=== PATIENT | female | born 1965 ===

== ENCOUNTER → 2020-06-17 10:34 | Outpatient (BNVA) | payer MEDICAID, SELFPAY | PROVIDERS: PCP Nurse Practitioner Family; Referring Provider Nurse Practitioner Family; Visit Provider Orthopaedic Surgery | DX: R20.0 Anesthesia of skin (principal) | CPT/HCPCS: 99212 ==

== ENCOUNTER 2020-06-23 15:51 | Outpatient (REF) | payer MEDICAID, SELFPAY ==
--- NOTE | 2020-06-23 16:00 | MR_ITS ---
EXAMINATION: MR CERVICAL SPINE WITHOUT CONTRAST CLINICAL INFORMATION: Anesthesia of skin. Self-reported neck pain and left shoulder pain. Self-reported left arm weakness and numbness. COMPARISON: MRI left shoulder 05/07/2020 TECHNIQUE: MRI of the cervical spine was obtained using routine sequences without contrast. FINDINGS: VERTEBRAL BODIES AND PARASPINAL SOFT TISSUES: Mild physiologic straightening of the normal cervical lordosis is noted and likely relates to patient positioning. Vertebral body height, alignment and marrow signal are within normal limits aside from minimal endplate discogenic marrow signal changes and a 7 mm diameter focus within the C7 vertebral body with intrinsic high T1-weighted signal intensity most likely representing a hemangioma. CERVICOMEDULLARY JUNCTION AND VISUALIZED POSTERIOR FOSSA: Normal. SPINAL LEVELS: C2-C3: Normal. Normal intervertebral discs. No central or foraminal stenoses. C3-C4: Minimal central stenosis secondary to a mild posterior broad-based disc-osteophyte complex. C4-C5: Minimal central stenosis secondary to a mild posterior broad-based disc-osteophyte complex. C5-C6: Normal intervertebral discs. No central or foraminal stenoses. C6-C7: Moderate left foraminal stenosis secondary to a focal left uncovertebral joint disc-osteophyte complex (series 3 image 5). No central or right-sided foraminal stenoses. C7-T1: No central or foraminal stenoses. Incidental 3 mm rounded T2 hyperintensity likely representing a perineural sheath cyst within the immediate left extraforaminal region. MR/MR cervical spine wo con IMPRESSION: C6-C7 moderate left foraminal stenosis secondary to a focal disc-osteophyte complex of the left uncovertebral joint. Findings may be associated with left C7 radiculopathy. Elsewhere in the cervical spine, minimal multilevel chronic spondylosis is noted without associated significant central or foraminal stenoses.
== END 2020-06-23 15:52 | disposition home or self-care (01) ==
LOC: HO.MRI 15:51
PROVIDERS: Visit Provider Orthopaedic Surgery
DX: R20.0 Anesthesia of skin (principal)
CPT/HCPCS: 72141

== ENCOUNTER → 2020-07-21 10:51 | Outpatient (BNVA) | payer MEDICAID, SELFPAY | PROVIDERS: Visit Provider Nurse Practitioner Family | DX: M47.812 Spondylosis without myelopathy or radiculopathy, cervical region (principal) | CPT/HCPCS: 99202 ==

== ENCOUNTER 2021-07-18 13:32 | Outpatient (REF) | payer MEDICAID, SELFPAY ==
--- NOTE | ~2021-07-18 | MM_ITS ---
EXAMINATION: MM SCREENING DIGITAL BREAST TOMOSYNTHESIS, BILATERAL CLINICAL INFORMATION: Screening. Asymptomatic. Benign left ultrasound guided biopsy 10/20/2013 (benign breast tissue with focal acute inflammation and patchy marked give chronic inflammation in association with collections of macrophages. The findings are suggestive of an inflammatory reaction to a ruptured duct or cyst. No atypia or malignancy). The lifetime risk of breast cancer based on the Tyrer-Cuzick Model is 7%. COMPARISON: Mammography: 01/22/2018, 12/16/2015, 10/10/2013 TECHNIQUE: Digital breast tomosynthesis is performed in both the craniocaudal and mediolateral oblique views along with computer-aided detection (CAD). Synthesized 2D images are generated from the tomosynthesis. FINDINGS: There are scattered areas of fibroglandular density (ACR BI-RADS breast composition Category b). The right breast is unremarkable. There is no developing density or interval mass or abnormal calcification. The bilateral axilla and skin contours are unremarkable. Left breast has biopsy clip marker mid upper outer quadrant. There are focal grouped ectatic ducts with probable associated calcifications in the mid central 3:00 left breast more conspicuous on current study. Patient will be recalled for additional imaging. MM/MM tomosynthesis screening BI IMPRESSION: 1. Left: Focal grouped ectatic ducts mid central 3:00 position with calcifications. 2. Right: No mammographic evidence of malignancy. ASSESSMENT: BI-RADS 0: Incomplete - Need Additional Imaging Evaluation RECOMMENDATION: 1. Additional views of the left breast (magnification CC, magnification ML). 2. Targeted ultrasound if warranted after review of the additional views. 3. Radiology department staff will contact the patient for additional imaging. This patient's information was entered into a reminder system with a target due date for their next mammogram.
== END 2021-07-18 13:33 | disposition home or self-care (01) ==
LOC: HO.MAMMO 13:32
PROVIDERS: Visit Provider Nurse Practitioner Primary Care
DX: Z12.31 Encounter for screening mammogram for malignant neoplasm of breast (principal)
CPT/HCPCS: 77063; 77067

== ENCOUNTER 2021-07-21 10:15 | Outpatient (REF) | payer MEDICAID, SELFPAY ==
--- NOTE | ~2021-07-21 | US_ITS ---
EXAMINATION: US DIAGNOSTIC ULTRASOUND BREAST, LEFT CLINICAL INFORMATION: Density with calcifications.. COMPARISON: Mammography of same day as well as studies dating back to July 30, 2012. TECHNIQUE: Ultrasound of the breast is performed with real-time snow scale imaging and color Doppler. FINDINGS: Targeted left breast ultrasound did not demonstrate a focal mass. No abnormal cystic or solid mass is appreciated. No abnormal shadowing region is appreciated. No edematous change or hyperemia is appreciated. Results are discussed with the patient at time of visit. US/US breast LT limited IMPRESSION: Density containing multiple grouped indeterminate microcalcifications for which stereotactic core biopsy is recommended. No ultrasound correlate was identified. ASSESSMENT: BI-RADS 4: Suspicious RECOMMENDATION: Stereotactic core biopsy mass with calcifications. The above recommendation was discussed with the patient at time of study. Mammography Center coordinator called the above recommendation to Josey at referring provider's office.
--- NOTE | ~2021-07-21 | MM_ITS ---
EXAMINATION: MM DIAGNOSTIC DIGITAL MAMMOGRAPHY, LEFT CLINICAL INFORMATION: Left breast ill-defined focal mass with microcalcifications. COMPARISON: Mammography: 07/18/2021 and studies dating back to 07/30/2012. TECHNIQUE: Digital mammography is performed in the following views: Spot magnification views of the left breast in craniocaudal and 90 degree mediolateral views. FINDINGS: The breasts are heterogeneously dense, which may obscure small masses (ACR BI-RADS breast composition Category c). The serpiginous density about the lateral aspect of the mid left breast has numerous indeterminate calcifications within it without definite appearance of dystrophic calcifications. There is no layering of calcifications on 90 degree mediolateral view. Targeted left breast ultrasound did not demonstrate a focal mass. No abnormal cystic or solid mass is appreciated. No abnormal shadowing region is appreciated. No edematous change or hyperemia appreciated. Results are discussed with the patient at time of visit. MM/MM added views LT IMPRESSION: Density containing multiple grouped indeterminate microcalcifications for which stereotactic core biopsy is recommended. No ultrasound correlate was identified. ASSESSMENT: BI-RADS 4: Suspicious RECOMMENDATION: Stereotactic core biopsy mass with calcifications. The above recommendation was discussed with the patient at time of study. Mammography Center coordinator called the above recommendation to Josey at referring provider's office.
== END 2021-07-21 10:16 | disposition home or self-care (01) ==
LOC: HO.MAMMO 10:15
PROVIDERS: Visit Provider Nurse Practitioner Primary Care
DX: N63.20 Unspecified lump in the left breast, unspecified quadrant (principal); R92.0 Mammographic microcalcification found on diagnostic imaging of breast
CPT/HCPCS: 76642; 77065

== ENCOUNTER 2021-07-29 09:56 | Outpatient (REF) | payer MEDICAID, SELFPAY ==
--- NOTE | ~2021-07-29 | MM_ITS ---
EXAMINATION: STEREOTACTIC TOMOSYNTHESIS-GUIDED VACUUM-ASSISTED BREAST BIOPSY, LEFT SPECIMEN RADIOGRAPH, LEFT POST PROCEDURE DIGITAL MAMMOGRAM, LEFT CLINICAL INFORMATION: Irregular density with microcalcifications inferior aspect of the left breast. COMPARISON: July 21, 2021 and studies dating back to July 30, 2012. TECHNIQUE/PROCEDURE: Informed consent was obtained from the patient after discussion of the benefits, risks, and alternatives to biopsy today. Patient appeared to understand. Gave opportunity for questions. Patient signed consent form. BIOPSY TABLE: [place] [employer]one Biopsy System. LESION: Mass with microcalcifications. LOCAL ANESTHESIA: 8 mL 1% lidocaine; 16 mL 1% lidocaine with epinephrine. DERMATOTOMY: Single skin fabio dermatotomy performed. NEEDLE: [employer] Eviva 9-gauge vacuum assisted core biopsy device. APPROACH: Inferior. TARGETING: Digital breast tomosynthesis used for targeting. CORES: 20. CLIP: [employer] SecurMark Cylinder-shaped marker. SPECIMEN RADIOGRAPH: Specimen radiograph is taken in separate room using digital mammography. The index calcifications are in the excised cores. POST PROCEDURE UNILATERAL DIGITAL MAMMOGRAM: The post biopsy mammogram is performed in separate room using separate digital mammography equipment from the biopsy procedure. 2 views are obtained. There are scattered areas of fibroglandular density (breast composition category: b). The clip marker is in position. The calcifications are decreased at the biopsy site. No gross hematoma. The patient tolerated the procedure well. No immediate complications. Home instructions reviewed with the patient. Final pathology results are pending. MM/MM stereotactic biopsy LT IMPRESSION: 1. Digital tomosynthesis-guided core biopsy left breast with clip placement. 2. Specimen radiograph taken and post procedure mammogram. There is satisfactory positioning of the biopsy clip. 3. Final pathology results pending. An addendum report will be issued.
[2021-07-29] MEDS: Lidocaine HCl 1 % 20 ML VIAL 10 ML SUBCUT (12:35)
[2021-07-29] MEDS: Lidocaine HCl 1%/Epi 1:100,000 20 ML VIAL SUBCUT (12:36)
== END 2021-07-29 09:57 | disposition home or self-care (01) ==
LOC: HO.MAMMO 09:56
PROVIDERS: PCP Nurse Practitioner Primary Care; Visit Provider Surgery
DX: R92.1 Mammographic calcification found on diagnostic imaging of breast (principal)
CPT/HCPCS: 19081; 88305; 88341; 88342; 88360; A4648

== ENCOUNTER → 2021-08-02 08:44 | Outpatient (BNVA) | payer MEDICAID, SELFPAY | PROVIDERS: PCP Nurse Practitioner Primary Care; Referring Provider Nurse Practitioner Primary Care; Visit Provider Surgery | DX: R92.1 Mammographic calcification found on diagnostic imaging of breast (principal) | CPT/HCPCS: 99202 ==

== ENCOUNTER → 2021-08-04 10:33 | Outpatient (BNVA) | payer MEDICAID, SELFPAY | PROVIDERS: PCP Nurse Practitioner Primary Care; Referring Provider Nurse Practitioner Primary Care; Visit Provider Surgery | DX: D05.12 Intraductal carcinoma in situ of left breast (principal) | CPT/HCPCS: 99212 ==

== ENCOUNTER 2021-09-14 06:49 | Day surgery (SDC) | payer MEDICAID, SELFPAY ==
[2021-08-18 14:09] VITALS: BMI 27.4
--- NOTE | 2021-09-13 09:12 | HO.ANESPROP2 ---
Documented by User: Zulema Foley NP 09/13/21 09:15 HPI - Anesthesia Eval Consult details Narrative: 56yo F for Left Breast Biopsy Needle Localization, Breast Lumpectomy PMFSH Active Problems Active Problems: All Active Problems (Updated 08/18/21 @ 14:08 by Argenis Torres RN) Spondylosis of cervical joint without myelopathy (Acute) Breast calcification, left (Acute) Ductal carcinoma in situ of left breast (Acute) Arm numbness left (Acute) Past Medical History Medical History Arm numbness left Cervical spinal stenosis Depression GERD (gastroesophageal reflux disease) Surgical History Surgical History History of pterygium excision Social History Social History Alcohol intake: never Patient Tobacco Use Status: Current someday Tobacco user Tobacco use type: Cigarette Use of substances other than those prescribed or required for medical reasons: No Advance Directives Information Provided: Yes (informational brochure mailed) Advance Directives on File: No Current occupational status: unemployed Current occupation: Left Handed Meds Allergies Allergy/AdvReac Type Severity Reaction Status Date / Time No Known Allergies Allergy Verified 08/04/21 10:54 Home Medications Medication Instructions Recorded Confirmed Last Taken Type bupropion HBr PO 06/16/20 08/04/21 Unknown History cyclobenzaprine 5 mg tablet 5 mg PO BEDTIME 06/16/20 08/18/21 Unknown History omeprazole 20 mg capsule,delayed 20 mg PO DAILY 06/16/20 08/18/21 Unknown History release duloxetine 30 mg capsule,delayed 1 cap PO DAILY 08/18/21 08/18/21 Unknown History release albuterol sulfate 90 mcg/actuation 2 puff PO Q4H PRN 09/14/21 09/14/21 Unknown History aerosol inhaler (ProAir HFA) Exam Exam Date and Time: September 13, 2021 0912 Height,Weight and Vital Signs: Height 5 ft 5 in Weight 74.843 kg Assessment and Plan Assessment Anesthesia Assessment: Chart Reviewed Documented by User: Cayla Finley MD 09/14/21 09:28 [facility] Active Problems Active Problems: All Active Problems (Updated 08/18/21 @ 14:08 by Argenis Torres RN) Spondylosis of cervical joint without myelopathy (Acute) Breast calcification, left (Acute) 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 Inhaler prn Past Medical History Medical History Arm numbness left Cervical spinal stenosis Depression GERD (gastroesophageal reflux disease) Family History Family history of problems with anesthesia: No Surgical History Surgical History History of pterygium excision History of Problems with Anesthesia: No Social History Social History Alcohol intake: never Patient Tobacco Use Status: Current someday Tobacco user Tobacco use type: Cigarette Use of substances other than those prescribed or required for medical reasons: No Advance Directives Information Provided: Yes (informational brochure mailed) Advance Directives on File: No Current occupational status: unemployed Current occupation: Left Handed Meds Allergies Allergy/AdvReac Type Severity Reaction Status Date / Time No Known Allergies Allergy Verified 08/04/21 10:54 Home Medications Medication Instructions Recorded Confirmed Last Taken Type bupropion HBr PO 06/16/20 08/04/21 Unknown History cyclobenzaprine 5 mg tablet 5 mg PO BEDTIME 06/16/20 08/18/21 Unknown History omeprazole 20 mg capsule,delayed 20 mg PO DAILY 06/16/20 08/18/21 Unknown History release duloxetine 30 mg capsule,delayed 1 cap PO DAILY 08/18/21 08/18/21 Unknown History release albuterol sulfate 90 mcg/actuation 2 puff PO Q4H PRN 09/14/21 09/14/21 Unknown History aerosol inhaler (ProAir HFA) Exam Height,Weight and Vital Signs: Height 5 ft 5 in Weight 74.843 kg Vital Signs Temp Pulse Resp BP Pulse Ox 09/14/21 07:33 98.1 F 72 16 117/78 97 Airway Mallampati Class: II TM Dist: >3cm Neck ROM: Full Loose/Missing/Broken Teeth: No Heart: RRR Lungs: CTAB Assessment and Plan Assessment Anesthesia Assessment: Anesthesia Plan Discussed Final Anesthetic Review Family History of Problems with Anesthesia: No History of Problems with Anesthesia: No NPO: Yes ASA Class: II Final Preanesthetic Review: No Changes in Pt Med Stat, Meds/Allgs Chart Reviewed, Consent Obtained/Reviewed and Anes Risks/Benef Reviewed Patient Risk: Low Procedure Risk: Low Assessment/Block/Sedation in SS: Assess/Block/Sedation-SS Anesthetic Plan Anesthetic Plan: GA Disposition: Standard PACU
[2021-09-14] VITALS (8 sets, daily range): BP systolic 112–123; BP diastolic 61–78; PULSE 55–72; RESP 12–16; TEMP 36.3–36.9; O2SAT 97–100
--- NOTE | ~2021-09-14 | MM_ITS ---
EXAMINATION: MM MAMMOGRAM GUIDED NEEDLE LOCALIZATION BREAST, LEFT MM NEEDLE LOCALIZATION SPECIMEN FROM THE LEFT BREAST CLINICAL INFORMATION: Recent diagnosis DCIS left breast mid 3:00 COMPARISON: Stereotactic biopsy 07/29/2021; mammography 07/21/2021, 07/18/2021, 01/22/2018. TECHNIQUE NEEDLE LOC: Proper informed consent is obtained from the patient after discussion of the procedure, potential risks and complications, and alternatives including declining the procedure today. Patient was given an opportunity for questions. The patient appeared to understand. The patient consented to the procedure and signed the consent form. Hospital provided burn crew member assisted for the consent and throughout the procedure. GUIDANCE: Digital mammography. Pre-localization CC and ML views obtained to reassess area. APPROACH: Lateral Medial. TARGET: Cylinder shaped biopsy clip marker and subtle duct ectasia. Bracket lesion posterior and anterior to the clip marker. ANESTHESIA: Carbonated lidocaine 1%: 9 mL (total divided between the two sites). LOCALIZATION MARKERS: Maynard Weditok 7.5 cm x 2 needles for bracketing. The skin is prepped and local anesthesia administered. The 2 localization needles are positioned and locations assessed with mammography. The wires are hooked into position. Shumway needle protector placed. The patient tolerated the procedure well and had no immediate complication. Localization procedure findings discussed with Dr. Li prior to surgery. TECHNIQUE SPECIMEN RADIOGRAPH: Imaging of the excised specimen is performed using digital mammography in 1 view. FINDINGS SPECIMEN RADIOGRAPH: The specimen shows the distal needles and distal hookwires are delivered intact. One of the localization needles sectioned in OR prior to delivery to radiology. The biopsy clip marker is contained within the specimen. There are fine calcifications and fibroglandular densities also identified in the specimen. Results were called to Dr. Silvestre Li in the operating room at the time of imaging. MM/MM needle loc LT IMPRESSION: 1. Status post left breast needle localization with wire hooked into position. 2. Post operative specimen radiograph obtained.
--- NOTE | 2021-09-14 08:53 | MHC.SHP ---
Pre-Procedural Eval Section A Date of Service: 09/14/21 The patient is an INPATIENT: No Changes since office visit: Yes Patient answered all questions; No Cold of Flu in the past 2 weeks, No New Medical Problems and No Changes in Medication The History & Physical has been completed within 30 days and I have reviewed it.: Yes Section B Chief Complaint: Ductal carcinoma in situ of left breast Allergies: Allergies Allergy/AdvReac Type Severity Reaction Status Date / Time No Known Allergies Allergy Verified 08/04/21 10:54 Plan Diagnosis/Plan: Unchanged I have reviewed the history and physical and performed a pertinent physical examination on my patient. No changes have occurred unless specified.
[2021-09-14] MEDS: Lactated Ringers 1,000 ML 100 ML IVCONT (09:14)
[2021-09-14] MEDS: Lidocaine HCl 1 % 20 ML VIAL 16 ML SUBCUT (10:51)
--- NOTE | 2021-09-14 11:15 | P.OP_ITS ---
Operative Note Operative Note Date of Service: 09/14/21 Narrative: Preoperative diagnosis: Ductal carcinoma in situ left breast Postoperative diagnosis: same Procedure: left breast lumpectomy with needle localization Surgeon: Silvestre Li MD Director Service: Ena Colin PA-C Anesthesia: general LMA Indications for procedure: 56-year-old female patient presenting with a recent mammogram which revealed an area of density and microcalcification felt to be suspicious for malignancy. She subsequently underwent stereotactic guided core biopsy which revealed ductal carcinoma in situ Left breast. She presents today for a left breast lumpectomy with needle localization. Operative findings: Density and clip within specimen Specimen: left breast lumpectomy, anterior margin, posterior margin Estimated blood loss: 10 mL Complications: none Procedure details: patient was brought to the OR placed in a supine position. After administering general anesthesia the patient's left breast was prepped with ChloraPrep and draped in a sterile fashion. A surgical time-out was called the consent confirmed. Patient received preoperative antibiotics and Venodyne boots were placed. Local anesthesia consisting of Sensorcaine 0.5% was placed in a curvilinear fashion on the localized needles. Should be noted that there were 2 needles placed by Radiology. Using the more superior needle incision was created to included needle track of this superior needle. Superior and inferior skin flaps were then created with electrocautery. A core tissue surrounding the 2 localizing needles was then obtained. The biopsy continued down towards pectoralis muscle posteriorly. Specimen was sent for specimen x-ray which confirmed the marking clip within the specimen. Subsequent gross pathology did reveal a palpable density within the specimen consistent with the previously noted ductal carcinoma in situ. The margins were felt to be negative but close therefore anterior and posterior margins were recommended. A portion of the anterior and posterior margins were then reexcised and sent as separate specimens permanent examination. Adequate hemostasis was assured using electrocautery. The wounds were then irrigated with solution and suctioned dry. Deep breast tissue was then closed over the pectoralis muscle using interrupted 3-0 Polysorb sutures. Superficial breast tissue and dermis were then reapproximated using interrupted 3-0 Polysorb sutures. Skin was then closed using a running subcuticular suture. Steri- Strips and 2 x 2 gauze were then applied followed by Tegaderm. The patient tolerated the procedure well. Sponge, instrument, and needle counts were reported as correct. The patient was transferred to PACU in stable condition.
== END 2021-09-14 13:45 | disposition home or self-care (01) ==
PROVIDERS: PCP Nurse Practitioner Primary Care; Visit Provider Surgery
PROC: (CPT 19301; principal; 2021-09-14 09:00)
PROC: (CPT 19301; 2021-09-14 09:00)
DX: D05.12 Intraductal carcinoma in situ of left breast (principal); Z17.0 Estrogen receptor positive status [ER+]; Z98.890 Other specified postprocedural states; Z79.899 Other long term (current) drug therapy; F17.210 Nicotine dependence, cigarettes, uncomplicated
CPT/HCPCS: 19301; 19281; 88307; 88329; 88341; 88342; A4648; J0690; J1100; J1170; J1885; J2250; J2370; J2405; J2550; J3010

== ENCOUNTER → 2021-09-23 08:38 | Outpatient (BNVA) | payer MEDICAID, SELFPAY | PROVIDERS: PCP Nurse Practitioner Primary Care; Referring Provider Nurse Practitioner Primary Care; Visit Provider Surgery | DX: D05.12 Intraductal carcinoma in situ of left breast (principal); Z98.890 Other specified postprocedural states | CPT/HCPCS: 99212 ==

== ENCOUNTER → 2021-09-28 08:21 | Outpatient (BNV) | payer MEDICAID, SELFPAY | PROVIDERS: PCP Nurse Practitioner Primary Care; Referring Provider Surgery; Visit Provider Internal Medicine | DX: D05.12 Intraductal carcinoma in situ of left breast (principal); M85.80 Other specified disorders of bone density and structure, unspecified site | CPT/HCPCS: 99204; 99213; 99214 ==

== ENCOUNTER → 2021-10-27 14:41 | Outpatient (BNVA) | payer MEDICAID, SELFPAY | PROVIDERS: PCP Nurse Practitioner Primary Care; Visit Provider Surgery | DX: D05.12 Intraductal carcinoma in situ of left breast (principal); K21.9 Gastro-esophageal reflux disease without esophagitis; F17.210 Nicotine dependence, cigarettes, uncomplicated | CPT/HCPCS: 99212 ==

== ENCOUNTER 2021-12-21 07:55 | Outpatient (REF) | payer MEDICAID, SELFPAY ==
--- NOTE | ~2021-12-21 | MM_ITS ---
EXAMINATION: BONE DENSITOMETRY CLINICAL INDICATION: To start hormonal suppression. COMPARISON: This is the patient's baseline examination. TECHNIQUE: Using a [employer] DXA System (software version: 13.1) manufactured by [employer], dual-energy x-ray absorptiometry was performed of the lumbar spine and left hip. The images are of good technical quality. Summary results are attached. FINDINGS: AP SPINE L1-L4: BMD 1.135 g/cm2, Z-score 0.0, T-score -0.4, normal. LEFT FEMUR, NECK: BMD 0.880 g/cm2, Z-score -0.4, T-score -1.1, osteopenia. LEFT FEMUR, TOTAL: BMD 0.936 g/cm2, Z-score -0.2, T-score -0.6, normal. IDENTIFIED RISK FACTORS: Low calcium intake, menopause. HISTORY OF FRACTURE: None listed. MEDICATIONS: None listed. MM/XR DEXA axial skeleton IMPRESSION: 1. DIAGNOSIS: Osteopenia based on the lowest T-score value of -1.1 in the femoral neck applying World Health Organization criteria. 2. 10-YEAR FRACTURE RISK PREDICTION, FRAX: Major osteoporotic fracture (clinical spine, forearm, hip or shoulder) 3.2%. Hip fracture 0.2%. 3. Treatment Recommendations: NOF guidelines recommend consideration for treatment in postmenopausal women and men age 50 and older presenting with the following: -A hip or vertebral (clinical or morphometric) fracture. -T-score less than or equal to -2.5 at the femoral neck or spine after appropriate evaluation to exclude secondary causes. -Low bone mass at the hip or spine and a 10-year fracture probability by FRAX of greater than or equal to 3% for hip fracture or greater than or equal to 20% for major osteoporotic fracture based on the [place] adapted WHO algorithm. 4. Other Recommendations: All treatment decisions require clinical judgment and consideration of individual patient factors, including patient preferences, comorbidities, previous drug use, risk factors not captured in the FRAX model (e.g. frailty, falls, vitamin D deficiency, increased bone turnover, interval significant decline in bone density) and possible under or overestimation of fracture risk by FRAX. Additional medical evaluation for secondary cause of low bone mineral density may be appropriate. FUTURE SCAN RECOMMENDATION: People with diagnosed cases of osteoporosis or at high risk for fracture should have regular bone mineral density tests. For patients eligible for Medicare, routine testing is allowed once every 2 years. The testing frequency can be increased to one year for patients who have rapidly progressing disease, those who are receiving or discontinuing medical therapy to restore bone mass, or have additional risk factors.
== END 2021-12-21 07:56 | disposition home or self-care (01) ==
LOC: HO.MAMMO 07:55
PROVIDERS: PCP Nurse Practitioner Family; Visit Provider Internal Medicine
DX: Z13.820 Encounter for screening for osteoporosis (principal); M89.8X9 Other specified disorders of bone, unspecified site; Z78.0 Asymptomatic menopausal state
CPT/HCPCS: 77080

== ENCOUNTER → 2022-02-10 11:25 | Outpatient (BNVA) | payer MEDICAID, SELFPAY | PROVIDERS: PCP Nurse Practitioner Primary Care; Visit Provider Surgery | DX: D05.12 Intraductal carcinoma in situ of left breast (principal); Z92.3 Personal history of irradiation | CPT/HCPCS: 99212 ==

== ENCOUNTER → 2022-05-16 10:45 | Outpatient (BNVA) | payer MEDICAID, SELFPAY | PROVIDERS: PCP Nurse Practitioner Primary Care; Referring Provider Nurse Practitioner Primary Care; Visit Provider Surgery | DX: D05.12 Intraductal carcinoma in situ of left breast (principal); Z79.811 Long term (current) use of aromatase inhibitors; Z17.0 Estrogen receptor positive status [ER+] | CPT/HCPCS: 99212 ==

== ENCOUNTER 2022-08-18 10:41 | Outpatient (REF) | payer MEDICAID, SELFPAY ==
--- NOTE | ~2022-08-18 | MM_ITS ---
EXAMINATION: MM DIAGNOSTIC DIGITAL BREAST TOMOSYNTHESIS, BILATERAL CLINICAL INFORMATION: Due for yearly. Left lumpectomy for DCIS 09/14/2021. COMPARISON: Mammography: 09/14/2021, 07/29/2021, 07/21/2021, 07/18/2021, 01/22/2018 TECHNIQUE: Digital breast tomosynthesis is performed in both the craniocaudal and mediolateral oblique views along with computer-aided detection (CAD). Synthesized 2D images are generated from the tomosynthesis. Additional magnification left CC and magnification left ML views are obtained. FINDINGS: There are scattered areas of fibroglandular density (ACR BI-RADS breast composition Category b). Right breast parenchymal pattern is similar to prior exams. There is no interval mass or developing density or abnormal calcifications. The axilla and skin contours are unremarkable. There are interval post therapy changes on the left with reduced breast size and scarring. Old biopsy clip marker present central mid outer left breast. There are 2 benign oil cysts just anterior to the inferior to the old clip marker. There are benign appearing calcifications along the rim of the oil cyst which will be reassessed again in 6 months. There are other scant scattered calcifications as before. The axilla is unremarkable. Results are provided to the patient at time of visit by the technologist. MM/MM tomosynthesis diagnostic BI IMPRESSION: -No mammographic evidence of malignancy. -Post therapy changes left breast. Benign-appearing calcifications likely related to oil cyst. ASSESSMENT: BI-RADS 3: Probably Benign RECOMMENDATION: Short interval follow-up left mammography in 6 months. This patient's information was entered into a reminder system with a target due date for their next mammogram.
== END 2022-08-18 10:42 | disposition home or self-care (01) ==
LOC: HO.MAMMO 10:41
PROVIDERS: Visit Provider Nurse Practitioner Primary Care
DX: Z98.890 Other specified postprocedural states (principal); Z85.3 Personal history of malignant neoplasm of breast
CPT/HCPCS: 77062; 77066

== ENCOUNTER → 2022-11-14 10:52 | Outpatient (BNVA) | payer MEDICAID, SELFPAY | PROVIDERS: PCP Nurse Practitioner Primary Care; Visit Provider Surgery | DX: D05.12 Intraductal carcinoma in situ of left breast (principal) | CPT/HCPCS: 99212 ==

== ENCOUNTER 2023-02-08 12:53 | Emergency (ER) | payer MEDICAID, SELFPAY ==
--- NOTE | ~2023-02-08 | CT_ITS ---
EXAMINATION: CT ABDOMEN AND PELVIS WITHOUT CONTRAST CLINICAL INFORMATION: Right flank pain. COMPARISON: None available. TECHNIQUE: Multidetector volumetric imaging was performed from the superior aspect of the liver through the pubic symphysis. Sagittal and coronal reformatted images were obtained on the technologist's workstation. This CT examination was performed using dose optimization techniques as appropriate, variously including the following: *Automated exposure control *Adjustment of mA and/or kV according to patient size (this includes techniques or standardized protocols for targeted exams where dose is matched to indication/reason for exam; i.e. extremities or head) *Use of iterative reconstruction technique DLP: 520 mGy-cm FINDINGS: LUNG BASES: The visualized lung bases are unremarkable. LIVER, GALLBLADDER, AND BILIARY TREE: The liver is normal in size, shape, and attenuation. Within the anterior segment of the right hepatic lobe (3:14), a 5 mm low-attenuation probable cyst is seen, too small to fully characterize with CT. No new focal hepatic lesion or biliary ductal dilatation is present. The gallbladder is unremarkable with no evidence of radiopaque gallstones, gallbladder wall thickening, or obvious pericholecystic inflammatory changes. PANCREAS: Unremarkable. SPLEEN: Unremarkable. ADRENAL GLANDS: Unremarkable. KIDNEYS AND URETERS: The kidneys are normal in size, shape, and attenuation. No hydronephrosis, hydroureter, or calculi seen. There are small pelvic phleboliths. No perinephric stranding. BLADDER: Unremarkable. GASTROINTESTINAL TRACT: There is mild diverticulosis, without acute diverticulitis. No bowel obstruction, free intraperitoneal air or abscess is seen. There is no focal bowel wall thickening. The vermiform appendix appears normal. ABDOMINAL WALL: There is a tiny fat-containing umbilical hernia. LYMPH NODES: Normal. VASCULAR: There is mild aortoiliac atherosclerotic calcification. No abdominal aortic aneurysm is seen. PELVIC VISCERA: The uterus and adnexa are unremarkable. OSSEOUS STRUCTURES: There is multi-level mild thoracolumbar spondylosis. A benign, stable bone island is seen within the right femoral head. No acute or aggressive osseous abnormality is seen. CT/CT abdomen pelvis wo IV con IMPRESSION: 1. No urinary calculus or obstructive uropathy is seen bilaterally. 2. A 5 mm low-attenuation probable cyst or benign hemangioma is seen within the anterior segment of the right hepatic lobe, too small for full characterization with CT. This is not seen with certainty on the comparison CT examination. If of clinical concern (i.e., history of hepatocellular disease or known malignancy), this can be further evaluated with ultrasound or MRI. 3. There is mild diverticulosis, without acute diverticulitis. 4. No abdominopelvic lymphadenopathy or ascites is seen. 5. There is no acute or aggressive osseous finding. Fleischner guidelines were followed.
[2023-02-08 12:55] VITALS: BP 121/82; PULSE 58; RESP 18; TEMP 35.8; O2SAT 100; BMI 25.6
--- NOTE | 2023-02-08 12:58 | ECG_ITS ---
Test Reason : DIZZINESS Blood Pressure : / mmHG Vent. Rate : 066 BPM Atrial Rate : 066 BPM P-R Int : 136 ms QRS Dur : 086 ms QT Int : 414 ms P-R-T Axes : 062 002 030 degrees QTc Int : 434 ms Normal sinus rhythm Low voltage QRS Septal infarct , age undetermined Abnormal ECG When compared to the previous EKG of No significant changes seen
--- NOTE | 2023-02-08 12:59 | ED.GENADULT ---
[facility] - General Adult General Chief complaint: Nausea/Vomiting/Diarrhea Stated complaint: vomiting Time Seen by Provider: 02/08/23 16:46 Source: patient and family Mode of arrival: ambulatory History of Present Illness HPI narrative: 57-year-old female who reports right flank pain that started this morning but denies history of fever, chills, renal colic, denies any dysuria and then took 800 mg of ibuprofen and promptly developed acute epigastric discomfort with multiple episodes of nausea and vomiting. Related Data Home Medications Medication Instructions Recorded Confirmed cyclobenzaprine 5 mg tablet 5 mg PO BEDTIME 06/16/20 12/28/22 duloxetine 30 mg capsule,delayed 1 cap PO DAILY 08/18/21 12/28/22 release albuterol sulfate 90 mcg/actuation 2 puff PO Q4H PRN wheezing 09/14/21 12/28/22 aerosol inhaler (ProAir HFA) ibuprofen 200 mg PO BID PRN Pain 09/28/21 12/28/22 meloxicam 7.5 mg tablet 7.5 mg PO DAILY 09/28/21 12/28/22 omeprazole 20 mg capsule,delayed 1 cap PO DAILY 02/20/22 12/28/22 release Previous Rx's Medication Instructions Recorded letrozole 2.5 mg tablet 2.5 mg PO DAILY #60 tabs 12/21/21 ergocalciferol (vitamin D2) 1,250 1,250 mcg PO QWEEK #6 caps 02/10/22 mcg (50,000 unit) capsule (Vitamin D2) breast prosthetic #2 ea 05/16/22 post-lumpectomy bra #2 ea 05/16/22 omeprazole 40 mg capsule,delayed 40 mg PO DAILY #30 caps 02/08/23 release sucralfate 100 mg/mL oral 10 ml PO BID #420 mL 02/08/23 suspension (Carafate) Allergies Allergy/AdvReac Type Severity Reaction Status Date / Time No Known Allergies Allergy Verified 02/08/23 12:55 Review of Systems Review of Systems: Pertinent positives and negatives as stated in [facility] Past Medical History Source: nursing notes reviewed Medical History Arm numbness left Asthma Cervical spinal stenosis Depression GERD (gastroesophageal reflux disease) Surgical History History of pterygium excision S/P lumpectomy, left breast (09/14/21) Family History Family History Maternal Grandmother Stomach cancer Social History Social History Household Members: Children Housing: Apartment Are you a primary hospice patient care secretary to a significant other at home: No Do you presently have visiting nurse or other home services: No Alcohol intake: never Patient Tobacco Use Status: Former Tobacco user Quit Date: 12/2021 Tobacco use type: Cigarette Advance Directives: No Advance Directives Information Provided: No service: No Current occupational status: unemployed Current occupation: Left Handed Physical Exam ED Vital Signs: Vital Signs - 24 hr 02/08/23 12:55 02/08/23 18:01 02/08/23 18:01 Temperature 96.4 F L Pulse Rate 58 69 65 Respiratory Rate 18 Blood Pressure 121/82 134/72 125/83 Pulse Oximetry 100 Oxygen Delivery Method Room Air 02/08/23 18:01 02/08/23 18:03 02/08/23 20:21 Temperature 98.3 F Pulse Rate 70 69 61 Respiratory Rate 16 18 Blood Pressure 134/90 H 134/72 124/69 Pulse Oximetry 98 Oxygen Delivery Method Room Air BMI result Body Mass Index 25.6 VITAL SIGNS: Reviewed. GENERAL: Well developed, well nourished, in moderate distress. HEAD: Normocephalic/atraumatic, EYES: PERRLA, EOMI EARS: Ext canals without abnormality NOSE: Nares patent bilateral OROPHARYNX: no oral lesions noted, posterior pharynx clear NECK: Supple, no adenopathy LUNGS: Normal breath sounds. No adventitious sounds or accessory muscle use. SpO2<100> CARDIOVASCULAR: Regular rate and rhythm without noted murmurs ABDOMEN: Soft, epigastric discomfort without rebound, non-distended with bowel sounds. MUSCULOSKELETAL: No tenderness, deformities, or effusions noted on gross inspection. EXTREMITIES: No cyanosis, clubbing or edema. SKIN: Inspection of the skin reveals no rashes NEUROLOGIC: Alert and oriented x 4. Strength and sensation to light touch were grossly intact x 4. Course Course Course Narrative: I attest to this time spent taking care of the patient, obtaining history, physical, reviewing labs, imaging, speaking to my attending, speaking to specialist. 57 yo f hx of breast cancer s/p lumpectomy of left breast on 09/14/21 presents w/ epigastric pain, nausea, vomiting and light headedness since 0600. No sick contacts. Smokes marijuanna at times not today or yesterday though. Doesnt drink alcohol. Plan- labs, ua, zofran Medications Administered Discontinued Medications Generic Name Dose Route Start Last Admin Trade Name Josep PRN Reason Stop Dose Admin Diphenhydramine HCl 25 mg 02/08/23 16:49 02/08/23 17:22 Diphenhydramine Hcl 50 Mg/Ml Vial IVPUSH 02/08/23 16:50 25 mg ONCE ONE Administration Famotidine 20 mg 02/08/23 19:20 02/08/23 19:29 Famotidine/Pf 20 Mg/2 Ml Vial IVPUSH 02/08/23 19:21 20 mg ONCE ONE Administration Famotidine 20 mg 02/08/23 20:06 02/08/23 20:27 Famotidine/Pf 20 Mg/2 Ml Vial IVPUSH 02/08/23 20:07 20 mg ONCE ONE Administration Sodium Chloride 1,000 mls @ 999 mls/hr 02/08/23 17:30 02/08/23 18:12 Ns IV 02/08/23 18:30 999 mls/hr .Q1H1M CYDNEY Administration Ketorolac Tromethamine 15 mg 02/08/23 17:01 02/08/23 17:21 Ketorolac Tromethamine 30 Mg/Ml Vial IVPUSH 02/08/23 17:02 15 mg ONCE ONE Administration Metoclopramide HCl 10 mg 02/08/23 16:49 02/08/23 17:22 Metoclopramide Hcl 10 Mg/2 Ml Vial IVPUSH 02/08/23 16:50 10 mg ONCE ONE Administration Ondansetron HCl 4 mg 02/08/23 13:00 02/08/23 14:07 Ondansetron Odt 4 Mg Tab.Rapdis TRANSLINGU 02/08/23 13:01 4 mg ONCE ONE Administration Ondansetron HCl 4 mg 02/08/23 16:49 02/08/23 17:21 Ondansetron Hcl 4 Mg/2 Ml Vial IVPUSH 02/08/23 16:50 4 mg ONCE ONE Administration Sucralfate 1 gm 02/08/23 19:20 02/08/23 19:29 Sucralfate Oral Suspension 1 Gm/10 Ml Oral.Susp PO 02/08/23 19:21 1 gm ONCE ONE Administration Medical Decision Making Medical Decision Making [facility] Narrative: 1731: 57-year-old female with history and clinical presentation DDX: Pyelonephritis, cholecystitis, pancreatitis, gastritis, UTI. 2000: Notified by nursing that patient's Iv infiltrated and unlikely that she got the IV Pepcid which was reordered. I reviewed all investigations to include imaging studies, there is no leukocytosis on hematologic studies in although there is a left shift this may be stress response due nausea and vomiting. Review of chemistries demonstrates a mildly elevated lipase which likely can resolve with rehydration. She is tolerating oral intake and is otherwise discharged home with instructions of gastritis/pancreatitis. No evidence suggest cholecystitis or pyelonephritis. Differential Diagnosis Please see the discussion above Admission/Observation Consideration of admission/observation: Escalation of care including admission/observation considered Lab Data Please see the discussion above 02/08/23 13:19 02/08/23 13:20 Labs: Lab Results 02/08/23 02/08/23 02/08/23 Range/Units 13:19 13:20 13:20 WBC 8.5 (4.8-10.8) X10*3/uL RBC 4.67 (4.20-5.50) X10*6/uL Hgb 14.6 (12.0-16.0) g/dl Hct 43.2 (37.0-47.0) % MCV 92.5 (80.0-98.0) fL MCH 31.3 (27.0-33.0) pg MCHC 33.8 (31.0-35.0) g/dl RDW 13.5 (11.0-16.0) % Plt Count 327 (160-400) X10*3/uL MPV 11.5 (9.4-12.3) fL Immature Gran % (Auto) 0.2 (0.0-0.4) % Neut % (Auto) 81.1 H (45-73) % Lymph % (Auto) 15.0 L (20-40) % [place] % (Auto) 3.0 (2-11) % Eos % (Auto) 0.2 (0-4) % Baso % (Auto) 0.5 (0-2) % Lymph # (Auto) 1.3 (1.2-4.9) X10*3/uL [place] # (Auto) 0.3 (0.1-1.2) X10*3/uL Eos # (Auto) 0.0 (0.0-0.4) X10*3/uL Baso # (Auto) 0.0 (0.0-0.2) X10*3/uL Abs Immat Gran (auto) 0.02 (0.00-0.03) X10*3/uL Absolute Neuts (auto) 6.9 (2.0-8.3) x10*3/uL Absolute Nucleated RBC 0.000 (0.0-0.012) X10*3/uL Nucleated RBC % (auto) 0.0 (0.0-0.2) /100WBC Sodium 141 (135-145) mmol/L Potassium 4.3 (3.3-5.1) mmol/L Chloride 105 (96-108) mmol/L Carbon Dioxide 26 (22-29) mmol/L Anion Gap 14 (12-20) BUN 13 (9-16) mg/dL Creatinine 0.80 (0.5-1.4) mg/dL Estim Creat Clear Calc 77.0 Estimated GFR > 60 Random Glucose 112 (60-115) mg/dL Calcium 10.3 H D (8.4-10.2) mg/dL Magnesium 2.2 (1.6-2.6) mg/dL Total Bilirubin 0.6 (0.0-1.0) mg/dL AST 22 (5-31) U/L ALT 25 (0-31) U/L Alkaline Phosphatase 64 (39-117) U/L Total Protein 7.5 (6.5-8.0) g/dL Albumin 4.1 (3.5-5.0) g/dL Lipase 81 H (8-78) U/L Beta HCG, Quant 4 mIU/mL Urine Color Urine Appearance Urine pH (5.0-9.0) Ur Specific [place] (1.005-1.025) Urine Protein (Neg-Trace) mg/dL Urine Glucose (UA) (Negative) mg/dL Urine Ketones (Negative) mg/dL Urine Blood (Negative) Urine Nitrite (Negative) Ur Leukocyte Esterase (Negative) Urine RBC (0-2) /HPF Urine WBC (0-5) /HPF Ur Squamous Epith Cells (0-2) /HPF Other Crystals Urine Bacteria (None Seen) Hyaline Casts (0-2) /LPF Urine Yeast Urine Opiates Screen (Not Detect) Urine Fentanyl Screen (Not Detect) Ur Barbiturates Screen (Not Detect) Ur Phencyclidine Scrn (Not Detect) Ur Amphetamines Screen (Not Detect) U Benzodiazepines Scrn (Not Detect) Urine Cocaine Screen (Not Detect) U Marijuana (THC) Screen (Not Detect) COVID-19 (REGULO) (Negative) COVID-19 Clin Com Influenza Type A (CLAUDIO) (Negative) Influenza Type B (CLAUDIO) (Negative) Influenza A & B Note 02/08/23 02/08/23 02/08/23 Range/Units 13:20 13:20 19:50 WBC (4.8-10.8) X10*3/uL RBC (4.20-5.50) X10*6/uL Hgb (12.0-16.0) g/dl Hct (37.0-47.0) % MCV (80.0-98.0) fL MCH (27.0-33.0) pg MCHC (31.0-35.0) g/dl RDW (11.0-16.0) % Plt Count (160-400) X10*3/uL MPV (9.4-12.3) fL Immature Gran % (Auto) (0.0-0.4) % Neut % (Auto) (45-73) % Lymph % (Auto) (20-40) % [place] % (Auto) (2-11) % Eos % (Auto) (0-4) % Baso % (Auto) (0-2) % Lymph # (Auto) (1.2-4.9) X10*3/uL [place] # (Auto) (0.1-1.2) X10*3/uL Eos # (Auto) (0.0-0.4) X10*3/uL Baso # (Auto) (0.0-0.2) X10*3/uL Abs Immat Gran (auto) (0.00-0.03) X10*3/uL Absolute Neuts (auto) (2.0-8.3) x10*3/uL Absolute Nucleated RBC (0.0-0.012) X10*3/uL Nucleated RBC % (auto) (0.0-0.2) /100WBC Sodium (135-145) mmol/L Potassium (3.3-5.1) mmol/L Chloride (96-108) mmol/L Carbon Dioxide (22-29) mmol/L Anion Gap (12-20) BUN (9-16) mg/dL Creatinine (0.5-1.4) mg/dL Estim Creat Clear Calc Estimated GFR Random Glucose (60-115) mg/dL Calcium (8.4-10.2) mg/dL Magnesium (1.6-2.6) mg/dL Total Bilirubin (0.0-1.0) mg/dL AST (5-31) U/L ALT (0-31) U/L Alkaline Phosphatase (39-117) U/L Total Protein (6.5-8.0) g/dL Albumin (3.5-5.0) g/dL Lipase (8-78) U/L Beta HCG, Quant mIU/mL Urine Color Yellow Urine Appearance Clear Urine pH 7.5 (5.0-9.0) Ur Specific [place] >= 1.030 H (1.005-1.025) Urine Protein 30 (1+) H (Neg-Trace) mg/dL Urine Glucose (UA) Negative (Negative) mg/dL Urine Ketones 80 (Negative) mg/dL Urine Blood Negative (Negative) Urine Nitrite Negative (Negative) Ur Leukocyte Esterase Negative (Negative) Urine RBC 6-10 H (0-2) /HPF Urine WBC 0-5 (0-5) /HPF Ur Squamous Epith Cells 3-5 (0-2) /HPF Other Crystals Present Urine Bacteria None Seen (None Seen) Hyaline Casts 0-2 (0-2) /LPF Urine Yeast Present Urine Opiates Screen (Not Detect) Urine Fentanyl Screen (Not Detect) Ur Barbiturates Screen (Not Detect) Ur Phencyclidine Scrn (Not Detect) Ur Amphetamines Screen (Not Detect) U Benzodiazepines Scrn (Not Detect) Urine Cocaine Screen (Not Detect) U Marijuana (THC) Screen (Not Detect) COVID-19 (REGULO) Negative (Negative) COVID-19 Clin Com See Note Influenza Type A (CLAUDIO) Negative (Negative) Influenza Type B (CLAUDIO) Negative (Negative) Influenza A & B Note See Note 02/08/23 Range/Units 19:50 WBC (4.8-10.8) X10*3/uL RBC (4.20-5.50) X10*6/uL Hgb (12.0-16.0) g/dl Hct (37.0-47.0) % MCV (80.0-98.0) fL MCH (27.0-33.0) pg MCHC (31.0-35.0) g/dl RDW (11.0-16.0) % Plt Count (160-400) X10*3/uL MPV (9.4-12.3) fL Immature Gran % (Auto) (0.0-0.4) % Neut % (Auto) (45-73) % Lymph % (Auto) (20-40) % [place] % (Auto) (2-11) % Eos % (Auto) (0-4) % Baso % (Auto) (0-2) % Lymph # (Auto) (1.2-4.9) X10*3/uL [place] # (Auto) (0.1-1.2) X10*3/uL Eos # (Auto) (0.0-0.4) X10*3/uL Baso # (Auto) (0.0-0.2) X10*3/uL Abs Immat Gran (auto) (0.00-0.03) X10*3/uL Absolute Neuts (auto) (2.0-8.3) x10*3/uL Absolute Nucleated RBC (0.0-0.012) X10*3/uL Nucleated RBC % (auto) (0.0-0.2) /100WBC Sodium (135-145) mmol/L Potassium (3.3-5.1) mmol/L Chloride (96-108) mmol/L Carbon Dioxide (22-29) mmol/L Anion Gap (12-20) BUN (9-16) mg/dL Creatinine (0.5-1.4) mg/dL Estim Creat Clear Calc Estimated GFR Random Glucose (60-115) mg/dL Calcium (8.4-10.2) mg/dL Magnesium (1.6-2.6) mg/dL Total Bilirubin (0.0-1.0) mg/dL AST (5-31) U/L ALT (0-31) U/L Alkaline Phosphatase (39-117) U/L Total Protein (6.5-8.0) g/dL Albumin (3.5-5.0) g/dL Lipase (8-78) U/L Beta HCG, Quant mIU/mL Urine Color Urine Appearance Urine pH (5.0-9.0) Ur Specific [place] (1.005-1.025) Urine Protein (Neg-Trace) mg/dL Urine Glucose (UA) (Negative) mg/dL Urine Ketones (Negative) mg/dL Urine Blood (Negative) Urine Nitrite (Negative) Ur Leukocyte Esterase (Negative) Urine RBC (0-2) /HPF Urine WBC (0-5) /HPF Ur Squamous Epith Cells (0-2) /HPF Other Crystals Urine Bacteria (None Seen) Hyaline Casts (0-2) /LPF Urine Yeast Urine Opiates Screen Not Detected (Not Detect) Urine Fentanyl Screen Not Detected (Not Detect) Ur Barbiturates Screen Not Detected (Not Detect) Ur Phencyclidine Scrn Not Detected (Not Detect) Ur Amphetamines Screen Not Detected (Not Detect) U Benzodiazepines Scrn Not Detected (Not Detect) Urine Cocaine Screen Not Detected (Not Detect) U Marijuana (THC) Screen Not Detected (Not Detect) COVID-19 (REGULO) (Negative) COVID-19 Clin Com Influenza Type A (CLAUDIO) (Negative) Influenza Type B (CLAUDIO) (Negative) Influenza A & B Note Independent Interpretation I performed an independent interpretation of an: EKG Interpretation: 1653: Sinus rhythm, HR-63, no STEMI, CA/QRS/QTC are within normal limits. Radiology Impression Radiologist Impression: My interpretation is in agreement with radiology's impression. There is no evidence to support cholecystitis or renal colic. External Record Review External record reviewed: Prior outpatient labs Discharge Plan Discharge Clinical Impression: Gastritis, Acute pancreatitis Patient Disposition: Home, Self-Care Instructions: Gastritis (ED), Pancreatitis (ED), Diet for Stomach Ulcers and Gastritis (ED) Additional Instructions: 1. Reanudar todos los medicamentos caseros seg?n lo prescrito. 2. Revise las recomendaciones diet?jean carlos para prevenir m?s s?ntomas. 3. Est? comenzando con medicamentos para el control del ?cido en dosis altas y debe evitar todo ibuprofeno/Motrin/Naprosyn/Aleve/aspirina/Excedrin. Regrese a la giselle de emergencias si los s?ntomas empeoran. 1. Resume all home medications as prescribed. 2. Please review the dietary recommendations to prevent any further symptoms. 3. You are being started on high-dose acid control medication in you should avoid all ibuprofen/Motrin/Naprosyn/Aleve/aspirin/Excedrin. Return to the ER for any worsening symptoms. Prescriptions: New omeprazole 40 mg capsule,delayed release(DR/EC) 40 mg PO DAILY Qty: 30 0RF sucralfate [Carafate] 100 mg/mL suspension 10 ml PO BID Qty: 420 0RF No Action (DME) breast prosthetic to fit See Rx Instructions .Route .MEDSUPPLY Qty: 2 0RF Rx Instructions: As directed (DME) post-lumpectomy bra to fit See Rx Instructions .Route .MEDSUPPLY Qty: 2 0RF Rx Instructions: As directed duloxetine 30 mg capsule,delayed release(DR/EC) 1 cap PO DAILY albuterol sulfate [ProAir HFA] 90 mcg/actuation HFA aerosol inhaler 2 puff PO Q4H PRN (Reason: wheezing) meloxicam 7.5 mg Tablet 7.5 mg PO DAILY ibuprofen 200 mg PO BID PRN (Reason: Pain) letrozole 2.5 mg Tablet 2.5 mg PO DAILY Qty: 60 3RF ergocalciferol (vitamin D2) [Vitamin D2] 1,250 mcg (50,000 unit) Capsule 1,250 mcg PO QWEEK Qty: 6 1RF omeprazole 20 mg capsule,delayed release(DR/EC) 1 cap PO DAILY cyclobenzaprine 5 mg tablet 5 mg PO BEDTIME Referrals: Cindy Zacarias, FILM EDITOR [Primary Care Provider] - Print Language: Turkmen
[2023-02-08 13:26] LABS: MANUAL DIFF FLAG NO
[2023-02-08 13:37] LABS: Basophils Percent Auto 0.5 % (0-2); Eosinophils Percent Auto 0.2 % (0-4); Hematocrit 43.2 % (37.0-47.0); Hemoglobin 14.6 g/dl (12.0-16.0); Imm Gran Abs Auto 0.02 X10*3/uL (0.00-0.03); Imm Gran Pct Auto 0.2 % (0.0-0.4); Lymphocytes Absolute Auto 1.3 X10*3/uL (1.2-4.9); Mean Corpuscular HGB Conc 33.8 g/dl (31.0-35.0); Mean Corpuscular Hemoglobin 31.3 pg (27.0-33.0); Mean Corpuscular Volume 92.5 fL (80.0-98.0); Mean Platelet Volume 11.5 fL (9.4-12.3); Monocytes Absolute Auto 0.3 X10*3/uL (0.1-1.2); Neutrophils Absolute Auto 6.9 x10*3/uL (2.0-8.3); Neutrophils Percent Auto 81.1 % (45-73); Platelet Count 327 X10*3/uL (160-400); Red Blood Count 4.67 X10*6/uL (4.20-5.50); Red Cell Distribution Width 13.5 % (11.0-16.0); White Blood Count 8.5 X10*3/uL (4.8-10.8)
[2023-02-08 13:44] LABS: COVID-19 Test Negative (Negative); IDNOW Serial# 08D9AD1C
[2023-02-08 13:46] LABS: Alanine Aminotransferase 25 U/L (0-31); Albumin Level 4.1 g/dL (3.5-5.0); Alkaline Phosphatase 64 U/L (39-117); Anion Gap 14 (12-20); Aspartate Amino Transferase 22 U/L (5-31); Bilirubin Total 0.6 mg/dL (0.0-1.0); Blood Urea Nitrogen 13 mg/dL (9-16); Calcium 10.3 mg/dL (8.4-10.2); Carbon Dioxide 26 mmol/L (22-29); Chloride 105 mmol/L (96-108); Estimated Glomerular Filt Rate > 60; Glucose Random 112 mg/dL (60-115); Lipase 81 U/L (8-78); Magnesium 2.2 mg/dL (1.6-2.6); Potassium 4.3 mmol/L (3.3-5.1); Sodium 141 mmol/L (135-145); Total Protein 7.5 g/dL (6.5-8.0)
[2023-02-08 13:47] LABS: IDNOW Serial# BCCEAD1C; Influenza A Negative (Negative); Influenza B2 Negative (Negative)
[2023-02-08 13:51] LABS: HCG Quantitative 4 mIU/mL
[2023-02-08] MEDS: Ondansetron ODT 4 MG TAB.RAPDIS TRANSLINGU (14:07)
--- NOTE | 2023-02-08 16:49 | ECG_ITS ---
Test Reason : MEDICATION Blood Pressure : / mmHG Vent. Rate : 063 BPM Atrial Rate : 063 BPM P-R Int : 142 ms QRS Dur : 086 ms QT Int : 458 ms P-R-T Axes : 074 006 038 degrees QTc Int : 468 ms Sinus rhythm with sinus arrhythmia with occasional Premature ventricular complexes Otherwise normal ECG When compared with ECG of 08-FEB-2023 13:07, Premature ventricular complexes are now Present Criteria for Septal infarct are no longer Present Referred By: Tiffany Millan Electronically Signed By:Jaycob Perez
--- NOTE | 2023-02-08 16:53 | PC.NURSE ---
pt states she was having L. sided mid back pain 0400 today, gave her 800 mg ibuprofen- onset n/v, upper abd. pain, states no blood in vomit.
[2023-02-08] MEDS: ondansetron HCL 4 MG/2 ML VIAL IVPUSH (17:21)
[2023-02-08] MEDS: Ketorolac Tromethamine 30 MG/ML VIAL 15 MG IVPUSH (17:21)
[2023-02-08] MEDS: Metoclopramide HCl 10 MG/2 ML VIAL IVPUSH (17:22)
[2023-02-08] MEDS: diphenhydrAMINE HCL 50 MG/ML VIAL 25 MG IVPUSH (17:22)
[2023-02-08 18:01] VITALS: BP 125/83; BP 134/72; BP 134/90; PULSE 65; PULSE 69; PULSE 70
--- NOTE | 2023-02-08 18:02 | MHC.EDTECH ---
Patient states she does not need to urinate at this time.
[2023-02-08 18:03] VITALS: BP 134/72; PULSE 69; RESP 16
[2023-02-08] MEDS: 0.9 % Sodium Chloride 1,000 ML 999 ML IV (18:12)
[2023-02-08] MEDS: Sucralfate Oral Suspension 1 GM/10 ML ORAL.SUSP PO (19:29)
[2023-02-08] MEDS: Famotidine/PF 20 MG/2 ML VIAL IVPUSH ×2 (19:29→20:27)
[2023-02-08 19:59] LABS: Appearance Urine Clear; Color Urine Yellow; Glucose Urine UA Negative (Negative); Leukocyte Esterase Urine Negative (Negative); Nitrite Urine Negative (Negative); PH 7.5 (5.0-9.0); Specific Gravity - Urine >= 1.030 (1.005-1.025); UMIC TRIGGER UACC YES; Urine Blood Negative (Negative); Urine Ketones 80 mg/dL (Negative); Urine Protein 30 (1+) mg/dL (Neg-Trace)
[2023-02-08 20:07] LABS: Amphetamine Screen Urine Not Detected (Not Detect); Barbiturates, Urine Not Detected (Not Detect); Benzodiazepines Screen Urine Not Detected (Not Detect); Cannabinoid Screen Urine Not Detected (Not Detect); Cocaine Screen Urine Not Detected (Not Detect); Fentanyl, urine Not Detected (Not Detect); Opiate Screen Urine Not Detected (Not Detect); Phencyclidine Screen Urine Not Detected (Not Detect)
[2023-02-08 20:13] LABS: Bacteria Urine None Seen (None Seen); Hyaline Casts Urine 0-2 /LPF (0-2); Other Crystals Urine Present; WBC Urine 0-5 /HPF (0-5)
--- NOTE | 2023-02-08 20:17 | PC.NURSE ---
During medication administration this RN noticed Pts IV in left AC infiltrated, fluids stopped and IV removed. New IV placed in right AC by RN E.F. Fluids restarted. Unsure what meds patient received prior to assuming care. MD and senior peoplesoft developer made aware. camila.
[2023-02-08 20:21] VITALS: BP 124/69; PULSE 61; RESP 18; TEMP 36.8; O2SAT 98
--- NOTE | 2023-02-08 20:21 | PC.NURSE ---
First dose of Pepcid never given due to IV infiltration. Provider aware and ordered another dose to be given.
== END 2023-02-08 21:10 | disposition home or self-care (01) ==
PROVIDERS: Physician Assistant; Emergency Provider Student in an Organized Health Care Education/Training Program; PCP Nurse Practitioner Primary Care
DX: K29.70 Gastritis, unspecified, without bleeding (principal); K85.90 Acute pancreatitis without necrosis or infection, unspecified; I49.8 Other specified cardiac arrhythmias; Z20.822 Contact with and (suspected) exposure to COVID-19; Z20.828 Contact with and (suspected) exposure to other viral communicable diseases; Z79.899 Other long term (current) drug therapy; Z87.891 Personal history of nicotine dependence
CPT/HCPCS: 74176; 80053; 80307; 81001; 81003; 83690; 83735; 84702; 85025; 87502; 87635; 93005; 96361; 96374; 96375; 96376; 99285; J1200; J1885; J2405; J2765

== ENCOUNTER 2023-02-10 08:42 | Emergency (ER) | payer MEDICAID, SELFPAY ==
[2023-02-10 08:59] VITALS: BP 160/82; PULSE 61; RESP 20; TEMP 36.6; O2SAT 99; BMI 26.0
--- NOTE | 2023-02-10 09:26 | PC.NURSE ---
pt aox4, reporting 10/10 abd and back pain since . pt was seen here before with the same symptoms and discharged. nauseous and vomiting and no BM for three days.
--- NOTE | 2023-02-10 09:57 | ED.ABDPAIN ---
HPI - Abdominal Pain General Chief Complaint: Abdominal Pain Stated Complaint: stomach ache , back pain , vomiting Time Seen by Provider: 02/10/23 08:54 Source: patient Mode of arrival: ambulatory Limitations: language barrier (Patient speaks some Welsh, 1st language is Romanian, device repair technician used) History of Present Illness HPI narrative: 57-year-old female patient who presents emergency department for evaluation of nausea, vomiting, abdominal pain times 3 days. The patient points to her left flank and epigastric area when asked to localize her pain. She states that is a constant pain which is 10/10 at its worst. Patient has had multiple episodes of vomiting and has not been able to eat or drink. She states that she has had no diarrhea, dark tarry stools or bloody stools. She has subjective fever and chills. The patient was seen in the emergency department on 02/08/2023 and had a extensive workup which included CBC, CMP, urinalysis, test and CT scan of the abdomen pelvis without IV contrast. Patient's lipase was only slightly elevated 81, was diagnosed with pancreatitis and discharged home. She was prescribed omeprazole and Carafate but was not able to sampler pickup his prescriptions. Related Data Home Medications Medication Instructions Recorded Confirmed cyclobenzaprine 5 mg tablet 5 mg PO BEDTIME 06/16/20 12/28/22 duloxetine 30 mg capsule,delayed 1 cap PO DAILY 08/18/21 12/28/22 release albuterol sulfate 90 mcg/actuation 2 puff PO Q4H PRN wheezing 09/14/21 12/28/22 aerosol inhaler (ProAir HFA) ibuprofen 200 mg PO BID PRN Pain 09/28/21 12/28/22 meloxicam 7.5 mg tablet 7.5 mg PO DAILY 09/28/21 12/28/22 omeprazole 20 mg capsule,delayed 1 cap PO DAILY 02/20/22 12/28/22 release Previous Rx's Medication Instructions Recorded letrozole 2.5 mg tablet 2.5 mg PO DAILY #60 tabs 12/21/21 ergocalciferol (vitamin D2) 1,250 1,250 mcg PO QWEEK #6 caps 02/10/22 mcg (50,000 unit) capsule (Vitamin D2) breast prosthetic #2 ea 05/16/22 post-lumpectomy bra #2 ea 10/04/22 acetaminophen 500 mg tablet 1,000 mg PO Q6H PRN pain #90 tabs 02/08/23 (Acetaminophen Extra Strength) omeprazole 40 mg capsule,delayed 40 mg PO DAILY #30 caps 02/08/23 release ondansetron 4 mg oral soluble film 4 mg PO Q8H PRN nausea and 02/08/23 vomiting #30 ea sucralfate 100 mg/mL oral 10 ml PO BID #420 mL 02/08/23 suspension (Carafate) acetaminophen 325 mg capsule 650 mg PO Q6H PRN fever or pain 02/10/23 (Tylenol) #30 caps famotidine 20 mg tablet (Pepcid) 20 mg PO DAILY #30 tabs 02/10/23 ibuprofen 400 mg tablet 400 mg PO TID PRN fever or pain 02/10/23 #30 tabs ondansetron 4 mg disintegrating 4 mg PO Q6-8H PRN nausea and 02/10/23 tablet vomiting #14 tabs Allergies Allergy/AdvReac Type Severity Reaction Status Date / Time No Known Allergies Allergy Unverified 04/29/20 16:39 Review of Systems Review of Systems Yes all other systems are reviewed and are negative [facility] Past Medical History [facility] Narrative: Social history: She does smoke cigarettes occasionally. She drinks alcohol socially but has not drank alcohol recently. She denies drug use except for occasional marijuana use. Medical History Arm numbness left Arthritis Asthma Breast cancer Cervical spinal stenosis Depression GERD (gastroesophageal reflux disease) Surgical History History of pterygium excision S/P lumpectomy, left breast (09/14/21) Family History Family History Maternal Grandmother Stomach cancer Social History Social History Household Members: Children Housing: Apartment Are you a primary health care technician to a significant other at home: No Do you presently have visiting nurse or other home services: No Alcohol intake: current Alcohol intake frequency: holidays/special occasions only Patient Tobacco Use Status: Former Tobacco user Quit Date: 12/2021 Tobacco use type: Cigarette Advance Directives: No service: No Current occupational status: unemployed Current occupation: Left Handed Physical Exam ED Vital Signs: Vital Signs - 24 hr 02/10/23 08:59 Temperature 97.9 F Pulse Rate 61 Respiratory Rate 20 Blood Pressure 160/82 H Pulse Oximetry 99 Oxygen Delivery Method Room Air BMI result Body Mass Index 26.0 Const Other: Awake, alert, female patient, pleasant, cooperative does appear to be in distress secondary to abdominal pain and her nausea. HENMT Head: Yes normal to inspection, Yes normocephalic and Yes atraumatic Ears: external ears normal General nose exam: Normal external nose present Face and sinus: Yes normal facial exam Mouth: Normal oral and palatal mucosa present Throat: Yes posterior oropharynx normal Eyes General: appearance normal, both eyes and all related structures Neck Neck: Yes normal visual inspection, Yes no lymphadenopathy, Yes trachea midline and Yes supple Chest Chest palpation & inspection: normal inspection of the chest and normal palpation of entire chest wall Resp Effort & Inspection: normal respiratory effort and able to speak in complete sentences Auscultation: clear to auscultation bilaterally Cardio Rate: regular rate Rhythm: regular rhythm Heart sounds: S1 normal heart sound present, S2 normal heart sound present and no murmurs GI Other: Patient's abdomen is soft, she has [id number] abdominal tenderness, normoactive bowel sounds, no rebound, no voluntary or involuntary guarding General: Yes no CVA tenderness Back/Spine/Pelvis Back: no CVA tenderness Skin General skin exam: no rashes or lesions noted Neuro Cognition (Neuro): normal cognition Motor exam (neuro): 5/5 motor strength present throughout Extrem General: Yes normal to inspection Psych Appearance: grossly normal Speech and movement: Normal speech and movement present Affect: normal affect Attitude: cooperative Medical Decision Making Medical Decision Making MDM Narrative: 57-year-old female who presents emergency department for evaluation of 3-4 days of nausea, vomiting, abdominal pain, subjective fever and chills. Patient was seen on 02/08/2023 (2 days prior to arrival) for similar complaints. Patient's laboratory evaluation and CT scan of the abdomen pelvis with IV contrast was essentially unremarkable except for slight elevation in her lipase. CT scan did not reveal any evidence for pancreatitis or diverticulitis. I ordered the following tests: CBC, CMP, lipase, urinalysis, urine test. Patient will be treated with normal saline IV x1 L, Toradol 15 mg IV and Zofran 4 mg IV 1117: Laboratory evaluation was unremarkable. Patient only got minimal relief of her symptoms with the above treatment. Patient's symptoms most consistent with viral syndrome I ordered morphine 4 mg IV, Reglan 10 mg IV and Benadryl 50 mg IV 1301: Patient feels significantly better after the above treatment. Patient most likely has a viral syndrome as the cause of her symptoms. Patient will be discharged home with prescriptions for ibuprofen, Tylenol, Zofran, Pepcid. She was able to drink brittney jabari I need putting prior to being discharged. Differential Diagnosis Differential diagnosis includes was not limited to viral syndrome, cholecystitis, pancreatitis, gastritis, diverticulitis, renal colic Admission/Observation Consideration of admission/observation: Escalation of care including admission/observation considered Lab Data MDM Lab Attestation statement: I reviewed the patient's lab results. My interpretation patient's laboratory evaluation is as follows: CBC was normal, CMP was normal, lipase was normal. This is a normal laboratory evaluation which is reassuring. 02/10/23 10:18 02/10/23 10:18 Labs: Lab Results 02/10/23 02/10/23 02/10/23 Range/Units 10:18 10:18 11:16 WBC 8.5 (4.8-10.8) X10*3/uL RBC 4.57 (4.20-5.50) X10*6/uL Hgb 14.2 (12.0-16.0) g/dl Hct 41.8 (37.0-47.0) % MCV 91.5 (80.0-98.0) fL MCH 31.1 (27.0-33.0) pg MCHC 34.0 (31.0-35.0) g/dl RDW 13.0 (11.0-16.0) % Plt Count 315 (160-400) X10*3/uL MPV 11.4 (9.4-12.3) fL Immature Gran % (Auto) 0.2 (0.0-0.4) % Neut % (Auto) 69.1 (45-73) % Lymph % (Auto) 23.6 (20-40) % Sierra % (Auto) 6.5 (2-11) % Eos % (Auto) 0.2 (0-4) % Baso % (Auto) 0.4 (0-2) % Lymph # (Auto) 2.0 (1.2-4.9) X10*3/uL Sierra # (Auto) 0.6 (0.1-1.2) X10*3/uL Eos # (Auto) 0.0 (0.0-0.4) X10*3/uL Baso # (Auto) 0.0 (0.0-0.2) X10*3/uL Abs Immat Gran (auto) 0.02 (0.00-0.03) X10*3/uL Absolute Neuts (auto) 5.9 (2.0-8.3) x10*3/uL Absolute Nucleated RBC 0.000 (0.0-0.012) X10*3/uL Nucleated RBC % (auto) 0.0 (0.0-0.2) /100WBC Sodium 142 (135-145) mmol/L Potassium 3.4 D (3.3-5.1) mmol/L Chloride 104 (96-108) mmol/L Carbon Dioxide 26 (22-29) mmol/L Anion Gap 15 (12-20) BUN 9 (9-16) mg/dL Creatinine 0.88 (0.5-1.4) mg/dL Estim Creat Clear Calc 70.4 Estimated GFR > 60 Random Glucose 110 (60-115) mg/dL Calcium 9.9 (8.4-10.2) mg/dL Total Bilirubin 0.8 (0.0-1.0) mg/dL AST 23 (5-31) U/L ALT 24 (0-31) U/L Alkaline Phosphatase 57 (39-117) U/L Total Protein 7.4 (6.5-8.0) g/dL Albumin 4.0 (3.5-5.0) g/dL Lipase 25 (8-78) U/L Urine Color Yellow Urine Appearance Clear Urine pH 7.5 (5.0-9.0) Ur Specific [place] 1.010 (1.005-1.025) Urine Protein Negative (Neg-Trace) mg/dL Urine Glucose (UA) Negative (Negative) mg/dL Urine Ketones Negative (Negative) mg/dL Urine Blood Trace H (Negative) Urine Nitrite Negative (Negative) Ur Leukocyte Esterase Negative (Negative) Urine RBC 3-5 H (0-2) /HPF Urine WBC 0-5 (0-5) /HPF Ur Squamous Epith Cells 0-2 (0-2) /HPF Urine Bacteria None Seen (None Seen) Hyaline Casts 0-2 (0-2) /LPF Urine Test (NEGATIVE) 02/10/23 Range/Units 11:16 WBC (4.8-10.8) X10*3/uL RBC (4.20-5.50) X10*6/uL Hgb (12.0-16.0) g/dl Hct (37.0-47.0) % MCV (80.0-98.0) fL MCH (27.0-33.0) pg MCHC (31.0-35.0) g/dl RDW (11.0-16.0) % Plt Count (160-400) X10*3/uL MPV (9.4-12.3) fL Immature Gran % (Auto) (0.0-0.4) % Neut % (Auto) (45-73) % Lymph % (Auto) (20-40) % Sierra % (Auto) (2-11) % Eos % (Auto) (0-4) % Baso % (Auto) (0-2) % Lymph # (Auto) (1.2-4.9) X10*3/uL Sierra # (Auto) (0.1-1.2) X10*3/uL Eos # (Auto) (0.0-0.4) X10*3/uL Baso # (Auto) (0.0-0.2) X10*3/uL Abs Immat Gran (auto) (0.00-0.03) X10*3/uL Absolute Neuts (auto) (2.0-8.3) x10*3/uL Absolute Nucleated RBC (0.0-0.012) X10*3/uL Nucleated RBC % (auto) (0.0-0.2) /100WBC Sodium (135-145) mmol/L Potassium (3.3-5.1) mmol/L Chloride (96-108) mmol/L Carbon Dioxide (22-29) mmol/L Anion Gap (12-20) BUN (9-16) mg/dL Creatinine (0.5-1.4) mg/dL Estim Creat Clear Calc Estimated GFR Random Glucose (60-115) mg/dL Calcium (8.4-10.2) mg/dL Total Bilirubin (0.0-1.0) mg/dL AST (5-31) U/L ALT (0-31) U/L Alkaline Phosphatase (39-117) U/L Total Protein (6.5-8.0) g/dL Albumin (3.5-5.0) g/dL Lipase (8-78) U/L Urine Color Urine Appearance Urine pH (5.0-9.0) Ur Specific [place] (1.005-1.025) Urine Protein (Neg-Trace) mg/dL Urine Glucose (UA) (Negative) mg/dL Urine Ketones (Negative) mg/dL Urine Blood (Negative) Urine Nitrite (Negative) Ur Leukocyte Esterase (Negative) Urine RBC (0-2) /HPF Urine WBC (0-5) /HPF Ur Squamous Epith Cells (0-2) /HPF Urine Bacteria (None Seen) Hyaline Casts (0-2) /LPF Urine Test NEGATIVE (NEGATIVE) Independent Historian Clinical information obtained from an independent historian. History obtained from or confirmed by: Other (Son) Medications Administered Discontinued Medications Generic Name Dose Route Start Last Admin Trade Name Freq PRN Reason Stop Dose Admin Diphenhydramine HCl 50 mg 02/10/23 11:16 02/10/23 11:42 Diphenhydramine Hcl 50 Mg/Ml Vial IVPUSH 02/10/23 11:17 50 mg ONCE STA Administration Sodium Chloride 1,000 mls @ 999 mls/hr 02/10/23 09:57 02/10/23 12:09 Ns IV 02/10/23 10:57 Infused .Q1H1M STA Infusion Ketorolac Tromethamine 15 mg 02/10/23 09:57 02/10/23 10:23 Ketorolac Tromethamine 15 Mg/Ml Vial IVPUSH 02/10/23 09:58 15 mg ONCE STA Administration Metoclopramide HCl 10 mg 02/10/23 11:16 02/10/23 11:42 Metoclopramide Hcl 10 Mg/2 Ml Vial IVPUSH 02/10/23 11:17 10 mg ONCE STA Administration Morphine Sulfate 4 mg 02/10/23 11:16 02/10/23 11:40 Morphine Sulfate 4 Mg/Ml Cartridge IVPUSH 02/10/23 11:17 4 mg ONCE STA Administration Protocol Ondansetron HCl 4 mg 02/10/23 09:57 02/10/23 10:22 Ondansetron Hcl 4 Mg/2 Ml Vial IVPUSH 02/10/23 09:58 4 mg ONCE ONE Administration Discharge Plan Discharge Clinical Impression: Viral syndrome, Acute dehydration Abdominal pain Qualifiers: Abdominal location: generalized Qualified Code(s): R10.84 - Generalized abdominal pain Vomiting Qualifiers: Vomiting type: unspecified Nausea presence: with nausea Qualified Code(s): R11.2 - Nausea with vomiting, unspecified Patient Disposition: Home, Self-Care Instructions: Acute Nausea and Vomiting (ED), Viral Syndrome (ED) Additional Instructions: Your blood work was normal. Your symptoms are consistent with a viral infection. Take ibuprofen 400 mg pills, 1 pills every 6 hours as needed for pain. Take Tylenol (acetaminophen) 325 mg pills, 2 pills every 6 hours as needed for pain. Take Pepcid 20 mg pills, 1 pill daily for 2 weeks. This will reduce the amount of acid in your stomach and help with your pain. Take Zofran ODT 4 mg pills, 1 pill dissolved in your mouth every 8 hours as needed for nausea and vomiting. Follow-up with your doctor in 2 days. Please return to the emergency department if your symptoms get worse or if you develop any symptoms that are concerning to you. Prescriptions: New ibuprofen 400 mg tablet 400 mg PO TID PRN (Reason: fever or pain) Qty: 30 0RF ondansetron 4 mg tablet,disintegrating 4 mg PO Q6-8H PRN (Reason: nausea and vomiting) Qty: 14 0RF famotidine [Pepcid] 20 mg tablet 20 mg PO DAILY Qty: 30 0RF acetaminophen [Tylenol] 325 mg capsule 650 mg PO Q6H PRN (Reason: fever or pain) Qty: 30 0RF No Action (DME) breast prosthetic to fit See Rx Instructions .Route .MEDSUPPLY Qty: 2 0RF Rx Instructions: As directed (DME) post-lumpectomy bra to fit See Rx Instructions .Route .MEDSUPPLY Qty: 2 0RF Rx Instructions: As directed duloxetine 30 mg capsule,delayed release(DR/EC) 1 cap PO DAILY albuterol sulfate [ProAir HFA] 90 mcg/actuation HFA aerosol inhaler 2 puff PO Q4H PRN (Reason: wheezing) meloxicam 7.5 mg Tablet 7.5 mg PO DAILY ibuprofen 200 mg PO BID PRN (Reason: Pain) letrozole 2.5 mg Tablet 2.5 mg PO DAILY Qty: 60 3RF ergocalciferol (vitamin D2) [Vitamin D2] 1,250 mcg (50,000 unit) Capsule 1,250 mcg PO QWEEK Qty: 6 1RF omeprazole 20 mg capsule,delayed release(DR/EC) 1 cap PO DAILY omeprazole 40 mg capsule,delayed release(DR/EC) 40 mg PO DAILY Qty: 30 0RF sucralfate [Carafate] 100 mg/mL suspension 10 ml PO BID Qty: 420 0RF acetaminophen [Acetaminophen Extra Strength] 500 mg tablet 1,000 mg PO Q6H PRN (Reason: pain) Qty: 90 0RF ondansetron 4 mg film 4 mg PO Q8H PRN (Reason: nausea and vomiting) Qty: 30 0RF cyclobenzaprine 5 mg tablet 5 mg PO BEDTIME
[2023-02-10] MEDS: 0.9 % Sodium Chloride 1,000 ML 999 ML IV (10:19)
[2023-02-10] MEDS: ondansetron HCL 4 MG/2 ML VIAL IVPUSH (10:22)
[2023-02-10] MEDS: Ketorolac Tromethamine 15 MG/ML VIAL IVPUSH (10:23)
--- NOTE | 2023-02-10 12:39 | PC.NURSE ---
pt reports feeling much better. they report minimal pain in abdomen just a little bit , and denies N/V since medicated with Reglan.
== END 2023-02-10 13:16 | disposition home or self-care (01) ==
PROVIDERS: Emergency Provider Emergency Medicine Emergency Medical Services; PCP Nurse Practitioner Primary Care
DX: B34.9 Viral infection, unspecified (principal); E86.0 Dehydration; R10.84 Generalized abdominal pain; R11.2 Nausea with vomiting, unspecified
CPT/HCPCS: 36415; 80053; 81001; 81025; 83690; 85025; 96361; 96374; 96375; 99285; J1200; J1885; J2270; J2405; J2765

== ENCOUNTER 2023-03-01 10:47 | Outpatient (AMB) | payer MEDICAID, SELFPAY ==
--- NOTE | 2023-03-01 10:48 | A.OFFVIS_ITS ---
Intake Vital Signs 03/01/23 10:57 Height 5 ft 5 in Weight 157 lb BMI 26.1 BP 127/74 Blood Pressure Location Lt brachial Position Sitting Pulse 87 Intake Visit Reasons: 3 month follow up, mammogram results/breast exam Intake Note: Patient is seen in office for 3 month follow up visit, breast exam. Patient c/o: admits to continued hard lump in the incision site promotion agent Required: Yes Industrial Welder Language: Education Faculty Member Name: Daija HILLS Information Interpreted: non-clinical & clinical Slip Cover Sewer: Slip Cover Sewer Present Accompanied by: Self / Same As Patient Allergies No Known Allergies Allergy (Unverified 03/01/23 10:56) HPI HPI Comments History of Present Illness Details 57-year-old female patient returning for follow-up examination after left breast lumpectomy for DCIS. She was found to have an area in the left breast with non layering calcifications. Subsequent stereotactic biopsy on 07/29/2021 revealed ductal carcinoma in situ, nuclear grade 1, solid and cribriform patterns with calcifications extending into sclerosing adenosis, ER/MO positive. Subsequent left breast lumpectomy with needle localization on 09/14/2021 confirmed extensive ductal carcinoma in-situ, solid and cribriform type, nuclear grade 1-2 with minimal comedo necrosis involving adenosis and areas suggestive of radial scar formation; negative for invasive carcinoma. The closest DCIS margin was 0.4 cm at the superior margin (TNM:? pTis(DCIS)NXMX). She was subsequently evaluated by Dr. Hermosillo and started on letrozole 2.5 mg daily. He is tolerating this well and denies any ongoing symptoms. She subsequently underwent radiation therapy and completed this on 12/18/2021. A diagnostic mammogram performed on 08/18/2022 revealed post therapy changes of the left breast felt to be low suspicion for malignancy (BI-RADS 3). A follow-up left breast diagnostic mammogram is scheduled for 03/06/2023. She denies any new breast symptoms and generally feels well. [facility] Medical History Arm numbness left Arthritis Asthma Breast cancer Cervical spinal stenosis Depression GERD (gastroesophageal reflux disease) Surgical History History of pterygium excision S/P lumpectomy, left breast (09/14/21) Family History Maternal Grandmother Stomach cancer Social History Household Members: Children Housing: Apartment Are you a primary urgent care nurse practitioner to a significant other at home: No Do you presently have visiting nurse or other home services: No Alcohol intake: current Alcohol intake frequency: holidays/special occasions only Patient Tobacco Use Status: Former Tobacco user Quit Date: 12/2021 Tobacco use type: Cigarette service: No Current occupational status: unemployed Current occupation: Left Handed Female Reproductive History Menstrual Age of Menarche: 15 Date of Mammogram: 08/18/22 Review of Systems Const Denies chills, Denies fever(s), Denies headache(s) and Denies poor appetite ENT Denies dizziness and Denies headache(s) Card Denies chest pain, Denies rapid heart rate, Denies palpitations and Denies slow heart rate Resp Denies chest congestion, Denies cough, Denies pain on inspiration and Denies wheezing GI Denies abdominal pain, Denies bloating, Denies change in stool character, Denies constipation, Denies diarrhea, Denies nausea, Denies vomiting and Denies hematemesis Musc Denies back pain, Denies arthralgias, Denies joint swelling and Denies numbness Skin/Breast Details: Status post stereotactic guided core biopsy left breast the lower outer quadrant Denies breast swelling, Reports breast skin changes, Reports breast pain, Denies breast mass, Denies change in breast shape, Denies change in pigmentation, Denies erythema and Denies rash Neuro Denies dizziness, Denies headache(s) and Denies numbness Psych Denies anxiety and Denies depression Endo Denies palpitations Jovi/Lymph Denies easy bleeding, Denies easy bruising and Denies lymphadenopathy Aller/Immun Denies wheezing Physical Exam Chest Other: Left breast: Skin pigmentation change consistent with prior radiation therapy. Well-healed incision in the lower outer quadrant with some nodularity palpable consistent with scar tissue. No other palpable mass, new skin change, nipple discharge or nipple retraction appreciated. No enlarged lymph nodes. Right breast: No skin change, nipple discharge, nipple retraction, palpable mass, or enlarged lymph nodes. Chest/axillae images: 1. Incision with underlying nodularity, tender to palpation. Surrounding radiation change also evident. Resp Effort & Inspection: normal respiratory effort, no audible wheezes, no cough and no respiratory distress Skin Other: Warm, dry, no rash Extrem Other: No edema Assessment & Plan Assessment & Plan (1) Ductal carcinoma in situ of left breast: Code(s): D05.12 - Intraductal carcinoma in situ of left breast Plan: 57-year-old female patient, status post lumpectomy needle localization for a ductal carcinoma in situ. She was evaluated by Dr. Hermosillo and started on letrozole. She completed radiation therapy at [facility] on 12/18/2021. Examination reveals some residual scar tissue and radiation change but no new suspicious findings. She is scheduled for a diagnostic left breast mammogram on 03/06/2023. I will inform her of the results once available. I as ked her to return to the office in approximately 6 months for follow-up breast examination. She is welcome to call sooner for any new concerns. Coding Level of Care Code Est Pt Level 3 (79775) Diagnoses Ductal carcinoma in situ of left breast D05.12
[2023-03-01 10:57] VITALS: BP 127/74; PULSE 87; BMI 26.1
== END 2023-03-01 11:04 | disposition home or self-care (01) ==
PROVIDERS: Visit Provider Surgery
DX: D05.12 Intraductal carcinoma in situ of left breast (principal)
CPT/HCPCS: 99213

== ENCOUNTER → 2023-03-01 10:47 | Outpatient (BNVA) | payer MEDICAID, SELFPAY | PROVIDERS: Visit Provider Surgery | DX: D05.12 Intraductal carcinoma in situ of left breast (principal); Z79.811 Long term (current) use of aromatase inhibitors | CPT/HCPCS: 99212 ==

== ENCOUNTER 2023-03-06 10:43 | Outpatient (REF) | payer MEDICAID, SELFPAY ==
--- NOTE | ~2023-03-06 | MM_ITS ---
EXAMINATION: MM DIAGNOSTIC DIGITAL BREAST TOMOSYNTHESIS, left breast CLINICAL INFORMATION: The patient presents for short interval follow-up of calcifications thought to be dystrophic is noted on the August 18, 2022 mammogram. The patient has a history of left breast cancer diagnosed in 2020. She also has a history of a benign percutaneous biopsy in the upper outer quadrant of the right breast. COMPARISON: Mammography: This study is compared with the prior examinations dating back to 2018. TECHNIQUE: Digital breast tomosynthesis is performed in both the craniocaudal and mediolateral oblique views along with computer-aided detection (CAD). Synthesized 2D images are generated from the tomosynthesis. CC and lateral magnification imaging of the operative bed in the upper outer quadrant of the left breast. FINDINGS: There are scattered areas of fibroglandular density (ACR BI-RADS breast composition Category b). There is postsurgical scarring in the upper outer quadrant of the left breast. There are coarse, benign, dystrophic calcifications in the surgical bed. A tissue marker from prior benign percutaneous biopsy is located superolateral to the operative bed. There are no significant masses, abnormal calcifications, or other abnormalities. Results are provided to the patient on the day of her visit by the technologist. MM/MM tomosynthesis diagnostic LT IMPRESSION: No mammographic signs of malignancy. Postsurgical changes left breast. Next routine annual mammogram is due in August 2023. ASSESSMENT: BI-RADS BI-RADS 2 - Benign Findings RECOMMENDATION: 6 Month F/U This patient's information was entered into a reminder system with a target due date for their next mammogram.
== END 2023-03-06 10:44 | disposition home or self-care (01) ==
LOC: HO.MAMMO 10:43
PROVIDERS: PCP Nurse Practitioner Primary Care; Visit Provider Nurse Practitioner Primary Care
DX: R92.1 Mammographic calcification found on diagnostic imaging of breast (principal); Z85.3 Personal history of malignant neoplasm of breast
CPT/HCPCS: 77061; 77065

== ENCOUNTER → 2023-03-06 10:46 | Outpatient (BNV) | payer MEDICAID, SELFPAY | PROVIDERS: PCP Nurse Practitioner Primary Care; Visit Provider Radiology Diagnostic Radiology | DX: D05.12 Intraductal carcinoma in situ of left breast (principal) | CPT/HCPCS: 77065 ==

== ENCOUNTER 2023-08-30 11:18 | Outpatient (REF) | payer MEDICAID, SELFPAY ==
--- NOTE | ~2023-08-30 | MM_ITS ---
EXAMINATION: MM DIAGNOSTIC DIGITAL BREAST TOMOSYNTHESIS, BILATERAL CLINICAL INFORMATION: Postop year 2 left breast CA. Left lumpectomy for DCIS to 09/14/2021. COMPARISON: Mammography: 02/14/2023, 08/18/2022, 09/14/2021, 07/29/2021, 07/21/2021, 07/18/2021, 01/22/2018 TECHNIQUE: Digital breast tomosynthesis is performed in both the craniocaudal and mediolateral oblique views along with computer-aided detection (CAD). Synthesized 2D images are generated from the tomosynthesis. In addition, 2-D spot magnification left CC and ML views x2 were obtained of the lumpectomy site. FINDINGS: There are scattered areas of fibroglandular density (ACR BI-RADS breast composition Category b). Right breast parenchymal pattern is unchanged from prior exams. No suspicious masses, architectural distortion, or abnormal calcifications. There are stable dystrophic appearing calcifications surrounding the lumpectomy site and scar in the lateral left breast. There is a stable biopsy clip in this region. Evolving trabecular prominence noted post surgery. No definite evidence of disease recurrence or change in morphology of the scar. Parenchymal pattern is otherwise unchanged. No left axillary abnormality or skin abnormality. MM/MM tomosynthesis diagnostic BI IMPRESSION: No findings suspicious for malignancy in either breast. Stable evolving postoperative changes left breast with associated dystrophic calcifications. Recommend one-year follow-up for year 3 of postop protocol. ASSESSMENT: BI-RADS BI-RADS 2 - Benign Findings RECOMMENDATION: 1 year F/U Results were provided to the patient at time of visit by the technologist. This patient's information was entered into a reminder system with a target due date for their next mammogram.
== END 2023-08-30 11:19 | disposition home or self-care (01) ==
LOC: HO.MAMMO 11:18
PROVIDERS: PCP Nurse Practitioner Primary Care; Visit Provider Nurse Practitioner Primary Care
DX: Z85.3 Personal history of malignant neoplasm of breast (principal)
CPT/HCPCS: 77062; 77066

== ENCOUNTER → 2023-08-30 11:30 | Outpatient (BNV) | payer MEDICAID, SELFPAY | PROVIDERS: PCP Nurse Practitioner Primary Care; Visit Provider Radiology Diagnostic Radiology | DX: R92.1 Mammographic calcification found on diagnostic imaging of breast (principal) | CPT/HCPCS: 77062; 77066 ==

== ENCOUNTER 2023-12-31 09:51 | Outpatient (REF) | payer MEDICAID, SELFPAY ==
[2023-12-31 11:30] LABS: MANUAL DIFF FLAG NO
[2023-12-31 11:39] LABS: Basophils Absolute Auto 0.1 X10*3/uL (0.0-0.2); Basophils Percent Auto 1.4 % (0-2); Eosinophils Absolute Auto 0.1 X10*3/uL (0.0-0.4); Eosinophils Percent Auto 1.6 % (0-4); Hematocrit 44.5 % (37.0-47.0); Hemoglobin 14.8 g/dl (12.0-16.0); Imm Gran Abs Auto 0.01 X10*3/uL (0.00-0.03); Imm Gran Pct Auto 0.2 % (0.0-0.4); Lymphocytes Absolute Auto 1.7 X10*3/uL (1.2-4.9); Lymphocytes Percent Auto 32.2 % (20-40); Mean Corpuscular HGB Conc 33.3 g/dl (31.0-35.0); Mean Corpuscular Volume 93.1 fL (80.0-98.0); Mean Platelet Volume 12.5 fL (9.4-12.3); Monocytes Absolute Auto 0.3 X10*3/uL (0.1-1.2); Monocytes Percent Auto 6.4 % (2-11); Neutrophils Percent Auto 58.2 % (45-73); Platelet Count 294 X10*3/uL (160-400); Red Blood Count 4.78 X10*6/uL (4.20-5.50); Red Cell Distribution Width 13.2 % (11.0-16.0); White Blood Count 5.2 X10*3/uL (4.8-10.8)
[2023-12-31 12:05] LABS: Anion Gap 13 (12-20); Blood Urea Nitrogen 12 mg/dL (9-16); Calcium 9.9 mg/dL (8.4-10.2); Carbon Dioxide 27 mmol/L (22-29); Chloride 105 mmol/L (96-108); Cholesterol 172 mg/dL (<200); Estimated Glomerular Filt Rate > 60; Glucose Random 108 mg/dL (60-115); HDL Cholesterol 36 mg/dL (>40); LDL Cholesterol Calculated 103 mg/dL (<100); Potassium 3.9 mmol/L (3.3-5.1); Sodium 141 mmol/L (135-145); Triglycerides 166 mg/dL (<150)
[2024-01-01 09:35] LABS: HIV AB/AG Nonreactive (Nonreactive); HIV Num 1 0.04 S/CO (0.00-0.99); ~HepC Num1 0.09 S/CO (0.00-0.79); ~Hepatitis C Antibody Nonreactive (Nonreactive)
[2024-01-03 12:34] LABS: RPR Rapid Plasma Reagin NON-REACTIVE (NON-REACTIVE)
== END 2023-12-31 09:52 | disposition home or self-care (01) ==
LOC: HO.HHCL 09:51
PROVIDERS: Visit Provider Nurse Practitioner Primary Care
DX: R52 Pain, unspecified (principal); Z11.3 Encounter for screening for infections with a predominantly sexual mode of transmission; Z13.220 Encounter for screening for lipoid disorders
CPT/HCPCS: 36415; 80048; 80061; 84443; 85025; 86592; 86803; 87389

== ENCOUNTER 2024-04-03 09:10 | Outpatient (REF) | payer MEDICAID, SELFPAY ==
--- NOTE | ~2024-04-03 | XR_ITS ---
EXAMINATION: XR HIP, LEFT CLINICAL INFORMATION: Atraumatic left hip pain. COMPARISON: CT dated 02/08/2023. TECHNIQUE: AP and frog-leg lateral views of the left hip. FINDINGS: Mild cephalad joint space narrowing at the left hip with small marginal osteophytes at the acetabular rim and femoral head-neck junction. No fractures. Mild osteoarthritis in the left SI joint. Pubic symphysis is normal. Enthesopathic spurring at the left acetabular rim. XR/XR hip LT min 2V IMPRESSION: Mild osteoarthritis in the left hip and left SI joint. No acute osseous findings. Electronically signed by: Art Griffin MD 04/27/2024 10:38 AM EDT
--- NOTE | ~2024-04-03 | XR_ITS ---
EXAMINATION: XR HAND, LEFT CLINICAL INFORMATION: Atraumatic hand pain. COMPARISON: None available. TECHNIQUE: PA, lateral, and oblique views of the left hand. FINDINGS: No fracture. Alignment is anatomic. Joint spaces are maintained. No erosions or soft tissue calcifications. XR/XR hand LT min 3V IMPRESSION: Normal left hand radiographs. Electronically signed by: Art Griffin MD 04/27/2024 01:10 AM EDT
== END 2024-04-03 09:11 | disposition home or self-care (01) ==
LOC: HO.XRAY 09:10
PROVIDERS: PCP Internal Medicine; Visit Provider Nurse Practitioner Primary Care
DX: M25.552 Pain in left hip (principal); M79.642 Pain in left hand
CPT/HCPCS: 73130; 73502

== ENCOUNTER 2024-04-10 19:27 | Outpatient (REF) | payer MEDICAID, SELFPAY | END 2024-04-10 19:28 | disposition home or self-care (01) | LOC: HO.HHCLNP 19:27 | PROVIDERS: Visit Provider Internal Medicine | DX: Z13.89 Encounter for screening for other disorder (principal) ==

== ENCOUNTER 2024-04-15 14:42 | Outpatient (REF) | payer MEDICAID, SELFPAY | END 2024-04-15 14:43 | disposition home or self-care (01) | LOC: HO.LNP 14:42 | PROVIDERS: Visit Provider Internal Medicine | DX: M54.50 Low back pain, unspecified (principal) | CPT/HCPCS: 87086 ==

== ENCOUNTER 2024-05-08 10:39 | Outpatient (AMB) | payer MEDICAID, SELFPAY ==
[2024-05-08 10:42] VITALS: BP 102/70; PULSE 104; O2SAT 96; BMI 28.6
--- NOTE | 2024-05-08 10:42 | A.OFFVIS_ITS ---
Vital Signs 05/08/24 10:42 Height 5 ft 5 in Weight 172 lb 1.006 oz BMI 28.6 BP 102/70 Blood Pressure Location Lt brachial Position Sitting Pulse 104 H Pulse Source Doppler Pulse Oximetry (%) 96 Oxygen Delivery Method Room Air Intake Visit Reasons: asthma/copd Guidance Services Coordinator Required: Yes Guidance Services Coordinator Name: Bhumika Terrance [place] Allergies No Known Allergies Allergy (Verified 05/08/24 10:47) HPI HPI asthma/copd: Details: 58-year-old lady, active 30 pack-year smoker with underlying asthma/ COPD overlap syndrome referred for pulmonary evaluation. Patient states that she has been using QVAR and albuterol MDI with suboptimal control of her dyspnea on exertion symptoms that she experiences after walking several 100 yd. She is also complain of cough productive of excessive amount of whitish phlegm. Patient denies personal history of lung disease. She does have family history of COPD in her uncle. Patient denies exposure to industrial dusts. [facility] Medical History Arm numbness left Arthritis Asthma Breast cancer Cervical spinal stenosis Depression GERD (gastroesophageal reflux disease) Surgical History History of pterygium excision S/P lumpectomy, left breast (09/14/21) Family History Maternal Grandmother Stomach cancer Social History (Updated 05/08/24 @ 10:50 by Bhumika Melissa Myriam) Household Members: Children Housing: Apartment Are you a primary career education teacher to a significant other at home: No Do you presently have visiting nurse or other home services: No Alcohol intake: current Alcohol intake frequency: holidays/special occasions only Patient Tobacco Use Status: Current everyday Tobacco user Tobacco use type: Cigarette Cigarettes Per Day: 10 Years Smoked: started at age 18, 1PPD , currently 10 per day service: No Current occupational status: unemployed Current occupation: Left Handed Female Reproductive History Menstrual Age of Menarche: 15 Review of Systems Const Denies daytime sleepiness, Denies excessive sweating, Denies fatigue, Denies fever(s), Denies lethargy, Denies malaise, Denies night sweats, Denies snoring and Denies weight loss Eyes Denies blurry vision and Denies itchy eyes ENT Denies nasal congestion, Denies post nasal drip, Denies sinus pain, Denies sinus pressure and Denies other ( Thrush) Card Denies chest pain, Denies pedal edema, Denies dyspnea, Reports dyspnea on exertion, Denies orthopnea and Denies paroxysmal nocturnal dyspnea Resp Reports cough, Denies hemoptysis, Reports excessive phlegm production, Denies dyspnea, Reports dyspnea on exertion, Denies snoring and Denies wheezing GI Denies abdominal pain and Denies heartburn Musc Denies myalgias, Denies arthralgias and Denies joint swelling Skin/Breast Denies rash Neuro Denies memory loss and Denies seizure-like activity Psych Denies abnormal sleep pattern, Denies anxiety and Denies memory loss Endo Denies excessive sweating, Denies fatigue and Denies heat intolerance Jovi/Lymph Denies easy bruising Aller/Immun Denies itchy eyes, Denies seasonal rhinorrhea and Denies wheezing Physical Exam Vital Signs: Last Vital Signs Pulse 104 H 05/08/24 10:42 BP 102/70 05/08/24 10:42 Pulse Ox 96 05/08/24 10:42 Oxygen Delivery Method Room Air 05/08/24 10:42 BMI result Body Mass Index 28.6 Const General: no acute distress and alert Nutritional Appearance: not obese Orientation/consciousness: Other orientation findings ( oriented) HEENT Head: Yes atraumatic Eyes General: appearance normal, both eyes and all related structures Sclerae: sclerae normal EOM: EOMs intact bilaterally Neck Neck: Yes supple Lymphatic: no lymphadenopathy noted Resp Effort & Inspection: normal respiratory effort and no use of accessory muscles Auscultation: clear to auscultation bilaterally Cardio Rate: regular rate Rhythm: regular rhythm Heart sounds: no gallops, no murmurs and no rubs Skin General skin exam: other ( warm) Extrem General: No clubbing, No cyanosis and No edema Assessment & Plan Assessment & Plan (1) Asthma-COPD overlap syndrome: Code(s): J44.89 - Other specified chronic obstructive pulmonary disease Category: Medical Plan: Likely underlying asthma / COPD overlap syndrome suboptimally controlled on QVAR and albuterol MDI. will switch QVAR to Breo and obtain full PFT. Continue albuterol MDI. Will treat bronchitic exacerbation with a course of azithromycin. (2) Personal history of nicotine dependence: Code(s): Z87.891 - Personal history of nicotine dependence Category: Medical Plan: Will obtain lung cancer screening CT chest. Orders: Orders CT lung screening Today Z87.891 - Personal history of nicotine dependence PFT pulmonary function test Today J44.89 - Other specified chronic obstructive pulmonary disease Medications: New fluticasone furoate-vilanterol 200-25 mcg/dose (Breo Ellipta) 1 inh inhalation Q24H 60 ea 6RF J44.89 - Other specified chronic obstructive pulmonary disease azithromycin For 250 mg dose pack: take 500 mg today (day 1), then 250 mg for 4 days (days 2-5) PO 6 tabs 0RF J44.89 - Other specified chronic obstructive pulmonary disease Coding Level of Care Code New Pt Level 4 (56568) Diagnoses Asthma-COPD overlap syndrome J44.89 Personal history of nicotine dependence Z87.891
== END 2024-05-08 11:07 | disposition home or self-care (01) ==
PROVIDERS: PCP Internal Medicine; Referring Provider Internal Medicine; Visit Provider Internal Medicine Pulmonary Disease
DX: J44.89 Other specified chronic obstructive pulmonary disease (principal); Z87.891 Personal history of nicotine dependence
CPT/HCPCS: 99204

== ENCOUNTER → 2024-05-08 10:39 | Outpatient (BNVA) | payer MEDICAID, SELFPAY | PROVIDERS: PCP Internal Medicine; Visit Provider Internal Medicine Pulmonary Disease | DX: J44.89 Other specified chronic obstructive pulmonary disease (principal); Z87.891 Personal history of nicotine dependence | CPT/HCPCS: 99202 ==

== ENCOUNTER 2024-06-06 08:37 | Outpatient (REF) | payer MEDICAID, SELFPAY ==
--- NOTE | 2024-06-06 08:59 | PFT_ITS ---
Flows: FEV1: 67 % of predicted at 1.77 L FVC: 56 % of predicted at 1.88 L FEV1/FVC: 94 % Bronchodilator response: Absent Volumes: Total lung capacity: 71 % of predicted at 3.77 L Residual volume: 89 % of predicted at 1.54 L Slow vital capacity: 62 % of predicted at 2.22 L Expiratory reserve volume: 47 % of predicted at 0.43 L Diffusion capacity: Mildly decreased, corrects to normal after adjustment for alveolar ventilation. Impression: Combined moderate obstructive and restrictive ventilatory defects with no bronchodilator response. Decreased diffusion capacity suggests emphysema. MTDD
[2024-06-06 13:29] VITALS: PULSE 71; RESP 16; O2SAT 96
== END 2024-06-06 08:38 | disposition home or self-care (01) ==
LOC: HO.RESP 08:37
PROVIDERS: PCP Internal Medicine; Visit Provider Internal Medicine Pulmonary Disease
DX: J44.89 Other specified chronic obstructive pulmonary disease (principal)
CPT/HCPCS: 94010; 94640; 94727; 94729

== ENCOUNTER → 2024-06-06 08:59 | Outpatient (BNV) | payer MEDICAID, SELFPAY | PROVIDERS: PCP Internal Medicine; Visit Provider Internal Medicine Pulmonary Disease | DX: J44.89 Other specified chronic obstructive pulmonary disease (principal) | CPT/HCPCS: 94060; 94727; 94729 ==

== ENCOUNTER 2024-06-11 10:49 | Outpatient (AMB) | payer MEDICAID, SELFPAY ==
[2024-06-11 10:55] VITALS: BP 102/74; PULSE 82; O2SAT 99; BMI 29.0
--- NOTE | 2024-06-11 10:55 | MHC.OFFVIS ---
Vital Signs 06/11/24 10:55 Height 5 ft 5 in Weight 174 lb BMI 29.0 BP 102/74 Blood Pressure Location Rt brachial Position Sitting Pulse 82 Pulse Source Doppler Pulse Oximetry (%) 99 Oxygen Delivery Method Room Air Intake Visit Reasons: Asthma/COPD Licensed Mental Health Professional Required: Yes Licensed Mental Health Professional Name: Bhumika Terrance [place] Allergies No Known Allergies Allergy (Verified 05/08/24 10:47) HPI HPI Asthma/COPD: Details: 58-year-old lady, active 30 pack-year smoker with underlying asthma/ COPD overlap syndrome referred for pulmonary evaluation. Patient states that she has been using QVAR and albuterol MDI with suboptimal control of her dyspnea on exertion symptoms that she experiences after walking several 100 yd. She is also complain of cough productive of excessive amount of whitish phlegm. Patient denies personal history of lung disease. She does have family history of COPD in her uncle. Patient denies exposure to industrial dusts. After the last office visit patient was switched from QVAR to Breo with improved symptom control. She denies acute exacerbations, but she does complain of slowly worsening cough productive of whitish sputum. She completed her pulmonary function test that shows underlying emphysema and mild restrictive physiology, no fixed obstructive physiology. Her CT chest is pending. [facility] Medical History Arm numbness left Arthritis Asthma Breast cancer Cervical spinal stenosis Depression GERD (gastroesophageal reflux disease) Surgical History History of pterygium excision S/P lumpectomy, left breast (09/14/21) Family History Maternal Grandmother Stomach cancer Social History (Updated 05/08/24 @ 10:50 by REINIER Cespedes) Household Members: Children Housing: Apartment Are you a primary customer care assistant to a significant other at home: No Do you presently have visiting nurse or other home services: No Alcohol intake: current Alcohol intake frequency: holidays/special occasions only Patient Tobacco Use Status: Current everyday Tobacco user Tobacco use type: Cigarette Cigarettes Per Day: 10 Years Smoked: started at age 18, 1PPD , currently 10 per day service: No Current occupational status: unemployed Current occupation: Left Handed Female Reproductive History Menstrual Age of Menarche: 15 Review of Systems Const Denies daytime sleepiness, Denies excessive sweating, Denies fatigue, Denies fever(s), Denies lethargy, Denies malaise, Denies night sweats, Denies snoring and Denies weight loss Eyes Denies blurry vision and Denies itchy eyes ENT Denies nasal congestion, Denies post nasal drip, Denies sinus pain, Denies sinus pressure and Denies other ( Thrush) Card Denies chest pain, Denies pedal edema, Denies dyspnea, Denies orthopnea and Denies paroxysmal nocturnal dyspnea Resp Reports cough, Denies hemoptysis, Reports excessive phlegm production, Denies dyspnea, Denies snoring and Denies wheezing GI Denies abdominal pain and Denies heartburn Musc Denies myalgias, Denies arthralgias and Denies joint swelling Skin/Breast Denies rash Neuro Denies memory loss and Denies seizure-like activity Psych Denies abnormal sleep pattern, Denies anxiety and Denies memory loss Endo Denies excessive sweating, Denies fatigue and Denies heat intolerance Jovi/Lymph Denies easy bruising Aller/Immun Denies itchy eyes, Denies seasonal rhinorrhea and Denies wheezing Physical Exam Vital Signs: Last Vital Signs Pulse 82 06/11/24 10:55 BP 102/74 06/11/24 10:55 Pulse Ox 99 06/11/24 10:55 Oxygen Delivery Method Room Air 06/11/24 10:55 BMI result Body Mass Index 29.0 Const General: no acute distress and alert Nutritional Appearance: not obese Orientation/consciousness: Other orientation findings ( oriented) HEENT Head: Yes atraumatic Eyes General: appearance normal, both eyes and all related structures Sclerae: sclerae normal EOM: EOMs intact bilaterally Neck Neck: Yes supple Lymphatic: no lymphadenopathy noted Resp Effort & Inspection: normal respiratory effort and no use of accessory muscles Auscultation: clear to auscultation bilaterally Cardio Rate: regular rate Rhythm: regular rhythm Heart sounds: no gallops, no murmurs and no rubs Skin General skin exam: other ( warm) Extrem General: No clubbing, No cyanosis and No edema Assessment & Plan Assessment & Plan (1) Asthma-COPD overlap syndrome: Code(s): J44.89 - Other specified chronic obstructive pulmonary disease Category: Medical Plan: Improved control on Breo. Continue Breo, albuterol MDI, will add duo nebs. Results of pulmonary function test reviewed. Will treat chronic bronchitic symptoms with a course of Levaquin. (2) Personal history of nicotine dependence: Code(s): Z87.891 - Personal history of nicotine dependence Category: Medical Plan: CT chest is pending. Medications: New levofloxacin 750 mg PO DAILY 7 tabs 0RF ipratropium-albuterol 0.5 mg-3 mg(2.5 mg base)/3 mL 3 mL inhalation Q4-6H PRN 180 mL 6RF wheezing Discontinued azithromycin Discontinued Reason: Doctor's Order For 250 mg dose pack: take 500 mg today (day 1), then 250 mg for 4 days (days 2-5) PO 6 tabs 0RF J44.89 - Other specified chronic obstructive pulmonary disease Coding Level of Care Code Est Pt Level 4 (06701) Complex EM visit Add On G2211 Diagnoses Asthma-COPD overlap syndrome J44.89 Personal history of nicotine dependence Z87.891
== END 2024-06-11 11:18 | disposition home or self-care (01) ==
LOC: HO.HPS 10:49
PROVIDERS: PCP Internal Medicine; Visit Provider Internal Medicine Pulmonary Disease
DX: J44.89 Other specified chronic obstructive pulmonary disease (principal); Z87.891 Personal history of nicotine dependence
CPT/HCPCS: 99214

== ENCOUNTER → 2024-06-11 10:49 | Outpatient (BNVA) | payer MEDICAID, SELFPAY | PROVIDERS: PCP Internal Medicine; Visit Provider Internal Medicine Pulmonary Disease | DX: J44.89 Other specified chronic obstructive pulmonary disease (principal); Z87.891 Personal history of nicotine dependence | CPT/HCPCS: 99212 ==

== ENCOUNTER 2024-06-26 08:56 | Outpatient (REF) | payer MEDICAID, SELFPAY | END 2024-06-26 08:57 | disposition home or self-care (01) | LOC: HO.CT 08:56 | PROVIDERS: PCP Internal Medicine; Visit Provider Internal Medicine Pulmonary Disease | DX: Z12.2 Encounter for screening for malignant neoplasm of respiratory organs (principal); Z87.891 Personal history of nicotine dependence | CPT/HCPCS: 71271 ==

== ENCOUNTER → 2024-06-26 08:57 | Outpatient (BNV) | payer MEDICAID, SELFPAY | PROVIDERS: PCP Internal Medicine; Visit Provider Radiology Diagnostic Radiology | DX: R91.1 Solitary pulmonary nodule (principal) | CPT/HCPCS: 71271 ==

== ENCOUNTER 2024-09-06 12:02 | Emergency (ER) | payer MEDICAID, SELFPAY ==
--- NOTE | ~2024-09-06 | XR_ITS ---
CLINICAL HISTORY: fall pain 3 view left foot Comparison: None Findings: Minimally displaced distal left fibular fracture. No significant loss of joint space, osteophytes, or erosions. No ankle effusion. No radiopaque foreign body. IMPRESSION: Distal left fibular fracture again noted. No additional fracture. This document has been electronically signed by: Luis Lopez MD on 09/06/2024 13:38:10
--- NOTE | ~2024-09-06 | XR_ITS ---
CLINICAL HISTORY: pain fall 3 view left ankle Comparison: None Findings: Minimally displaced obliquely oriented distal left fibular fracture. Impression: Minimally displaced obliquely oriented distal left fibular fracture. This document has been electronically signed by: Luis Lopez MD on 09/06/2024 13:37:08
[2024-09-06 12:33] VITALS: BP 100/56; PULSE 68; RESP 20; TEMP 36; O2SAT 99; BMI 29.0
[2024-09-06] MEDS: Acetaminophen 325 MG TABLET 650 MG PO (12:39)
--- NOTE | 2024-09-06 15:30 | ED_ITS ---
HPI - Fall General Chief Complaint: Fall Stated Complaint: fall Time Seen by Provider: 09/06/24 18:59 Source: patient, RN notes reviewed and old records reviewed Mode of arrival: ambulatory Limitations: no limitations History of Present Illness ED Provider: Jey HPI Narrative: 59-year-old female presents for evaluation of left lower leg pain. Patient reports that she slipped on ice prior to arrival. She reports twisting her left ankle and falling on it. Denies hitting her head or losing consciousness. She has pain to the left lateral lower leg. The pain is 10/10 and she was unable to bear weight No other complaints or concerns at this time. The patient is not anticoagulated Related Data Home Medications ?Medication ?Instructions ?Recorded ?Confirmed cyclobenzaprine 5 mg tablet 5 mg PO BEDTIME 06/16/20 11/16/23 duloxetine 30 mg capsule,delayed 1 cap PO DAILY 08/18/21 11/16/23 release albuterol sulfate 90 mcg/actuation 2 puff PO Q4H PRN wheezing 09/14/21 11/16/23 aerosol inhaler (ProAir HFA) meloxicam 7.5 mg tablet 7.5 mg PO DAILY 09/28/21 11/16/23 Previous Rx's ?Medication ?Instructions ?Recorded ergocalciferol (vitamin D2) 1,250 1,250 mcg PO QWEEK #6 caps 02/10/22 mcg (50,000 unit) capsule (Vitamin D2) breast prosthetic #2 ea 05/16/22 post-lumpectomy bra #2 ea 05/16/22 acetaminophen 500 mg tablet 1,000 mg (2 x 500 mg) PO Q6H PRN 02/08/23 (Acetaminophen Extra Strength) pain #90 tabs omeprazole 40 mg capsule,delayed 40 mg PO DAILY #30 caps 02/08/23 release sucralfate 100 mg/mL oral 10 ml PO BID #420 mL 02/08/23 suspension (Carafate) acetaminophen 325 mg capsule 650 mg (2 x 325 mg) PO Q6H PRN 02/10/23 (Tylenol) fever or pain #30 caps famotidine 20 mg tablet (Pepcid) 20 mg PO DAILY #30 tabs 02/10/23 ibuprofen 400 mg tablet 400 mg PO TID PRN fever or pain 02/10/23 #30 tabs ondansetron 4 mg disintegrating 4 mg PO Q6-8H PRN nausea and 02/10/23 tablet vomiting #14 tabs fluticasone furoate 200 1 inh inhalation Q24H #60 ea 05/08/24 mcg-vilanterol 25 mcg/dose inhalation powder (Breo Ellipta) letrozole 2.5 mg tablet 2.5 mg PO DAILY #60 tabs 06/10/24 ipratropium 0.5 mg-albuterol 3 mg 3 ml inhalation Q4-6H PRN wheezing 06/11/24 (2.5 mg base)/3 mL nebulization #180 mL soln levofloxacin 750 mg tablet 750 mg PO DAILY #7 tabs 06/11/24 oxycodone 5 mg tablet 5 mg PO Q6H PRN severe pain (scale 09/06/24 score 7-10) #20 tabs Allergies Allergy/AdvReac Type Severity Reaction Status Date / Time No Known Allergies Allergy Verified 09/06/24 12:34 Review of Systems Constitutional: Constitutional: Denies chills, Denies frequent falls and Denies headache(s) Eyes: Eyes: Denies blurry vision ENT: Denies vertigo, Denies dizziness and Denies headache(s) Cardiovascular: Cardiovascular: Denies chest pain, Denies chest pain at rest and Denies dyspnea Respiratory: Respiratory: Denies chest congestion, Denies cough and Denies dyspnea Gastrointestinal: Gastrointestinal: Denies abdominal pain Musculoskeletal: Musculoskeletal: Reports arthralgias, Reports joint swelling and Reports limited range of motion Neurologic: Denies vertigo, Denies dizziness, Denies frequent falls and Denies headache(s) [facility] Past Medical History Medical History Arm numbness left Arthritis Asthma Breast cancer Cervical spinal stenosis Depression GERD (gastroesophageal reflux disease) Surgical History History of pterygium excision S/P lumpectomy, left breast (09/14/21) Family History Family History Maternal Grandmother Stomach cancer Social History Social History (Updated 05/08/24 @ 10:50 by REINIRE Cespedes) Household Members: Children Housing: Apartment Are you a primary toddler caregiver to a significant other at home: No Do you presently have visiting nurse or other home services: No Alcohol intake: current Alcohol intake frequency: holidays/special occasions only Patient Tobacco Use Status: Current everyday Tobacco user Tobacco use type: Cigarette Cigarettes Per Day: 10 Years Smoked: started at age 18, 1PPD , currently 10 per day Advance Directives: No Advance Directives Information Provided: Yes Do you have a plan to hurt others: No Plan service: No Current occupational status: unemployed Current occupation: Left Handed Physical Exam Vital Signs: Vital Signs: Last Vital Signs Temp 98.0 F 09/06/24 15:32 Pulse 76 09/06/24 15:32 Resp 18 09/06/24 15:32 BP 138/77 09/06/24 15:32 Pulse Ox 99 09/06/24 15:32 O2 Del Method Room Air 09/06/24 15:32 BMI result Body Mass Index 29.0 Const: General: healthy appearing, comfortable, no acute distress, alert and awake Nutritional Appearance: well nourished Orientation/consciousness: patient oriented x3 HEENT: Head: Yes normocephalic and Yes atraumatic Eyes: Eyelids: Yes eyelids normal Conjunctivae: conjunctivae normal Sclerae: sclerae normal Corneas: corneas normal Pupils: Equal, round and reactive pupils present EOM: EOMs intact bilaterally Neck: Neck: Yes full ROM Resp: Effort & Inspection: normal respiratory effort, able to speak in complete sentences and not labored Skin: General skin exam: elasticity normal Neuro: General: patient oriented x3 Cranial nerves: Yes Equal, round and reactive pupils present and Yes Bilaterally intact EOM present Cognition (Neuro): normal cognition Extrem: Other: Patient has tenderness to the left lateral lower leg at the distal fibula and lateral malleolus. There is no palpable deformity. Distal sensation and capillary refill intact. Course Course Course Narrative: 59 yo female with PMH of asthma and COPD, not on blood thinners slipped on ice at 1140 now with c/o L ankle pain. No other injuries reported. at this time PO pain control she is NV intact will need xrays. this is a RAPID medical screening exam the rest of the history and physical exam is to be done by the main provider. Medications Administered Discontinued Medications Generic Name Dose Route Start Last Admin Trade Name Freq PRN Reason Stop Dose Admin Acetaminophen 650 mg 09/06/24 12:37 09/06/24 12:39 Acetaminophen 325 Mg Tablet PO 09/06/24 12:38 650 mg ONCE ONE Administration Ketorolac Tromethamine 30 mg 09/06/24 14:59 09/06/24 15:31 Ketorolac Tromethamine 30 Mg/Ml Vial IM 09/06/24 15:00 30 mg ONCE ONE Administration Oxycodone HCl 5 mg 09/06/24 19:32 09/06/24 19:57 Oxycodone Hcl Immed Release 5 Mg Tablet PO 09/06/24 19:33 5 mg ONCE ONE Administration Medical Decision Making Medical Decision Making MDM Narrative: 51-year-old female presents for evaluation of left ankle fracture of the distal fibula area. See procedure note for splinting. No other injuries noted. Patient will be discharged to follow up with Orthopedics Differential Diagnosis Differential Diagnoses: The differential diagnosis associated with the presentation includes Ankle fracture Foot fracture Ankle sprain Contusion Independent Interpretation I performed an independent interpretation of an: Plain X-Ray Interpretation: Left distal fibula fracture Radiology Impression Discussion of test interpretation with radiology: I have reviewed the radiologist's reading. Radiologist Impression: Findings: Minimally displaced obliquely oriented distal left fibular fracture. Impression: Minimally displaced obliquely oriented distal left fibular fracture. This document has been electronically signed by: Luis Lopez MD on 09/06/2024 13:37:08 Discharge Plan Discharge Clinical Impression: Closed fracture of distal end of left fibula Patient Disposition: Home, Self-Care Instructions: Leg Fracture (ED) Additional Instructions: You have a fracture of your left lower leg just above the ankle. Keep the splint on until you follow-up with orthopedics. Use ibuprofen/Tylenol for pain. You may use oxycodone for more severe, breakthrough pain. This may make you drowsy, do not drink alcohol or drive after taking it Follow-up with orthopedics at the number provided Prescriptions: New oxycodone 5 mg tablet 5 mg PO Q6H PRN (Reason: severe pain (scale score 7-10)) Qty: 20 0RF Rx Instructions: Partial Fill upon patient request. No Action (DME) breast prosthetic to fit See Rx Instructions .Route .MEDSUPPLY Qty: 2 0RF Rx Instructions: As directed (DME) post-lumpectomy bra to fit See Rx Instructions .Route .MEDSUPPLY Qty: 2 0RF Rx Instructions: As directed duloxetine 30 mg capsule,delayed release(DR/EC) 1 cap PO DAILY albuterol sulfate [ProAir HFA] 90 mcg/actuation HFA aerosol inhaler 2 puff PO Q4H PRN (Reason: wheezing) meloxicam 7.5 mg Tablet 7.5 mg PO DAILY ergocalciferol (vitamin D2) [Vitamin D2] 1,250 mcg (50,000 unit) Capsule 1,250 mcg PO QWEEK Qty: 6 1RF letrozole 2.5 mg Tablet 2.5 mg PO DAILY Qty: 60 7RF omeprazole 40 mg capsule,delayed release(DR/EC) 40 mg PO DAILY Qty: 30 0RF sucralfate [Carafate] 100 mg/mL suspension 10 ml PO BID Qty: 420 0RF acetaminophen [Acetaminophen Extra Strength] 500 mg tablet 1,000 mg PO Q6H PRN (Reason: pain) Qty: 90 0RF ibuprofen 400 mg tablet 400 mg PO TID PRN (Reason: fever or pain) Qty: 30 0RF ondansetron 4 mg tablet,disintegrating 4 mg PO Q6-8H PRN (Reason: nausea and vomiting) Qty: 14 0RF famotidine [Pepcid] 20 mg tablet 20 mg PO DAILY Qty: 30 0RF acetaminophen [Tylenol] 325 mg capsule 650 mg PO Q6H PRN (Reason: fever or pain) Qty: 30 0RF cyclobenzaprine 5 mg tablet 5 mg PO BEDTIME fluticasone furoate-vilanterol [Breo Ellipta] 200-25 mcg/dose blister with device 1 inh inhalation Q24H Qty: 60 6RF levofloxacin 750 mg tablet 750 mg PO DAILY Qty: 7 0RF ipratropium-albuterol 0.5 mg-3 mg(2.5 mg base)/3 mL solution for nebulization 3 ml inhalation Q4-6H PRN (Reason: wheezing) Qty: 180 6RF Referrals: Archie Cardona MD [Physician] - (left distal fibula fracture) Print Language: Lao
[2024-09-06] MEDS: Ketorolac Tromethamine 30 MG/ML VIAL IM (15:31)
[2024-09-06 15:32] VITALS: BP 138/77; PULSE 76; RESP 18; TEMP 36.7; O2SAT 99
--- OUTSIDE RECORDS SUMMARY | 2024-09-06 19:19 | XMS_ITS | Encounter Summary ---
Author Organization [employer] Address [address] [place] [address] Care Team Providers Care Solar Thermal Technician Name Role Phone Sherie William MD Primary Care Provide r Encounter Details Date Type Department Care Team ([facility] st Contact Info) Description 04/28/2024 Orders Only [facility] [address] [place] [address] Cindy Zacarias, ANP [address] [place] [address] Social History Tobacco Use Types Packs/Day Years Used Date Smoking Tobacco: Some Days Cigarettes Passive Smoke Exposure: Current Smokeless Tobacco: Never Comments:3 cigs a day Alcohol Use Standard Drinks/Week Comments Yes 0 (1 standard drink = 0.6 oz pur e alcohol) OC Depression Answer Date Recorded Patient Health Questionnaire-9 Score 19 12/25/2023 Patient Health Questionnaire-9 Score 19 12/25/2023 Last PHQ-9: Questionnaire Data Not on file 0 12/25/2023 Housing Stability Answer Date Recorded What is your housing situation today? I have ricardo duarte 12/14/[address] you li ve. Do you have problems with any of the following? None of the above 12/14/2023 Food Insecurity Answer Date Recorded Within the past 12 months, y ou worried that your food would run out before you got money to buy more: Sometimes True 2023 Within the past 12 months,th e food you bought just didn't last and you didn't have enough money to get more: Sometimes True 12/14/2023 Transportation Answer Date Recorded In the past 12 months, has l ack of transportation kept you from medical appts, meetings, work or from getting things needed for daily living? Yes, it has kept me from medical appointments or getting medications. 12/14/2023 Utilities Answer Date Recorded In the past 12 months, has t he electric, gas, oil or water company threatened to shut off services in your home? No 12/14/2023 Depression Answer Date Recorded Patient Health Questionnaire-2 Score 3 12/25/2023 Comments Unknown Sex and Gender Information Value Date Recorded Sex Assigned at Female 06/12/2022 10:16 AM EDT Legal Sex Female 10:16 AM EDT Gender Identity Female 06/12/2022 10:16 AM EDT Sexual Orientation Straight 06/12/2022 10 :16 AM EDT documented as of this encounter Plan of Treatment Upcoming Encounters Date Type Department Care Team (Late st Contact Info) Description 09/24/2024 9:00 AM EST Telemedicine [facility] [address] [place] [phone] Sherie William MD [address] [place] [phone] documented as of this encounter Visit Diagnoses Not on filedocumented in this encounter Additional Health Concerns Assessment Noted Time PHQ-9 Depression Total Score: 19 024 9:54 AM EDT documented as of this encounter Care Teams Solar Thermal Technician Relationship Specialty Start Date End Date Sherie William MD [address] [place] [phone] PCP - General Internal Medicine 03/19/24 documented as of this encounter
--- OUTSIDE RECORDS SUMMARY | 2024-09-06 19:19 | XMS_ITS | Encounter Summary ---
Author Organization [employer] [facility] Address [address] [place] [address] [address] [place] [address] Care Team Providers Care Swimming Professor Name Role Phone Cidny Zacarias Primary Care Provider [phone] Sherie William MD Primary Care Provide r Encounter Details Date Type Department Care Team (Latest Contact Info) Description 12/07/2020 Abstract [facility] CONVERSIONS Dental, Provider, DDS Social History Tobacco Use Types Packs/Day Years Used Date Smoking Tobacco: Never Assessed Comments Unknown Sex and Gender Information Value Date Recorded Sex Assigned at Female 06/12/2022 10:16 AM EDT Legal Sex Female 10:16 AM EDT Gender Identity Female 06/12/2022 10:16 AM EDT Sexual Orientation Straight 06/12/2022 10 :16 AM EDT documented as of this encounter Plan of Treatment Upcoming Encounters Date Type Department Care Team (Late st Contact Info) Description 09/24/2024 9:00 AM EST Telemedicine [facility] MEDICINE [address] [place] [address] Sherie William MD [address] [place] [address] documented as of this encounter Visit Diagnoses Not on filedocumented in this encounter Care Teams Swimming Professor Relationship Specialty Start Date End Date Cindy Zacarias ANP [address] [place] [address] PCP - General Family Medicine 07/20/20 03/18/24 Sherie William MD [address] [place] [address] PCP - General Internal Medicine 03/19/24 documented as of this encounter
--- OUTSIDE RECORDS SUMMARY | 2024-09-06 19:19 | XMS_ITS | Encounter Summary ---
Author Organization [employer] Address [address] [facility] [address] [place] [address] Care Team Providers Care Director Zone Name Role Phone Sherie William MD Primary Care Provide r Encounter Details Date Type Department Care Team (Late st Contact Info) Description 06/26/2024 Orders Only [facility] External Provider, [facility] Social History Tobacco Use Types Packs/Day Years Used Date Smoking Tobacco: Some Days Cigarettes Passive Smoke Exposure: Current Smokeless Tobacco: Never Comments:3 cigs a day Alcohol Use Standard Drinks/Week Comments Yes 0 (1 standard drink = 0.6 oz pur e alcohol) OC Depression Answer Date Recorded Patient Health Questionnaire-9 Score 19 08/28/2024 Patient Health Questionnaire-9 Score 19 08/28/2024 Last PHQ-9: Questionnaire Data Not on file 0 08/28/2024 Housing Stability Answer Date Recorded What is [...] t he electric, gas, oil or water [employer] threatened to shut off services in your home? No 12/14/2023 Depression Answer Date Recorded Patient Health Questionnaire-2 Score 6 08/28/2024 Comments Unknown Sex and Gender Information Value Date Recorded Sex Assigned at Female 06/12/2022 10:16 AM EDT Legal Sex Female 10:16 AM EDT Gender Identity Female 06/12/2022 10:16 AM EDT Sexual Orientation Straight 06/12/2022 10 :16 AM EDT documented as of this encounter Plan of Treatment Upcoming Encounters Date Type Department Care Team (Late st Contact Info) Description 09/24/2024 9:00 AM EST Telemedicine [facility] MEDICINE [address] [place] [address] Sherie William MD [address] [place] [address] documented as of this encounter Procedures Procedure Name Priority Date/Time Associated Diagnosis Comments LDCT LUNG SCREENING Routine 06/26/2024 9 :30 AM EST documented in this encounter Results * CT Lung Screening Low dose (06/26/2024 9:30 AM EST) Anatomical Region Laterality Modality Lung Computed Tomogra phy 06/26/2024 9:30 AM EST Narrative 08/28/2024 10:29 AM EST ? [facility] ?[address] ?[place] [address] ? CT Scan Report ? Signed ? Patient: Joana Laurie,Jessy ?MR#: [id number] ?? [id number] ? : 1965 ?Acct:[id number] ? Age/Sex: 58 / F ?ADM Date: 11/14/24 ? Loc: HO.CT ? Attending Janelle Alonso MD ? Ordering Physician: Yimi Alonso MD ?? Date of Service: 06/26/24 ?? Procedure(s): CT lung screening ?? Accession Number(s): [id number] ? cc: Sherie William MD; Yimi Alonso MD ? Report Number: ?? [id number]: Total DLP = ?? 37.00 mGy-cm ?? EXAMINATION: ??CT LUNG SCREENING ? HISTORY: Smoking history ? TECHNIQUE: Low dose axial images were obtained from the sternal notch ?? to upper abdomen without IV contrast per standard departmental ?? protocol. ??Sagittal and coronal reformatted images were also obtained ?? and reviewed. ??One or more of the following techniques was used for ?? dose reduction: Automated exposure control, adjustment of the mA and/or ?? kV according to patient size, use of iterative reconstruction technique. ? DLP: 37 mGy-cm ? COMPARISON: ??There are no prior studies for comparison. ? FINDINGS: ? Lung nodules: Numerous nodules are seen scattered throughout both lungs ?? measuring up to 5 mm in size. The largest nodules are in the superior ?? segment of the left lower lobe (series 6, image 134) and a 6 mm nodule ?? in the left lower lobe (series 6, image 217). ? Emphysema: none ? Coronary Calcification: ??none ? Aortic Arch Calcification: ??none ? Potentially Significant Incidentals : none ? Additional Chest Findings: There is no pleural or pericardial effusion. ?? No mediastinal or axillary lymphadenopathy is identified. ? Visualized upper abdomen: The visualized portions of the liver, spleen, ?? and adrenals have an unremarkable unenhanced appearance. ? CT/CT lung screening ?? IMPRESSION: ?? No suspicious pulmonary nodules are identified. ? LUNG-RADS ASSESSMENT: ?? Lung-RADS 2: Benign ? MANAGEMENT: ?? Continue annual screening with LDCT in 12 months ? Category S: N/A ? Electronically signed by: ??Craig Christianson MD ??08/28/2024 10:26 AM EST ?? RP ? Dictated By: ?Craig Christianson MD ? Signed By: ?<Electronically signed by Craig Christianson MD in OV> ?01/16/25 1026 ? DD/ 0930 ? TD/TT: 11/14/24 0938 ? Act English Tutor: ? Procedure Note Donotuseinterpreter, Image - 08/28/[address] [address] [place] Scan Report Signed Patient: Pop Shanks#: [id number] : 1965Acct:[id number] Age/Sex: 58 / FADM Date: 06/26/24 Loc: HO.CT Attending Dr: Yimi Alonso MD Ordering Physician: Yimi Alonso MD Date of Service: 06/26/24 Procedure(s): CT lung screening Accession Number(s): [id number] cc: Sherie William MD; Yimi Alonso MD Report Number: [id number]: Total DLP = 37.00 mGy-cm EXAMINATION: CT LUNG SCREENING HISTORY: Smoking history TECHNIQUE: Low dose axial images were obtained from the sternal notch to upper abdomen without IV contrast per standard departmental protocol. Sagittal and coronal reformatted images were also obtained and reviewed. One or more of the following techniques was used for dose reduction: Automated exposure control, adjustment of the mA and/or kV according to patient size, use of iterative reconstruction technique. DLP: 37 mGy-cm COMPARISON: There are no prior studies for comparison. FINDINGS: Lung nodules: Numerous nodules are seen scattered throughout both lungs measuring up to 5 mm in size. The largest nodules are in the superior segment of the left lower lobe (series 6, image 134) and a 6 mm nodule in the left lower lobe (series 6, image 217). Emphysema: none Coronary Calcification: none Aortic Arch Calcification: none Potentially Significant Incidentals : none Additional Chest Findings: There is no pleural or pericardial effusion. No mediastinal or axillary lymphadenopathy is identified. Visualized upper abdomen: The visualized portions of the liver, spleen, and adrenals have an unremarkable unenhanced appearance. CT/CT lung screening IMPRESSION: No suspicious pulmonary nodules are identified. LUNG-RADS ASSESSMENT: Lung-RADS 2: Benign MANAGEMENT: Continue annual screening with LDCT in 12 months Category S: N/A Electronically signed by: Craig Christianson MD 08/28/2024 10:26 AM EST Dictated By: Craig Christianson MD Signed By: <Electronically signed by Craig Christianson MD in OV> 08/28/24 1026 DD/ 9 TD/TT: 06/26/24937 Act English Tutor: [facility] External Provider IMG CT PROCEDURES Edited Result - Final documented in this encounter Visit Diagnoses Not on filedocumented in this encounter Additional Health Concerns Assessment Noted Time PHQ-9 Depression Total Score: 19 024 9:54 AM EDT documented as of this encounter Care Teams Director Zone Relationship Specialty Start Date End Date Sherie William MD [address] [place] [address] PCP - General Internal Medicine 03/19/24 documented as of this encounter
--- OUTSIDE RECORDS SUMMARY | 2024-09-06 19:20 | XMS_ITS | Clinical Summary ---
Author Organization [employer] Address [address] [place] [address] [address] [place] [address] Care Team Providers Care Pearl Maker Name Role Phone Sherie William MD Primary Care Provide r Allergies No known active allergies Medications * This document contains information received from the source organization and may not represent a complete record from that organization. zoster vaccine-recombin ant adjuvanted (Shingrix) 50 MCG/0.5ML vaccine Inject 0.5 mL into the shoulder, thigh, or buttocks 1 (one) time. 0 Active chlorhexidine (Peridex) 0.12 % solution Place 15 mL into mouth between cheek and gum in the morning and 15 mL in the evening. 1 Active sodium chloride ([place] Nasal [place]) 0.65 % nasal sprayIndications :Viral URI 1-2 sprays on each nostril every 2-3 hours as needed for nasal congestion 30 mL 1 3 Active cyclobenzaprine (Flexeril) 5 MG tabletIndication s:Chronic back pain, unspecified back location, unspecified back pain laterality TAKE 1 TABLET BY MOUTH THREE TIMES EVERY DAY IF NEEDED FOR MUSCLE PAIN 60 tablet 3 Active Beclomethasone Diprop HFA (Qvar RediHaler) 80 MCG/ACT inhalerIndicatio ns:Chronic obstructive pulmonary disease, unspecified COPD type (CMS/HCC) INHALE 2 PUFFS BY MOUTH EVERY 12 HOURS 10.6 g 3 Active diphenhydrAMINE (BENADryl) 25 MG tabletIndication s: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 30 tablet 4 Active albuterol 108 (90 Base) MCG/ACT inhalerIndicatio ns:Moderate asthma, unspecified whether complicated, unspecified whether persistent,Chron ic obstructive pulmonary disease, unspecified COPD type (CMS/HCC) INHALE 2 PUFFS BY MOUTH EVERY 4 TO 6 HOURS IF NEEDED FOR SHORTNESS OF BREATH OR WHEEZING 18 g 4 Active Fluocinolone Acetonide Scalp ([place]-Smoothe/F S Scalp) 0.01 % oilIndications:S eborrheic dermatitis of scalp Massage into damp scalp daily. Cover hair and leave on for at least 4 hours 118 mL 4 Active omeprazole (PriLOSEC) [address] capsuleIndicatio ns:Gastroesophag eal reflux disease, unspecified whether esophagitis present TAKE 1 CAPSULE BY MOUTH EVERY DAY BEFORE A MEAL 90 capsule 4 Active tiZANidine (Zanaflex) 4 MG capsuleIndicatio ns:Chronic bilateral low back pain without sciatica Take 1 capsule (4 mg) by mouth 3 times daily. 90 capsule 11 4 03/19/20 25 Active acetaminophen (Tylenol) 500 MG tablet Take 2 tablets (1,000 mg) by mouth every 12 (twelve) hours if needed for moderate pain or fever. 120 tablet 4 Active meloxicam (Mobic) 15 MG tabletIndication s:Chronic bilateral low back pain without sciatica TAKE 1 TABLET BY MOUTH EVERY DAY WITH FOOD 30 tablet 4 Active triamcinolone (Kenalog) 0.1 % creamIndications :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 APPLY TOPICALLY TO THE AFFECTED AREA(S) TWICE DAILY DIRECTED 80 g 2 4 Active DULoxetine (Cymbalta) [address] capsuleIndicatio ns:Mixed anxiety and depressive disorder,Complai nts of total body pain Take 1 capsule (30 mg) by mouth Once daily. 30 capsule 2 4 Active nicotine polacrilex (Nicotine Mini) 4 MG lozengeIndicatio ns:Tobacco dependence syndrome Dissolve 1 lozenge (4 mg) in the mouth every 2 (two) hours if needed for smoking cessation. 100 lozenge 4 Active QUEtiapine (SEROquel) 50 MG tabletIndication s:Mood disorder (CMS/HCC) Take 1 tablet (50 mg) by mouth at bedtime. 30 tablet 4 Active fluocinolone ([place]-Smoothe) 0.01 % external oilIndications:A llergic contact dermatitis due to chemical APPLY TOPICALLY TO AFFECTED AREA(S) TWICE DAILY DIRECTED 118.28 mL 1 4 Active Active Problems Problem Noted Date Diagnosed Date Chronic bilateral thoracic back pain 07/25/2024 Mood disorder 07/25/2024 Assessment & Plan (07/30/2024 12:38 PM EST): Counseling done, I decided to start her on quetiapine 50mg at night RTC 4 weeks televisit COPD with asthma 07/25/2024 Assessment & Plan (07/30/2024 12:38 PM EST): Stable c/w same interventions Low vision 07/25/2024 Moderate asthma 03/19/2024 MARIA FERNANDA (generalized anxiety disorder) 12/25/2023 Abnormal mammogram 08/22/2022 Overview (08/22/2022): 08/18/2022 BIRADS3 - repeat 6 mo Intraductal carcinoma in situ of left breast 11/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 straight-identified cis-female with previous documented hx of Depression and Anxiety MH services including OP Psychotherapy who presents for Anxiety and Depression. She lives alone, has not been able to work due to mental health status. During IBH Consult Jessy presenting with depressed mood, loss of interests/pleasure , changes in sleep difficulty falling asleep and difficulty staying asleep , change in appetite or weight overeating, trouble concentrating, thoughts of worthlessness or guilt, fatigue/loss of energy, thoughts of and excessive worry/anxiety, difficulty controlling worry, restless/keyed up/On edge, easily fatigued, difficulty concentrating/Mind going blank , irritability, muscle tension, and sleep disturbance difficulty falling asleep and difficulty staying asleep ; for a period of 18+ mo, for all symptoms in the context of concern about 2nd son safety, diminished ability to regulate her emotions, fearful to changes, missing grand children, concern about mother who lives in [place] and trust issues. PLAN: New/Additional Services needed PCP management Off-site services for Behavioral Health Integration Plan External OP therapy referral Patient Self Plan Patient to utilize skills provided in intervention , Patient to reach out to [facility] team as needed, Comply with medication , Patient to engage in OP therapy , and Patient to reach out to CB as needed Urinary incontinence 11/19/2013 Tobacco dependence syndrome 02/08/2012 Assessment & Plan (07/30/2024 12:39 PM EST): Counseling done Nicotine lozenge started today Asthma 01/31/2012 Gastroesophageal reflux disease 01/31/2012 Obesity 01/31/2012 Chronic maxillary sinusitis 02/07/2010 Allergic rhinitis 02/08/2000 Encounters * This document contains information received from the source organization and may not represent a complete record from that organization. Date Type Department Care Team Description 08/14/2024 Telephone [facility] [address] [place] [phone] Sherie William MD 08/11/2024 Telephone [facility] [address] [place] [address] Pipe Yo ANP 08/07/2024 Telephone [facility] [address] [place] [phone] Sherie William MD Reasonable Accommodation (I called the patient, regarding a reasonable accommodation request from [facility]. She stated that she requested to be able to have a washing machine in her apartment, and if her request is approved, she would like to remain living in her current apartment. She does not want to move.) 08/04/2024 Refill [facility] [address] [place] [phone] Sherie William MD 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 07/25/2024 9:30 AM EST Office Visit [facility] [address] [place] [phone] Sherie William MD Tobacco dependence syndrome (Primary Dx); Mood disorder (CMS/HCC); COPD with asthma (CMS/HCC); Low vision, unspecified left eye visual impairment category, unspecified right eye visual impairment category; Encounter for immunization 07/25/2024 Travel 07/18/2024 Patient Outreach [facility] [address] [place] [phone] Sherie William MD Pre-visit Planning (SDOH screening completed on 12/14/2023) 07/05/2024 Refill [facility] [address] [place] [phone] Pipe Yo ANP Mixed anxiety and depressive disorder; Complaints of total body pain 07/05/2024 Refill [facility] [address] [place] [phone] Alda Crespo FNP 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; Mixed anxiety and depressive disorder; Complaints of total body pain 06/26/2024 Orders Only [facility] External Provider, [facility] 06/20/2024 Telephone [facility] [address] [place] [phone] Sherie William MD No Show from Last 3 Months Immunizations Name Administration Dates Next Due Hep A, Adult 08/27/2019,12/30/2015 Hep B, Adolescent or Pediatric 06/30/2009,2008 Hep B, adult 12/30/2015 Influenza injectable quadrivalent preservative f ree 08/27/2019 Influenza, IIV3, injectable 07/13/2014, 8 Pneumococcal Conjugate PCV 20 07/25/2024 TD (adult), 2 Lf tetanus tox oid, preservative free, adsorbed 09/10/2007 Tdap 07/13/2014 Social History Tobacco Use Types Packs/Day Years Used Date Smoking Tobacco: Some Days Cigarettes Passive Smoke Exposure: Current Smokeless Tobacco: Never Tobacco Cessation:Ready to Q uit: Not Asked; Counseling Given: Not Answered Comments:3 cigs a day Alcohol Use Standard [...] Orientation Straight 06/12/2022 10 :16 AM EDT Last Filed Vital Signs Vital Sign Reading Time Taken Comments Blood Pressure 118/70 07/25/2024 9:23 AM EST Pulse 80 07/25/2024 9:23 AM EST Temperature 36.2 ??C (97.2 ??F) 07/25/2024 9:23 AM ES T Respiratory Rate 18 07/25/2024 9:23 AM EST Oxygen Saturation 99% 04/10/2024 9:48 AM EDT Inhaled Oxygen Concentration - - Weight 78.6 kg (173 lb 6 oz) 07/25/2024 9:23 AM EST Height 165.1 cm (5' 5 ) 07/25/2024 9:23 AM EST Body Mass Index 28.85 07/25/2024 9:23 AM EST Plan of Treatment Upcoming Encounters Date Type Department Care Team (Late st Contact Info) Description 09/24/2024 9:00 AM EST Telemedicine [facility] [address] [place] [phone] Sherie William MD [address] [place], [place] [phone] Health Maintenance Due Date Last Done Comments CT Colonography 1965 Colonoscopy 1966 FIT 1966 FOBT 1965 Sigmoidoscopy 1965 Hepatitis B Vaccines (2 of 3 - 19+ 3-dose series) 01/27/2016 12/30/2015, 06/30/2009, 10/20/2008 Zoster Vaccines (1 of 2) 2016 COVID-19 Vaccine (1 - season) 2024 Influenza Vaccine (#1) 2024 , 07/13/2014, 09/10/2007 DTaP/Tdap/Td Vaccines (2 - Td or Tdap) 07/13/2024 07/13/2014, 09/10/2007 Mammogram 08/30/2024 08/30/2023, 0712/2022, 03/06/2023, Additional history exists SDOH Screening 12/13/2024 12/14/2023 Depression Monitoring (PHQ-9) 02/25/2025 08/28/2024, 08/28/2024 Tobacco Screening 04/10/2025 04/10/2024 Alcohol/Substance Use Screening 07/25/2025 07/25/2024 Depression Screening 08/28/2025 08/28/2024, 08/28/19 Cervical Cancer Screening 05/19/2026 HPV/Cotest 05/19/2026 05/19/2021 Pap Smear 05/19/2026 05/19/2021, 05/19/2021 Colorectal Cancer Screening 01/09/2027 FIT DNA/Cologuard 01/09/2027 01/10/2024 Lipid Panel 12/30/2028 12/31/2023 RSV Patients and Patients Aged 60 years or older (1 - 1-dose 75+ series) 2041 Hepatitis A Vaccines Completed 08/27/2019, 12/30/19 16 HIV Screening Completed 12/31/2023, 08/28/2019 Hepatitis C Screening Completed 12/31/2023 Pneumococcal Vaccine: Pediatrics (0 to 5 Years) and At-Risk Patients (6 to 64 Years) Completed 07/25/2024 HIB Vaccines Aged Out No longer eligi ble based on patient's age to complete this topic HPV Vaccines Aged Out No longer eligi ble based on patient's age to complete this topic IPV Vaccines Aged Out No longer eligi ble based on patient's age to complete this topic Meningococcal Vaccine Aged Out No irina cipriano eligible based on patient's age to complete this topic RSV under 20 months Aged Out No longe r eligible based on patient's age to complete this topic Rotavirus Vaccines Aged Out No longer eligible based on patient's age to complete this topic Procedures Procedure Name Priority Date/Time Associated Diagnosis Comments LDCT LUNG SCREENING Routine 06/26/2024 9 :30 AM EST LAB COLOGUARD?? COLON CANCER SCREEN Routine 01/10/2024 12:16 PM EDT Screening for malignant neoplasm of colon HEPATITIS C AB W/REFL TO HCV RNA, QN, PCR Routine 12/31/2023 9:52 AM EDT Routine screening for STI (sexually transmitted infection) HIV 1/2 ANTIGEN/ANTIBODY, FOURTH GENERATION W/RFL Routine 12/31/2023 9:52 AM EDT Routine screening for STI (sexually transmitted infection) LIPID PANEL, STANDARD Routine 12/31/2023 9:52 AM EDT Lipid screening BI MAMMOGRAM DIAGNOSTIC TOMOSYNTHESIS BILATERAL Routine 08/30/2023 12:11 PM EST HPV MRNA E6/E7 Routine 05/19/2021 11:47 AM EDT PAP SMEAR Routine 05/19/2021 12:00 AM EDT from Last 3 Months or Most Recently Relevant to Health Maintenance Results * CT Lung Screening Low dose (06/26/2024 9:30 AM EST) Anatomical Region Laterality Modality Lung Computed Tomogra phy 06/26/2024 9:30 AM EST Narrative 08/28/2024 10:29 AM EST ? [facility] ?[address] ?[place] [address] ? CT Scan Report ? Signed ? Patient: Jessy Shanks ?MR#: [id number] ?? [id number] ? : 1965 ?Acct:[id number] ? Age/Sex: 58 / F ?ADM Date: 06/26/24 ? Loc: HO.CT ? Attending Dr: Yimi Alonso MD ? Ordering Physician: Yimi Alonso MD ?? Date of Service: 06/26/24 ?? Procedure(s): CT lung screening ?? Accession Number(s): [id number] ? cc: Sherie William MD; Yimi Alonso MD ? Report Number: ?? [id number]: Total DLP = ?? 37.00 mGy-cm ?? [...] ??Craig Christianson MD ??08/28/2024 10:26 AM EST ? Dictated By: ?Craig Christianson MD ? Signed By: ?<Electronically signed by Craig Christianson MD in OV> ?08/28/24 1026 ? DD/ 0930 ? TD/TT: 06/26/24 0938 ? Net Washer: ? Procedure Note Julius, Image - 08/28/[address] [place] [address] [address] Scan Report Signed Patient: Pop Shanks#: [id number] : 1965Acct:[id number] Age/Sex: 58 / FADM Date: 06/26/24 Loc: HO.CT Attending Dr: Yimi Alonso MD Ordering Physician: Yimi Alonso MD Date of Service: 06/26/24 Procedure(s): CT lung screening Accession Number(s): [id number] cc: Sherie William MD; Yimi Alonso MD Report Number: [id number]: Total DLP = 37.00 mGy-cm EXAMINATION: CT [...] by: Craig Christianson MD 08/28/2024 10:26 AM [facility] Dictated By: Craig Christianson MD Signed By: <Electronically signed by Craig Christianson MD in OV> 08/28/24 1026 DD/ 9 TD/TT: 06/26/24 09 Net Washer: [facility] External Provider IMG CT PROCEDURES Edited Result - Final * (ABNORMAL) Cologuard?? colon cancer screening (01/10/2024 12:16 PM EDT) Cologuard Result Positive( A) Negative 01/16/2024 10:06 AM EDT [facility] (CLIA #:[id number]) Comment: POSITIVE TEST RESULT. A positive Cologuard result should be followed with a colonoscopy or visual examination of the colon. The normal value (reference range) for this assay is negative. TEST DESCRIPTION: Composite algorithmic analysis of stool DNA-biomarkers with hemoglobin immunoassay. ?? Quantitative values of individual biomarkers are not reportable and are not associated with individual biomarker result reference ranges. Cologuard is intended for colorectal cancer screening of adults of either sex, 45 years or older, who are at average-risk for colorectal cancer (CRC). Cologuard has been approved for use by the U.S. FDA. The performance of Cologuard was established in a cross sectional study of average-risk adults aged 50-84. Cologuard performance in patients ages 45 to 49 years was estimated by sub-group analysis of near-age groups. Colonoscopies performed for a positive result may find as the most clinically significant lesion: colorectal cancer [4.0%], advanced adenoma (including sessile serrated polyps greater than or equal to 1cm diameter) [20%] or non- advanced adenoma [31%]; or no colorectal neoplasia [45%]. These estimates are derived from a prospective cross-sectional screening study of 10,000 individuals at average risk for colorectal cancer who were screened with both Cologuard and colonoscopy. (Mario Maurer. et al, N Engl J Med 2014;370(14):5968-2118.) Cologuard may produce a false negative or false positive result (no colorectal cancer or precancerous polyp present at colonoscopy follow up). A negative Cologuard test result does not guarantee the absence of CRC or advanced adenoma (pre-cancer). The current Cologuard screening interval is every 3 years. ([place] [employer] Society and U.S. Multi-Society Task Force). Cologuard performance data in a 10,000 patient pivotal study using colonoscopy as the reference method can be accessed at the following location: www.[employer].com/results. Additional description of the Cologuard test process, warnings and precautions can be found at www.[employer].com. Stool specimen (specimen) 01/10/2024 12:16 PM EDT 01/11/2024 1:42 PM EDT us Pipe Yo ANP LAB MOLECULAR DIAGNOSTICS ORDERA BLES Final Result [facility] (CLIA #:[id number]) [place] [address], * Hepatitis C Antibody with Reflex to HCV, RNA, Quantitative, Real-Time PCR (12/31/2023 9:52 AM EDT) Hepatitis C Antibody Nonreactive Nonreactive [facility] Comment:Antibodies to HCV no t detected; does not exclude early acuteHCV infection. Blood Venous blood specimen / Unknown 12/31/2023 9:52 AM EDT 12/31/2023 11:19 AM EDT us Pipe SAUCEDA LAB BLOOD ORDERABLES Final Resul t Performing Organization Address [facility]/ZIP Co de Phone Number [facility] [address] [place] [phone] * HIV-1/2 Antigen and Antibodies, Fourth Generation, with Reflexes (12/31/2023 9:52 AM EDT) HIV AB/AG Nonreactive Nonreactive [facility] Comment:HIV-1 p24 Ag and/or HIV-1/HIV-2 Ab not detected.A test result that is nonreactive does not exclude thepossibility of exposure to or infection with HIV-1 and/orHIV-2. Nonreactive results in this assay for individualswith prior exposure to HIV-1 and/or HIV-2 may be due toantigen and antibody levels that are below the limit ofdetection of this assay.The [employer] 9 HIV Ag/Ab Combo assay result andsupplemental assay results should be interpreted inconjunction with the patient's clinical presentation,history and other laboratory results. If the results areinconsistent with clinical evidence, additional testing issuggested to confirm the result. Blood Venous blood specimen / Unknown 12/31/2023 9:52 AM EDT 12/31/2023 11:19 AM EDT us Pipe Yo ANP LAB BLOOD ORDERABLES Final Resul t Performing Organization Address [facility] Co de Phone Number [facility] [address] [place] [address] [phone] * (ABNORMAL) Lipid Panel, Standard (12/31/2023 9:52 AM EDT) Triglycerides 166(H) <150 mg/dL [facility] Comment:Desirable Triglyceri de: less than 150 mg/dLBorderline High Triglyceride 150-199 mg/dLHigh Triglyceride: 200-499 mg/dLVery High Triglyceride: greater than or equal to 5OO mg/dL Cholesterol 172 <200 mg/dL [facility] Comment:Desirable Cholestero l: less than 200 mg/dLBorderline High Cholesterol: 200-239 mg/dLHigh Cholesterol: greater than 239 mg/dL LDL Cholesterol Calculated 103(H) <100 mg/dL [facility] Comment:Desirable LDL: less than 100 mg/dLNear Optimal/Above Optimal LDL: 110- 129 mg/dLBorderline High LDL: 130-159 mg/dLHigh LDL: 160-189 mg/dLVery High LDL: greater than or equal to 190 mg/dL HDL Cholesterol 36(L) >40 mg/dL [facility] Comment:Desirable HDL: great er than 40 mg/dL Note: This HDL assay may give artificially low results in patients with liver disease. Blood Venous blood specimen / Unknown 12/31/2023 9:52 AM EDT 12/31/2023 11:19 AM EDT Pipe Yo ANP LAB BLOOD ORDERABLES Final Resul t Performing Organization Address [facility] Co de Phone Number [facility] [address] [place] [address] [phone] * BI Mammogram Diagnostic Tomosynthesis Bilateral (08/30/2023 12:11 PM EST) Anatomical Region Laterality Modality Breast Bilateral Mammography 08/30/2023 12:1 1 PM EST Narrative 08/30/2023 1:07 PM EST ? [place] [facility] ? [address] ?[place] [address] ? Mammography Report ? Signed ? Patient: Joana Laurie,Jessy ?MR#: [id number] ?? [id number] ? : 1965 ?Acct:[id number] ? Age/Sex: 58 / F ?ADM Date: 08/30/23 ? Loc: HO.MAMMO ? Attending Dr: Pipe Yo [employer] ? Ordering Physician: PIPE YO NP ?Results: 2Benign Fin ?? dings ? Date of Service: 08/30/23 ?Follow Up: 1 Year From Orig ?? inal Mammogram ? Procedure(s): MM tomosynthesis diagnostic BI ?? Accession Number(s): [id number] ? cc: PIPE YO NP ? EXAMINATION: ?? MM DIAGNOSTIC DIGITAL BREAST TOMOSYNTHESIS, BILATERAL ? CLINICAL INFORMATION: ? Postop year 2 left breast CA. Left lumpectomy for DCIS to 09/14/2021. ? COMPARISON: ?? Mammography: 02/14/2023, 08/18/2022, 09/14/2021, 07/29/2021, ?? 07/21/2021, 07/18/2021, 01/22/2018 ? TECHNIQUE: ?? Digital breast tomosynthesis is performed in both the craniocaudal and ?? mediolateral oblique views along with computer-aided detection (CAD). ?? Synthesized 2D images are generated from the tomosynthesis. In ?? addition, 2-D spot magnification left CC and ML views x2 were obtained ?? of the lumpectomy site. ? FINDINGS: ?? There are scattered areas of fibroglandular density (ACR BI-RADS breast ?? composition Category b). ? Right breast parenchymal pattern is unchanged from prior exams. No ?? suspicious masses, architectural distortion, or abnormal ?? calcifications. ? There are stable dystrophic appearing calcifications surrounding the ?? lumpectomy site and scar in the lateral left breast. There is a stable ?? biopsy clip in this region. Evolving trabecular prominence noted post ?? surgery. No definite evidence of disease recurrence or change in ?? morphology of the scar. Parenchymal pattern is otherwise unchanged. No ?? left axillary abnormality or skin abnormality. ? MM/MM tomosynthesis diagnostic BI ?? IMPRESSION: ?? No findings suspicious for malignancy in either breast. ? Stable evolving postoperative changes left breast with associated ?? dystrophic calcifications. ? Recommend one-year follow-up for year 3 of postop protocol. ? ASSESSMENT: ? BI-RADS BI-RADS 2 - Benign Findings ? RECOMMENDATION: ?? 1 year F/U ? Results were provided to the patient at time of visit by the ?? technologist. ? This patient's information was entered into a reminder system with a ?? target due date for their next mammogram. ? Dictated By: ?Art Hdz MD ? Signed By: ?<Electronically signed by Art Hdz MD in OV> ?08/30/23 1303 ? DD/ 1211 ? TD/TT: ? Net Washer: ? Procedure Note Donleonarda, Image - 08/30/2023 [facility] [address] [place] [address] Dr. Low, PRATIK [address] Mammography Report Signed Patient: Pop Shanks#: [id number] : 1965Acct:[id number] Age/Sex: 58 / FADM Date: 08/30/23 Loc: [facility] Attending Dr: Pipe Yo [employer] Ordering Physician: YO,PIPE NPResults: 2Benign Pastor quach Date of Service: 08/30/23Follow Up: 1 Year From Orig inal Mammogram Procedure(s): MM tomosynthesis diagnostic BI Accession Number(s): [id number] cc: PIPE YO [employer] EXAMINATION: MM DIAGNOSTIC DIGITAL BREAST TOMOSYNTHESIS, BILATERAL CLINICAL INFORMATION: Postop year 2 left breast CA. Left lumpectomy for DCIS to 09/14/2021. COMPARISON: Mammography: 02/14/2023, 08/18/2022, 09/14/2021, 07/29/2021, 07/21/2021, 07/18/2021, 01/22/2018 TECHNIQUE: Digital breast tomosynthesis is performed in both the craniocaudal and mediolateral oblique views along with computer-aided detection (CAD). Synthesized 2D images are generated from the tomosynthesis. In addition, 2-D spot magnification left CC and ML views x2 were obtained of the lumpectomy site. FINDINGS: There are scattered areas of fibroglandular density (ACR BI-RADS breast composition Category b). Right breast parenchymal pattern is unchanged from prior exams. No suspicious masses, architectural distortion, or abnormal calcifications. There are stable dystrophic appearing calcifications surrounding the lumpectomy site and scar in the lateral left breast. There is a stable biopsy clip in this region. Evolving trabecular prominence noted post surgery. No definite evidence of disease recurrence or change in morphology of the scar. Parenchymal pattern is otherwise unchanged. No left axillary abnormality or skin abnormality. MM/MM tomosynthesis diagnostic BI IMPRESSION: No findings suspicious for malignancy in either breast. Stable evolving postoperative changes left breast with associated dystrophic calcifications. Recommend one-year follow-up for year 3 of postop protocol. ASSESSMENT: BI-RADS BI-RADS 2 - Benign Findings RECOMMENDATION: 1 year F/U Results were provided to the patient at time of visit by the technologist. This patient's information was entered into a reminder system with a target due date for their next mammogram. Dictated By: Art Hdz MD Signed By: <Electronically signed by Art Hdz MD in OV> 08/30/23 1303 DD/ 1211 TD/TT: Net Washer: Pipe Yo ANP IMG BI PROCEDURES Final Result * HPV mRNA E6/E7 (05/19/2021 11:47 AM EDT) HPV nRNA E6/E7 Not Detected Not Detected [facility] Comment: Methodology: Record Label Intern-Mediated Amplification This assay detects E6/E7 viral messenger RNA (mRNA) from 14 high-risk HPV types (16,18,31,33,35,39,45,51,52,56,58,59,66,68). ? The analytical performance characteristics of this assay have been determined by [employer]. The modifications have not been cleared or approved by the FDA. This assay has been validated pursuant to the CLIA regulations and is used for clinical purposes. ?? For additional information, please refer to http://education.Jobyal/faq/LHT039p8 (This link if provided for information/ educational purposes only.) 05/19/2021 11:4 7 AM EDT [facility] BLOOD ORDERABLES Aurora l Result [facility] [address] * Pap Smear (05/19/2021 12:00 AM EDT) Swab Hui Gutierres [facility] CYTOLOGY ORDERABLES F inal Result Performing Organization Address City/[facility]/ZIP Co de Phone Number [facility] [address], [place] [address] from Last 3 Months or Most Recently Relevant to Health Maintenance [place] [address] [place] [address] C3 Care Teams Pearl Maker Relationship Specialty Start Date End Date Sherie William MD [address] [place] [phone] PCP - General Internal Medicine 03/19/24
--- OUTSIDE RECORDS SUMMARY | 2024-09-06 19:20 | XMS_ITS | Encounter Summary ---
Author Organization [employer] Address [address] [facility] [address] [place] [address] Care Team Providers Care Concrete Engineering Technician Name Role Phone Sherie William MD Primary Care Provide r Encounter Details Date Type Department Care Team ([facility] st Contact Info) Description 08/14/2024 Telephone [facility] [address] [place], [place] [phone] Sherie William MD [address] [place], [place] [phone] Social History Tobacco Use Types Packs/Day Years [...] Info) Description 09/24/2024 9:00 AM EST Telemedicine [facility] [address] [place] [phone] Sherie William MD [address] [place] [address] documented as of this encounter Visit Diagnoses Not on filedocumented in this encounter Additional Health Concerns Assessment Noted Time PHQ-9 Depression Total Score: 19 024 9:54 AM EDT documented as of this encounter Care Teams Concrete Engineering Technician Relationship Specialty Start Date End Date Sherie William MD [address] [place] [address] PCP - General Internal Medicine 03/19/24 documented as of this encounter
--- OUTSIDE RECORDS SUMMARY | 2024-09-06 19:20 | XMS_ITS | Encounter Summary ---
Author Organization [employer] [facility] Address [address] [place] [address] [address] [place] [address] Care Team Providers Care Nursery Nurse Name Role Phone Sherie William MD Primary Care Provide r Reason for Visit * Reason Onset Date Comments Reasonable Accommodation 08/07/2024 I riley d the patient, regarding a reasonable accommodation request from [employer]. She stated that she requested to be able to have a washing machine in her apartment, and if her request is approved, she would like to remain living in her current apartment. She does not want to move. Encounter Details Date Type Department Care Team (Late st Contact Info) Description 08/07/2024 Telephone [facility] [address] [place], [place] [phone] Sherie William MD [address] [place], [place] [phone] Reasonable Accommodation (I called the patient, regarding a reasonable accommodation request from [employer]. She stated that she requested to be able to have a washing machine in her apartment, and if her request is approved, she would like to remain living in her current apartment. She does not want to move.) Social History Tobacco Use Types Packs/Day Years Used Date Smoking Tobacco: Some Days Cigarettes Passive Smoke Exposure: Current Smokeless Tobacco: Never Comments:3 cigs a day Alcohol Use Standard Drinks/Week Comments Yes 0 (1 standard drink = 0.6 oz pur e alcohol) OC Depression Answer Date Recorded Patient Health Questionnaire-9 Score 12/25/2023 Patient Health Questionnaire-9 Score 12/25/2023 Last PHQ-9: Questionnaire Data Not on [...] AM EDT documented as of this encounter Miscellaneous Notes * Telephone Encounter - Roxana Cabrera [place] - 08/07/2024 1:34 PM EST I called the patient, regarding a reasonable accommodation request from [email or web address]She stated that she requested to be able to have a washing machine in her apartment, and if her request is approved, she would like to remain living in her current apartment. She does not want to move. documented in this encounter Plan of Treatment Upcoming Encounters Date Type Department Care Team (Late st Contact Info) Description 09/24/2024 9:00 AM EST Telemedicine [facility] [address] [place], [place] [phone] Sherie William MD [address] [place], [place] [phone] documented as of this encounter Visit Diagnoses Not on filedocumented in this encounter Additional Health Concerns Assessment Noted Time PHQ-9 Depression Total Score: 19 024 9:54 AM EDT documented as of this encounter Care Teams Nursery Nurse Relationship Specialty Start Date End Date Sherie William MD [address] [place], [place] [phone] PCP - General Internal Medicine 03/19/24 documented as of this encounter
--- OUTSIDE RECORDS SUMMARY | 2024-09-06 19:20 | XMS_ITS | Encounter Summary ---
Author Organization [employer] [facility] Address [address] [place] [address] 7t [place] [address] Care Team Providers Care Software Engineer Kernel Name Role Phone Cindy Zacarias Primary Care Provider [phone] Sherie William MD Primary Care Provide r Encounter Details Date Type Department Care Team (Late st Contact Info) Description 04/03/2023 Abstract [facility] [address] [place], [place] [phone] ProviderJillian MD Social History Tobacco Use Types Packs/Day Years Used Date Smoking Tobacco: Some Days Cigarettes Passive Smoke Exposure: Current Smokeless Tobacco: Never Comments:3 cigs a day Comments Unknown Sex and Gender Information Value Date Recorded Sex Assigned at Female 06/12/2022 10:16 AM EDT Legal Sex Female 10:16 AM EDT Gender Identity Female 06/12/2022 10:16 AM EDT Sexual Orientation Straight 06/12/2022 10 :16 AM EDT documented as of this encounter Plan of Treatment Upcoming Encounters Date Type Department Care Team (Late st Contact Info) Description 09/24/2024 9:00 AM EST Telemedicine [facility] [address] [place], [place] [phone] Sherie William MD [address] [place], [place] [phone] documented as of this encounter Procedures Procedure Name Priority Date/Time Associated Diagnosis Comments MAMMOGRAPHY Routine 03/06/2023 documented in this encounter Results * Mammography (03/06/2023) Mammogram abnormal Anatomical Region Laterality Modality Other us Historical Provider HEALTH MAINTENANCE Final Result documented in this encounter Visit Diagnoses Not on filedocumented in this encounter Care Teams Software Engineer Kernel Relationship Specialty Start Date End Date Cindy Zacarias ANP [address] [place] [address] PCP - General Family Medicine 07/20/20 03/18/24 Sherie William MD [address] [place] [address] PCP - General Internal Medicine 03/19/24 documented as of this encounter
--- OUTSIDE RECORDS SUMMARY | 2024-09-06 19:20 | XMS_ITS | Encounter Summary ---
Author Organization [employer] Address [address] [facility] [address]t [place] [address] Care Team Providers Care Supervisor Bleach Plant Name Role Phone Sherie William MD Primary Care Provide r Encounter Details Date Type Department Care Team ([facility] st Contact Info) Description 08/11/[address] [facility] [address] [place], [place] [phone] Cindy Zacarias, ANP [address] [place], [place] [phone] Social History Tobacco Use Types Packs/Day Years [...] Info) Description 09/24/2024 9:[address] [facility] [address] [place] [phone] Sherie William MD [address] [place] [address] documented as of this encounter Visit Diagnoses Not on filedocumented in this encounter Additional Health Concerns Assessment Noted Time PHQ-9 Depression Total Score: 19 024 9:54 AM EDT documented as of this encounter Care Teams Supervisor Bleach Plant Relationship Specialty Start Date End Date Sherei William MD [address] [place] [id number] PCP - General Internal Medicine 03/19/24 documented as of this encounter
[2024-09-06] MEDS: oxyCODONE HCl Immed Release 5 MG TABLET PO (19:57)
[2024-09-06 21:09] VITALS: BP 138/77; PULSE 76; RESP 18; TEMP 36.7; O2SAT 99
== END 2024-09-06 21:09 | disposition home or self-care (01) ==
PROVIDERS: Emergency Provider Emergency Medicine Emergency Medical Services; PCP Internal Medicine
DX: S82.832A Other fracture of upper and lower end of left fibula, initial encounter for closed fracture (principal); W00.0XXA Fall on same level due to ice and snow, initial encounter; M79.662 Pain in left lower leg; F17.210 Nicotine dependence, cigarettes, uncomplicated; Y93.89 Activity, other specified; Y92.9 Unspecified place or not applicable; Y99.9 Unspecified external cause status
CPT/HCPCS: 73610; 73630; 96372; 99283; 99284; J1885

== ENCOUNTER → 2024-09-06 12:38 | Outpatient (BNV) | payer MEDICAID, SELFPAY | PROVIDERS: Visit Provider Radiology Vascular & Interventional Radiology | DX: R52 Pain, unspecified (principal); S82.832A Other fracture of upper and lower end of left fibula, initial encounter for closed fracture; W19.XXXA Unspecified fall, initial encounter | CPT/HCPCS: 73610; 73630 ==

== ENCOUNTER 2024-09-12 09:08 | Outpatient (REF) | payer MEDICAID, SELFPAY ==
--- NOTE | ~2024-09-12 | XR_ITS ---
EXAMINATION: XR ANKLE 3 OR MORE VIEWS LEFT HISTORY: M25.572 - Pain in left ankle and joints of left foot COMPARISON: Comparison is made with the prior examination dated 09/06/2024. FINDINGS: Three views of the left ankle are submitted. Osseous mineralization is normal. Again seen is a mildly displaced oblique fracture of the distal fibula. A small amount of callus formation is again noted. The fracture line remains visible. The joint spaces are preserved. Again seen is a small plantar calcaneal spur. The soft tissues are unremarkable. XR/XR ankle LT min 3V IMPRESSION: Oblique mildly displaced fracture of the distal fibula without significant change. Electronically signed by: Craig Christianson MD 09/12/2024 03:18 PM EST
--- OUTSIDE RECORDS SUMMARY | 2024-09-12 09:34 | XMS_ITS | Encounter Summary ---
Author Organization [employer] Address [address] [facility] 7t [place] [address] Care Team Providers Care Apricot Washer Name Role Phone Sherie William MD Primary Care Provide r Encounter Details Date Type Department Care Team (Late st Contact Info) Description 06/26/2024 Orders Only [facility] External Provider, [facility] Social History Tobacco Use Types Packs/Day [...] t he electric, gas, oil or water [employer] threatened to shut off services in your [...] Info) Description 09/24/2024 9:00 AM EST Telemedicine [facility] [address] [place] [address] Sherie William MD [address] [place] [address] documented as of this encounter Procedures Procedure Name Priority Date/Time Associated Diagnosis Comments LDCT LUNG SCREENING Routine 06/26/2024 9 :30 AM EST documented in this encounter Results * CT Lung Screening Low dose (06/26/2024 9:30 AM EST) Anatomical Region Laterality Modality Lung Computed Tomogra phy 06/26/2024 9:30 AM EST Narrative 08/28/2024 10:29 AM EST ? [facility] ?[address] ?[place] [address] ? CT Scan Report ? Signed ? Patient: Joana Laurie,Jessy ?MR#: [id number] ?? [id number] ? : 1965 ?Acct:[id number] ? Age/Sex: 58 / F ?ADM Date: 11/14/24 ? Loc: HO.CT ? Attending Janelle Alonso MD ? Ordering Physician: Yimi Alonso MD ?? Date of Service: 06/26/24 ?? Procedure(s): CT lung screening ?? Accession Number(s): [id number] ? cc: Sherie William MD; Yimi Alonso MD ? Report Number: ?? [id number]: Total DLP = ?? 37.00 mGy-cm ?? [...] DD/ 0930 ? TD/TT: 11/14/24 0938 ? Healthcare Architect: ? Procedure Note Donotuseinterpreter, Image - 08/28/[address] [address] [address] Scan Report Signed Patient: Pop Shanks#: [id number] : 1965Acct:[id number] Age/Sex: 58 / FADM Date: 06/26/24 Loc: HO.CT Attending Dr: Yimi Alonso MD Ordering Physician: Yimi Alonso MD Date of Service: 06/26/24 Procedure(s): CT lung screening Accession Number(s): [id number] cc: hSerie William MD; Yimi Alonso MD Report Number: [id number]: Total DLP = 37.00 mGy-cm EXAMINATION: CT [...] OV> 08/28/24 1026 DD/ 9 TD/TT: 06/26/24937 Healthcare Architect: [facility] External Provider IMG CT PROCEDURES Edited Result - Final documented in this encounter Visit Diagnoses Not on filedocumented in this encounter Additional Health Concerns Assessment Noted Time PHQ-9 Depression Total Score: 19 024 9:54 AM EDT documented as of this encounter Care Teams Apricot Washer Relationship Specialty Start Date End Date Sherie William MD [address] [place] [address] PCP - General Internal Medicine 03/19/24 documented as of this encounter
--- OUTSIDE RECORDS SUMMARY | 2024-09-12 09:34 | XMS_ITS | Clinical Summary ---
Author Organization [employer] Address [address] [place] [address] 7t [place] [address] Care Team Providers Care Director Transition Name Role Phone Sherie William MD Primary [...] in the evening. 1 Active sodium chloride (Culberson Nasal Shobonier) 0.65 % nasal sprayIndications :Viral URI 1-2 [...] 18 g 4 Active Fluocinolone Acetonide Scalp (Lyles-Smoothe/F S Scalp) 0.01 % oilIndications:S eborrheic dermatitis [...] at bedtime. 30 tablet 4 Active fluocinolone (Lyles-Smoothe) 0.01 % external oilIndications:A llergic contact dermatitis [...] children, concern about mother who lives in [place] and trust issues. PLAN: New/Additional Services needed PCP management Off-site services for Behavioral Health Integration Plan External OP therapy referral Patient Self Plan Patient to utilize skills provided in intervention , Patient to reach out to [facility] ED team as needed, Comply with medication , [...] Type Department Care Team Description 08/14/2024 Telephone [facility] [address] [place] [address] Sherie William MD 08/11/2024 Telephone [facility] [address] [place] [address] Pipe Yo ANP 08/07/2024 Telephone [facility] [address] [place] [phone] Sherie William MD Reasonable Accommodation (I called the patient, regarding a reasonable accommodation request from [facility]. She stated that she requested to be able to have a washing machine in her apartment, and if her request is approved, she would like to remain living in her current apartment. 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 07/25/2024 9:30 AM EST Office Visit [facility] [address] [place] [phone] Sherie William MD Tobacco dependence syndrome (Primary Dx); Mood disorder (CMS/HCC); COPD with asthma (CMS/HCC); Low vision, unspecified left eye visual impairment category, unspecified right eye visual impairment category; Encounter for immunization 07/25/2024 Travel 07/18/2024 Patient Outreach [facility] [address] [place] [phone] Sherie William MD Pre-visit Planning (SDOH screening completed on 12/14/2023) 07/05/2024 Refill [facility] [address] [place] [address] Pipe Yo ANP Mixed anxiety and depressive disorder; Complaints of total body pain 07/05/2024 Refill [facility] [address] [place] [address] Alda Crespo FNP 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; Mixed anxiety and depressive disorder; Complaints of total body pain 06/26/2024 Orders Only [facility] External Provider, [facility] 06/20/2024 Telephone [facility] [address] [place] [phone] Sherie William MD No Show from Last [...] Info) Description 09/24/2024 9:00 AM EST Telemedicine [facility] [address] [place] [address] Sherie William MD [address] [place], [place] [phone] Health Maintenance Due Date Last Done Comments [...] Hepatitis C Screening Completed 12/31/2023 Pneumococcal Vaccine: 50+ Years Completed 07/25/2024 HIB Vaccines Aged Out No [...] EST Narrative 08/28/2024 10:29 AM EST ? [facility] ?[address] ?[place] [address] ? CT Scan Report ? Signed ? Patient: Ash Shanksda ?MR#: [id number] ?? [id number] ? : 1965 ?Acct:[id number] ? Age/Sex: 58 / F ?ADM Date: 06/26/24 ? Loc: HO.CT ? Attending Dr: Yimi Alonso MD ? Ordering Physician: Yimi Alonso MD ?? Date of Service: 06/26/24 ?? Procedure(s): CT lung screening ?? Accession Number(s): [id number] ? cc: Sherie William MD; Yimi Alonso MD ? Report Number: ?? [id number]: Total DLP = ?? 37.00 mGy-cm ?? [...] DD/ 0930 ? TD/TT: 06/26/24 0938 ? Supervisor Stripping: ? Procedure Note Josh Madrid - 08/28/[address] [place] [address] [address] Scan Report Signed Patient: Pop Shanks#: [id number] : 1965Acct:[id number] Age/Sex: 58 / FADM Date: 06/26/24 Loc: HO.CT Attending Dr: Yimi Alonso MD Ordering Physician: Yimi Alonso MD Date of Service: 06/26/24 Procedure(s): CT lung screening Accession Number(s): [id number] cc: Sherie William MD; Yimi Alonso MD Report Number: [id number]: Total DLP = 37.00 mGy-cm EXAMINATION: CT [...] by: Craig Christianson MD 08/28/2024 10:26 AM [facility] Dictated By: Craig Christianson MD Signed By: <Electronically signed by Craig Christianson MD in OV> 08/28/24 1026 DD/ 9 TD/TT: 06/26/24 0938 Supervisor Stripping: [facility] External Provider IMG CT PROCEDURES Edited Result - Final * (ABNORMAL) Cologuard?? colon cancer screening (01/10/2024 12:16 PM EDT) Cologuard Result Positive( A) Negative 01/16/2024 10:06 AM EDT [facility] (CLIA #:[id number]) Comment: POSITIVE TEST RESULT. A positive Cologuard [...] screened with both Cologuard and colonoscopy. (Mario Bruce al, N Engl J Med 2014;370(14):5971-8752.) Cologuard may produce a false negative or false positive result (no colorectal cancer or precancerous polyp present at colonoscopy follow up). A negative Cologuard test result does not guarantee the absence of CRC or advanced adenoma (pre-cancer). The current Cologuard screening interval is every 3 years. ([place] [employer] Society and U.S. Multi-Society Task Force). Cologuard performance data in a 10,000 patient pivotal study using colonoscopy as the reference method can be accessed at the following location: www.[employer]/results. Additional description of the Cologuard test process, warnings and precautions can be found at www.ClusterSevenrd.Keemotion. Stool specimen (specimen) 01/10/2024 12:16 PM EDT 01/11/2024 1:42 PM EDT [facility] MOLECULAR DIAGNOSTICS ORDERA BLES Final Result [facility] (CLIA #:[id number]) [place] [address], * Hepatitis C Antibody with Reflex to HCV, RNA, Quantitative, Real-Time PCR (12/31/2023 9:52 AM EDT) Hepatitis C Antibody Nonreactive Nonreactive [facility] Comment:Antibodies to HCV no t detected; does not exclude early acuteHCV infection. Blood Venous blood specimen / Unknown 12/31/2023 9:52 AM EDT 12/31/2023 11:19 AM EDT us [facility] LAB BLOOD ORDERABLES Final Resul t Performing Organization Address [facility] Co de Phone Number [facility] [address] [place] [phone] * HIV-1/2 Antigen and Antibodies, Fourth Generation, with Reflexes (12/31/2023 9:52 AM EDT) HIV AB/AG Nonreactive Nonreactive [facility] Comment:HIV-1 p24 Ag and/or HIV-1/HIV-2 Ab not detected.A test result that is nonreactive does not exclude thepossibility of exposure to or infection with HIV-1 and/orHIV-2. Nonreactive results in this assay for individualswith prior exposure to HIV-1 and/or HIV-2 may be due toantigen and antibody levels that are below the limit ofdetection of this assay.The Curasight HIV Ag/Ab Combo assay result andsupplemental assay results should be interpreted inconjunction with the patient's clinical presentation,history and other laboratory results. If the results areinconsistent with clinical evidence, additional testing issuggested to confirm the result. Blood Venous blood specimen / Unknown 12/31/2023 9:52 AM EDT 12/31/2023 11:19 AM EDT us [facility] LAB BLOOD ORDERABLES Final Resul t Performing Organization Address City/[facility]/ZIP Co de Phone Number [facility] [address] [place] [address] [phone] * (ABNORMAL) Lipid Panel, Standard (12/31/2023 9:52 AM EDT) Triglycerides 166(H) <150 mg/dL [facility] Comment:Desirable Triglyceri de: less than 150 mg/dLBorderline High Triglyceride 150-199 mg/dLHigh Triglyceride: 200-499 mg/dLVery High Triglyceride: greater than or equal to 5OO mg/dL Cholesterol 172 <200 mg/dL [facility] Comment:Desirable Cholestero l: less than 200 mg/dLBorderline High Cholesterol: 200-239 mg/dLHigh Cholesterol: greater than 239 mg/dL LDL Cholesterol Calculated 103(H) <100 mg/dL [facility] Comment:Desirable LDL: less than 100 mg/dLNear Optimal/Above Optimal LDL: 110- 129 mg/dLBorderline High LDL: 130-159 mg/dLHigh LDL: 160-189 mg/dLVery High LDL: greater than or equal to 190 mg/dL HDL Cholesterol 36(L) >40 mg/dL [facility] Comment:Desirable HDL: great er than 40 mg/dL Note: This HDL assay may give artificially low results in patients with liver disease. Blood Venous blood specimen / Unknown 12/31/2023 9:52 AM EDT 12/31/2023 11:19 AM EDT [facility] LAB BLOOD ORDERABLES Final Resul t Performing Organization Address [facility] Co de Phone Number [facility] [address] [place] [address] [phone] * BI Mammogram Diagnostic Tomosynthesis Bilateral (08/30/2023 12:11 PM EST) Anatomical Region Laterality Modality Breast Bilateral Mammography 08/30/2023 12:1 1 PM EST Narrative 08/30/2023 1:07 PM EST ? [facility] ? [address] ?[place] [address] ? Mammography Report ? Signed ? Patient: Joana ,Jessy ?MR#: [id number] ?? [id number] ? : 1965 ?Acct:[id number] ? Age/Sex: 58 / F ?ADM Date: 08/30/23 ? Loc: HO.MAMMO ? Attending Dr: Pipe Yo READING SPECIALIST ? Ordering Physician: PIPE YO NP ?Results: 2Benign Fin ?? dings ? Date of Service: 08/30/23 ?Follow Up: 1 Year From Orig ?? inal Mammogram ? Procedure(s): MM tomosynthesis diagnostic BI ?? Accession Number(s): [id number] ? cc: PIPE YO NP ? EXAMINATION: [...] 1303 ? DD/ 1211 ? TD/TT: ? Supervisor Stripping: ? Procedure Note Julius, Image - 08/30/2023 [facility] [address] [place] [address] [place] [address] Mammography Report Signed Patient: Pop Shanks#: [id number] : 1965Acct:[id number] Age/Sex: 58 / FADM Date: 08/30/23 Loc: HO.MAMMO Attending Dr: Pipe Yo READING SPECIALIST Ordering Physician: PIPE YOults: 2Banayeli quach Date of Service: 08/30/23Follow Up: 1 Year From Orig ina Mammogram Procedure(s): MM tomosynthesis diagnostic BI Accession Number(s): [id number] cc: PIPE YO NP EXAMINATION: MM DIAGNOSTIC DIGITAL BREAST TOMOSYNTHESIS, BILATERAL [...] in OV> 08/30/23 1303 DD/ 1211 TD/TT: Supervisor Stripping: Pipe Yo [facility] BI PROCEDURES Final Result * HPV mRNA E6/E7 (05/19/2021 11:47 AM EDT) HPV nRNA E6/E7 Not Detected Not Detected [facility] Comment: Methodology: Patented Hogshead Assembler-Mediated Amplification This assay detects E6/E7 viral messenger RNA (mRNA) from 14 high-risk HPV types (16,18,31,33,35,39,45,51,52,56,58,59,66,68). ? The analytical performance characteristics of this assay have been determined by [employer]. The modifications have not been cleared or approved by the FDA. This assay has been validated pursuant to the CLIA regulations and is used for clinical purposes. ?? For additional information, please refer to http://education.Socius/faq/EMS629d2 (This link if provided for information/ educational purposes only.) 05/19/2021 11:4 7 AM EDT [facility] LAB BLOOD ORDERABLES Aurora l Result [facility] [address] * Pap Smear (05/19/2021 12:00 AM EDT) Swab [facility] CYTOLOGY ORDERABLES F inal Result Performing Organization Address City/[facility]/ZIP Co de Phone Number [facility] [address] [place] [address], [place] [phone] from Last 3 Months or Most Recently Relevant to Health Maintenance Insurance [address] [address] C3 Care Teams Director Transition Relationship Specialty Start Date End Date Sherie William MD [address] [place] [phone] PCP - General Internal Medicine 03/19/24
--- OUTSIDE RECORDS SUMMARY | 2024-09-12 09:34 | XMS_ITS | Encounter Summary ---
Author Organization [employer] [facility] Address [address] [place] [address] 7t [place] [address] Care Team Providers Care Otr Company Truck Driver Name Role Phone Cindy Zacarias Primary Care Provider [phone] Sherie William MD Primary Care Provide r Encounter Details Date Type Department Care Team (Latest Contact Info) Description 12/07/2020 Abstract [facility] CONVERSIONS Dental, Provider, DDS Social History [...] Info) Description 09/24/2024 9:00 AM EST Telemedicine [facility] [address] [place] [address] Sherie William MD [address] [place] [address] documented as of this encounter Visit Diagnoses Not on filedocumented in this encounter Care Teams Otr Company Truck Driver Relationship Specialty Start Date End Date Cindy Zacarias ANP [address] [place] [address] PCP - General Family Medicine 07/20/20 03/18/24 Sherie William MD [address] [place] [address] PCP - General Internal Medicine 03/19/24 documented as of this encounter
--- OUTSIDE RECORDS SUMMARY | 2024-09-12 09:34 | XMS_ITS | Encounter Summary ---
Author Organization [employer] Address [address] [facility] 7t [place] [address] Care Team Providers Care Rn Maternity Name Role Phone Sherie William MD Primary Care Provide r Encounter Details Date Type Department Care Team ([facility] st Contact Info) Description 04/28/2024 Orders Only [facility] [address] [place] [address] Cindy Zacarias, ANP [address] [place] [address] Social History Tobacco Use Types Packs/Day Years [...] Description 09/24/2024 9:00 AM EST Telemedicine [facility] [address] [place] [address] Sherie William MD [address] [place] [address] documented as of this encounter Visit Diagnoses Not on filedocumented in this encounter Additional Health Concerns Assessment Noted Time PHQ-9 Depression Total Score: 19 024 9:54 AM EDT documented as of this encounter Care Teams Rn Maternity Relationship Specialty Start Date End Date Sherie William MD [address] [place] [address] PCP - General Internal Medicine 03/19/24 documented as of this encounter
--- OUTSIDE RECORDS SUMMARY | 2024-09-12 09:34 | XMS_ITS | Encounter Summary ---
Author Organization [employer] Address [address] [facility] [address]t [place] [address] Care Team Providers Care Fbi Profiler Name Role Phone Sherie William MD Primary Care Provide r Encounter Details Date Type Department Care Team ([facility] st Contact Info) Description 08/14/2024 Telephone [facility] [address] [place], [place] [phone] Sherie William MD [address] [place], [place] [phone] Social History Tobacco Use Types Packs/Day Years [...] your housing situation today? I have ricardo daurte 12/14/[address] you li [...] Info) Description 09/24/2024 9:00 AM EST Telemedicine [facility] [address] [place] [address] Sherie William MD [address] [place] [address] documented as of this encounter Visit Diagnoses Not on filedocumented in this encounter Additional Health Concerns Assessment Noted Time PHQ-9 Depression Total Score: 19 024 9:54 AM EDT documented as of this encounter Care Teams Fbi Profiler Relationship Specialty Start Date End Date Sherie William MD [address] [place] [address] PCP - General Internal Medicine 03/19/24 documented as of this encounter
--- OUTSIDE RECORDS SUMMARY | 2024-09-12 09:34 | XMS_ITS | Encounter Summary ---
Author Organization [x+1] [facility] Address [address] [place] [address] 7t [place] [address] Care Team Providers Care Contingents Supervisor Name Role Phone Cindy Zacarias Primary Care Provider [phone] Sherie William MD Primary Care Provide r Encounter Details Date Type Department Care Team (Late st Contact Info) Description 04/03/2023 Abstract [facility] [address] [place] [address] [phone] ProviderJillian MD Social History Tobacco Use Types [...] 9:00 AM EST Telemedicine [facility] [address] [place], [place] [phone] Sherie William MD [address] [place], [place] [phone] documented as of this encounter Procedures Procedure Name Priority Date/Time Associated Diagnosis Comments MAMMOGRAPHY Routine 03/06/2023 documented in this encounter Results * Mammography (03/06/2023) Mammogram abnormal Anatomical Region Laterality Modality Other us Historical Provider HEALTH MAINTENANCE Final Result documented in this encounter Visit Diagnoses Not on filedocumented in this encounter Care Teams Contingents Supervisor Relationship Specialty Start Date End Date Cindy Zacarias ANP [address] [place] [address] PCP - General Family Medicine 07/20/20 03/18/24 Sherie William MD [address] [place] [address] PCP - General Internal Medicine 03/19/24 documented as of this encounter
== END 2024-09-12 09:09 | disposition home or self-care (01) ==
LOC: HO.HOSX 09:08
PROVIDERS: Visit Provider Physician Assistant
DX: M25.572 Pain in left ankle and joints of left foot (principal); S82.892A Other fracture of left lower leg, initial encounter for closed fracture
CPT/HCPCS: 27786; 73610; 99212

== ENCOUNTER 2024-09-12 12:40 | Outpatient (AMB) | payer MEDICAID, SELFPAY ==
[2024-09-12 12:56] VITALS: BMI 29.0
--- NOTE | 2024-09-12 12:56 | MHC.OFFVIS ---
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 Patient slipped on ice twisting her ankle and falling. She presented to [facility] ER that same day where x-rays were taken, placed in a splint and referred to orthopedics. Currently her pain constant. Little releif with pain medication. she feels the splint was too. SHe has ongoing swelling. Numbness and tingling. stinging pain. Sanitary Landfill Supervisor Required: Yes Sanitary Landfill Supervisor Services: Sanitary Landfill Supervisor Offered & Declined Puddler Helper: Puddler Helper Present Accompanied by: Friend Allergies No Known Allergies Allergy (Verified 09/12/24 13:06) Medication List - Last Reconciled 09/12/24 by Mckayla Montano PA-C acetaminophen (Tylenol) 650 mg (2 x 325 mg) PO Q6H PRN albuterol sulfate 90 mcg/actuation (ProAir HFA) 2 puffs PO Q4H PRN [breast prosthetic As directed] cyclobenzaprine 5 mg PO BEDTIME duloxetine 1 cap PO DAILY ergocalciferol (vitamin D2) (Vitamin D2) 1,250 mcg PO QWEEK famotidine (Pepcid) 20 mg PO DAILY fluticasone furoate-vilanterol 200-25 mcg/dose (Breo Ellipta) 1 inh inhalation Q24H ibuprofen 400 mg PO TID PRN ipratropium-albuterol 0.5 mg-3 mg(2.5 mg base)/3 mL 3 mL inhalation Q4-6H PRN letrozole 2.5 mg PO DAILY levofloxacin 750 mg PO DAILY meloxicam 7.5 mg PO DAILY omeprazole 40 mg PO DAILY ondansetron 4 mg PO Q6-8H PRN oxycodone 5 mg PO Q6H PRN [post-lumpectomy bra As directed] sucralfate (Carafate) 10 mL PO BID HPI 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 She states she was walking outside when she slipped on ice and fell. She was unable to put weight on her ankle immediately. She presented to the emergency department where x-rays were obtained and she was found to have a distal fibular fracture. She was placed in a splint and referred to our office for ortho eval. [facility] Medical History Arm numbness left Arthritis Asthma Breast cancer Cervical spinal stenosis Depression GERD (gastroesophageal reflux disease) Surgical History S/P lumpectomy, left breast (09/14/21) History of pterygium excision Family History Maternal Grandmother Stomach cancer Social History Household Members: Children Housing: Apartment Are you a primary rn managed care to a significant other at home: No Do you presently have visiting nurse or other home services: No Alcohol intake: current Alcohol intake frequency: holidays/special occasions only Patient Tobacco Use Status: Current everyday Tobacco user Tobacco use type: Cigarette Cigarettes Per Day: 10 Years Smoked: started at age 18, 1PPD , currently 10 per day service: No Current occupational status: unemployed Current occupation: Left Handed Female Reproductive History Menstrual Age of Menarche: 15 Review of Systems Const All systems reviewed & are unremarkable except as noted in HPI and below Physical Exam Vital Signs: BMI result Body Mass Index 29.0 Const General: cooperative, healthy appearing, comfortable, no acute distress, well developed and alert Orientation/consciousness: patient oriented x3 HEENT Head: Yes normal to inspection, Yes normocephalic and Yes atraumatic Eyes General: appearance normal, both eyes and all related structures Neck Neck: Yes normal visual inspection and Yes no lymphadenopathy Resp Effort & Inspection: normal respiratory effort and able to speak in complete sentences Cardio Rate: regular rate Peripheral pulses: Peripheral pulses 2+ throughout GI Inspection: Yes normal to inspection Palpation (GI): Soft to palpation Skin General skin exam: no rashes or lesions noted Neuro General: patient oriented x3 Extrem Other: Left ankle skin is intact no open wounds or abrasions. She does have diffuse swelling over the ankle with tenderness over the distal fibula. Neurovascularly intact. Psych Appearance: grossly normal Mental Status: mental status grossly normal Office Procedures Casting/Splints 84294-Zekzl Leg splint application Procedure code (CPT) selection complete Results Reviewed Results Reviewed: X-rays of the left ankle obtained in the office today show distal fibular fracture Assessment & Plan Assessment & Plan (1) Closed left ankle fracture: Code(s): S82.892A - Other fracture of left lower leg, initial encounter for closed fracture Category: Medical Plan: I discussed the case with Dr. Murillo. I discussed the extent of the injury to the patient and options available. Given the extent of the fracture pattern and high risk of further displacement, it is recommended that we surgically fix this to help with stability and restoring anatomy. I explained to the patient the procedure in detail along with the risks benefits and alternatives. Risks including but not limited to infection, wound breakdown, stiffness, on going pain, nonunion or malunion, and possible complications with hardware. She does understand all this and would like to proceed with open reduction internal fixation left ankle with Dr. Mruillo. She will be booked accordingly. She was placed in a posterior splint today. Orders: Orders XR ankle LT min 3V Today M25.572 - Pain in left ankle and joints of left foot Coding Level of Care Code New Pt Level 4 (86334) Complex EM visit Add On G2211 Diagnoses Closed left ankle fracture S82.892A CPT Codes Splint - CPT: 04528-Vgiir Leg splint application ([id number])
--- OUTSIDE RECORDS SUMMARY | 2024-09-12 12:56 | XMS_ITS | Encounter Summary ---
Author Organization [employer] Address [address] [facility] 7t [place] [address] Care Team Providers Care Geriatric Psychiatrist Name Role Phone Sherie William MD Primary Care Provide r Encounter Details Date Type Department Care Team (Late st Contact Info) Description 06/26/2024 Orders Only [facility] External Provider, [facility] Social History Tobacco Use Types Packs/Day [...] t he electric, gas, oil or water Outsmart threatened to shut off services in your [...] Info) Description 09/24/2024 9:00 AM EST Telemedicine [facility] [address] [place] [address] Sherie William MD [address] [place] [address] documented as of this encounter Procedures Procedure Name Priority Date/Time Associated Diagnosis Comments LDCT LUNG SCREENING Routine 06/26/2024 9 :30 AM EST documented in this encounter Results * CT Lung Screening Low dose (06/26/2024 9:30 AM EST) Anatomical Region Laterality Modality Lung Computed Tomogra phy 06/26/2024 9:30 AM EST Narrative 08/28/2024 10:29 AM EST ? [facility] ?[address] ?[place] [address] ? CT Scan Report ? Signed ? Patient: Joana Laurie,Jessy ?MR#: [id number] ?? [id number] ? : 1965 ?Acct:[id number] ? Age/Sex: 58 / F ?ADM Date: 11/14/24 ? Loc: HO.CT ? Attending Janelle Alonso MD ? Ordering Physician: Yimi Alonso MD ?? Date of Service: 06/26/24 ?? Procedure(s): CT lung screening ?? Accession Number(s): [id number] ? cc: Sherie William MD; Yimi Alonso MD ? Report Number: ?? [id number]: Total DLP = ?? 37.00 mGy-cm ?? [...] DD/ 0930 ? TD/TT: 11/14/24 0938 ? Chlorine Operator: ? Procedure Note Donotuseinterpreter, Image - 08/28/[address] [address] [address] Scan Report Signed Patient: Pop Shanks#: [id number] : 1965Acct:[id number] Age/Sex: 58 / FADM Date: 06/26/24 Loc: HO.CT Attending Dr: Yimi Alonso MD Ordering Physician: Yimi Alonso MD Date of Service: 06/26/24 Procedure(s): CT lung screening Accession Number(s): [id number] cc: Sherie William MD; Yimi Alonso MD Report Number: [id number]: Total DLP = 37.00 mGy-cm EXAMINATION: CT [...] OV> 08/28/24 1026 DD/ 9 TD/TT: 06/26/24937 Chlorine Operator: [facility] External Provider IMG CT PROCEDURES Edited Result - Final documented in this encounter Visit Diagnoses Not on filedocumented in this encounter Additional Health Concerns Assessment Noted Time PHQ-9 Depression Total Score: 19 024 9:54 AM EDT documented as of this encounter Care Teams Geriatric Psychiatrist Relationship Specialty Start Date End Date Sherie William MD [address] [place] [address] PCP - General Internal Medicine 03/19/24 documented as of this encounter
--- OUTSIDE RECORDS SUMMARY | 2024-09-12 12:56 | XMS_ITS | Encounter Summary ---
Author Organization [employer] [facility] Address [address] [place] [address] 7t [place] [address] Care Team Providers Care Stamp Machine Servicer Name Role Phone Cindy Zacarias Primary Care Provider [phone] Sherie William MD Primary Care Provide r Encounter Details Date Type Department Care Team (Latest Contact Info) Description 12/07/2020 Abstract [facility] CONVERSIONS Dental, Provider, DDS Social History Tobacco [...] Info) Description 09/24/2024 9:00 AM EST Telemedicine [facility] [address] [place] [address] Sherie William MD [address] [place] [address] documented as of this encounter Visit Diagnoses Not on filedocumented in this encounter Care Teams Stamp Machine Servicer Relationship Specialty Start Date End Date Cindy Zacarias ANP [address] [place] [address] PCP - General Family Medicine 07/20/20 03/18/24 Sherie William MD [address] [place] [address] PCP - General Internal Medicine 03/19/24 documented as of this encounter
--- OUTSIDE RECORDS SUMMARY | 2024-09-12 12:56 | XMS_ITS | Clinical Summary ---
Author Organization [employer] Address [address] [place] [address] 7t [place] [address] Care Team Providers Care Mail Sorter Name Role Phone Sherie William MD Primary [...] in the evening. 1 Active sodium chloride ([place]al [place]) 0.65 % nasal sprayIndications :Viral URI 1-2 [...] 18 g 4 Active Fluocinolone Acetonide Scalp ([place]/F S Scalp) 0.01 % oilIndications:S eborrheic dermatitis [...] at bedtime. 30 tablet 4 Active fluocinolone ([place]) 0.01 % external oilIndications:A llergic contact dermatitis [...] children, concern about mother who lives in [place] and trust issues. PLAN: New/Additional Services needed PCP management Off-site services for Behavioral Health Integration Plan External OP therapy referral Patient Self Plan Patient to utilize skills provided in intervention , Patient to reach out to [facility] team as needed, Comply with medication , [...] Type Department Care Team Description 08/14/2024 Telephone [facility] [address] [place] [phone] Sherie William MD 08/11/2024 Telephone [facility] [address] [place] [address] Pipe Yo ANP 08/07/2024 Telephone [facility] [address] [place] [address] [phone] Sherie William MD Reasonable Accommodation (I called the patient, regarding a reasonable accommodation request from [facility] [employer]. She stated that she requested to be able to have a washing machine in her apartment, and if her request is approved, she would like to remain living in her current apartment. 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 07/25/2024 9:30 AM EST Office Visit [facility] [address] [place] [phone] Sherie William MD Tobacco dependence syndrome (Primary Dx); Mood disorder (CMS/HCC); COPD with asthma (CMS/HCC); Low vision, unspecified left eye visual impairment category, unspecified right eye visual impairment category; Encounter for immunization 07/25/2024 Travel 07/18/2024 Patient Outreach [facility] [address] [place] [address] [phone] Sherie William MD Pre-visit Planning (SDOH screening completed on 12/14/2023) 07/05/2024 Refill [facility] [address] [place] [address] Pipe Yo ANP Mixed anxiety and depressive disorder; Complaints of total body pain 07/05/2024 Refill [facility] [address] [place] [phone] Alda Crespo FNP 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 [facility] ?[address] ?[place] [address] ? CT Scan Report ? Signed ? Patient: Ash Shanksda ?MR#: [id number] ?? [id number] ? : 1965 ?Acct:[id number] ? Age/Sex: 58 / F ?ADM Date: 06/26/24 ? Loc: HO.CT ? Attending Dr: Yimi Alonso MD ? Ordering Physician: Yimi Alonso MD ?? Date of Service: 06/26/24 ?? Procedure(s): CT lung screening ?? Accession Number(s): [id number] ? cc: Sherie William MD; Yimi Alonso MD ? Report Number: ?? [id number]: Total DLP = ?? 37.00 mGy-cm ?? [...] DD/ 0930 ? TD/TT: 06/26/24 0938 ? Bite Block Maker: ? Procedure Note Josh Madrid - 08/28/[address] [place] [address] [address] Scan Report Signed Patient: Pop Shanks#: [id number] : 1965Acct:[id number] Age/Sex: 58 / FADM Date: 06/26/24 Loc: HO.CT Attending Dr: Yimi Alonso MD Ordering Physician: Yimi Alonso MD Date of Service: 06/26/24 Procedure(s): CT lung screening Accession Number(s): [id number] cc: Sherie William MD; Yimi Alonso MD Report Number: [id number]: Total DLP = 37.00 mGy-cm EXAMINATION: CT [...] by: Craig Christianson MD 08/28/2024 10:26 AM [facility] Dictated By: Craig Christianson MD Signed By: <Electronically signed by Craig Christianson MD in OV> 08/28/24 1026 DD/ 9 TD/TT: 06/26/24 0938 Bite Block Maker: [facility] External Provider IMG CT PROCEDURES Edited Result - Final * (ABNORMAL) Cologuard?? colon cancer screening (01/10/2024 12:16 PM EDT) Cologuard Result Positive( A) Negative 01/16/2024 10:06 AM EDT [facility] (CLIA #:[id number]) Comment: POSITIVE TEST RESULT. A positive Cologuard [...] (Mario Bruce al, N Engl J Med 2014;370(14):5796-6749.) Cologuard may produce a false negative or false positive result (no colorectal cancer or precancerous polyp present at colonoscopy follow up). A negative Cologuard test result does not guarantee the absence of CRC or advanced adenoma (pre-cancer). The current Cologuard screening interval is every 3 years. ([place] Cancer Society and U.S. Multi-Society Task Force). Cologuard performance data in a 10,000 patient pivotal study using colonoscopy as the reference method can be accessed at the following location: www.[employer]/results. Additional description of the Cologuard test process, warnings and precautions can be found at www.[employer].Discoverables. Stool specimen (specimen) 01/10/2024 12:16 PM EDT 01/11/2024 1:42 PM EDT [facility] MOLECULAR DIAGNOSTICS ORDERA BLES Final Result [facility] (CLIA #:[id number]) [place] [address], * Hepatitis C Antibody with Reflex to HCV, RNA, Quantitative, Real-Time PCR (12/31/2023 9:52 AM EDT) Hepatitis C Antibody Nonreactive Nonreactive [facility] Comment:Antibodies to HCV no t detected; does not exclude early acuteHCV infection. Blood Venous blood specimen / Unknown 12/31/2023 9:52 AM EDT 12/31/2023 11:19 AM EDT us [facility] LAB BLOOD ORDERABLES Final Resul t Performing Organization Address [facility] Co de Phone Number [facility] [address] [place] [phone] * HIV-1/2 Antigen and Antibodies, Fourth Generation, with Reflexes (12/31/2023 9:52 AM EDT) HIV AB/AG Nonreactive Nonreactive [facility] Comment:HIV-1 p24 Ag and/or HIV-1/HIV-2 Ab not detected.A test result that is nonreactive does not exclude thepossibility of exposure to or infection with HIV-1 and/orHIV-2. Nonreactive results in this assay for individualswith prior exposure to HIV-1 and/or HIV-2 may be due toantigen and antibody levels that are below the limit ofdetection of this assay.The MIGSIF HIV Ag/Ab Combo assay result andsupplemental assay results should be interpreted inconjunction with the patient's clinical presentation,history and other laboratory results. If the results areinconsistent with clinical evidence, additional testing issuggested to confirm the result. Blood Venous blood specimen / Unknown 12/31/2023 9:52 AM EDT 12/31/2023 11:19 AM EDT us Pipe [facility] BLOOD ORDERABLES Final Resul t Performing Organization Address City/[facility]/ZIP Co de Phone Number [facility] [address] [place] [address] [phone] * (ABNORMAL) Lipid Panel, Standard (12/31/2023 9:52 AM EDT) Triglycerides 166(H) <150 mg/dL [facility] Comment:Desirable Triglyceri de: less than 150 mg/dLBorderline High Triglyceride 150-199 mg/dLHigh Triglyceride: 200-499 mg/dLVery High Triglyceride: greater than or equal to 5OO mg/dL Cholesterol 172 <200 mg/dL [facility] Comment:Desirable Cholestero l: less than 200 mg/dLBorderline High Cholesterol: 200-239 mg/dLHigh Cholesterol: greater than 239 mg/dL LDL Cholesterol Calculated 103(H) <100 mg/dL [facility] Comment:Desirable LDL: less than 100 mg/dLNear Optimal/Above Optimal LDL: 110- 129 mg/dLBorderline High LDL: 130-159 mg/dLHigh LDL: 160-189 mg/dLVery High LDL: greater than or equal to 190 mg/dL HDL Cholesterol 36(L) >40 mg/dL [facility] Comment:Desirable HDL: great er than 40 mg/dL Note: This HDL assay may give artificially low results in patients with liver disease. Blood Venous blood specimen / Unknown 12/31/2023 9:52 AM EDT 12/31/2023 11:19 AM EDT [facility] LAB BLOOD ORDERABLES Final Resul t Performing Organization Address [facility] Co de Phone Number [facility] [address] [place] [phone] [phone] * BI Mammogram Diagnostic Tomosynthesis Bilateral (08/30/2023 12:11 PM EST) Anatomical Region Laterality Modality Breast Bilateral Mammography 08/30/2023 12:1 1 PM EST Narrative 08/30/2023 1:07 PM EST ? [place] [facility] ? [address] ?[place] [address] ? Mammography Report ? Signed ? Patient: Joana ,Jessy ?MR#: [id number] ?? [id number] ? : 1965 ?Acct:[id number] ? Age/Sex: 58 / F ?ADM Date: 08/30/23 ? Loc: HO.MAMMO ? Attending Dr: Pipe Yo FILAMENT WELDER ? Ordering Physician: PIPE YO NP ?Results: 2Benign Fin ?? dings ? Date of Service: 08/30/23 ?Follow Up: 1 Year From Orig ?? inal Mammogram ? Procedure(s): MM tomosynthesis diagnostic BI ?? Accession Number(s): [id number] ? cc: PIPE YO NP ? EXAMINATION: [...] 1303 ? DD/ 1211 ? TD/TT: ? Bite Block Maker: ? Procedure Note Julius, Image - 08/30/2023 [facility] [address] [place] [address] [place] [address] Mammography Report Signed Patient: Pop Shanks#: [id number] : 1965Acct:[id number] Age/Sex: 58 / FADM Date: 08/30/23 Loc: HO.MAMMO Attending Dr: Pipe Yo FILAMENT WELDER Ordering Physician: PIPE YOults: 2Banayeli quach Date of Service: 08/30/23Follow Up: 1 Year From Orig ina Mammogram Procedure(s): MM tomosynthesis diagnostic BI Accession Number(s): [id number] cc: PIPE YO NP EXAMINATION: MM DIAGNOSTIC [...] in OV> 08/30/23 1303 DD/ 1211 TD/TT: Bite Block Maker: Pipe Yo [facility] BI PROCEDURES Final Result * HPV mRNA E6/E7 (05/19/2021 11:47 AM EDT) HPV nRNA E6/E7 Not Detected Not Detected [facility] Comment: Methodology: Clinical Haematologist-Mediated Amplification This assay detects E6/E7 viral messenger RNA (mRNA) from 14 high-risk HPV types (16,18,31,33,35,39,45,51,52,56,58,59,66,68). ? The analytical performance characteristics of this assay have been determined by [employer]. The modifications have not been cleared or approved by the FDA. This assay has been validated pursuant to the CLIA regulations and is used for clinical purposes. ?? For additional information, please refer to http://education.GraphOn/faq/IDT814f1 (This link if provided for information/ educational purposes only.) 05/19/2021 11:4 7 AM EDT Hui Gutierres [facility] LAB BLOOD ORDERABLES Aurora l Result [facility] [address] * Pap Smear (05/19/2021 12:00 AM EDT) Swab Hui Gutierres [facility] CYTOLOGY ORDERABLES F inal Result Performing Organization Address City/[facility]/ZIP Co de Phone Number [facility] [address] [place] [address], [place] [phone] from Last 3 Months or Most Recently Relevant to Health Maintenance [place] [address] [place] [address] C3 Care Teams Mail Sorter Relationship Specialty Start Date End Date Sherie William MD [address] [place] [phone] PCP - General Internal Medicine 03/19/24
--- OUTSIDE RECORDS SUMMARY | 2024-09-12 12:56 | XMS_ITS | Encounter Summary ---
Author Organization [facility] Address [address] [place] [address] 7t [place] [address] Care Team Providers Care Manager Mutual Fund Name Role Phone Cindy Zacarias Primary Care Provider [phone] Sherie William MD Primary Care Provide r Encounter Details Date Type Department Care Team (Late st Contact Info) Description 04/03/2023 Abstract [facility] [address] [place] [address] [phone] ProviderJillian MD Social History Tobacco Use Types [...] Info) Description 09/24/2024 9:00 AM EST Telemedicine [facility] [address] [place], [place] [phone] Sherie William MD [address] [place], [place] [phone] documented as of this encounter Procedures Procedure Name Priority Date/Time Associated Diagnosis Comments MAMMOGRAPHY Routine 03/06/2023 documented in this encounter Results * Mammography (03/06/2023) Mammogram abnormal Anatomical Region Laterality Modality Other us Historical Provider HEALTH MAINTENANCE Final Result documented in this encounter Visit Diagnoses Not on filedocumented in this encounter Care Teams Manager Mutual Fund Relationship Specialty Start Date End Date Cindy Zacarias ANP [address] [place] [address] PCP - General Family Medicine 07/20/20 03/18/24 Sherie William MD [address] [place] [address] PCP - General Internal Medicine 03/19/24 documented as of this encounter
--- OUTSIDE RECORDS SUMMARY | 2024-09-12 12:56 | XMS_ITS | Encounter Summary ---
Author Organization [employer] Address [address] [facility] 7t [place] [address] Care Team Providers Care Director Child Development Center Name Role Phone Sherie William MD Primary Care Provide r Encounter Details Date Type Department Care Team ([facility] st Contact Info) Description 04/28/2024 Orders Only [facility] [address] [place] [address] Cindy Zacarias, ANP [address] [place] [address] Social History Tobacco Use Types Packs/Day Years [...] Info) Description 09/24/2024 9:00 AM EST Telemedicine [facility] [address] [place] [phone] Sherie William MD [address] [place] [phone] documented as of this encounter Visit Diagnoses Not on filedocumented in this encounter Additional Health Concerns Assessment Noted Time PHQ-9 Depression Total Score: 19 024 9:54 AM EDT documented as of this encounter Care Teams Director Child Development Center Relationship Specialty Start Date End Date Sherie William MD [address] [place] [phone] PCP - General Internal Medicine 03/19/24 documented as of this encounter
--- OUTSIDE RECORDS SUMMARY | 2024-09-12 12:56 | XMS_ITS | Encounter Summary ---
Author Organization [employer] Address [address] [facility] 7t [place] [address] Care Team Providers Care Catering Administrative Assistant Name Role Phone Sherie William MD Primary Care Provide r Encounter Details Date Type Department Care Team ([facility] st Contact Info) Description 08/14/2024 Telephone [facility] [address] [place], [place] [phone] Sherie William MD [address] [place], [place] [phone] Social History Tobacco Use Types Packs/Day Years [...] Info) Description 09/24/2024 9:00 AM EST Telemedicine [facility] [address] [place] [phone] Sherie William MD [address] [place] [address] documented as of this encounter Visit Diagnoses Not on filedocumented in this encounter Additional Health Concerns Assessment Noted Time PHQ-9 Depression Total Score: 19 024 9:54 AM EDT documented as of this encounter Care Teams Catering Administrative Assistant Relationship Specialty Start Date End Date Sherie William MD [address] [place] [address] PCP - General Internal Medicine 03/19/24 documented as of this encounter
== END 2024-09-12 15:50 | disposition home or self-care (01) ==
PROVIDERS: PCP Internal Medicine; Visit Provider Physician Assistant
DX: S82.892A Other fracture of left lower leg, initial encounter for closed fracture (principal)
CPT/HCPCS: 27786; 99204

== ENCOUNTER → 2024-09-12 12:45 | Outpatient (BNV) | payer MEDICAID, SELFPAY | PROVIDERS: Visit Provider Radiology Diagnostic Radiology | DX: M25.572 Pain in left ankle and joints of left foot (principal) | CPT/HCPCS: 73610 ==

== ENCOUNTER 2024-09-16 10:02 | Day surgery (SDC) | payer MEDICAID, SELFPAY ==
[2024-09-16] VITALS (11 sets, daily range): BP systolic 92–127; BP diastolic 46–74; PULSE 61–81; RESP 14–18; TEMP 36.4–37.1; O2SAT 94–100; BMI 29.0
--- NOTE | ~2024-09-16 | FL_ITS ---
EXAMINATION: FL GUIDANCE ONLY HISTORY: LEFT ANKLE ORIF COMPARISON: None available. TECHNIQUE: Fluoroscopy time: 0.2 minutes. Cumulative Dose: 0.523 mGy. DAP: 0.15978 mGym2 Images: 2. FINDINGS: Images demonstrate internal fixation of the distal fibula with a sideplate and multiple orthopedic screws at the site of a nondisplaced oblique fracture. A button is noted along the medial malleolus. FL/FL guidance in OR IMPRESSION: Fluoroscopy during procedure. Please see procedure report for additional information. Electronically signed by: Craig Christianson MD 09/16/2024 03:55 PM COLT
--- OUTSIDE RECORDS SUMMARY | 2024-09-16 10:45 | XMS_ITS | Encounter Summary ---
Author Organization [facility] [facility] Address [address] [place] [address] 7t [place] [address] Care Team Providers Care Lock Maintenance Supervisor Name Role Phone Cindy Zacarias Primary Care Provider [phone] Sherie William MD Primary Care Provide r Encounter Details Date Type Department Care Team (Latest Contact Info) Description 12/07/2020 Abstract [facility] CONVERSIONS Dental, Provider, DDS Social History Tobacco [...] 09/24/2024 9:00 AM EST Telemedicine [facility] [address] [place] [address] Sherie William MD [address] [place] [address] documented as of this encounter Visit Diagnoses Not on filedocumented in this encounter Care Teams Lock Maintenance Supervisor Relationship Specialty Start Date End Date Cindy Zacarias ANP [address] [place] [address] PCP - General Family Medicine 07/20/20 03/18/24 Sherie William MD [address] [place] [address] PCP - General Internal Medicine 03/19/24 documented as of this encounter
--- OUTSIDE RECORDS SUMMARY | 2024-09-16 10:45 | XMS_ITS | Encounter Summary ---
Author Organization [employer] Address [address] [facility] [address] [facility] 7t [place] [address] Care Team Providers Care Apple Press Operator Name Role Phone Sherie William MD Primary Care Provide r Encounter Details Date Type Department Care Team ([facility] st Contact Info) Description 04/28/2024 Orders Only [facility] [address] [place] [address] Cindy Zacarias, ANP [address] [place] [address] Social History Tobacco Use Types Packs/Day Years [...] Info) Description 09/24/2024 9:00 AM EST Telemedicine [facility] [address] [place] [phone] Sherie William MD [address] [place] [address] documented as of this encounter Visit Diagnoses Not on filedocumented in this encounter Additional Health Concerns Assessment Noted Time PHQ-9 Depression Total Score: 19 024 9:54 AM EDT documented as of this encounter Care Teams Apple Press Operator Relationship Specialty Start Date End Date Sherie William MD [address] [place] [phone] PCP - General Internal Medicine 03/19/24 documented as of this encounter
--- OUTSIDE RECORDS SUMMARY | 2024-09-16 10:45 | XMS_ITS | Encounter Summary ---
Author Organization [employer] Address [address] [place] [address] Care Team Providers Care Glassblower Name Role Phone Sherie William MD Primary Care Provide r Encounter Details Date Type Department Care Team (Late st Contact Info) Description 06/26/2024 Orders Only [facility] External Provider, [facility] Social History Tobacco Use Types Packs/Day [...] t he electric, gas, oil or water Jeeran threatened to shut off services in your [...] Info) Description 09/24/2024 9:00 AM EST Telemedicine [facility] [address] [place] [address] Sherie William MD [address] [place] [address] documented as of this encounter Procedures Procedure Name Priority Date/Time Associated Diagnosis Comments LDCT LUNG SCREENING Routine 06/26/2024 9 :30 AM EST documented in this encounter Results * CT Lung Screening Low dose (06/26/2024 9:30 AM EST) Anatomical Region Laterality Modality Lung Computed Tomogra phy 06/26/2024 9:30 AM EST Narrative 08/28/2024 10:29 AM EST ? [facility] ?[address] ?[place] [address] ? CT Scan Report ? Signed ? Patient: Joana Laurie,Jessy ?MR#: [id number] ?? [id number] ? : 1965 ?Acct:[id number] ? Age/Sex: 58 / F ?ADM Date: 11/14/24 ? Loc: HO.CT ? Attending Janelle Alonso MD ? Ordering Physician: Yimi Alonso MD ?? Date of Service: 06/26/24 ?? Procedure(s): CT lung screening ?? Accession Number(s): [id number] ? cc: Sherie William MD; Yimi Alonso MD ? Report Number: ?? [id number]: Total DLP = ?? 37.00 mGy-cm ?? [...] DD/ 0930 ? TD/TT: 11/14/24 0938 ? Family And Consumer Sciences Teacher: ? Procedure Note Donotuseinterpreter, Image - 08/28/[address] [address] [address] Scan Report Signed Patient: Pop Shanks#: [id number] : 1965Acct:[id number] Age/Sex: 58 / FADM Date: 06/26/24 Loc: HO.CT Attending Dr: Yimi Alonso MD Ordering Physician: Yimi Alonso MD Date of Service: 06/26/24 Procedure(s): CT lung screening Accession Number(s): [id number] cc: Sherie Wililam MD; Yimi Alonso MD Report Number: [id number]: Total DLP = 37.00 mGy-cm EXAMINATION: CT [...] OV> 08/28/24 1026 DD/ 9 TD/TT: 06/26/24937 Family And Consumer Sciences Teacher: [facility] External Provider IMG CT PROCEDURES Edited Result - Final documented in this encounter Visit Diagnoses Not on filedocumented in this encounter Additional Health Concerns Assessment Noted Time PHQ-9 Depression Total Score: 19 024 9:54 AM EDT documented as of this encounter Care Teams Glassblower Relationship Specialty Start Date End Date Sherie William MD [address] [place] [address] PCP - General Internal Medicine 03/19/24 documented as of this encounter
--- OUTSIDE RECORDS SUMMARY | 2024-09-16 10:46 | XMS_ITS | Encounter Summary ---
Author Organization [employer] [facility] Address [address] [place] [address] 7t [place] [address] Care Team Providers Care Excellence Specialist Name Role Phone Cindy Zacarias Primary Care Provider [phone] Sherie William MD Primary Care Provide r Encounter Details Date Type Department Care Team (Late st Contact Info) Description 04/03/2023 Abstract [facility] [address] [place], [place] [phone] ProviderJillian MD Social History Tobacco Use Types [...] Info) Description 09/24/2024 9:00 AM EST Telemedicine [facility] [address] [place], [place] [phone] Sherie William MD [address] [place], [place] [phone] documented as of this encounter Procedures Procedure Name Priority Date/Time Associated Diagnosis Comments MAMMOGRAPHY Routine 03/06/2023 documented in this encounter Results * Mammography (03/06/2023) Mammogram abnormal Anatomical Region Laterality Modality Other us Historical Provider HEALTH MAINTENANCE Final Result documented in this encounter Visit Diagnoses Not on filedocumented in this encounter Care Teams Excellence Specialist Relationship Specialty Start Date End Date Cindy Zacarias ANP [address] [place] [address] PCP - General Family Medicine 07/20/20 03/18/24 Sherie William MD [address] [place] [address] PCP - General Internal Medicine 03/19/24 documented as of this encounter
--- OUTSIDE RECORDS SUMMARY | 2024-09-16 10:46 | XMS_ITS | Clinical Summary ---
Author Organization [employer] Address [address] [place] [address] 7t [place] [address] Care Team Providers Care Maintenance Supervisor Electrical Name Role Phone Sherie William MD Primary [...] in the evening. 1 Active sodium chloride ([place]) 0.65 % nasal sprayIndications :Viral URI 1-2 [...] 18 g 4 Active Fluocinolone Acetonide Scalp ([place]/F S Scalp) 0.01 % oilIndications:S eborrheic dermatitis [...] at bedtime. 30 tablet 4 Active fluocinolone ([place]) 0.01 % external oilIndications:A llergic contact dermatitis [...] children, concern about mother who lives in [place] and trust issues. PLAN: New/Additional Services needed PCP management Off-site services for Behavioral Health Integration Plan External OP therapy referral Patient Self Plan Patient to utilize skills provided in intervention , Patient to reach out to [facility] team as needed, Comply with [...] Type Department Care Team Description 08/14/2024 Telephone [facility] [address] [place] [phone] Sherie William MD 08/11/2024 Telephone [facility] [address] [place] [address] Pipe Yo ANP 08/07/2024 Telephone [facility] [address] [place] [phone] Sherie William MD Reasonable Accommodation (I called the patient, regarding a reasonable accommodation request from [facility] [employer]. She stated that she requested to be able to have a washing machine in her apartment, and if her request is approved, she would like to remain living in her current apartment. 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 07/25/2024 9:30 AM EST Office Visit [facility] [address] [place] [phone] Sherie William MD Tobacco dependence syndrome (Primary Dx); Mood disorder (CMS/HCC); COPD with asthma (CMS/HCC); Low vision, unspecified left eye visual impairment category, unspecified right eye visual impairment category; Encounter for immunization 07/25/2024 Travel 07/18/2024 Patient Outreach [facility] [address] [place] [phone] Sherie William MD Pre-visit Planning (SDOH screening completed on 12/14/2023) 07/05/2024 Refill [facility] [address] [place] [phone] Pipe Yo ANP Mixed anxiety and depressive disorder; Complaints of total body pain 07/05/2024 Refill [facility] [address] [place] [phone] Alda Crespo FNP 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 [facility] ?[address] ?[place] [address] ? CT Scan Report ? Signed ? Patient: Ash Shanksda ?MR#: [id number] ?? [id number] ? : 1965 ?Acct:[id number] ? Age/Sex: 58 / F ?ADM Date: 06/26/24 ? Loc: HO.CT ? Attending Dr: Yimi Alonso MD ? Ordering Physician: Yimi Alonso MD ?? Date of Service: 06/26/24 ?? Procedure(s): CT lung screening ?? Accession Number(s): [id number] ? cc: Sherie William MD; Yimi Alonso MD ? Report Number: ?? [id number]: Total DLP = ?? 37.00 mGy-cm ?? [...] DD/ 0930 ? TD/TT: 06/26/24 0938 ? Mail Handlers Supervisor: ? Procedure Note Josh Madrid - 08/28/[address] [place] [address] [address] Scan Report Signed Patient: Pop Shanks#: [id number] : 1965Acct:[id number] Age/Sex: 58 / FADM Date: 06/26/24 Loc: HO.CT Attending Dr: Yimi Alonso MD Ordering Physician: Yimi Alonso MD Date of Service: 06/26/24 Procedure(s): CT lung screening Accession Number(s): [id number] cc: Sherie William MD; Yimi Alonso MD Report Number: [id number]: Total DLP = 37.00 mGy-cm EXAMINATION: CT [...] by: Craig Christianson MD 08/28/2024 10:26 AM [facility] Dictated By: Craig Christianson MD Signed By: <Electronically signed by Craig Christianson MD in OV> 08/28/24 1026 DD/ 9 TD/TT: 06/26/24 0938 Mail Handlers Supervisor: [facility] External Provider IMG CT PROCEDURES Edited Result - Final * (ABNORMAL) Cologuard?? colon cancer screening (01/10/2024 12:16 PM EDT) Cologuard Result Positive( A) Negative 01/16/2024 10:06 AM EDT [facility] (CLIA #:[id number]) Comment: POSITIVE TEST RESULT. A positive Cologuard [...] (Mario Bruce al, N Engl J Med 2014;370(14):5379-8672.) Cologuard may produce a false negative or false positive result (no colorectal cancer or precancerous polyp present at colonoscopy follow up). A negative Cologuard test result does not guarantee the absence of CRC or advanced adenoma (pre-cancer). The current Cologuard screening interval is every 3 years. (English Cancer Society and U.S. Multi-Society Task Force). Cologuard performance data in a 10,000 patient pivotal study using colonoscopy as the reference method can be accessed at the following location: www.FilmTrack/results. Additional description of the Cologuard test process, warnings and precautions can be found at www.3D Formsrd.Hubspan. Stool specimen (specimen) 01/10/2024 12:16 PM EDT 01/11/2024 1:42 PM EDT [facility] MOLECULAR DIAGNOSTICS ORDERA BLES Final Result [facility] (CLIA #:[id number]) [place] [address], * Hepatitis C Antibody with Reflex to HCV, RNA, Quantitative, Real-Time PCR (12/31/2023 9:52 AM EDT) Hepatitis C Antibody Nonreactive Nonreactive [facility] Comment:Antibodies to HCV no t detected; does not exclude early acuteHCV infection. Blood Venous blood specimen / Unknown 12/31/2023 9:52 AM EDT 12/31/2023 11:19 AM EDT us [facility] LAB BLOOD ORDERABLES Final Resul t Performing Organization Address [facility] Co de Phone Number [facility] [address] [place] [phone] * HIV-1/2 Antigen and Antibodies, Fourth Generation, with Reflexes (12/31/2023 9:52 AM EDT) HIV AB/AG Nonreactive Nonreactive [facility] Comment:HIV-1 p24 Ag and/or HIV-1/HIV-2 Ab not detected.A test result that is nonreactive does not exclude thepossibility of exposure to or infection with HIV-1 and/orHIV-2. Nonreactive results in this assay for individualswith prior exposure to HIV-1 and/or HIV-2 may be due toantigen and antibody levels that are below the limit ofdetection of this assay.The [employer] HIV Ag/Ab Combo assay result andsupplemental assay results should be interpreted inconjunction with the patient's clinical presentation,history and other laboratory results. If the results areinconsistent with clinical evidence, additional testing issuggested to confirm the result. Blood Venous blood specimen / Unknown 12/31/2023 9:52 AM EDT 12/31/2023 11:19 AM EDT us [facility] BLOOD ORDERABLES Final Resul t Performing Organization Address City/[facility]/ZIP Co de Phone Number [facility] [address] [place] [address] [phone] * (ABNORMAL) Lipid Panel, Standard (12/31/2023 9:52 AM EDT) Triglycerides 166(H) <150 mg/dL [facility] Comment:Desirable Triglyceri de: less than 150 mg/dLBorderline High Triglyceride 150-199 mg/dLHigh Triglyceride: 200-499 mg/dLVery High Triglyceride: greater than or equal to 5OO mg/dL Cholesterol 172 <200 mg/dL [facility] Comment:Desirable Cholestero l: less than 200 mg/dLBorderline High Cholesterol: 200-239 mg/dLHigh Cholesterol: greater than 239 mg/dL LDL Cholesterol Calculated 103(H) <100 mg/dL [facility] Comment:Desirable LDL: less than 100 mg/dLNear Optimal/Above Optimal LDL: 110- 129 mg/dLBorderline High LDL: 130-159 mg/dLHigh LDL: 160-189 mg/dLVery High LDL: greater than or equal to 190 mg/dL HDL Cholesterol 36(L) >40 mg/dL [facility] Comment:Desirable HDL: great er than 40 mg/dL Note: This HDL assay may give artificially low results in patients with liver disease. Blood Venous blood specimen / Unknown 12/31/2023 9:52 AM EDT 12/31/2023 11:19 AM EDT [facility] LAB BLOOD ORDERABLES Final Resul t Performing Organization Address [facility] Co de Phone Number [facility] [address] [place] [address] [phone] * BI Mammogram Diagnostic Tomosynthesis Bilateral (08/30/2023 12:11 PM EST) Anatomical Region Laterality Modality Breast Bilateral Mammography 08/30/2023 12:1 1 PM EST Narrative 08/30/2023 1:07 PM EST ? [facility] ? [address] ?[place] [address] ? Mammography Report ? Signed ? Patient: Joaan ,Jessy ?MR#: [id number] ?? [id number] ? : 1965 ?Acct:[id number] ? Age/Sex: 58 / F ?ADM Date: 08/30/23 ? Loc: HO.MAMMO ? Attending Dr: Pipe Yo ADAPTED PHYSICAL EDUCATION SPECIALIST ? Ordering Physician: PIPE YO NP ?Results: 2Benign Fin ?? dings ? Date of Service: 08/30/23 ?Follow Up: 1 Year From Orig ?? inal Mammogram ? Procedure(s): MM tomosynthesis diagnostic BI ?? Accession Number(s): [id number] ? cc: PIPE YO NP ? EXAMINATION: [...] 1303 ? DD/ 1211 ? TD/TT: ? Mail Handlers Supervisor: ? Procedure Note Julius, Image - 08/30/2023 [facility] [address] [place] [address] [place] [address] Mammography Report Signed Patient: Pop Shanks#: [id number] : 1965Acct:[id number] Age/Sex: 58 / FADM Date: 08/30/23 Loc: HO.MAMMO Attending Dr: Pipe Yo ADAPTED PHYSICAL EDUCATION SPECIALIST Ordering Physician: PIPE YOults: 2Banayeli quach Date of Service: 08/30/23Follow Up: 1 Year From Orig ina Mammogram Procedure(s): MM tomosynthesis diagnostic BI Accession Number(s): [id number] cc: PIPE YO NP EXAMINATION: MM DIAGNOSTIC [...] in OV> 08/30/23 1303 DD/ 1211 TD/TT: Mail Handlers Supervisor: Pipe Yo [facility] BI PROCEDURES Final Result * HPV mRNA E6/E7 (05/19/2021 11:47 AM EDT) HPV nRNA E6/E7 Not Detected Not Detected [facility] Comment: Methodology: Hybrid Technologist-Mediated Amplification This assay detects E6/E7 viral messenger RNA (mRNA) from 14 high-risk HPV types (16,18,31,33,35,39,45,51,52,56,58,59,66,68). ? The analytical performance characteristics of this assay have been determined by [employer]. The modifications have not been cleared or approved by the FDA. This assay has been validated pursuant to the CLIA regulations and is used for clinical purposes. ?? For additional information, please refer to http://education.Welltok/faq/HVO309h4 (This link if provided for information/ educational purposes only.) 05/19/2021 11:4 7 AM EDT H[facility] Gutierres [facility] LAB BLOOD ORDERABLES Aurora l Result [facility] [address] * Pap Smear (05/19/2021 12:00 AM EDT) Swab Hui Gutierres [facility] CYTOLOGY ORDERABLES F inal Result Performing Organization Address City/[facility]/ZIP Co de Phone Number [facility] [address] [place] [address], [place] [address] from Last 3 Months or Most Recently Relevant to Health Maintenance [place] [address] [place] [address] C3 Care Teams Maintenance Supervisor Electrical Relationship Specialty Start Date End Date Sherie William MD [address] [place] [phone] PCP - General Internal Medicine 03/19/24
[2024-09-16] MEDS: Lactated Ringers 1,000 ML 80 ML IVCONT (11:49)
--- NOTE | 2024-09-16 12:02 | MHC.SHP ---
Pre-Procedural Eval Section A - 24 Hr Update-Section A only Date of Service: 09/16/24 The patient is an INPATIENT: No Changes since office visit: No Cold of Flu in the past 2 weeks, No New Medical Problems, No Changes in Medication and No Patient answered all questions The patient has been examined within 24 hours of the surgical procedure. The History & Physical has been completed within 30 days and I have reviewed it.: Yes Section B - Complete if H&P > 30 days Chief Complaint: Other fracture of left lower leg, initial encounte Allergies: Allergies Allergy/AdvReac Type Severity Reaction Status Date / Time No Known Allergies Allergy Verified 09/16/24 11:19 Plan I have reviewed the history and physical and performed a pertinent physical examination on my patient. No changes have occurred unless specified. Time Spent With Patient Time: Total time managing care of this patient today ____ minutes.
--- NOTE | 2024-09-16 12:50 | HO.ANESPROP2 ---
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) Arm numbness left (Acute) Past Medical History Medical History Arm numbness left Arthritis Asthma Breast cancer Cervical spinal stenosis Depression GERD (gastroesophageal reflux disease) Family History Family History Maternal Grandmother Stomach cancer Family history of problems with anesthesia: No Surgical History Surgical History S/P lumpectomy, left breast (09/14/21) History of pterygium excision History of Problems with Anesthesia: No Social History Social History Household Members: Children Housing: Apartment Are you a primary companion caregiver to a significant other at home: No Do you presently have visiting nurse or other home services: No Alcohol intake: current Alcohol intake frequency: does not drink Patient Tobacco Use Status: Current everyday Tobacco user Tobacco use type: Cigarette Cigarettes Per Day: 2 Years Smoked: started at age 18, 1PPD , currently 10 per day Use of substances other than those prescribed or required for medical reasons: No Have you been hit, kicked, punched, or otherwise hurt by someone within the past year? If so, by whom?: No Are you DNR?: No Advance Directives: No Advance Directives Information Provided: Yes Recently lost weight without trying: No Nutrition Risks: No Nutritional Risk Patient : No service: No Current occupational status: unemployed Current occupation: Left Handed Meds Allergies Allergy/AdvReac Type Severity Reaction Status Date / Time No Known Allergies Allergy Verified 09/16/24 11:19 Active Medications: Current Medications Lactated Ringer's (Lr) 1,000 mls @ 80 mls/hr IVCONT .[id number] CYDNEY Last Admin: 09/16/24 11:49 Dose: 80 mls/hr Home Medications ?Medication ?Instructions ?Recorded ?Confirmed ?Last Taken ?Type cyclobenzaprine 5 mg tablet 5 mg PO BEDTIME 06/16/20 09/12/24 Unknown History duloxetine 30 mg capsule,delayed 1 cap PO DAILY 08/18/21 09/12/24 Unknown History release albuterol sulfate 90 mcg/actuation 2 puff PO Q4H PRN wheezing 09/14/21 09/12/24 Unknown History aerosol inhaler (ProAir HFA) meloxicam 7.5 mg tablet 7.5 mg PO DAILY 09/28/21 09/12/24 Unknown History Exam Exam Date and Time: 09/16/24 1250 Height,Weight and Vital Signs: Height 5 ft 5 in Weight 78.925 kg Last Vital Signs Temp 98.8 F 09/16/24 11:23 Pulse 72 09/16/24 11:23 Resp 18 09/16/24 11:23 BP 127/74 09/16/24 11:23 Pulse Ox 98 09/16/24 11:23 O2 Del Method Room Air 09/16/24 11:23 Airway Mallampati Class: II TM Dist: >3cm Neck ROM: Full Loose/Missing/Broken Teeth: No (patient denies any loose or broken teeth) Heart: S1S2 Lungs: CTAB Assessment and Plan Assessment Anesthesia Assessment: Anesthesia Plan Discussed and Chart Reviewed Final Anesthetic Review Family History of Problems with Anesthesia: No History of Problems with Anesthesia: No NPO: Yes ASA Class: II Final Preanesthetic Review: No Changes in Pt Med Stat, Meds/Allgs Chart Reviewed, Consent Obtained/Reviewed (photographer aerial at bedside for translation) and Anes Risks/Benef Reviewed Patient Risk: Low Procedure Risk: Intermediate Anesthetic Plan Anesthetic Plan: GA, Regional Block (left sciatic block) and Agree w/ Assess. and Plan Disposition: Standard PACU
[2024-09-16] MEDS: ceFAZolin Sodium/Dextrose,Iso 2 GM/50 ML PIGGYBACK IV (14:10)
--- NOTE | 2024-09-16 15:30 | PM.OP ---
Brief Operative Note Date of Service: 09/16/24 Pre-op diagnosis: left ankle fracture Post-op diagnosis: same Procedure: lateral malleolus ORIF sydesmosis ORIF Implants: Pange PL plate and dacosta medical syndesmosis cinch Surgeon: Arian Murillo MD Anesthesia: GETA Was an Direct Sales Representative used for this Procedure?: Yes Direct Sales Representative: Mckayla Montano Estimated blood loss (mL): 20 Tourniquet time (min): 45 IV fluids (mL): 750 Pathology: none sent Condition: stable Disposition: PACU
[2024-09-16] MEDS: fentaNYL citrate/PF 100 MCG/2 ML VIAL 50 MCG IVPUSH ×2 (16:00→16:05)
[2024-09-16] MEDS: oxyCODONE HCl Immed Release 5 MG TABLET PO (16:10)
--- NOTE | 2024-09-18 11:46 | P.OP_ITS ---
Operative Note Operative Note Date of Service: 09/16/24 Narrative: Date of Service: 09/16/24 Pre-op diagnosis: left ankle fracture Post-op diagnosis: same Procedure: lateral malleolus ORIF sydesmosis ORIF Implants: Pangea PL plate and [place] [employer] CinchFix Surgeon: Arian Murillo MD Anesthesia: MARYA Was an Crm Marketing Manager used for this Procedure?: Yes Crm Marketing Manager: Mckayla Montano Estimated blood loss (mL): 20 Tourniquet time (min): 45 IV fluids (mL): 750 Pathology: none sent Condition: stable Disposition: PACU Procedure in detail: Patient was brought to the operating room and placed supine on the operative table. All bony prominences were well padded and a time-out was called to id entify proper site proper procedure proper surgeon. IV antibiotics per weight were administered. I began by exsanguinating limb is slightly tourniquet to 300 mm Hg. I then made a standard posterolateral incision over the fibula. Full- thickness flaps were taken down to the fibular shaft and distal fibula. This was an oblique fracture just p;orximal to the syndesmosis. The fracture was identified and cleaned with a combination of curette, rongeur and irrigation. A lobster claw was used to provisionally reduce the fracture and a 7 hole distal fibular locking plate (Pangea) was applied using standard AO technique. Biplanar fluoroscopy was used to confirm hardware position and fracture reduction. Once I was satisfied that both of these were acceptable I irrigated copiously and turned my attention to the syndesmosis. I perfomred an external rotation stess test which was concerning for mortise widening. Given the locatin of the fibular fracture and the mortise widening I elected to place a [employer] CinchFix. I drilled from lateral to medial and at a angle from posterior to anterior proximally 20 degrees at the level of the physeal scar. I made a fabio incision medially and attached my button and then tightened the cinch fix over the plate. I I then reperformed the external rotation stress test and was satisfied with the stability. Therefore all instrumentation was re moved and copious irrigation was performed. Absorbable suture and pamela were used for closure and the patient was placed into sterile dressings and a well- padded posterior splint. Tourniquet was let down and the patient was extubated brought to recovery room in stable condition there were no known complications.
== END 2024-09-16 17:05 | disposition home or self-care (01) ==
PROVIDERS: PCP Internal Medicine; Visit Provider Orthopaedic Surgery
PROC: (CPT 27792; principal; 2024-09-16 13:00)
DX: S82.62XA Displaced fracture of lateral malleolus of left fibula, initial encounter for closed fracture (principal); M25.572 Pain in left ankle and joints of left foot; R20.0 Anesthesia of skin; R20.2 Paresthesia of skin; W00.0XXA Fall on same level due to ice and snow, initial encounter; X50.1XXA Overexertion from prolonged static or awkward postures, initial encounter; Y93.01 Activity, walking, marching and hiking; Y92.9 Unspecified place or not applicable; Y99.9 Unspecified external cause status; J45.909 Unspecified asthma, uncomplicated; M48.02 Spinal stenosis, cervical region; C50.912 Malignant neoplasm of unspecified site of left female breast; Z79.811 Long term (current) use of aromatase inhibitors; Z79.51 Long term (current) use of inhaled steroids; Z79.899 Other long term (current) drug therapy; Z79.1 Long term (current) use of non-steroidal anti-inflammatories (NSAID); Z98.890 Other specified postprocedural states; F17.210 Nicotine dependence, cigarettes, uncomplicated; Z56.0 Unemployment, unspecified
CPT/HCPCS: 27792; 27829; C1713; J0131; J0665; J0690; J1100; J1171; J2003; J2250; J2371; J2405; J2704; J3010

== ENCOUNTER → 2024-09-16 10:02 | Outpatient (BNV) | payer MEDICAID, SELFPAY | PROVIDERS: PCP Internal Medicine; Visit Provider Orthopaedic Surgery | DX: S82.62XA Displaced fracture of lateral malleolus of left fibula, initial encounter for closed fracture (principal) | CPT/HCPCS: 27792 ==

== ENCOUNTER 2024-10-01 08:23 | Outpatient (REF) | payer MEDICAID, SELFPAY ==
--- NOTE | ~2024-10-01 | XR_ITS ---
EXAMINATION: XR ANKLE, LEFT CLINICAL INFORMATION: M25.579 - Pain in unspecified ankle and joints of unspecified foot COMPARISON: 09/12/2024, 09/06/2024. TECHNIQUE: AP, lateral, and mortise views of the left ankle. FINDINGS: Previously seen distal fibular fracture has been fixated with lateral plate and screws. There is a radiolucent syndesmotic stabilization device. Taoist of anatomic alignment. The mortise is intact. The talar dome is normal. The subtalar joints are normal. The calcaneus demonstrates small plantar and dorsal spurs. There is soft tissue swelling persistently around the ankle. There are skin pamela both medially and laterally. XR/XR ankle LT min 3V IMPRESSION: ORIF of distal fibular fracture with plate and screw fixation, and syndesmotic stabilization. Anatomic alignment. No complication evident. Electronically signed by: Art Hdz MD 10/01/2024 04:11 PM COLT
--- OUTSIDE RECORDS SUMMARY | 2024-10-02 08:48 | XMS_ITS | Encounter Summary ---
Author Organization [employer] Address [address] [facility] [address] [place] [address] Care Team Providers Care Dictating Machine Transcriber Name Role Phone Sherie William MD Primary [...] documented as of this encounter Care Teams Dictating Machine Transcriber Relationship Specialty Start Date End Date Sherie William MD [address] [place] [address] PCP - General Internal Medicine 03/19/24 documented as of this encounter
--- OUTSIDE RECORDS SUMMARY | 2024-10-02 08:48 | XMS_ITS | Clinical Summary ---
Author Organization [employer] Address [address] [place] [address] 7t [place] [address] Care Team Providers Care Model Maker Name Role Phone Sherie William MD [...] the evening. 11/04/19 21 Active sodium chloride ([place] Nasal [place]) 0.65 % nasal sprayIndicatio ns:Viral URI 1-2 [...] g 03/19/20 24 Active Fluocinolone Acetonide Scalp ([place]-Smoothe /FS Scalp) 0.01 % oilIndications :Seborrheic dermatitis [...] cessation. 100 lozenge 07/25/20 24 Active fluocinolone ([place]i-Smoothe ) 0.01 % external oilIndications :Allergic contact [...] children, concern about mother who lives in [place] and trust issues. PLAN: New/Additional Services needed PCP management Off-site services for Behavioral Health Integration Plan External OP therapy referral Patient Self Plan Patient to utilize skills provided in intervention , Patient to reach out to [facility] team as needed, Comply with medication , Patient to engage in OP therapy , and Patient to reach out to [facility] as needed Encounters * This document contains information received from the source organization and may not represent a complete record from that organization. Date Type Department Care Team Description 09/24/2024 9:00 AM EST Telemedicine [facility] [address] [place] [address] [phone] Sherie William MD Closed fracture of distal end of left fibula, unspecified fracture morphology, initial encounter (Primary Dx); Mood disorder (CMS/HCC); Tobacco dependence syndrome 09/24/2024 Travel 09/16/2024 Orders Only [facility] External Provider, [facility] 08/14/2024 Telephone [facility] [address] [place] [phone] Sherie William MD 08/11/2024 Telephone [facility] [address] [place] [address] [phone] Pipe Yo ANP 08/07/2024 Telephone [facility] [address] [place] [address] [phone] Sherie William MD Reasonable Accommodation (I called the patient, regarding a reasonable accommodation request from [facility] [place] [facility]. She stated that she requested to be able to have a washing machine in her apartment, and if her request is approved, she would like to remain living in her current apartment. 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 07/25/2024 9:30 AM EST Office Visit [facility] [address] [place] [address] [phone] Sherie William MD Tobacco dependence syndrome (Primary Dx); Mood disorder (CMS/HCC); COPD with asthma (CMS/HCC); Low vision, unspecified left eye visual impairment category, unspecified right eye visual impairment category; Encounter for immunization 07/25/2024 Travel 07/18/2024 Patient Outreach [facility] [address] [place] [address]2458 Sherie William MD Pre-visit Planning (SDOH screening completed on 12/14/2023) 07/05/2024 Refill [facility] [address] [place] [address] [phone] Pipe Yo ANP Mixed anxiety and depressive disorder; Complaints of total body pain 07/05/2024 Refill [facility] [address] [place] [address] [phone] Alda Crespo FNP Allergic contact dermatitis due [...] EST Narrative 09/16/2024 3:58 PM EST ? [facility] ?[address] ?[place] [address] ? Fluoroscopy Report ? Signed ? Patient: Joana Laurie,Jessy ?MR#: [id number] ?? [id number] ? : 1965 ?Acct:[id number] ? Age/Sex: 59 / F ?ADM Date: 09/16/24 ? Loc: HO.SSS ? Attending Dr: Arian Murillo MD ? Ordering Physician: Arian Murillo MD ?? Date of Service: 09/16/24 ?? Procedure(s): [place] guidance in OR ?? Accession Number(s): [id number] ? cc: Sherie William MD; Arian Murillo MD ? EXAMINATION: ??[place] GUIDANCE ONLY ? HISTORY: LEFT ANKLE ORIF ? COMPARISON: ?? None available. ? TECHNIQUE: ?? Fluoroscopy time: 0.2 minutes. ?? Cumulative Dose: 0.523 mGy. ?? DAP: 0.29662 mGym2 ?? Images: 2. ? FINDINGS: ?? [...] DD/ 1410 ? TD/TT: 09/16/24 1516 ? Babbitt Spinner: ? Procedure Note Josh Madrid - 09/16/[address] [address] Fluoroscopy Report Signed Patient: Pop Shanks#: [id number] : 1965Acct:[id number] Age/Sex: 59 / FADM Date: 09/16/24 Loc: HO.SSS Attending Dr: Arian Murillo MD Ordering Physician: Arian Murillo MD Date of Service: 09/16/24 Procedure(s): [place] guidance in OR Accession Number(s): [id number] cc: Sherie William MD; Arian Murillo MD EXAMINATION: [place] GUIDANCE ONLY HISTORY: LEFT ANKLE ORIF COMPARISON: None available. TECHNIQUE: Fluoroscopy time: 0.2 minutes. Cumulative Dose: 0.523 mGy. DAP: 0.04527 mGym2 Images: 2. FINDINGS: Images demonstrate internal [...] 09/16/24 1555 DD/ 1410 TD/TT: 09/16/24 1516 Babbitt Spinner: [facility] External Provider IMG IR PROCEDURES Final Result * (ABNORMAL) Cologuard?? colon cancer screening (01/10/2024 12:16 PM EDT) Cologuard Result Positive( A) Negative 01/16/2024 10:06 AM EDT [facility] (CLIA #:[id number]) Comment: POSITIVE TEST RESULT. A positive Cologuard [...] Corea et al, N Engl J Med 2014;370(14):7728-1710.) Cologuard may produce a false negative or false positive result (no colorectal cancer or precancerous polyp present at colonoscopy follow up). A negative Cologuard test result does not guarantee the absence of CRC or advanced adenoma (pre-cancer). The current Cologuard screening interval is every 3 years. ([place] [employer] Society and U.S. Multi-Society Task Force). Cologuard performance data in a 10,000 patient pivotal study using colonoscopy as the reference method can be accessed at the following location: www.CareOne/results. Additional description of the Cologuard test process, warnings and precautions can be found at www.[employer].com. Stool specimen (specimen) 01/10/2024 12:16 PM EDT 01/11/2024 1:42 PM EDT [facility] LAB MOLECULAR DIAGNOSTICS ORDERA BLES Final Result [facility] (CLIA #:[id number]) [place] [address], * Hepatitis C Antibody with Reflex to HCV, RNA, Quantitative, Real-Time PCR (12/31/2023 9:52 AM EDT) Hepatitis C Antibody Nonreactive Nonreactive [facility] Comment:Antibodies to HCV no t detected; does not exclude early acuteHCV infection. Blood Venous blood specimen / Unknown 12/31/2023 9:52 AM EDT 12/31/2023 11:19 AM EDT Pipe Yo ANP LAB BLOOD ORDERABLES Final Resul t Performing Organization Address [facility]/ZIP Co de Phone Number [facility] [address] [place] [phone] * HIV-1/2 Antigen and Antibodies, Fourth Generation, with Reflexes (12/31/2023 9:52 AM EDT) HIV AB/AG Nonreactive Nonreactive [facility] Comment:HIV-1 p24 Ag and/or HIV-1/HIV-2 Ab not detected.A test result that is nonreactive does not exclude thepossibility of exposure to or infection with HIV-1 and/orHIV-2. Nonreactive results in this assay for individualswith prior exposure to HIV-1 and/or HIV-2 may be due toantigen and antibody levels that are below the limit ofdetection of this assay.[facility] HIV Ag/Ab Combo assay result andsupplemental assay results should be interpreted inconjunction with the patient's clinical presentation,history and other laboratory results. If the results areinconsistent with clinical evidence, additional testing issuggested to confirm the result. Blood Venous blood specimen / Unknown 12/31/2023 9:52 AM EDT 12/31/2023 11:19 AM EDT Pipe Yo [facility] LAB BLOOD ORDERABLES Final Resul t Performing Organization Address [facility]/ZIP Co de Phone Number [facility] [address] [place] [phone] * (ABNORMAL) Lipid Panel, Standard (12/31/2023 9:52 AM EDT) Triglycerides 166(H) <150 mg/dL [facility] Comment:Desirable Triglyceri de: less than 150 mg/dLBorderline High Triglyceride 150-199 mg/dLHigh Triglyceride: 200-499 mg/dLVery High Triglyceride: greater than or equal to 5OO mg/dL Cholesterol 172 <200 mg/dL [facility] Comment:Desirable Cholestero l: less than 200 mg/dLBorderline High Cholesterol: 200-239 mg/dLHigh Cholesterol: greater than 239 mg/dL LDL Cholesterol Calculated 103(H) <100 mg/dL [facility] Comment:Desirable LDL: less than 100 mg/dLNear Optimal/Above Optimal LDL: 110- 129 mg/dLBorderline High LDL: 130-159 mg/dLHigh LDL: 160-189 mg/dLVery High LDL: greater than or equal to 190 mg/dL HDL Cholesterol 36(L) >40 mg/dL [facility] Comment:Desirable HDL: great er than 40 mg/dL Note: This HDL assay may give artificially low results in patients with liver disease. Blood Venous blood specimen / Unknown 12/31/2023 9:52 AM EDT 12/31/2023 11:19 AM EDT us Pipe Yo [facility] LAB BLOOD ORDERABLES Final Resul t [facility] [address] [place] [phone] * BI Mammogram Diagnostic Tomosynthesis Bilateral (08/30/2023 12:11 PM EST) Anatomical Region Laterality Modality Breast Bilateral Mammography 08/30/2023 12:1 1 PM EST Narrative 08/30/2023 1:07 PM EST ? [facility] ? [address] [facility] ?[place] [address] ? Mammography Report ? Signed ? Patient: Joana Laurie,Jessy ?MR#: [id number] ?? [id number] ? : 1965 ?Acct:[id number] ? Age/Sex: 58 / F ?ADM Date: 01/18/24 ? Loc: HO.MAMMO ? Attending Dr: Pipe Yo STAMP CLERK ? Ordering Physician: PIPE YO STAMP CLERK ?Results: 2Benign Fin ?? dings ? Date of Service: 08/30/23 ?Follow Up: 1 Year From Orig ?? inal Mammogram ? Procedure(s): MM tomosynthesis diagnostic BI ?? Accession Number(s): [id number] ? cc: SANAZ,PIPE STAMP CLERK ? EXAMINATION: ?? MM DIAGNOSTIC DIGITAL BREAST [...] 1303 ? DD/ 1211 ? TD/TT: ? Babbitt Spinner: ? Procedure Note Donleonarda, Image - 08/30/2023 [facility] [address] [place] [address] Mammography Report Signed Patient: Pop Shanks#: [id number] : 1965Acct:[id number] Age/Sex: 58 / FADM Date: 08/30/23 Loc: HO.MAMMO Attending Dr: Pipe Yo NP Ordering Physician: PIPE YO NPResults: 2Banayeli quach Date of Service: 08/30/23Follow Up: 1 Year From Orig inal Mammogram Procedure(s): MM tomosynthesis diagnostic BI Accession Number(s): [id number] cc: PIPE YO NP EXAMINATION: MM DIAGNOSTIC [...] in OV> 08/30/23 1303 DD/ 1211 TD/TT: Babbitt Spinner: [facility] BI PROCEDURES Final Result * HPV mRNA E6/E7 (05/19/2021 11:47 AM EDT) HPV nRNA E6/E7 Not Detected Not Detected [facility] Comment: Methodology: Medical Voucher Clerk-Mediated Amplification This assay detects E6/E7 viral messenger RNA (mRNA) from 14 high-risk HPV types (16,18,31,33,35,39,45,51,52,56,58,59,66,68). ? The analytical performance characteristics of this assay have been determined by [employer]. The modifications have not been cleared or approved by the FDA. This assay has been validated pursuant to the CLIA regulations and is used for clinical purposes. ?? For additional information, please refer to http://education.wali/faq/ZHT088g7 (This link if provided for information/ educational purposes only.) 05/19/2021 11:4 7 AM EDT Hui Gutierres CNM LAB BLOOD ORDERABLES Aurora l Result [facility] [address] * Pap Smear (05/19/2021 12:00 AM EDT) Swab [facility] LAB CYTOLOGY ORDERABLES F inal Result [address], [place] [address] from Last 3 Months or Most Recently Relevant to Health Maintenance Insurance [facility] C3 Care Teams Model Maker Relationship Specialty Start Date End Date Sherie William MD [address] [place] [phone] PCP - General Internal Medicine 03/19/24
--- OUTSIDE RECORDS SUMMARY | 2024-10-02 08:48 | XMS_ITS | Encounter Summary ---
Author Organization [facility] Address [address] [place] [address] 7t [place] [address] Care Team Providers Care Blockman Name Role Phone Cindy Zacarias Primary Care Provider [phone] Sherie William MD Primary Care Provide r Encounter Details Date Type Department Care Team ([facility] st Contact Info) Description 04/03/2023 Abstract [facility] [address] [place], [place] [phone] Provider, MD Jillian Social History Tobacco Use [...] on filedocumented in this encounter Care Teams Blockman Relationship Specialty Start Date End Date Cindy Zacarias ANP [address] [place] [address] PCP - General Family Medicine 07/20/20 03/18/24 Sherie William MD [address] [place] [address] PCP - General Internal Medicine 03/19/24 documented as of this encounter
--- OUTSIDE RECORDS SUMMARY | 2024-10-02 08:48 | XMS_ITS | Encounter Summary ---
Author Organization [employer] Address [address] [facility] 7t [place] [address] Care Team Providers Care Social Science Professor Name Role Phone Sherie William MD Primary Care Provide r Encounter Details Date Type Department Care Team (Late st Contact Info) Description 09/16/2024 Orders Only [facility] External Provider, [facility] Social History Tobacco Use Types [...] t he electric, gas, oil or water [employer] threatened to shut off services in your [...] EST Narrative 09/16/2024 3:58 PM EST ? [facility] ?[address] ?[place] [address] ? Fluoroscopy Report ? Signed ? Patient: Jessy Shanks ?MR#: [id number] ?? [id number] ? : 1965 ?Acct:[id number] ? Age/Sex: 59 / F ?ADM Date: 09/16/24 ? Loc: HO.SSS ? Attending Dr: Arian Murillo MD ? Ordering Physician: Arian Murillo MD ?? Date of Service: 09/16/24 ?? Procedure(s): [place] guidance in OR ?? Accession Number(s): [id number] ? cc: Sherie William MD; Arian Murillo MD ? EXAMINATION: ??[place] GUIDANCE ONLY ? HISTORY: LEFT ANKLE ORIF ? COMPARISON: ?? None available. ? TECHNIQUE: ?? Fluoroscopy time: 0.2 minutes. ?? Cumulative Dose: 0.523 mGy. ?? DAP: 0.57314 mGym2 ?? Images: 2. ? FINDINGS: ?? [...] DD/ 1410 ? TD/TT: 09/16/24 1516 ? Control Systems Designer: ? Procedure Note Donotuseinterpreter, Image - 09/16/[address] [address] Fluoroscopy Report Signed Patient: Pop Shanks#: [id number] : 1965Acct:[id number] Age/Sex: 59 / FADM Date: 09/16/24 Loc: HO.[facility] Attending Dr: Arian Murillo MD Ordering Physician: Arian Murillo MD Date of Service: 09/16/24 Procedure(s): [place] guidance in OR Accession Number(s): [id number] cc: Sherie William MD; Arian Murillo MD EXAMINATION: [place] GUIDANCE ONLY HISTORY: LEFT ANKLE ORIF COMPARISON: None available. TECHNIQUE: Fluoroscopy time: 0.2 minutes. Cumulative Dose: 0.523 mGy. DAP: 0.82415 mGym2 Images: 2. FINDINGS: Images demonstrate internal [...] 09/16/24 1555 DD/ 1410 TD/TT: 09/16/24 1516 Control Systems Designer: [facility] External Provider IMG IR PROCEDURES Final Result documented in this encounter Visit Diagnoses Not on filedocumented in this encounter Additional Health Concerns Assessment Noted Time PHQ-9 Depression Total Score: 19 025 9:45 AM EST documented as of this encounter Care Teams Social Science Professor Relationship Specialty Start Date End Date Sherie William MD [address] [place] [address] PCP - General Internal Medicine 03/19/24 documented as of this encounter
--- OUTSIDE RECORDS SUMMARY | 2024-10-02 08:48 | XMS_ITS | Encounter Summary ---
Author Organization [employer] Address [address] [facility] 7t [place] [address] Care Team Providers Care Piano Refinisher Name Role Phone Sherie William MD Primary Care Provide r Encounter Details Date Type Department Care Team (Late st Contact Info) Description 09/24/2024 9:00 AM EST Telemedicine [facility] [address] [place], [place] [phone] Sherie William MD [address] [place] [address] Closed fracture of distal end of left [...] mouth Once daily. 30 capsule 2 fluocinolone ([place]-Smoothe) 0.01 % external oil APPLY TOPICALLY TO AFFECTED AREA(S) TWICE DAILY ASDIRECTED 118.28 mL 1 Fluocinolone Acetonide Scalp ([place]-Smoothe/FS Scalp) 0.01 % oil Massage into damp [...] A MEAL 90 capsule 0 sodium chloride ([place] Nasal [place]) 0.65 % nasal spray 1-2 sprays on each nostril every 2-3 hours as needed for nasal congestion 30 mL 1 tiZANidine (Zanaflex) 4 MG capsule Take 1 capsule (4 mg) by mouth 3 times daily. 90 capsule 11 triamcinolone (Kenalog) 0.1 % cream APPLY TOPICALLY TO THE AFFECTED AREA(S) TWICE DAILY [id number] g 2 zoster vaccine-recombinant adjuvanted (Shingrix) 50 [...] documented as of this encounter Care Teams Piano Refinisher Relationship Specialty Start Date End Date Sherie William MD [address] [place] [phone] PCP - General Internal Medicine 03/19/24 documented as of this encounter
--- OUTSIDE RECORDS SUMMARY | 2024-10-02 08:48 | XMS_ITS | Encounter Summary ---
Author Organization [facility] [facility] Address [address] [place] [address] 7t [place] [address] Care Team Providers Care Aligning Inspector Name Role Phone Cindy Zacarias Primary Care Provider [phone] Sherie William MD Primary Care Provide r [...] on filedocumented in this encounter Care Teams Aligning Inspector Relationship Specialty Start Date End Date Cindy Zacarias ANP [address] [place] [address] PCP - General Family Medicine 07/20/20 03/18/24 Sherie William MD [address] [place], [place] [phone] PCP - General Internal Medicine 03/19/24 documented as of this encounter
--- OUTSIDE RECORDS SUMMARY | 2024-10-02 08:48 | XMS_ITS | Encounter Summary ---
Author Organization [employer] Address [address] [facility] 7t [place] [address] Care Team Providers Care Deputy Chief Magistrate Name Role Phone Sherie William MD Primary Care Provide r Encounter Details Date Type Department Care Team ([facility] st Contact Info) Description 04/28/2024 Orders Only [facility] [address] [place] [address] Cindy Zacarias, ANP [address] [place] [address] Social History Tobacco Use Types Packs/Day Years [...] your housing situation today? I have ricardo udarte 12/14/[address] you li [...] documented as of this encounter Care Teams Deputy Chief Magistrate Relationship Specialty Start Date End Date Sherie William MD [address] [place] [phone] PCP - General Internal Medicine 03/19/24 documented as of this encounter
== END 2024-10-01 08:24 | disposition home or self-care (01) ==
LOC: HO.HOSX 08:23
PROVIDERS: Visit Provider Physician Assistant
DX: M25.572 Pain in left ankle and joints of left foot (principal); S82.892A Other fracture of left lower leg, initial encounter for closed fracture
CPT/HCPCS: 29405; 73610; 99212

== ENCOUNTER 2024-10-01 11:23 | Outpatient (AMB) | payer MEDICAID, SELFPAY ==
--- NOTE | 2024-10-01 11:37 | A.OFFVIS_ITS ---
Intake Visit Reasons: PO LT ankle ORIF 09/16/24 NE Intake Note: Jessy is a 59 year old female who presents today for a post op appointment s/p left ankle ORIF 09/16/24 NE. Patient reports she is feeling sharp pain around her ankle and she feels tingling as well. Allergies No Known Allergies Allergy (Verified 10/01/24 11:38) HPI HPI PO LT ankle ORIF 09/16/24 NE: Details: Ms. Joana Sullivan is a 59-year-old female who presents to the office today status post left ankle ORIF performed by Dr. Murillo on 09/16/2024. Overall the patient is doing very well. She has reported swelling in the left foot. Her pain is managed. No additional complaints. [facility] Medical History Arm numbness left Arthritis Asthma Breast cancer Cervical spinal stenosis Depression GERD (gastroesophageal reflux disease) Surgical History S/P lumpectomy, left breast (09/14/21) History of pterygium excision Family History Maternal Grandmother Stomach cancer Social History Household Members: Children Housing: Apartment Are you a primary child care development specialist to a significant other at home: No Do you presently have visiting nurse or other home services: No Alcohol intake: current Alcohol intake frequency: does not drink Patient Tobacco Use Status: Current everyday Tobacco user Tobacco use type: Cigarette Cigarettes Per Day: 2 Years Smoked: started at age 18, 1PPD , currently 10 per day service: No Current occupational status: unemployed Current occupation: Left Handed Female Reproductive History Menstrual Age of Menarche: 15 Review of Systems Const All systems reviewed & are unremarkable except as noted in HPI and below Physical Exam Const General: cooperative, healthy appearing and no acute distress Resp Effort & Inspection: normal respiratory effort and able to speak in complete sentences Cardio Rate: regular rate Peripheral pulses: Peripheral pulses 2+ throughout Skin Lesions: no lesions Rashes: no rashes Extrem Other: Left ankle incision site clean dry and intact. Moderate edema on the dorsal aspect of the foot. Marty intact. No surrounding erythema or drainage. No signs of infection. Able to dorsiflex and plantar flex. Sensation is intact. Pedal pulse intact. Office Procedures Casting/Splints 91763-[id number] Leg Cast Application Procedure code (CPT) selection complete Assessment & Plan Assessment & Plan (1) Closed left ankle fracture: Code(s): S82.892A - Other fracture of left lower leg, initial encounter for closed fracture Category: Medical Plan Ms. Joana Sullivan is a 59-year-old female who presents to the office today status post left ankle ORIF performed by Dr. Murillo on 09/16/2024. Overall the patient is doing very well. She has reported swelling in the left foot. Her pain is managed. No additional complaints. While in the office today, patient has marty are removed and Steri-Strips were applied. She was placed into a short-leg cast. She will continue nonweightbearing. She will follow up in 4 weeks for cast removal and x-rays, sooner if needed. X-rays of the left ankle which were obtained while in the office today and were reviewed by me, hSakira Benson PA-C, revealed intact orthopedic hardware with routine healing. Orders: Orders XR ankle LT min 3V Today M25.579 - Pain in unspecified ankle and joints of unspecified foot Medications: New celecoxib (Celebrex) 200 mg PO BID 30 days 60 caps 0RF Coding Level of Care Code Global (29126) Diagnoses Closed left ankle fracture S82.892A CPT Codes Casting - CPT: 43892-Pmvpr Leg Cast Application ([id number])
--- OUTSIDE RECORDS SUMMARY | 2024-10-01 12:03 | XMS_ITS | Encounter Summary ---
Author Organization [employer] Address [address] [facility] [address]t [place] [address] Care Team Providers Care Software Solutions Architect Name Role Phone Sherie William MD Primary Care Provide r Encounter Details Date Type Department Care Team (Latest Contact Info) Description 09/24/2024 Travel Social History Tobacco Use Types Packs/Day Years [...] as of this encounter Plan of Treatment Not on file documented as of this encounter Visit Diagnoses Not on filedocumented in this encounter Additional Health Concerns Assessment Noted Time PHQ-9 Depression Total Score: 19 025 9:45 AM EST documented as of this encounter Care Teams Software Solutions Architect Relationship Specialty Start Date End Date Sherie William MD [address] [place] [address] PCP - General Internal Medicine 03/19/24 documented as of this encounter
--- OUTSIDE RECORDS SUMMARY | 2024-10-01 12:04 | XMS_ITS | Encounter Summary ---
Author Organization [employer] Address [address] [facility] [address] [place] [address] Care Team Providers Care Cargo And Ramp Services Manager Name Role Phone Sherie William MD Primary Care Provide r Encounter Details Date Type Department Care Team ([facility] st Contact Info) Description 04/28/2024 Orders Only [facility] MEDICINE [address] [place] [address] Cindy Zacarias, ANP [address] [place] [address] Social History Tobacco Use Types Packs/Day Years [...] documented as of this encounter Care Teams Cargo And Ramp Services Manager Relationship Specialty Start Date End Date Sherie William MD [address] [place] [id number] PCP - General Internal Medicine 03/19/24 documented as of this encounter
--- OUTSIDE RECORDS SUMMARY | 2024-10-01 12:04 | XMS_ITS | Encounter Summary ---
Author Organization [employer] [facility] Address [address] [place] [address] 7t [place] [address] Care Team Providers Care Development Technician Name Role Phone Cindy Zacarias Primary Care Provider [phone] Sherie William MD Primary Care Provide r Encounter Details Date Type Department Care Team ([facility] st Contact Info) Description 04/03/2023 Abstract [facility] MEDICINE [address] [place], [place] [phone] Provider, MD Jillian Social History Tobacco Use Types Packs/Day Years [...] on file documented as of this encounter Procedures Procedure Name Priority Date/Time Associated Diagnosis Comments MAMMOGRAPHY Routine 03/06/2023 documented in this encounter Results * Mammography (03/06/2023) Mammogram abnormal Anatomical Region Laterality Modality Other us Historical Provider HEALTH MAINTENANCE Final Result documented in this encounter Visit Diagnoses Not on filedocumented in this encounter Care Teams Development Technician Relationship Specialty Start Date End Date Cindy Zacarias ANP [address] [place] [address] PCP - General Family Medicine 07/20/20 03/18/24 Sherie William MD [address] [place] [address] PCP - General Internal Medicine 03/19/24 documented as of this encounter
--- OUTSIDE RECORDS SUMMARY | 2024-10-01 12:04 | XMS_ITS | Encounter Summary ---
Author Organization [employer] Address [address] [facility] [address]t [place] [address] Care Team Providers Care Analytical Research Program Manager Name Role Phone Sherie William MD Primary Care Provide r Encounter Details Date Type Department Care Team (Late st Contact Info) Description 09/16/2024 Orders Only [facility] External Provider, [facility] Social History Tobacco Use Types Packs/Day Years Used Date Smoking Tobacco: Some Days Cigarettes Passive Smoke Exposure: Current Smokeless Tobacco: Never Comments:3 cigs a day Alcohol Use Standard Drinks/Week Comments Yes 0 (1 standard drink = 0.6 oz pur e alcohol) OC Depression Answer Date Recorded Patient Health Questionnaire-9 Score 08/28/2024 Patient Health Questionnaire-9 Score 08/28/2024 Last PHQ-9: Questionnaire Data Not on [...] t he electric, gas, oil or water [employer] threatened to shut off services in your [...] Procedure Name Priority Date/Time Associated Diagnosis Comments FL GUIDANCE IN OR Routine 09/16/2024 2:1 0 PM EST documented in this encounter Results * FL Guidance in OR (09/16/2024 2:10 PM EST) Anatomical Region Laterality Modality X-Ray Angiograph y 09/16/2024 2:10 PM EST Narrative 09/16/2024 3:58 PM EST ? [facility] ?[address] ?[place] [address] ? Fluoroscopy Report ? Signed ? Patient: Jessy Shanks ?MR#: [id number] ?? [id number] ? : 1965 ?Acct:[id number] ? Age/Sex: 59 / F ?ADM Date: 09/16/24 ? Loc: HO.SSS ? Attending Dr: Arian Murillo MD ? Ordering Physician: Arian Murillo MD ?? Date of Service: 09/16/24 ?? Procedure(s): FL guidance in OR ?? Accession Number(s): [id number] ? cc: Sherie William MD; Arian Murillo MD ? EXAMINATION: ??FL GUIDANCE ONLY ? HISTORY: LEFT ANKLE ORIF ? COMPARISON: ?? None available. ? TECHNIQUE: ?? Fluoroscopy time: 0.2 minutes. ?? Cumulative Dose: 0.523 mGy. ?? DAP: 0.16433 mGym2 ?? Images: 2. ? FINDINGS: ?? Images demonstrate internal fixation of the distal fibula with a ?? sideplate and multiple orthopedic screws at the site of a nondisplaced ?? oblique fracture. A button is noted along the medial malleolus. ? FL/FL guidance in OR ?? IMPRESSION: ?? Fluoroscopy during procedure. Please see procedure report for ?? additional information. ? Electronically signed by: ??Craig Christianson MD ??09/16/2024 03:55 PM EST ?? RP ? Dictated By: ?Craig Christianson MD ? Signed By: ?<Electronically signed by Craig Christianson MD in OV> ?09/16/24 1555 ? DD/ 1410 ? TD/TT: 09/16/24 1516 ? Teacher: ? Procedure Note Donotuseinterpreter, Image - 09/16/[address] [address] Fluoroscopy Report Signed Patient: Pop Shanks#: [id number] : 1965Acct:[id number] Age/Sex: 59 / FADM Date: 09/16/24 Loc: HO[facility] Attending Dr: Arian Murillo MD Ordering Physician: Arian Murillo MD Date of Service: 09/16/24 Procedure(s): FL guidance in OR Accession Number(s): [id number] cc: Sherie William MD; Arian Murillo MD EXAMINATION: FL GUIDANCE ONLY HISTORY: LEFT ANKLE ORIF COMPARISON: None available. TECHNIQUE: Fluoroscopy time: 0.2 minutes. Cumulative Dose: 0.523 mGy. DAP: 0.39829 mGym2 Images: 2. FINDINGS: Images demonstrate internal fixation of the distal fibula with a sideplate and multiple orthopedic screws at the site of a nondisplaced oblique fracture. A button is noted along the medial malleolus. FL/FL guidance in OR IMPRESSION: Fluoroscopy during procedure. Please see procedure report for additional information. Electronically signed by: Craig Christianson MD 09/16/2024 03:55 PM EST Dictated By: Craig Christianson MD Signed By: <Electronically signed by Craig Christianson MD in OV> 09/16/24 1555 DD/ 1410 TD/TT: 09/16/24 1516 Teacher: [facility] External Provider IMG IR PROCEDURES Final Result documented in this encounter Visit Diagnoses Not on filedocumented in this encounter Additional Health Concerns Assessment Noted Time PHQ-9 Depression Total Score: 19 025 9:45 AM EST documented as of this encounter Care Teams Analytical Research Program Manager Relationship Specialty Start Date End Date Sherie William MD [address] [place] [address] PCP - General Internal Medicine 03/19/24 documented as of this encounter
--- OUTSIDE RECORDS SUMMARY | 2024-10-01 12:04 | XMS_ITS | Encounter Summary ---
Author Organization [employer] [facility] Address [address] [place] [address] 7t [place] [address] Care Team Providers Care Adz Worker Name Role Phone Cindy Zacarias Primary Care Provider [phone] Sherie William MD Primary Care Provide r Encounter Details Date Type Department Care Team (Latest Contact Info) Description 12/07/2020 Abstract [facility] Dental, Provider, DDS Social History Tobacco [...] on filedocumented in this encounter Care Teams Adz Worker Relationship Specialty Start Date End Date Cindy Zacarias ANP [address] [place] [address] PCP - General Family Medicine 07/20/20 03/18/24 Sherie William MD [address] [place], [place] [phone] PCP - General Internal Medicine 03/19/24 documented as of this encounter
--- OUTSIDE RECORDS SUMMARY | 2024-10-01 12:04 | XMS_ITS | Encounter Summary ---
Author Organization [employer] Address [address] [facility] 7t [place] [address] Care Team Providers Care Physical Director Name Role Phone Sherie William MD Primary Care Provide r Encounter Details Date Type Department Care Team (Late st Contact Info) Description 09/24/2024 9:00 AM EST Telemedicine [facility] MEDICINE [address] [place], [place] [phone] Sherie William MD [address] [place] [address] Closed fracture of distal end of left fibula, unspecified fracture morphology, initial encounter (Primary Dx); Mood disorder (CMS/HCC); Tobacco dependence syndrome Social History Tobacco Use Types Packs/Day Years [...] AM EDT documented as of this encounter Progress Notes * Sherie Gross MD - 09/24/2024 9:00 AM EST SUBJECTIVE: Jessy Sullivan is a 59 y.o. year old female who presents for Follow up . Acute Concerns: Patient recently had an accident she slipped and fell from stairs because they were slippery (icy),she went to the emergency room x-rays were done and they revealed fracture of her left distal fibula, she was referred to orthopedics who concluded that she needed surgical intervention, which he hadon September 16, patient reports she still has a lot of pain and it is challenging for her to use hercrutches On the other hand patient tells me Seroquel is helping her a lot regarding her sleep and also reports she feels more calm overall, but she is still looking for medication to take during the day that will not make her feel so drowsy, she tells me she has today her follow-up with therapist and has anappointment soon with psychiatry provider Patient tells me she did try to quit smoking but right now it has been too challenging for her to quit smoking Social History Social History Narrative Not on file Patient Active Problem List Diagnosis Allergic rhinitis Asthma Backache Chronic maxillary sinusitis Gastroesophageal reflux disease 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 Review of Systems Constitutional: Negative. HENT: Negative. Respiratory: Negative. Cardiovascular: Negative. Musculoskeletal: Positive for arthralgias. Follow Up: No follow-ups on file. Current Outpatient Medications on File Prior to Visit Medication Sig Dispense Refill acetaminophen (Tylenol) 500 MG tablet Take 2 tablets (1,000 mg) by mouth every 12 (twelve) hours ifneeded for moderate pain or fever. 120 tablet 0 albuterol 108 (90 Base) MCG/ACT inhaler INHALE 2 PUFFS BY MOUTH EVERY 4 TO 6 HOURS IF NEEDED FOR SHORTNESS OF BREATH OR WHEEZING 18 g 0 Beclomethasone Diprop HFA (Qvar RediHaler) 80 MCG/ACT inhaler INHALE 2 PUFFS BY MOUTH EVERY 12 HOURS 10.6 g 0 chlorhexidine (Peridex) 0.12 % solution Place 15 mL into mouth between cheek and gum in the morningand 15 mL in the evening. cyclobenzaprine (Flexeril) 5 MG tablet TAKE 1 TABLET BY MOUTH THREE TIMES EVERY DAY IF NEEDED FOR MUSCLE PAIN 60 tablet 0 diphenhydrAMINE (BENADryl) 25 MG tablet Take 2 tablets (50 mg) by mouth every 8 (eight) hours if needed for itching. 30 tablet 0 DULoxetine (Cymbalta) [address] capsule Take 1 capsule (30 mg) by mouth Once daily. 30 capsule 2 fluocinolone ([place]-Smoothe) 0.01 % external oil APPLY TOPICALLY TO AFFECTED AREA(S) TWICE DAILY ASDIRECTED 118.28 mL 1 Fluocinolone Acetonide Scalp ([place]-Smoothe/FS Scalp) 0.01 % oil Massage into damp scalp daily. Cover hair and leave on for at least 4 hours 118 mL 0 meloxicam (Mobic) 15 MG tablet TAKE 1 TABLET BY MOUTH EVERY DAY WITH FOOD 30 tablet 0 nicotine polacrilex (Nicotine Mini) 4 MG lozenge Dissolve 1 lozenge (4 mg) in the mouth every 2 (two) hours if needed for smoking cessation. 100 lozenge 0 omeprazole (PriLOSEC) [address] capsule TAKE 1 CAPSULE BY MOUTH EVERY DAY BEFORE A MEAL 90 capsule 0 sodium chloride ([place] Nasal [place]) 0.65 % nasal spray 1-2 sprays on each nostril every 2-3 hours as needed for nasal congestion 30 mL 1 tiZANidine (Zanaflex) 4 MG capsule Take 1 capsule (4 mg) by mouth 3 times daily. 90 capsule 11 triamcinolone (Kenalog) 0.1 % cream APPLY TOPICALLY TO THE AFFECTED AREA(S) TWICE DAILY [id number] g 2 zoster vaccine-recombinant adjuvanted (Shingrix) 50 MCG/0.5ML vaccine Inject 0.5 mL into the shoulder, thigh, or buttocks 1 (one) time. [DISCONTINUED] QUEtiapine (SEROquel) 50 MG tablet Take 1 tablet (50 mg) by mouth at bedtime. 30 tablet 0 No current facility-administered medications on file prior to visit. Problem List Items Addressed This Visit Mood disorder (CMS/HCC) Counseling done Continue with therapist Do not miss appointment with psych provider Continue Seroquel 50 mg at bedtime Relevant Medications QUEtiapine (SEROquel) 50 MG tablet Closed fracture of distal end of left fibula - Primary Continue to follow-up with orthopedics Tobacco dependence syndrome Counseling done, not ready to quit Will revisit on next appointments documented in this encounter Miscellaneous Notes * Assessment & Plan Note - Sherie Gross MD - 09/24/2024 9:50 AM EST Associated Problem(s): Tobacco dependence syndrome Counseling done, not ready to quit Will revisit on next appointments * Assessment & Plan Note - Sherie Gross MD - 09/24/2024 9:50 AM EST Associated Problem(s): Mood disorder (CMS/HCC) Counseling done Continue with therapist Do not miss appointment with psych provider Continue Seroquel 50 mg at bedtime * Assessment & Plan Note - Sherie Gross MD - 09/24/2024 9:49 AM EST Associated Problem(s): Closed fracture of distal end of left fibula Continue to follow-up with orthopedics documented in this encounter Plan of Treatment Not on file documented as of this encounter Visit Diagnoses Diagnosis Closed fracture of distal end of left fibula, unspecified fracture morphology, initial encounter- Primary Mood disorder (CMS/HCC) Unspecified episodic mood disorder Tobacco dependence syndrome Tobacco use disorder documented in this encounter Additional Health Concerns Assessment Noted Time PHQ-9 Depression Total Score: 19 025 9:45 AM EST documented as of this encounter Care Teams Physical Director Relationship Specialty Start Date End Date Sherie William MD [address] [place] [address] PCP - General Internal Medicine 03/19/24 documented as of this encounter
--- OUTSIDE RECORDS SUMMARY | 2024-10-01 12:04 | XMS_ITS | Clinical Summary ---
Author Organization [employer] Address [address] [place] [address] [address] [place] [address] Care Team Providers Care Continuous Improvement Intern Name Role Phone Sherie William MD Primary Care Provide r Allergies No known active allergies Medications * This document contains information received from the source organization and may not represent a complete record from that organization. zoster vaccine-recomb inant adjuvanted (Shingrix) 50 MCG/0.5ML vaccine Inject 0.5 mL into the shoulder, thigh, or buttocks 1 (one) time. 07/19/20 20 Active chlorhexidine (Peridex) 0.12 % solution Place 15 mL into mouth between cheek and gum in the morning and 15 mL in the evening. 11/04/19 21 Active sodium chloride ([place] Nasal [place]) 0.65 % nasal sprayIndicatio ns:Viral URI 1-2 sprays on each nostril every 2-3 hours as needed for nasal congestion 30 mL 1 12/27/19 23 Active cyclobenzaprin e (Flexeril) 5 MG tabletIndicati ons:Chronic back pain, unspecified back location, unspecified back pain laterality TAKE 1 TABLET BY MOUTH THREE TIMES EVERY DAY IF NEEDED FOR MUSCLE PAIN 60 tablet 06/20/20 23 Active Beclomethasone Diprop HFA (Qvar RediHaler) 80 MCG/ACT inhalerIndicat ions:Chronic obstructive pulmonary disease, unspecified COPD type (CMS/HCC) INHALE 2 PUFFS BY MOUTH EVERY 12 HOURS 10.6 g 06/20/20 23 Active diphenhydrAMIN E (BENADryl) 25 MG tabletIndicati ons: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 30 tablet 01/08/20 24 Active albuterol 108 (90 Base) MCG/ACT inhalerIndicat ions:Moderate asthma, unspecified whether complicated, unspecified whether persistent,Chr onic obstructive pulmonary disease, unspecified COPD type (CMS/HCC) INHALE 2 PUFFS BY MOUTH EVERY 4 TO 6 HOURS IF NEEDED FOR SHORTNESS OF BREATH OR WHEEZING 18 g 03/19/20 24 Active Fluocinolone Acetonide Scalp ([place]-Smoothe /FS Scalp) 0.01 % oilIndications :Seborrheic dermatitis of scalp Massage into damp scalp daily. Cover hair and leave on for at least 4 hours 118 mL 03/19/20 24 Active omeprazole (PriLOSEC) [address] capsuleIndicat ions:Gastroeso phageal reflux disease, unspecified whether esophagitis present TAKE 1 CAPSULE BY MOUTH EVERY DAY BEFORE A MEAL 90 capsule 03/19/20 24 Active tiZANidine (Zanaflex) 4 MG capsuleIndicat ions:Chronic bilateral low back pain without sciatica Take 1 capsule (4 mg) by mouth 3 times daily. 90 capsule 11 03/19/20 24 025 Active acetaminophen (Tylenol) 500 MG tablet Take 2 tablets (1,000 mg) by mouth every 12 (twelve) hours if needed for moderate pain or fever. 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 30 capsule 1 10/01/19 25 025 Active QUEtiapine (SEROquel) 50 MG tabletIndicati ons:Mood disorder (CMS/HCC) Take 1 tablet (50 mg) by mouth at bedtime. 30 tablet 1 10/01/19 25 025 Active DULoxetine (Cymbalta) [address] capsuleIndicat ions:Mixed anxiety and depressive disorder,Compl aints of total body pain Take 1 capsule (30 mg) by mouth Once daily. 30 capsule 2 07/07/20 24 025 Discontinued(Re order (will not trigger notification to Pharmacy)) QUEtiapine (SEROquel) 50 MG tabletIndicati ons:Mood disorder (CMS/HCC) Take 1 tablet (50 mg) by mouth at bedtime. 30 tablet 07/25/20 24 025 Discontinued(Re order (will not trigger notification to Pharmacy)) QUEtiapine (SEROquel) 50 MG tabletIndicati ons:Mood disorder (CMS/HCC) Take 1 tablet (50 mg) by mouth at bedtime. 30 tablet 2 09/24/19 25 025 Discontinued(Re order (will not trigger notification to Pharmacy)) Active Problems Problem Noted Date Diagnosed Date Mixed anxiety and depressive disorder 10/01/2024 Closed fracture of distal end of left fibula 07/2025 Assessment & Plan (09/24/2024 9:49 AM EST): Continue to follow-up with orthopedics Chronic bilateral thoracic back pain 07/25/2024 Mood disorder 07/25/2024 Assessment & Plan (09/24/2024 9:50 AM EST): Counseling done Continue with therapist Do not miss appointment with psych provider Continue Seroquel 50 mg at bedtime Assessment & Plan (07/30/2024 12:38 PM EST): [...] Seborrheic dermatitis of scalp 07/29/2018 Backache 11/19/2013 Urinary incontinence 11/19/2013 Tobacco dependence syndrome 02/08/2012 Assessment & Plan (09/24/2024 9:50 AM EST): Counseling done, not ready to quit Will revisit on next appointments Assessment & Plan (07/30/2024 12:39 PM EST): Counseling done Nicotine lozenge started today Asthma 01/31/2012 Gastroesophageal reflux disease 01/31/2012 Obesity 01/31/2012 Chronic maxillary sinusitis 02/07/2010 Allergic rhinitis 02/08/2000 Resolved Problems Problem Noted Date Diagnosed Date Resolved Date Moderate episode of recurren t major depressive disorder 11/19/2013 10/01/2024 Assessment & Plan (03/19/2024 4:35 PM EDT): [...] children, concern about mother who lives in [place] and trust issues. PLAN: New/Additional Services needed PCP management Off-site services for Behavioral Health Integration Plan External OP therapy referral Patient Self Plan Patient to utilize skills provided in intervention , Patient to reach out to [facility] team as needed, Comply with medication , Patient to engage in OP therapy , and Patient to reach out to [facility] as needed Encounters * This document contains information received from the source organization and may not represent a complete record from that organization. Date Type Department Care Team Description 09/24/2024 9:00 AM EST Telemedicine [facility] [address] [place] [phone] Sherie William MD Closed fracture of distal end of left fibula, unspecified fracture morphology, initial encounter (Primary Dx); Mood disorder (CMS/HCC); Tobacco dependence syndrome 09/24/2024 Travel 09/16/2024 Orders Only [facility] External Provider, [facility] 08/14/2024 Telephone [facility] [address] [place] [address] [phone] Sherie William MD 08/11/2024 Telephone [facility] [address] [place] [address] [phone] Pipe Yo ANP 08/07/2024 Telephone [facility] [address] [place] [address] [phone] Sherie William MD Reasonable Accommodation (I called the patient, regarding a reasonable accommodation request from [facility] [place] [employer]. She stated that she requested to be able to have a washing machine in her apartment, and if her request is approved, she would like to remain living in her current apartment. 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 07/25/2024 9:30 AM EST Office Visit [facility] [address] [place] [address] [phone] Sherie William MD Tobacco dependence syndrome (Primary Dx); Mood disorder (CMS/HCC); COPD with asthma (CMS/HCC); Low vision, unspecified left eye visual impairment category, unspecified right eye visual impairment category; Encounter for immunization 07/25/2024 Travel 07/18/2024 Patient Outreach [facility] [address] [place] [address] [phone] Sherie William MD Pre-visit Planning (SDOH screening completed on 12/14/2023) 07/05/2024 Refill [facility] [address] [place] [address] [phone] Pipe Yo ANP Mixed anxiety and depressive disorder; Complaints of total body pain 07/05/2024 Refill [facility] [address] [place] [address] [phone] Alda Crespo FNP 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; Mixed anxiety and depressive disorder; Complaints of total body pain from Last 3 Months Immunizations Name Administration [...] 07/25/2024 9:23 AM EST Plan of Treatment Health Maintenance Due Date Last Done Comments [...] Tdap) 07/13/2024 07/13/2014, 09/10/2007 Mammogram 08/30/2024 08/30/2023, 02/11, 03/06/2023, Additional history exists SDOH Screening 12/13/2024 12/14/2023 Depression Monitoring (PHQ-9) 02/25/2025 08/28/2024, 08/28/2024 Alcohol/Substance Use Screening 07/25/2025 07/25/2024 Depression Screening 08/28/2025 08/28/2024, 08/28/19 Tobacco Screening 10/01/2025 10/01/2024 Cervical Cancer Screening 05/19/2026 HPV/Cotest 05/19/2026 05/19/2021 Pap Smear 05/19/2026 05/19/2021, 05/19/2021 Colorectal Cancer Screening 01/09/2027 FIT DNA/Cologuard 01/09/2027 01/10/2024 Lipid Panel 12/30/2028 12/31/2023 RSV Patients and Patients Aged 60 years or older (1 - 1-dose 75+ series) 2041 Hepatitis A Vaccines Completed 08/27/2019, 12/30/19 HIV Screening Completed 12/31/2023, 08/28/2019 Hepatitis C [...] OR Routine 09/16/2024 2:1 0 PM EST LAB COLOGUARD?? COLON CANCER SCREEN Routine [...] Recently Relevant to Health Maintenance Results * FL Guidance in OR (09/16/2024 2:10 PM EST) Anatomical Region Laterality Modality X-Ray Angiograph y 09/16/2024 2:10 PM EST Narrative 09/16/2024 3:58 PM EST ? [facility] ?[address] ?[place] [address] ? Fluoroscopy Report ? Signed ? Patient: Joana Laurie,Jessy ?MR#: [id number] ?? [id number] ? : 1965 ?Acct:[id number] ? Age/Sex: 59 / F ?ADM Date: 09/16/24 ? Loc: HO.SSS ? Attending Dr: Arian Murillo MD ? Ordering Physician: Arian Murillo MD ?? Date of Service: 09/16/24 ?? Procedure(s): FL guidance in OR ?? Accession Number(s): [id number] ? cc: Sherie William MD; Arian Murillo MD ? EXAMINATION: ??FL GUIDANCE ONLY ? HISTORY: LEFT ANKLE ORIF ? COMPARISON: ?? None available. ? TECHNIQUE: ?? Fluoroscopy time: 0.2 minutes. ?? Cumulative Dose: 0.523 mGy. ?? DAP: 0.31768 mGym2 ?? Images: 2. ? FINDINGS: ?? [...] DD/ 1410 ? TD/TT: 09/16/24 1516 ? Cell Lead: ? Procedure Note Josh Madrid - 09/16/[address] [address] Fluoroscopy Report Signed Patient: Pop Shanks#: [id number] : 1965Acct:[id number] Age/Sex: 59 / FADM Date: 09/16/24 Loc: HO.SSS Attending Dr: Arian Murillo MD Ordering Physician: Arian Murillo MD Date of Service: 09/16/24 Procedure(s): FL guidance in OR Accession Number(s): [id number] cc: Sherie William MD; Arian Murillo MD EXAMINATION: FL GUIDANCE ONLY HISTORY: LEFT ANKLE ORIF COMPARISON: None available. TECHNIQUE: Fluoroscopy time: 0.2 minutes. Cumulative Dose: 0.523 mGy. DAP: 0.65821 mGym2 Images: 2. FINDINGS: Images demonstrate internal fixation of the distal fibula with a sideplate and multiple orthopedic screws at the site of a nondisplaced oblique fracture. A button is noted along the medial malleolus. FL/FL guidance in OR IMPRESSION: Fluoroscopy during procedure. Please see procedure report for additional information. Electronically signed by: Craig Christianson MD 09/16/2024 03:55 PM EST RP Dictated By: Craig Christianson MD Signed By: <Electronically signed by Craig Christianson MD in OV> 09/16/24 1555 DD/ 1410 TD/TT: 09/16/24 1516 Cell Lead: [facility] External Provider IMG IR PROCEDURES Final Result * (ABNORMAL) Cologuard?? colon cancer screening (01/10/2024 12:16 PM EDT) Cologuard Result Positive( A) Negative 01/16/2024 10:06 AM EDT [facility] (CLIA #:[id number]) Comment: POSITIVE TEST RESULT. A positive Cologuard [...] screened with both Cologuard and colonoscopy. (Mario Corea et al, N Engl J Med 2014;370(14):3676-8517.) Cologuard may produce a false negative or false positive result (no colorectal cancer or precancerous polyp present at colonoscopy follow up). A negative Cologuard test result does not guarantee the absence of CRC or advanced adenoma (pre-cancer). The current Cologuard screening interval is every 3 years. ([place] Cancer Society and U.S. Multi-Society Task Force). Cologuard performance data in a 10,000 patient pivotal study using colonoscopy as the reference method can be accessed at the following location: www.[employer]/results. Additional description of the Cologuard test process, warnings and precautions can be found at www.[employer].com. Stool specimen (specimen) 01/10/2024 12:16 PM EDT 01/11/2024 1:42 PM EDT [facility] LAB MOLECULAR DIAGNOSTICS ORDERA BLES Final Result [facility] (CLIA #:[id number]) [place] [address], * Hepatitis C Antibody with Reflex to HCV, RNA, Quantitative, Real-Time PCR (12/31/2023 9:52 AM EDT) Hepatitis C Antibody Nonreactive Nonreactive [facility] Comment:Antibodies to HCV no t detected; does not exclude early acuteHCV infection. Blood Venous blood specimen / Unknown 12/31/2023 9:52 AM EDT 12/31/2023 11:19 AM EDT Pipe Yo ANP LAB BLOOD ORDERABLES Final Resul t Performing Organization Address [facility]/ZIP Co de Phone Number [facility] [address] [place] [phone] * HIV-1/2 Antigen and Antibodies, Fourth Generation, with Reflexes (12/31/2023 9:52 AM EDT) HIV AB/AG Nonreactive Nonreactive [facility] Comment:HIV-1 p24 Ag and/or HIV-1/HIV-2 Ab not detected.A test result that is nonreactive does not exclude thepossibility of exposure to or infection with HIV-1 and/orHIV-2. Nonreactive results in this assay for individualswith prior exposure to HIV-1 and/or HIV-2 may be due toantigen and antibody levels that are below the limit ofdetection of this assay.The [employer] HIV Ag/Ab Combo assay result andsupplemental assay results should be interpreted inconjunction with the patient's clinical presentation,history and other laboratory results. If the results areinconsistent with clinical evidence, additional testing issuggested to confirm the result. Blood Venous blood specimen / Unknown 12/31/2023 9:52 AM EDT 12/31/2023 11:19 AM EDT Pipe Yo [facility] LAB BLOOD ORDERABLES Final Resul t Performing Organization Address [facility]/ZIP Co de Phone Number [facility] [address] [place] [phone] * (ABNORMAL) Lipid Panel, Standard (12/31/2023 9:52 AM EDT) Triglycerides 166(H) <150 mg/dL [facility] Comment:Desirable Triglyceri de: less than 150 mg/dLBorderline High Triglyceride 150-199 mg/dLHigh Triglyceride: 200-499 mg/dLVery High Triglyceride: greater than or equal to 5OO mg/dL Cholesterol 172 <200 mg/dL [facility] Comment:Desirable Cholestero l: less than 200 mg/dLBorderline High Cholesterol: 200-239 mg/dLHigh Cholesterol: greater than 239 mg/dL LDL Cholesterol Calculated 103(H) <100 mg/dL [facility] Comment:Desirable LDL: less than 100 mg/dLNear Optimal/Above Optimal LDL: 110- 129 mg/dLBorderline High LDL: 130-159 mg/dLHigh LDL: 160-189 mg/dLVery High LDL: greater than or equal to 190 mg/dL HDL Cholesterol 36(L) >40 mg/dL [facility] Comment:Desirable HDL: great er than 40 mg/dL Note: This HDL assay may give artificially low results in patients with liver disease. Blood Venous blood specimen / Unknown 12/31/2023 9:52 AM EDT 12/31/2023 11:19 AM EDT us Pipe Yo [facility] LAB BLOOD ORDERABLES Final Resul t [facility] [address] [place] [phone] [phone] * BI Mammogram Diagnostic Tomosynthesis Bilateral (08/30/2023 12:11 PM EST) Anatomical Region Laterality Modality Breast Bilateral Mammography 08/30/2023 12:1 1 PM EST Narrative 08/30/2023 1:07 PM EST ? [facility] [address] [facility] ?[place] [address] ? Mammography Report ? Signed ? Patient: Joana Laurie,Jessy ?MR#: [id number] ?? [id number] ? : 1965 ?Acct:[id number] ? Age/Sex: 58 / F ?ADM Date: 01/18/24 ? Loc: HO.MAMMO ? Attending Dr: Pipe Yo ANIMAL CONTROL SUPERVISOR ? Ordering Physician: PIPE YO ANIMAL CONTROL SUPERVISOR ?Results: 2Benign Fin ?? dings ? Date of Service: 08/30/23 ?Follow Up: 1 Year From Orig ?? inal Mammogram ? Procedure(s): MM tomosynthesis diagnostic BI ?? Accession Number(s): [id number] ? cc: SANAZ,PIPE ANIMAL CONTROL SUPERVISOR ? EXAMINATION: ?? MM DIAGNOSTIC DIGITAL BREAST [...] MD ? Signed By: ?<Electronically signed by Atr Hdz MD in OV> ?08/30/23 1303 ? DD/ 1211 ? TD/TT: ? Cell Lead: ? Procedure Note Donleonarda, Image - 08/30/2023 [facility] [address] [place] [address] Mammography Report Signed Patient: Pop Shanks#: [id number] : 1965Acct:[id number] Age/Sex: 58 / FADM Date: 08/30/23 Loc: HO.MAMMO Attending Dr: Pipe Yo NP Ordering Physician: PIPE YO NPResults: 2Banayeli quach Date of Service: 08/30/23Follow Up: 1 Year From Orig inal Mammogram Procedure(s): MM tomosynthesis diagnostic BI Accession Number(s): [id number] cc: PIPE YO NP EXAMINATION: MM DIAGNOSTIC [...] in OV> 08/30/23 1303 DD/ 1211 TD/TT: Cell Lead: [facility] BI PROCEDURES Final Result * HPV mRNA E6/E7 (05/19/2021 11:47 AM EDT) HPV nRNA E6/E7 Not Detected Not Detected [facility] Comment: Methodology: Implementation Project Manager-Mediated Amplification This assay detects E6/E7 viral messenger RNA (mRNA) from 14 high-risk HPV types (16,18,31,33,35,39,45,51,52,56,58,59,66,68). ? The analytical performance characteristics of this assay have been determined by [facility]. The modifications have not been cleared or approved by the FDA. This assay has been validated pursuant to the CLIA regulations and is used for clinical purposes. ?? For additional information, please refer to http://education.[employer]ER[employer]/faq/ADD861a5 (This link if provided for information/ educational purposes only.) 05/19/2021 11:4 7 AM EDT Hui Gutierres CNM LAB BLOOD ORDERABLES Aurora l Result [facility] [address] * Pap Smear (05/19/2021 12:00 AM EDT) Swab H[facility] LAB CYTOLOGY ORDERABLES F inal Result [address], [place] [phone] from Last 3 Months or Most Recently Relevant to Health Maintenance Insurance [facility] C3 Care Teams Continuous Improvement Intern Relationship Specialty Start Date End Date Sherie William MD [address] [place] [phone] PCP - General Internal Medicine 03/19/24
== END 2024-10-01 12:43 | disposition home or self-care (01) ==
PROVIDERS: Visit Provider Physician Assistant
DX: S82.892A Other fracture of left lower leg, initial encounter for closed fracture (principal)
CPT/HCPCS: 29405; 99024

== ENCOUNTER → 2024-10-01 11:24 | Outpatient (BNV) | payer MEDICAID, SELFPAY | PROVIDERS: Visit Provider Radiology Diagnostic Radiology | DX: S82.892D Other fracture of left lower leg, subsequent encounter for closed fracture with routine healing (principal) | CPT/HCPCS: 73610 ==

== ENCOUNTER 2024-10-10 09:50 | Outpatient (AMB) | payer MEDICAID, SELFPAY ==
--- NOTE | 2024-10-10 10:16 | MHC.OFFVIS ---
Intake Visit Reasons: PO LT ankle ORIF 09/16/24 NE cast change Intake Note: Jessy is a 59 year old female who presents today for a cast s/p left ankle ORIF 09/16/24 NE. Patient reports her cast is feeling tight with her swelling and also she feels her cast heavy. Allergies No Known Allergies Allergy (Verified 10/10/24 10:17) HPI HPI PO LT ankle ORIF 09/16/24 NE cast change: Details: Ms. Joana Sullivan this is a 59-year-old female presents to the office today for cast change. She reports that she is been having left ankle pain as well as a pressure point of the heel. [facility] Medical History Arm numbness left Arthritis Asthma Breast cancer Cervical spinal stenosis Depression GERD (gastroesophageal reflux disease) Surgical History S/P lumpectomy, left breast (09/14/21) History of pterygium excision Family History Maternal Grandmother Stomach cancer Social History Household Members: Children Housing: Apartment Are you a primary career development manager to a significant other at home: No Do you presently have visiting nurse or other home services: No Alcohol intake: current Alcohol intake frequency: does not drink Patient Tobacco Use Status: Current everyday Tobacco user Tobacco use type: Cigarette Cigarettes Per Day: 2 Years Smoked: started at age 18, 1PPD , currently 10 per day service: No Current occupational status: unemployed Current occupation: Left Handed Female Reproductive History Menstrual Age of Menarche: 15 Review of Systems Const All systems reviewed & are unremarkable except as noted in HPI and below Physical Exam Const General: cooperative, healthy appearing and no acute distress Resp Effort & Inspection: normal respiratory effort and able to speak in complete sentences Cardio Rate: regular rate Peripheral pulses: Peripheral pulses 2+ throughout Skin Rashes: no rashes Extrem Other: Left ankle incision site clean dry and intact. Moderate edema on the dorsal aspect of the foot. No signs of infection. Able to dorsiflex and plantar flex. Sensation is intact. Pedal pulse intact. Office Procedures Casting/Splints [id number] Leg Cast Application Procedure code (CPT) selection complete Assessment & Plan Assessment & Plan (1) Closed left ankle fracture: Code(s): S82.892A - Other fracture of left lower leg, initial encounter for closed fracture Category: Medical Plan While in the office today, the patient's cast was changed. Patient was educated on cast maintenance and instructed to keep the cast clean, dry, and intact. However, should the cast become wet, dirty, damaged, or there are any concerns please call the office immediately for a cast change. She will follow-up at her normally scheduled follow-up appointment, sooner if needed. Coding Level of Care Code Global (10231) Diagnoses Closed left ankle fracture S82.892A CPT Codes Casting - CPT: 03381-Lgomm Leg Cast Application ([id number])
--- OUTSIDE RECORDS SUMMARY | 2024-10-10 10:42 | XMS_ITS | Encounter Summary ---
Author Organization [employer] Address [address] [facility] 7t [place] [address] Care Team Providers Care Adjunct Psychology Instructor Name Role Phone Sherie William MD Primary Care Provide r Encounter Details Date Type Department Care Team (Late st Contact Info) Description 09/16/2024 Orders Only [facility] External Provider, [facility] Social History Tobacco Use Types Packs/Day [...] t he electric, gas, oil or water [employer] threatened to shut off services in your [...] EST Narrative 09/16/2024 3:58 PM EST ? [facility] ?[address] ?[place] [address] ? Fluoroscopy Report ? Signed ? Patient: Jessy Shanks ?MR#: [id number] ?? [id number] ? : 1965 ?Acct:[id number] ? Age/Sex: 59 / F ?ADM Date: 09/16/24 ? Loc: HO.SSS ? Attending Dr: Arian Murillo MD ? Ordering Physician: Arian Murillo MD ?? Date of Service: 09/16/24 ?? Procedure(s): [place] guidance in OR ?? Accession Number(s): [id number] ? cc: Sherie William MD; Arian Murillo MD ? EXAMINATION: ??[place] GUIDANCE ONLY ? HISTORY: LEFT ANKLE ORIF ? COMPARISON: ?? None available. ? TECHNIQUE: ?? Fluoroscopy time: 0.2 minutes. ?? Cumulative Dose: 0.523 mGy. ?? DAP: 0.23221 mGym2 ?? Images: 2. ? FINDINGS: ?? [...] DD/ 1410 ? TD/TT: 09/16/24 1516 ? Skidder Loader: ? Procedure Note Donotuseinterpreter, Image - 09/16/[address] [address] Fluoroscopy Report Signed Patient: Pop Shanks#: [id number] : 1965Acct:[id number] Age/Sex: 59 / FADM Date: 09/16/24 Loc: HO.[facility] Attending Dr: Arian Murillo MD Ordering Physician: Arian Murillo MD Date of Service: 09/16/24 Procedure(s): [place] guidance in OR Accession Number(s): [id number] cc: Sherie William MD; Arian Murillo MD EXAMINATION: [place] GUIDANCE ONLY HISTORY: LEFT ANKLE ORIF COMPARISON: None available. TECHNIQUE: Fluoroscopy time: 0.2 minutes. Cumulative Dose: 0.523 mGy. DAP: 0.07344 mGym2 Images: 2. FINDINGS: Images demonstrate internal [...] 09/16/24 1555 DD/ 1410 TD/TT: 09/16/24 1516 Skidder Loader: [facility] External Provider IMG IR PROCEDURES Final Result documented in this encounter Visit Diagnoses Not on filedocumented in this encounter Additional Health Concerns Assessment Noted Time PHQ-9 Depression Total Score: 19 025 9:45 AM EST documented as of this encounter Care Teams Adjunct Psychology Instructor Relationship Specialty Start Date End Date Sherie William MD [address] [place] [address] PCP - General Internal Medicine 03/19/24 documented as of this encounter
--- OUTSIDE RECORDS SUMMARY | 2024-10-10 10:42 | XMS_ITS | Encounter Summary ---
Author Organization [employer] Address 75 [facility] 7t [place] [address] Care Team Providers Care Integration Specialist Name Role Phone Sherie William MD Primary Care Provide r Encounter Details Date Type Department Care Team (Late st Contact Info) Description 09/24/2024 9:00 AM EST Telemedicine [facility] MEDICINE [address] [place], [place] [phone] Sherie William MD 230 [place] [address] Closed fracture of distal end of left [...] mouth Once daily. 30 capsule 2 fluocinolone ([place]ole [place]-Smoothe) 0.01 % external oil APPLY TOPICALLY TO AFFECTED AREA(S) TWICE DAILY ASDIRECTED 118.28 mL 1 Fluocinolone Acetonide Scalp (Pole [place]-Smoothe/FS Scalp) 0.01 % oil Massage into damp [...] A MEAL 90 capsule 0 sodium chloride (Trego Nasal [place]) 0.65 % nasal spray 1-2 sprays on each nostril every 2-3 hours as needed for nasal congestion 30 mL 1 tiZANidine (Zanaflex) 4 MG capsule Take 1 capsule (4 mg) by mouth 3 times daily. 90 capsule 11 triamcinolone (Kenalog) 0.1 % cream APPLY TOPICALLY TO THE AFFECTED AREA(S) TWICE DAILY [id number] g 2 zoster vaccine-recombinant adjuvanted (Shingrix) 50 [...] documented as of this encounter Care Teams Integration Specialist Relationship Specialty Start Date End Date Sherie William MD [address] [place] [address] PCP - General Internal Medicine 03/19/24 documented as of this encounter
--- OUTSIDE RECORDS SUMMARY | 2024-10-10 10:42 | XMS_ITS | Encounter Summary ---
Author Organization [employer] Address 75 [facility] 7t [place] [address] Care Team Providers Care Regional Planner Name Role Phone Sherie William MD Primary [...] documented as of this encounter Care Teams Regional Planner Relationship Specialty Start Date End Date Sherie William MD 230 [place] [address] PCP - General Internal Medicine 03/19/24 documented as of this encounter
--- OUTSIDE RECORDS SUMMARY | 2024-10-10 10:43 | XMS_ITS | Encounter Summary ---
Author Organization [employer] Address 75 [facility] 7t [place] [address] Care Team Providers Care Center Receptionist Name Role Phone Sherie William MD Primary Care Provide r Encounter Details Date Type Department Care Team ([facility] st Contact Info) Description 04/28/2024 Orders Only [facility] MED[facility]INE 230 [place] [address] Cindy Zacarias, ANP 230 [place] [address] Social History Tobacco Use Types Packs/Day Years [...] documented as of this encounter Care Teams Center Receptionist Relationship Specialty Start Date End Date Sherie William MD [address] [place] [phone] PCP - General Internal Medicine 03/19/24 documented as of this encounter
--- OUTSIDE RECORDS SUMMARY | 2024-10-10 10:43 | XMS_ITS | Encounter Summary ---
Author Organization [employer] [facility] Address [address] [place] [address] 7t [place] [address] Care Team Providers Care Reliability Manager Name Role Phone Cindy Zacarias Primary Care Provider [phone] Sherie William MD Primary Care Provide r Encounter Details Date Type Department Care Team ([facility] st Contact Info) Description 04/03/2023 Abstract [facility] MEDICINE 230 [place], [place] [phone] Provider, MD Jillian Social History Tobacco Use [...] on filedocumented in this encounter Care Teams Reliability Manager Relationship Specialty Start Date End Date Cindy Zacarias ANP 230 [place] [address] PCP - General Family Medicine 07/20/20 03/18/24 Sherie William MD 230 [place] [address] PCP - General Internal Medicine 03/19/24 documented as of this encounter
--- OUTSIDE RECORDS SUMMARY | 2024-10-10 10:43 | XMS_ITS | Encounter Summary ---
Author Organization [facility] Address [address] [place] [address] 7t [place] [address] Care Team Providers Care Medical Screener Name Role Phone Cindy Zacarias Primary Care Provider [phone] Sherie William MD Primary Care Provide r [...] on filedocumented in this encounter Care Teams Medical Screener Relationship Specialty Start Date End Date Cindy Zacarias ANP 230 [place] [address] PCP - General Family Medicine 07/20/20 03/18/24 Sherie William MD [address] [place], [place] [phone] PCP - General Internal Medicine 03/19/24 documented as of this encounter
--- OUTSIDE RECORDS SUMMARY | 2024-10-10 10:43 | XMS_ITS | Clinical Summary ---
Author Organization [email or web address] Address [address] [place] [address] 7t [place] [address] Care Team Providers Care Patient Services Coordinator Name Role Phone Sherie William MD Primary [...] the evening. 11/04/19 21 Active sodium chloride (Stanton Nasal [place]) 0.65 % nasal sprayIndicatio ns:Viral URI 1-2 [...] g 03/19/20 24 Active Fluocinolone Acetonide Scalp ([place]-Smoothe /FS Scalp) 0.01 % oilIndications :Seborrheic dermatitis [...] cessation. 100 lozenge 07/25/20 24 Active fluocinolone ([place]-Smoothe ) 0.01 % external oilIndications :Allergic contact [...] children, concern about mother who lives in [place] and trust issues. PLAN: New/Additional Services needed PCP management Off-site services for Behavioral Health Integration Plan External OP therapy referral Patient Self Plan Patient to utilize skills provided in intervention , Patient to reach out to [facility] team as needed, Comply with medication , Patient to engage in OP therapy , and Patient to reach out to [facility] as needed Encounters * This document contains information received from the source organization and may not represent a complete record from that organization. Date Type Department Care Team Description 09/24/2024 9:00 AM EST Telemedicine [facility] MEDICINE [address] [place] [address] Sherie William MD Closed fracture of distal end of left fibula, unspecified fracture morphology, initial encounter (Primary Dx); Mood disorder (CMS/HCC); Tobacco dependence syndrome 09/24/2024 Travel 09/16/2024 Orders Only [facility] External Provider, [facility] 08/14/2024 Telephone [facility] [address] [place] [phone] Sherie William MD 08/11/2024 Telephone [facility] [address] [place] [phone] Pipe Yo ANP 08/07/2024 Telephone [facility] [address] [place] [phone] Sherie William MD Reasonable Accommodation (I called the patient, regarding a reasonable accommodation request from [facility] [place] [facility]. She stated that she requested to be able to have a washing machine in her apartment, and if her request is approved, she would like to remain living in her current apartment. 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 07/25/2024 9:30 AM EST Office Visit [facility] [address] [place] [address] Sherie William MD Tobacco dependence syndrome (Primary Dx); Mood disorder (CMS/HCC); COPD with asthma (CMS/HCC); Low vision, unspecified left eye visual impairment category, unspecified right eye visual impairment category; Encounter for immunization 07/25/2024 Travel 07/18/2024 Patient Outreach [facility] [address] [place] [address] Sherie William MD Pre-visit Planning ([facility] screening completed on 12/14/2023) from Last 3 Months Immunizations Name Administration [...] EST Narrative 09/16/2024 3:58 PM EST ? [facility] ?[address] ?[place] [address] ? Fluoroscopy Report ? Signed ? Patient: Joana Laurie,Jessy ?MR#: [id number] ?? [id number] ? : 1965 ?Acct:[id number] ? Age/Sex: 59 / F ?ADM Date: 02/04/25 ? Loc: HO.SSS ? Attending Dr: Arian Murillo MD ? Ordering Physician: Arian Murillo MD ?? Date of Service: 09/16/24 ?? Procedure(s): FL guidance in OR ?? Accession Number(s): [id number] ? cc: Sherie William MD; Arian Murillo MD ? EXAMINATION: ??FL GUIDANCE ONLY ? HISTORY: LEFT ANKLE ORIF ? COMPARISON: ?? None available. ? TECHNIQUE: ?? Fluoroscopy time: 0.2 minutes. ?? Cumulative Dose: 0.523 mGy. ?? DAP: 0.97372 mGym2 ?? Images: 2. ? FINDINGS: ?? [...] ??Craig Christianson MD ??09/16/2024 03:55 PM EST ? Dictated By: ?Craig Christianson MD ? Signed By: ?<Electronically signed by Craig Christianson MD in OV> ?09/16/24 1555 ? DD/ 1410 ? TD/TT: 09/16/24 1516 ? Deicer Inspector Pneumatic: ? Procedure Note Julius, Image - 09/16/[address] [address] Fluoroscopy Report Signed Patient: Pop Shanks#: [id number] : 1965Acct:[id number] Age/Sex: 59 / FADM Date: 09/16/24 Loc: HO[facility] Attending Dr: Arian Murillo MD Ordering Physician: Arian Murillo MD Date of Service: 09/16/24 Procedure(s): FL guidance in OR Accession Number(s): [id number] cc: Sherie William MD; Arian Murillo MD EXAMINATION: FL GUIDANCE ONLY HISTORY: LEFT ANKLE ORIF COMPARISON: None available. TECHNIQUE: Fluoroscopy time: 0.2 minutes. Cumulative Dose: 0.523 mGy. DAP: 0.80397 mGym2 Images: 2. FINDINGS: Images demonstrate internal [...] 09/16/24 1555 DD/ 1410 TD/TT: 09/16/24 1516 Deicer Inspector Pneumatic: [facility] External Provider IMG IR PROCEDURES Final Result * (ABNORMAL) Cologuard?? colon cancer screening (01/10/2024 12:16 PM EDT) Cologuard Result Positive( A) Negative 01/16/2024 10:06 AM EDT [employer] (CLIA #:[id number]) Comment: POSITIVE TEST RESULT. A positive Cologuard [...] (Mario Bruce al, N Engl J Med 2014;370(14):3354-7579.) Cologuard may produce a false negative or false positive result (no colorectal cancer or precancerous polyp present at colonoscopy follow up). A negative Cologuard test result does not guarantee the absence of CRC or advanced adenoma (pre-cancer). The current Cologuard screening interval is every 3 years. ([employer] Society and U.S. Multi-Society Task Force). Cologuard performance data in a 10,000 patient pivotal study using colonoscopy as the reference method can be accessed at the following location: [email or web address].carpooling.com/results. Additional description of the Cologuard test process, warnings and precautions can be found at www.cologuard.com. Stool specimen (specimen) 01/10/2024 12:16 PM EDT 01/11/2024 1:42 PM EDT Pipe Yo [facility] MOLECULAR DIAGNOSTICS ORDERA BLES Final Result Performing Organization Address City/[facility]/ZIP Co de Phone Number [employer] (CLIA #:[id number]) Henrietta [place] [address], * Hepatitis C Antibody with Reflex to HCV, RNA, Quantitative, Real-Time PCR (12/31/2023 9:52 AM EDT) Pathologist [facility] Hepatitis C Antibody Nonreactive Nonreactive [facility] Comment:Antibodies to HCV no t detected; does not exclude early acuteHCV infection. Blood Venous blood specimen / Unknown 12/31/2023 9:52 AM EDT 12/31/2023 11:19 AM EDT Pipe Yo [facility] BLOOD ORDERABLES Final Resul t Performing Organization Address [facility] Co de Phone Number [facility] [address] [place] [phone] * HIV-1/2 Antigen and Antibodies, Fourth Generation, with Reflexes (12/31/2023 9:52 AM EDT) Pathologist [facility] [place] HIV AB/AG Nonreactive Nonreactive [facility] Comment:HIV-1 p24 Ag and/or HIV-1/HIV-2 Ab not detected.A test result that is nonreactive does not exclude thepossibility of exposure to or infection with HIV-1 and/orHIV-2. Nonreactive results in this assay for individualswith prior exposure to HIV-1 and/or HIV-2 may be due toantigen and antibody levels that are below the limit ofdetection of this assay.The [employer] HIV Ag/Ab Combo assay result andsupplemental assay results should be interpreted inconjunction with the patient's clinical presentation,history and other laboratory results. If the results areinconsistent with clinical evidence, additional testing issuggested to confirm the result. Blood Venous blood specimen / Unknown 12/31/2023 9:52 AM EDT 12/31/2023 11:19 AM EDT [facility] LAB BLOOD ORDERABLES Final Resul t [facility] [address] [place] [phone] * (ABNORMAL) Lipid Panel, Standard (12/31/2023 9:52 AM EDT) Triglycerides 166(H) <150 mg/dL [facility] Comment:Desirable Triglyceri de: less than 150 mg/dLBorderline High Triglyceride 150-199 mg/dLHigh Triglyceride: 200-499 mg/dLVery High Triglyceride: greater than or equal to 5OO mg/dL Cholesterol 172 <200 mg/dL [facility] Comment:Desirable Cholestero l: less than 200 mg/dLBorderline High Cholesterol: 200-239 mg/dLHigh Cholesterol: greater than 239 mg/dL LDL Cholesterol Calculated 103(H) <100 mg/dL [facility] Comment:Desirable LDL: less than 100 mg/dLNear Optimal/Above Optimal LDL: 110- 129 mg/dLBorderline High LDL: 130-159 mg/dLHigh LDL: 160-189 mg/dLVery High LDL: greater than or equal to 190 mg/dL HDL Cholesterol 36(L) >40 mg/dL [facility] Comment:Desirable HDL: great er than 40 mg/dL Note: This HDL assay may give artificially low results in patients with liver disease. Blood Venous blood specimen / Unknown 12/31/2023 9:52 AM EDT 12/31/2023 11:19 AM EDT us Pipe Yo ANP LAB BLOOD ORDERABLES Final Resul t [facility] [address] [place] [address] [phone] * BI Mammogram Diagnostic Tomosynthesis Bilateral (08/30/2023 12:11 PM EST) Anatomical Region Laterality Modality Breast Bilateral Mammography 08/30/2023 12:1 1 PM EST Narrative 08/30/2023 1:07 PM EST ? [facility] ? [address] ?[place] [address] ? Mammography Report ? Signed ? Patient: Joana Sullivan,Jessy ?MR#: [id number] ?? [id number] ? : 1965 ?Acct:[id number] ? Age/Sex: 58 / F ?ADM Date: 01/18/24 ? Loc: HO.MAMMO ? Attending Dr: Pipe Yo PROPOSAL SPECIALIST ? Ordering Physician: SANAZ,PIPE PROPOSAL SPECIALIST ?Results: 2Benign Fin ?? dings ? Date of Service: /18/24 ?Follow Up: 1 Year From Orig ?? inal Mammogram ? Procedure(s): MM tomosynthesis diagnostic BI ?? Accession Number(s): [id number] ? cc: SANAZ,PIPE PROPOSAL SPECIALIST ? EXAMINATION: ?? MM DIAGNOSTIC DIGITAL BREAST [...] 1303 ? DD/ 1211 ? TD/TT: ? Deicer Inspector Pneumatic: ? Procedure Note Donotuseinterpreter, Image - 08/30/2023 [place] [facility] [address] [place] [address] Mammography Report Signed Patient: Pop Shanks#: [id number] : 1965Acct:[id number] Age/Sex: 58 / FADM Date: 08/30/23 Loc: HO.MAMMO Attending Dr: Pipe Yo PROPOSAL SPECIALIST Ordering Physician: PIPE YO NPResults: [facility] Date of Service: 08/30/23Follow Up: 1 Year From Orig ina Mammogram Procedure(s): MM tomosynthesis diagnostic BI Accession Number(s): [id number] cc: PIPE YO NP EXAMINATION: MM DIAGNOSTIC [...] in OV> 08/30/23 1303 DD/ 1211 TD/TT: Deicer Inspector Pneumatic: Pipe SAUCEDA IMAbelino BI PROCEDURES Final Result * HPV mRNA E6/E7 (05/19/2021 11:47 AM EDT) HPV nRNA E6/E7 Not Detected Not Detected [facility] Comment: Methodology: Frame Catcher-Mediated Amplification This assay detects E6/E7 viral messenger RNA (mRNA) from 14 high-risk HPV types (16,18,31,33,35,39,45,51,52,56,58,59,66,68). ? The analytical performance characteristics of this assay have been determined by [employer]. The modifications have not been cleared or approved by the FDA. This assay has been validated pursuant to the CLIA regulations and is used for clinical purposes. ?? For additional information, please refer to http://education.[employer].carpooling.com/faq/XUU797d6 (This link if provided for information/ educational purposes only.) 05/19/2021 11:4 7 AM EDT [facility] LAB BLOOD ORDERABLES [facility] [address] [place] [address], * Pap Smear (05/19/2021 12:00 AM EDT) Swab us [facility] LAB CYTOLOGY ORDERABLES F inal Result [facility] [address] [facility], [place] [address] from Last 3 Months or Most Recently Relevant to Health Maintenance Insurance [employer]3 Care Teams Patient Services Coordinator Relationship Specialty Start Date End Date Sherie William MD [address] [place] [address] PCP - General Internal Medicine 03/19/24
== END 2024-10-10 11:25 | disposition home or self-care (01) ==
LOC: HO.HOS 09:50
PROVIDERS: Visit Provider Physician Assistant
DX: S82.892A Other fracture of left lower leg, initial encounter for closed fracture (principal)
CPT/HCPCS: 29405; 99024

== ENCOUNTER → 2024-10-10 09:50 | Outpatient (BNVA) | payer MEDICAID, SELFPAY | PROVIDERS: Visit Provider Physician Assistant | DX: S82.892D Other fracture of left lower leg, subsequent encounter for closed fracture with routine healing (principal) | CPT/HCPCS: 29405; 99212 ==

== ENCOUNTER 2024-10-29 11:38 | Outpatient (REF) | payer MEDICAID, SELFPAY ==
--- NOTE | ~2024-10-29 | XR_ITS ---
EXAMINATION: XR ANKLE 3 OR MORE VIEWS LEFT HISTORY: M25.572 - Pain in left ankle and joints of left foot COMPARISON: Comparison is made with the prior examination dated 10/01/2024. FINDINGS: Three views of the left ankle are submitted. Osseous mineralization is normal. The patient is again noted to be status post internal fixation of an oblique fracture of the distal fibula with a sideplate and multiple orthopedic screws. The fracture line remains visible, but there is callus formation noted consistent with healing. The joint spaces are preserved. There is a tiny plantar calcaneal spur. The soft tissues are unremarkable. XR/XR ankle LT min 3V IMPRESSION: Healing internally fixed fracture of the distal fibula. Electronically signed by: Craig Christianson MD 10/30/2024 08:17 AM EDT
== END 2024-10-29 11:39 | disposition home or self-care (01) ==
LOC: HO.HOSX 11:38
PROVIDERS: Visit Provider Physician Assistant
DX: M25.572 Pain in left ankle and joints of left foot (principal); S82.892D Other fracture of left lower leg, subsequent encounter for closed fracture with routine healing; Z98.890 Other specified postprocedural states
CPT/HCPCS: 73610; 99212

== ENCOUNTER 2024-10-29 12:37 | Outpatient (AMB) | payer MEDICAID, SELFPAY ==
--- NOTE | 2024-10-29 13:08 | A.OFFVIS_ITS ---
Intake Visit Reasons: PO LT ankle ORIF 09/16/24 NE Intake Note: Jessy is a 59 year old female who presents today for her post operative LT ankle ORIF 09/16/24 NE. Patient reports Allergies No Known Allergies Allergy (Verified 10/10/24 10:17) HPI HPI PO LT ankle ORIF 09/16/24 NE: Details: 59-year-old female returns to the office today 6 weeks status post ORIF left ankle 09/16/[address] Murillo. She states she is doing well however the cast she was in has been a bit tight and uncomfortable. She states she has been elevating with minimal relief. [facility] Medical History Arm numbness left Arthritis Asthma Breast cancer Cervical spinal stenosis Depression GERD (gastroesophageal reflux disease) Surgical History S/P lumpectomy, left breast (09/14/21) History of pterygium excision Family History Maternal Grandmother Stomach cancer Social History Household Members: Children Housing: Apartment Are you a primary manager career to a significant other at home: No Do you presently have visiting nurse or other home services: No Alcohol intake: current Alcohol intake frequency: does not drink Patient Tobacco Use Status: Current everyday Tobacco user Tobacco use type: Cigarette Cigarettes Per Day: 2 Years Smoked: started at age 18, 1PPD , currently 10 per day service: No Current occupational status: unemployed Current occupation: Left Handed Female Reproductive History Menstrual Age of Menarche: 15 Review of Systems Const All systems reviewed & are unremarkable except as noted in HPI and below Physical Exam Extrem Other: Left ankle incision is well healed. No erythema or drainage around the incision. She does have diffuse swelling over the foot. Pedal pulses are present. Calf supple nontender neurovascularly intact. Results Reviewed Results Reviewed: X-rays of the left ankle obtained in the office today show orthopedic hardware intact distal fibular fracture stable Assessment & Plan Assessment & Plan (1) Closed left ankle fracture: Code(s): S82.892A - Other fracture of left lower leg, initial encounter for closed fracture Category: Medical Plan: She was transitioned to a tall boot weightbearing as tolerated. I explained the importance of ambulating with the boot at all times. She can remove for hygiene and exercises. I did explain that working with physical therapy and starting to weightbear is going to cause some discomfort and increased swelling and she needs to work on elevation and use of NSAIDs to help manage this. I would like to see her back in 6-8 weeks with x-rays, sooner if needed. Orders: Orders XR ankle LT min 3V Today M25.572 - Pain in left ankle and joints of left foot Coding Level of Care Code Global (48776) Diagnoses Closed left ankle fracture S82.892A
--- OUTSIDE RECORDS SUMMARY | 2024-10-29 15:00 | XMS_ITS | Encounter Summary ---
Author Organization [employer] Address [address] [facility] 7t [place] [address] Care Team Providers Care Produce Department Supervisor Name Role Phone Sherie William MD Primary Care Provide r Encounter Details Date Type Department Care Team ([facility] st Contact Info) Description 04/28/2024 Orders Only [facility] MEDICINE [address] [place] [address] Cindy Zacarias, ANP [address] [place] [address] Social History Tobacco Use Types Packs/Day Years [...] documented as of this encounter Care Teams Produce Department Supervisor Relationship Specialty Start Date End Date Sherie William MD [address] [place] [address] PCP - General Internal Medicine 03/19/24 documented as of this encounter
--- OUTSIDE RECORDS SUMMARY | 2024-10-29 15:00 | XMS_ITS | Encounter Summary ---
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
--- OUTSIDE RECORDS SUMMARY | 2024-10-29 15:00 | XMS_ITS | Encounter Summary ---
Author Organization [employer] [facility] Address [address] [place] [address] 7t [place] [address] Care Team Providers Care Group Therapist Name Role Phone Cindy Zacarias Primary Care Provider [phone] Sherie William MD Primary Care Provide r [...] on filedocumented in this encounter Care Teams Group Therapist Relationship Specialty Start Date End Date Cindy Zacarias ANP [address] [place] [address] PCP - General Family Medicine 07/20/20 03/18/24 Sherie William MD [address] [place], [place] [phone] PCP - General Internal Medicine 03/19/24 documented as of this encounter
--- OUTSIDE RECORDS SUMMARY | 2024-10-29 15:00 | XMS_ITS | Encounter Summary ---
Author Organization [employer] Address 75 [facility] 7t [place] [address] Care Team Providers Care Sizer Hand Name Role Phone Sherie William MD Primary Care Provide r Encounter Details Date Type Department Care Team ([facility] st Contact Info) Description 10/24/2024 Population Health Risk Score [facility] Care [facility] (C3) Department [address] [facility] [address] [place] [address] Provider, Population Health Generic Social History Tobacco Use Types Packs/Day Years [...] documented as of this encounter Care Teams Sizer Hand Relationship Specialty Start Date End Date Sherie William MD [address] [place] [address] PCP - General Internal Medicine 03/19/24 documented as of this encounter
--- OUTSIDE RECORDS SUMMARY | 2024-10-29 15:01 | XMS_ITS | Encounter Summary ---
Author Organization [employer] [facility] Address [address] [place] [address] 7t [place] [address] Care Team Providers Care Automotive Dismantler Name Role Phone Cindy Zacarias Primary Care Provider [phone] Sherie William MD Primary Care Provide r Encounter Details Date Type Department Care Team ([facility] st Contact Info) Description 04/03/2023 Abstract [facility] MEDICINE 230 [place], [place] [phone] Provider, MD Jillian Social History Tobacco Use [...] on filedocumented in this encounter Care Teams Automotive Dismantler Relationship Specialty Start Date End Date Cindy Zacarias ANP 230 [place] [address] PCP - General Family Medicine 07/20/20 03/18/24 Sherie William MD [address] [place] [address] PCP - General Internal Medicine 03/19/24 documented as of this encounter
--- OUTSIDE RECORDS SUMMARY | 2024-10-29 15:01 | XMS_ITS | Clinical Summary ---
Author Organization [employer] Address [address] [place] [address] 7[address] [place] [address] Care Team Providers Care Emergency Care Attendant Name Role Phone Sherie William MD Primary [...] the evening. 11/04/19 21 Active sodium chloride ([place] Nasal [place]) 0.65 % nasal sprayIndicatio ns:Viral URI 1-2 [...] g 03/19/20 24 Active Fluocinolone Acetonide Scalp ([place]-Smoothe /FS Scalp) 0.01 % oilIndications :Seborrheic dermatitis [...] WITH FOOD 30 tablet 04/10/20 24 Active nicotine polacrilex (Nicotine Mini) 4 MG lozengeIndicat ions:Tobacco dependence syndrome Dissolve 1 lozenge (4 mg) in the mouth every 2 (two) hours if needed for smoking cessation. 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 Date Type Department Care Team Description 10/24/2024 [facility] Risk Score [facility] () Department [address] [place] [phone] Provider, Population Health Generic 10/17/2024 Refill [facility] [address] [place] [phone] Sherie William MD 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 09/24/2024 9:00 AM EST Telemedicine [facility] [address] [place] [phone] Sherie William MD Closed fracture of distal end of left fibula, unspecified fracture morphology, initial encounter (Primary Dx); Mood disorder (CMS/HCC); Tobacco dependence syndrome 09/24/2024 Travel 09/16/2024 Orders Only [facility] External Provider, [facility] 08/14/2024 Telephone [facility] [address] [place] [phone] Sherie William MD 08/11/2024 Telephone [facility] [address] [place] [phone] Pipe Yo ANP 08/07/2024 Telephone [facility] [address] [place] [address] [phone] Sherie William MD Reasonable Accommodation (I called the patient, regarding a reasonable accommodation request from [employer]. She stated that she requested to be able to have a washing machine in her apartment, and if her request is approved, she would like to remain living in her current apartment. She does not want to move.) 08/04/2024 Refill [facility] [address] [place] [phone] Sherie William MD 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 from Last 3 Months Immunizations Name Administration [...] Tdap) 07/13/2024 07/13/2014, 09/10/2007 Mammogram 08/30/2024 08/30/2023, 2022, 03/06/2023, Additional history exists SDOH Screening 12/13/2024 [...] 1-dose 75+ series) 2041 Hepatitis A Vaccines Aged Out 08/27/2019, 12/30/19 16 No longer eligible based on patient's age to complete this topic HIV Screening Completed 12/31/2023, 08/28/2019 Hepatitis C [...] EST Narrative 09/16/2024 3:58 PM EST ? [facility] ?[address] ?[place] [address] ? Fluoroscopy Report ? Signed ? Patient: Jessy Shanks ?MR#: [id number] ?? [id number] ? : 1965 ?Acct:[id number] ? Age/Sex: 59 / F ?ADM Date: 09/16/24 ? Loc: HO.SSS ? Attending Dr: Arian Murillo MD ? Ordering Physician: Arian Murillo MD ?? Date of Service: 09/16/24 ?? Procedure(s): FL guidance in OR ?? Accession Number(s): [id number] ? cc: Sherie William MD; Arian Murlilo MD ? EXAMINATION: ??FL GUIDANCE ONLY ? HISTORY: LEFT ANKLE ORIF ? COMPARISON: ?? None available. ? TECHNIQUE: ?? Fluoroscopy time: 0.2 minutes. ?? Cumulative Dose: 0.523 mGy. ?? DAP: 0.76606 mGym2 ?? Images: 2. ? FINDINGS: ?? [...] DD/ 1410 ? TD/TT: 09/16/24 1516 ? Teacher Aide Clerical: ? Procedure Note Mishalyssaanish, Image - 09/16/2024 [place] [address] Fluoroscopy Report Signed Patient: Pop Shanks#: [id number] : 1965Acct:[id number] Age/Sex: 59 / FADM Date: 09/16/24 Loc: HO.[facility] Attending Dr: Arian Murillo MD Ordering Physician: Arian Murillo MD Date of Service: 09/16/24 Procedure(s): FL guidance in OR Accession Number(s): [id number] cc: Sherie William MD; Arian Murillo MD EXAMINATION: FL GUIDANCE ONLY HISTORY: LEFT ANKLE ORIF COMPARISON: None available. TECHNIQUE: Fluoroscopy time: 0.2 minutes. Cumulative Dose: 0.523 mGy. DAP: 0.27080 mGym2 Images: 2. FINDINGS: Images demonstrate internal fixation of the distal fibula with a sideplate and multiple orthopedic screws at the site of a nondisplaced oblique fracture. A button is noted along the medial malleolus. FL/FL guidance in OR IMPRESSION: Fluoroscopy during procedure. Please see procedure report for additional information. Electronically signed by: Craig Christianson MD 09/16/2024 03:55 PM [facility] Dictated By: Craig Christianson MD Signed By: <Electronically signed by Craig Christianson MD in OV> 09/16/24 1555 DD/ 1410 TD/TT: 09/16/24 1516 Teacher Aide Clerical: [facility] External Provider IMG IR PROCEDURES Final Result * (ABNORMAL) Cologuard?? colon cancer screening (01/10/2024 12:16 PM EDT) Cologuard Result Positive( A) Negative 01/16/2024 10:06 AM EDT [email or web address] (CLIA #:[id number]) Comment: POSITIVE TEST RESULT. A positive Cologuard [...] (Mario Bruce al, N Engl J Med 2014;370(14):9218-7643.) Cologuard may produce a false negative or false positive result (no colorectal cancer or precancerous polyp present at colonoscopy follow up). A negative Cologuard test result does not guarantee the absence of CRC or advanced adenoma (pre-cancer). The current Cologuard screening interval is every 3 years. ([place] Cancer Society and U.S. Multi-Society Task Force). Cologuard performance data in a 10,000 patient pivotal study using colonoscopy as the reference method can be accessed at the following location: www.[employer].Metaplace/results. Additional description of the Cologuard test process, warnings and precautions can be found at www.[employer].com. Stool specimen (specimen) 01/10/2024 12:16 PM EDT 01/11/2024 1:42 PM EDT us Pipe Yo [facility] MOLECULAR DIAGNOSTICS ORDERA BLES Final Result Performing Organization Address City/[facility]/ZIP Co de Phone Number [email or web address] (CLIA #:[id number]) [place] [address], * Hepatitis C Antibody with Reflex to HCV, RNA, Quantitative, Real-Time PCR (12/31/2023 9:52 AM EDT) Hepatitis C Antibody Nonreactive Nonreactive [facility] Comment:Antibodies to HCV no t detected; does not exclude early acuteHCV infection. Blood Venous blood specimen / Unknown 12/31/2023 9:52 AM EDT 12/31/2023 11:19 AM EDT Pipe Yo [facility] BLOOD ORDERABLES Final Resul t Performing Organization Address City/[facility] Co de Phone Number [facility] [address] [place] [phone] * HIV-1/2 Antigen and Antibodies, Fourth Generation, with Reflexes (12/31/2023 9:52 AM EDT) HIV AB/AG Nonreactive Nonreactive [facility] Comment:HIV-1 p24 Ag and/or HIV-1/HIV-2 Ab not detected.A test result that is nonreactive does not exclude thepossibility of exposure to or infection with HIV-1 and/orHIV-2. Nonreactive results in this assay for individualswith prior exposure to HIV-1 and/or HIV-2 may be due toantigen and antibody levels that are below the limit ofdetection of this assay.The [employer] HIV Ag/Ab Combo assay result andsupplemental assay results should be interpreted inconjunction with the patient's clinical presentation,history and other laboratory results. If the results areinconsistent with clinical evidence, additional testing issuggested to confirm the result. Blood Venous blood specimen / Unknown 12/31/2023 9:52 AM EDT 12/31/2023 11:19 AM EDT [facility] BLOOD ORDERABLES Final Resul t [facility] [address] [place] [phone] * (ABNORMAL) Lipid Panel, Standard (12/31/2023 9:52 AM EDT) Triglycerides 166(H) <150 mg/dL [facility] Comment:Desirable Triglyceri de: less than 150 mg/dLBorderline High Triglyceride 150-199 mg/dLHigh Triglyceride: 200-499 mg/dLVery High Triglyceride: greater than or equal to 5OO mg/dL Cholesterol 172 <200 mg/dL [facility] Comment:Desirable Cholestero l: less than 200 mg/dLBorderline High Cholesterol: 200-239 mg/dLHigh Cholesterol: greater than 239 mg/dL LDL Cholesterol Calculated 103(H) <100 mg/dL [facility] Comment:Desirable LDL: less than 100 mg/dLNear Optimal/Above Optimal LDL: 110- 129 mg/dLBorderline High LDL: 130-159 mg/dLHigh LDL: 160-189 mg/dLVery High LDL: greater than or equal to 190 mg/dL HDL Cholesterol 36(L) >40 mg/dL [facility] Comment:Desirable HDL: great er than 40 mg/dL Note: This HDL assay may give artificially low results in patients with liver disease. Blood Venous blood specimen / Unknown 12/31/2023 9:52 AM EDT 12/31/2023 11:19 AM EDT Pipe Yo ANP LAB BLOOD ORDERABLES Final Resul t [facility] [address] [place] [address] [phone] * BI Mammogram Diagnostic Tomosynthesis Bilateral (08/30/2023 12:11 PM EST) Anatomical Region Laterality Modality Breast Bilateral Mammography 08/30/2023 12:1 1 PM EST Narrative 08/30/2023 1:07 PM EST ? [facility] ? [address] ?[place] [address] ? Mammography Report ? Signed ? Patient: Jessy Shanks ?MR#: [id number] ?? [id number] ? : 1965 ?Acct:[id number] ? Age/Sex: 58 / F ?ADM Date: 08/30/23 ? Loc: HO.MAMMO ? Attending Dr: Pipe Yo EL TEACHER ? Ordering Physician: PIPE YO NP ?Results: 2Benign Fin ?? dings ? Date of Service: 08/30/23 ?Follow Up: 1 Year From Orig ?? inal Mammogram ? Procedure(s): MM tomosynthesis diagnostic BI ?? Accession Number(s): [id number] ? cc: SANAZ,PIPE EL TEACHER ? EXAMINATION: ?? MM DIAGNOSTIC DIGITAL BREAST [...] 1303 ? DD/ 1211 ? TD/TT: ? Teacher Aide Clerical: ? Procedure Note Donotuseinterpreter, Image - 08/30/2023 [facility] [address] [place], [place] [address] Mammography Report Signed Patient: Pop Shanks#: [id number] : 1965Acct:[id number] Age/Sex: 58 / FADM Date: 08/30/23 Loc: HO.MAMMO Attending Dr: Pipe Yo NP Ordering Physician: PIPE YO NPResults: 2Benign Pastor quach Date of Service: 08/30/23Follow Up: 1 Year From Orig inal Mammogram Procedure(s): MM tomosynthesis diagnostic BI Accession Number(s): [id number] cc: PIPE YO NP EXAMINATION: MM DIAGNOSTIC [...] in OV> 08/30/23 1303 DD/ 1211 TD/TT: Teacher Aide Clerical: Pipe SAUCEDA IMAbelino BI PROCEDURES Final Result * HPV mRNA E6/E7 (05/19/2021 11:47 AM EDT) HPV nRNA E6/E7 Not Detected Not Detected [facility] [employer] Comment: Methodology: Sculpture Instructor-Mediated Amplification This assay detects E6/E7 viral messenger RNA (mRNA) from 14 high-risk HPV types (16,18,31,33,35,39,45,51,52,56,58,59,66,68). ? The analytical performance characteristics of this assay have been determined by [employer]. The modifications have not been cleared or approved by the FDA. This assay has been validated pursuant to the CLIA regulations and is used for clinical purposes. ?? For additional information, please refer to http://education.[employer]Metaplace/faq/BFY429j1 (This link if provided for information/ educational purposes only.) 05/19/2021 11:4 7 AM EDT [facility] LAB BLOOD ORDERABLES [place] l Result [facility] [employer] [facility] [address] * Pap Smear (05/19/2021 12:00 AM EDT) Swab [facility] CYTOLOGY ORDERABLES F inal Result [facility] [address], [place] [phone] from Last 3 Months or Most Recently Relevant to Health Maintenance Insurance [facility] C3 Care Teams Emergency Care Attendant Relationship Specialty Start Date End Date Sherie William MD [address] [place] [phone] PCP - General Internal Medicine 03/19/24
== END 2024-10-29 13:58 | disposition home or self-care (01) ==
LOC: HO.HOS 12:37
PROVIDERS: PCP Internal Medicine; Visit Provider Physician Assistant
DX: S82.892A Other fracture of left lower leg, initial encounter for closed fracture (principal)
CPT/HCPCS: 99024

== ENCOUNTER → 2024-10-29 13:00 | Outpatient (BNV) | payer MEDICAID, SELFPAY | PROVIDERS: Visit Provider Radiology Diagnostic Radiology | DX: S82.892D Other fracture of left lower leg, subsequent encounter for closed fracture with routine healing (principal) | CPT/HCPCS: 73610 ==

== ENCOUNTER 2024-11-19 12:07 | Emergency (ER) | payer MEDICAID, SELFPAY ==
--- NOTE | ~2024-11-19 | XR_ITS ---
EXAMINATION: XR ANKLE, LEFT CLINICAL INFORMATION: Pain, recent operation, evaluate for osteomyelitis COMPARISON: 10/29/2024, 10/01/2024. TECHNIQUE: AP, lateral, and mortise views of the left ankle. FINDINGS: Disuse osteopenia. Lateral plate and screw fixation of the distal fibula. Of note, there is profound lucency surrounding the distal most 5 screws within the lateral malleolus. This is best seen on the oblique projection. These findings are highly suggestive of osteomyelitis. Radiolucent syndesmotic stabilization device. Subacute healing fracture of the distal fibula, with sclerotic fracture line is abundant bony callus present. No acute fracture or dislocation. There is a moderate-sized plantar and a moderate sized dorsal calcaneal spur. There is persistent soft tissue swelling surrounding the ankle. XR/XR ankle LT min 3V IMPRESSION: 1. Disuse osteopenia. 2. Profound lucency surrounding the distalmost 5 screws within the lateral malleolus, findings which could represent osteomyelitis in the appropriate clinical setting. 3. Subacute healing distal fibular fracture. No acute fractures seen. Electronically signed by: Art Hdz MD 11/19/2024 02:35 PM EDT
--- NOTE | ~2024-11-19 | US_ITS ---
EXAMINATION: US TRIPLEX LOWER EXTREMITY, LEFT CLINICAL INFORMATION: Left lower extremity pain and edema. COMPARISON: None available. TECHNIQUE: Color-flow triplex imaging with spectral analysis and compression Doppler were performed on the left lower extremity. FINDINGS: Respiratory variation, normal compression and augmented flow are noted throughout the left lower extremity. The visualized common femoral vein, superficial femoral vein, profunda femoral vein, popliteal vein and midcalf peroneal and posterior tibial venous segments show no evidence of deep venous thrombosis. There is no Coates's cyst. Reactive appearing left groin lymph node. US/US venous duplex LE LT IMPRESSION: No evidence of deep venous thrombosis involving the left lower extremity. Electronically signed by: Art Hdz MD 11/19/2024 01:48 PM EDT
--- NOTE | ~2024-11-19 | XR_ITS ---
EXAMINATION: XR FOOT, LEFT CLINICAL INFORMATION: Pain, recent operation, evaluate for osteomyelitis COMPARISON: Ankle radiographs performed concurrently. TECHNIQUE: AP, lateral, and oblique views of the left foot. FINDINGS: Disuse osteopenia. Redemonstration of profound bony lucency surrounding the distal 5 screws within the lateral malleolus. Refer to the ankle radiograph report. Otherwise, no permeative bony change, fracture, or dislocation identified in the left foot. No malalignment. Normal plantar arch. Joint spaces appear preserved. Moderate-sized plantar and dorsal calcaneal spurs. No soft tissue abnormality. XR/XR foot LT min 3V IMPRESSION: 1. Disuse osteopenia. 2. Redemonstration of profound bony lucency surrounding the distal 5 screws within the lateral malleolus. Refer to the ankle radiograph report. 3. No additional acute bony abnormalities. Electronically signed by: Art Hdz MD 11/19/2024 02:49 PM EDT
--- NOTE | ~2024-11-19 | XR_ITS ---
EXAMINATION: XR TIBIA AND FIBULA, LEFT CLINICAL INFORMATION: Pain, recent operation, evaluate for osteomyelitis. COMPARISON: Ankle radiographs performed concurrently. TECHNIQUE: AP and lateral views of the left tibia and fibula were obtained. FINDINGS: Redemonstration of profound lucency surrounding the distalmost 5 screws within the lateral malleolus. Refer to the ankle report. Otherwise, the more proximal fibula and tibia appear normal. Proximal soft tissues appear normal. Mild soft tissue swelling surrounding the ankle joint. XR/XR tibia fibula LT 2V IMPRESSION: 1. Lucency surrounding the distalmost 5 screws within the lateral malleolus. Refer to the ankle report. 2. Otherwise, no additional abnormal bony findings. Electronically signed by: Art Hdz MD 11/19/2024 02:52 PM EDT
[2024-11-19 12:14] VITALS: BP 132/81; PULSE 74; RESP 18; TEMP 36.6; O2SAT 98; BMI 30.6
--- NOTE | 2024-11-19 12:25 | ED_ITS ---
HPI - General Adult General Chief complaint: General Medical Stated complaint: possible blood clot Time Seen by Provider: 11/19/24 12:50 Source: patient Mode of arrival: ambulatory Limitations: no limitations History of Present Illness ED Provider: Jorge Luis Tyson DO HPI narrative: 59-year-old Polish-speaking female presents to the ED from physical therapy for concerns for left leg pain and swelling. Patient had a fracture of the left ankle in August 2024 with surgery, continuing physical therapy. She states over the past several days she has had worsening pain and swelling located over the foot and lateral aspect of the ankle and deluca. She denies fevers, chills or any additional symptoms. She denies difficulty moving her foot or leg. She denies any increased trauma. She has been taking Advil and Tylenol at home without relief. Related Data Home Medications ?Medication ?Instructions ?Recorded ?Confirmed cyclobenzaprine 5 mg tablet 5 mg PO BEDTIME 06/16/20 09/12/24 duloxetine 30 mg capsule,delayed 1 cap PO DAILY 08/18/21 09/12/24 release albuterol sulfate 90 mcg/actuation 2 puff PO Q4H PRN wheezing 09/14/21 09/12/24 aerosol inhaler (ProAir HFA) meloxicam 7.5 mg tablet 7.5 mg PO DAILY 09/28/21 09/12/24 Previous Rx's ?Medication ?Instructions ?Recorded ergocalciferol (vitamin D2) 1,250 1,250 mcg PO QWEEK #6 caps 02/10/22 mcg (50,000 unit) capsule (Vitamin D2) breast prosthetic #2 ea 05/16/22 post-lumpectomy bra #2 ea 05/16/22 omeprazole 40 mg capsule,delayed 40 mg PO DAILY #30 caps 02/08/23 release sucralfate 100 mg/mL oral 10 ml PO BID #420 mL 02/08/23 suspension (Carafate) acetaminophen 325 mg capsule 650 mg (2 x 325 mg) PO Q6H PRN 02/10/23 (Tylenol) fever or pain #30 caps famotidine 20 mg tablet (Pepcid) 20 mg PO DAILY #30 tabs 02/10/23 ibuprofen 400 mg tablet 400 mg PO TID PRN fever or pain 02/10/23 #30 tabs fluticasone furoate 200 1 inh inhalation Q24H #60 ea 05/08/24 mcg-vilanterol 25 mcg/dose inhalation powder (Breo Ellipta) letrozole 2.5 mg tablet 2.5 mg PO DAILY #60 tabs 06/10/24 ipratropium 0.5 mg-albuterol 3 mg 3 ml inhalation Q4-6H PRN wheezing 06/11/24 (2.5 mg base)/3 mL nebulization #180 mL soln Kneeling Scooter #1 ea 09/12/24 celecoxib 200 mg capsule (Celebrex) 200 mg PO BID 30 days #60 caps 10/01/24 oxycodone 5 mg tablet 5 mg PO Q4H PRN pain 7 days #42 10/13/24 tabs celecoxib 200 mg capsule (Celebrex) 200 mg PO BID 30 days #60 caps 10/29/24 cephalexin 500 mg capsule 500 mg PO QID 5 days #20 caps 11/19/24 Allergies Allergy/AdvReac Type Severity Reaction Status Date / Time No Known Allergies Allergy Verified 11/19/24 12:16 Review of Systems Review of Systems: Yes all other systems are reviewed and are negative [facility] Past Medical History Medical History Arm numbness left Arthritis Asthma Breast cancer Cervical spinal stenosis Depression GERD (gastroesophageal reflux disease) Surgical History S/P lumpectomy, left breast (09/14/21) History of pterygium excision Family History Family History Maternal Grandmother Stomach cancer Social History Social History Household Members: Children Housing: Apartment Are you a primary manager long term care to a significant other at home: No Do you presently have visiting nurse or other home services: No Alcohol intake: current Alcohol intake frequency: does not drink Patient Tobacco Use Status: Current everyday Tobacco user Tobacco use type: Cigarette Cigarettes Per Day: 2 Years Smoked: started at age 18, 1PPD , currently 10 per day Advance Directives: No Advance Directives Information Provided: Yes service: No Current occupational status: unemployed Current occupation: Left Handed Physical Exam ED Vital Signs: Vital Signs - 24 hr 04/09/25 12:14 Temperature 97.8 F Pulse Rate 74 Respiratory Rate 18 Blood Pressure 132/81 Pulse Oximetry 98 Oxygen Delivery Method Room Air BMI result Body Mass Index 30.6 Constitutional: ?Alert, oriented, speaking in full sentences HEENT: ?Normocephalic, atraumatic. ? Cardio: 2+ radial and DP pulses symmetrically Skin: ?No rash, no lesions, soft, equal compartments of the bilateral lower extremities, no crepitus Neuro: ?Alert and oriented to person, place and time, moves all 4 extremities, no focal deficits, 5/5 strength of the bilateral lower extremities, sensation intact Extremities: ?Dorsum of the left foot extending to the distal deluca shows erythema, warmth, mild edema and tenderness to palpation compared to the right. There is no tenderness over the popliteal or upper leg. No tenderness specifically over the calf. No bony tenderness to palpation. That the surgical sites which have healed well Course Course Course Narrative: RME, this is a rapid medical exam performed by Minh Khanna please refer to primary provider for complete H&P- 59-year-old male presents for evaluation of left leg pain and swelling. Patient is presenting from physical therapy who referred her to the ER to rule out DVT. She was in a walking boot in the left lower extremity. Plan for ultrasound to rule out DVT Medications Administered Discontinued Medications Generic Name Dose Route Start Last Admin Trade Name Freq PRN Reason Stop Dose Admin Cephalexin HCl 500 mg 11/19/24 13:45 11/19/24 14:17 Cephalexin 500 Mg Capsule PO 11/19/24 13:46 500 mg ONCE ONE Administration Medical Decision Making Medical Decision Making [facility] Narrative: Patient presenting with increased pain and swelling of the left lower extremity. Differential diagnosis includes infection or DVT, especially in the setting of recent surgery and likely immobilization. DVT study remarkable, no signs of Coates's cyst. There are no clinical signs of compartment syndrome or necrotizing fasciitis. Unlikely to be osteomyelitis. X-ray imaging of the left deluca, ankle and foot per my independent interpretation shows no signs of bony erosion, hardware appears to be in place appropriately. Given the clinical findings highly suspicious for cellulitis, the patient will be started on a course of cephalexin. She had unremarkable renal function in the past. Encouraged [id number] medications at home, follow up with her orthopedic surgeon and return here if worsening signs of spreading infection or systemic symptoms develop. Admission/Observation Consideration of admission/observation: Escalation of care including admission/observation considered Independent Interpretation I performed an independent interpretation of an: Plain X-Ray Discharge Plan Discharge Clinical Impression: Cellulitis of foot, left Patient Disposition: Home, Self-Care Instructions: Cellulitis (ED) Additional Instructions: Se le evalu? por un aumento del dolor y la hinchaz?n del pie y el tobillo izquierdos. Parece que tiene israel infecci?n llamada celulitis. Le tratamos con un antibi?vane llamado cefalexina. Le hemos recetado un t ratamiento de 5 d?as 4 veces al d?a. Por favor, vuelva al servicio de urgencias si el dolor o la hinchaz?n empeoran, si tiene fiebre F o cualquier otro cambio taniya o preocupaci?n. De lo contrario el seguimiento con flores cirujano ortop?dico para la reevaluaci?n y continuar con edi medicamentos para el hogar. Traducci?n realizada con la versi?n gratuita del traductor [email or web address] Prescriptions: New cephalexin 500 mg capsule 500 mg PO QID 5 Days Qty: 20 0RF No Action (DME) breast prosthetic to fit See Rx Instructions .Route .MEDSUPPLY Qty: 2 0RF Rx Instructions: As directed (DME) post-lumpectomy bra to fit See Rx Instructions .Route .MEDSUPPLY Qty: 2 0RF Rx Instructions: As directed oxycodone 5 mg tablet 5 mg PO Q4H PRN (Reason: pain) 7 Days Qty: 42 0RF Rx Instructions: Partial Fill upon patient request. duloxetine 30 mg capsule,delayed release(DR/EC) 1 cap PO DAILY albuterol sulfate [ProAir HFA] 90 mcg/actuation HFA aerosol inhaler 2 puff PO Q4H PRN (Reason: wheezing) meloxicam 7.5 mg Tablet 7.5 mg PO DAILY ergocalciferol (vitamin D2) [Vitamin D2] 1,250 mcg (50,000 unit) Capsule 1,250 mcg PO QWEEK Qty: 6 1RF letrozole 2.5 mg Tablet 2.5 mg PO DAILY Qty: 60 7RF omeprazole 40 mg capsule,delayed release(DR/EC) 40 mg PO DAILY Qty: 30 0RF sucralfate [Carafate] 100 mg/mL suspension 10 ml PO BID Qty: 420 0RF ibuprofen 400 mg tablet 400 mg PO TID PRN (Reason: fever or pain) Qty: 30 0RF famotidine [Pepcid] 20 mg tablet 20 mg PO DAILY Qty: 30 0RF acetaminophen [Tylenol] 325 mg capsule 650 mg PO Q6H PRN (Reason: fever or pain) Qty: 30 0RF cyclobenzaprine 5 mg tablet 5 mg PO BEDTIME (DME) Kneeling Scooter See Rx Instructions .ROUTE .MEDSUPPLY Qty: 1 0RF Rx Instructions: As directed fluticasone furoate-vilanterol [Breo Ellipta] 200-25 mcg/dose blister with device 1 inh inhalation Q24H Qty: 60 6RF ipratropium-albuterol 0.5 mg-3 mg(2.5 mg base)/3 mL solution for nebulization 3 ml inhalation Q4-6H PRN (Reason: wheezing) Qty: 180 6RF celecoxib [Celebrex] 200 mg capsule 200 mg PO BID 30 Days Qty: 60 0RF celecoxib [Celebrex] 200 mg capsule 200 mg PO BID 30 Days Qty: 60 3RF Print Language: Polish
--- NOTE | 2024-11-19 13:03 | PC.NURSE ---
Patient presents from PT as they were concerned about the redness and swelling to left foot. S/p fracture in August. ? a [possible blood clot. Lungs clear bilat. Respirations even and non-labored. Left leg especially foot swollen, red and warm. Pain to the bilat malleolus radiating up posterior leg. Positive pedal pulses with good CSM.
[2024-11-19] MEDS: cephALEXin 500 MG CAPSULE PO (14:17)
[2024-11-19 14:37] VITALS: BP 102/60; PULSE 72; RESP 18; TEMP 37.1; O2SAT 100
--- OUTSIDE RECORDS SUMMARY | 2024-11-19 14:53 | XMS_ITS | Clinical Summary ---
Author Organization [employer] Address [address] [place] [address] 7t [place] [address] Care Team Providers Care Oil Analyst Name Role Phone Sherie William MD Primary [...] in the evening. 1 Active sodium chloride ([place] Nasal [place]) 0.65 % nasal sprayIndications :Viral URI 1-2 [...] 18 g 4 Active Fluocinolone Acetonide Scalp ([place]oot[place]/F S Scalp) 0.01 % oilIndications:S eborrheic dermatitis [...] DAY WITH FOOD 30 tablet 4 Active nicotine polacrilex (Nicotine Mini) 4 MG lozengeIndicatio ns:Tobacco dependence syndrome Dissolve 1 lozenge (4 mg) in the mouth every 2 (two) hours if needed for smoking cessation. 100 lozenge 4 Active fluocinolone ([place]oot[place]) 0.01 % external oilIndications:A llergic contact dermatitis due to chemical APPLY TOPICALLY TO AFFECTED AREA(S) TWICE DAILY DIRECTED 118.28 mL 1 4 Active DULoxetine (Cymbalta) [address] capsuleIndicatio ns:Mixed anxiety and depressive disorder,Complai nts of total body pain Take 1 capsule (30 mg) by mouth in the morning. 30 capsule 1 5 12/01/19 25 Active QUEtiapine (SEROquel) 50 MG tabletIndication s:Mood disorder (CMS/HCC) Take 1 tablet (50 mg) by mouth at bedtime. 30 tablet 1 5 12/01/19 25 Active triamcinolone (Kenalog) 0.1 % creamIndications :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 APPLY TO THE AFFECTED AREA(S) TOPICALLY TWICE DAILY 80 g 2 5 Active Active Problems Problem Noted Date Diagnosed [...] (12/25/2023 12:41 PM EDT): PROGRESS NOTE: ID: Jsesy is a 58 y.o. straight-identified cis-female with previous documented hx of Depression and Anxiety services including OP Psychotherapy who presents for [...] children, concern about mother who lives in [place] and trust issues. PLAN: New/Additional Services needed PCP management Off-site services for Behavioral Health Integration Plan External OP therapy referral Patient Self Plan Patient to utilize skills provided in intervention , Patient to reach out to [facility] team as needed, Comply with medication , Patient to engage in OP therapy , and Patient to reach out to [facility] as needed Encounters * This document contains information received from the source organization and may not represent a complete record from that organization. Date Type Department Care Team Description 11/19/2024 Orders Only [facility] External Provider, [facility] 10/24/2024 Population Health Risk Score [facility] ([facility]) Department [address] [phone] Provider, Population Health Generic 10/17/2024 Refill [facility] [address] [place] [address] Sherie William MD 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 09/24/2024 9:00 AM EST Telemedicine [facility] [address] [place] [address] Sherie William MD Closed fracture of distal end of left fibula, unspecified fracture morphology, initial encounter (Primary Dx); Mood disorder (CMS/HCC); Tobacco dependence syndrome 09/24/2024 Travel 09/16/2024 Orders Only [facility] External Provider, [facility] from Last 3 Months Immunizations Name Administration [...] Vaccines (1 of 2) 2016 COVID-19 Vaccine ( - season) 2024 Influenza Vaccine (#1) 2024 [...] topic Meningococcal Vaccine Aged Out No irina ciprinao eligible based on patient's age to complete this topic RSV under 20 months Aged Out No longe r eligible based on patient's age to complete this topic Rotavirus Vaccines Aged Out No longer eligible based on patient's age to complete this topic Procedures Procedure Name Priority Date/Time Associated Diagnosis Comments XR ANKLE 3+ VIEWS LEFT Routine 5 1:43 PM EDT US VENOUS DUPLEX LE LT Routine 5 1:09 PM EDT FL GUIDANCE IN OR Routine 09/16/2024 2:1 [...] Recently Relevant to Health Maintenance Results * XR Ankle 3+ Views Left (11/19/2024 1:43 PM EDT) Anatomical Region Laterality Modality Lower Extremities, Ankle Left Radiogr aphic Imaging 11/19/2024 1:43 PM EDT Narrative 11/19/2024 2:40 PM EDT ? [facility] ?[address] ?[place] [address] ?XRay Report ? Signed ? Patient: Joana ,Jessy ?MR#: [id number] ?? [id number] ? : 1965 ?Acct:[id number] ? Age/Sex: 59 / F ?ADM Date: 11/19/24 ? Loc: HO.ED ? Attending Dr: ? Ordering Physician: Jorge Luis Tyson DO ?? Date of Service: 11/19/24 ?? Procedure(s): XR ankle LT min 3V ?? Accession Number(s): [id number] ? cc: Sherie William MD; Jorge Luis Tyson DO ? EXAMINATION: ?? XR ANKLE, LEFT ? CLINICAL INFORMATION: ?? Pain, recent operation, evaluate for osteomyelitis ? COMPARISON: ?? 10/29/2024, 10/01/2024. ? TECHNIQUE: ?? AP, lateral, and mortise views of the left ankle. ? FINDINGS: ?? Disuse osteopenia. ? Lateral plate and screw fixation of the distal fibula. Of note, there ?? is profound lucency surrounding the distal most 5 screws within the ?? lateral malleolus. This is best seen on the oblique projection. These ?? findings are highly suggestive of osteomyelitis. ? Radiolucent syndesmotic stabilization device. ?? Subacute healing fracture of the distal fibula, with sclerotic fracture ?? line is abundant bony callus present. ?? No acute fracture or dislocation. ?? There is a moderate-sized plantar and a moderate sized dorsal calcaneal ?? spur. ? There is persistent soft tissue swelling surrounding the ankle. ? XR/XR ankle LT min 3V ?? IMPRESSION: ?? 1. Disuse osteopenia. ?? 2. Profound lucency surrounding the distalmost 5 screws within the ?? lateral malleolus, findings which could represent osteomyelitis in the ?? appropriate clinical setting. ?? 3. Subacute healing distal fibular fracture. No acute fractures seen. ? Electronically signed by: ??Art Hdz MD ??11/19/2024 02:35 PM EDT RP ? Dictated By: ?Art Hdz MD ? Signed By: ?<Electronically signed by Art Hdz MD in OV> ?11/19/24 1435 ? DD/ 1343 ? TD/TT: 11/19/24 1412 ? Data Mining Analyst: ? Procedure Note Donotuseinterpreter, Image - 11/19/[address] [address] XRay Report Signed Patient: Pop Shanks#: [id number] : 1965Acct:[id number] Age/Sex: 59 / FADM Date: 11/19/24 Loc: HO.ED Attending Dr: Ordering Physician: Jorge Luis Tyson DO Date of Service: 11/19/24 Procedure(s): XR ankle LT min 3V Accession Number(s): [id number] cc: Sherie William MD; Jorge Luis Tyson DO EXAMINATION: XR ANKLE, LEFT CLINICAL INFORMATION: Pain, recent operation, evaluate for osteomyelitis COMPARISON: 10/29/2024, 10/01/2024. TECHNIQUE: AP, lateral, and mortise views of the left ankle. FINDINGS: Disuse osteopenia. Lateral plate and screw fixation of the distal fibula. Of note, there is profound lucency surrounding the distal most 5 screws within the lateral malleolus. This is best seen on the oblique projection. These findings are highly suggestive of osteomyelitis. Radiolucent syndesmotic stabilization device. Subacute healing fracture of the distal fibula, with sclerotic fracture line is abundant bony callus present. No acute fracture or dislocation. There is a moderate-sized plantar and a moderate sized dorsal calcaneal spur. There is persistent soft tissue swelling surrounding the ankle. XR/XR ankle LT min 3V IMPRESSION: 1. Disuse osteopenia. 2. Profound lucency surrounding the distalmost 5 screws within the lateral malleolus, findings which could represent osteomyelitis in the appropriate clinical setting. 3. Subacute healing distal fibular fracture. No acute fractures seen. Electronically signed by: Art Hdz MD 11/19/2024 02:35 PM EDT Dictated By: Art Hdz MD Signed By: <Electronically signed by Art Hzd MD in OV> 11/19/24 1435 DD/ 1343 TD/TT: 11/19/24 1412 Data Mining Analyst: us [facility] External Provider IMG XR PROCEDURES Final Result * US VENOUS DUPLEX LE LT (11/19/2024 1:09 PM EDT) Anatomical Region Laterality Modality Abdomen Ultrasound 11/19/2024 1:09 PM EDT Narrative 11/19/2024 1:50 PM EDT ? [facility] ?[address] ?[place] [address] ? Ultrasound Report ? Signed ? Patient: Joana ,Jessy ?MR#: [id number] ?? [id number] ? : 1965 ?Acct:[id number] ? Age/Sex: 59 / F ?ADM Date: 11/19/24 ? Loc: HO.ED ? Attending Dr: ? Ordering Physician: Peter Khanna ?? Date of Service: 11/19/24 ?? Procedure(s): US venous duplex LE LT ?? Accession Number(s): [id number] ? cc: Sherie William MD; Peter Khanna ? EXAMINATION: ?? US TRIPLEX LOWER EXTREMITY, LEFT ? CLINICAL INFORMATION: ?? Left lower extremity pain and edema. ? COMPARISON: ?? None available. ? TECHNIQUE: ?? Color-flow triplex imaging with spectral analysis and compression ?? Doppler were performed on the left lower extremity. ? FINDINGS: ?? Respiratory variation, normal compression and augmented flow are noted ?? throughout the left lower extremity. The visualized common femoral ?? vein, superficial femoral vein, profunda femoral vein, popliteal vein ?? and midcalf peroneal and posterior tibial venous segments show no ?? evidence of deep venous thrombosis. ? There is no Coates's cyst. ?? Reactive appearing left groin lymph node. ? US/US venous duplex LE LT ?? IMPRESSION: ?? No evidence of deep venous thrombosis involving the left lower ?? extremity. ? Electronically signed by: ??Art Hdz MD ??11/19/2024 01:48 PM EDT RP ? Dictated By: ?Art Hdz MD ? Signed By: ?<Electronically signed by Art Hdz MD in OV> ?11/19/24 1348 ? DD/ 1309 ? TD/TT: 11/19/24 1319 ? Data Mining Analyst: ? Procedure Note Julius, Image - 11/19/[address] [address] Ultrasound Report Signed Patient: Pop Shanks#: [id number] : 1965Acct:[id number] Age/Sex: 59 / FADM Date: 11/19/24 Loc: .ED Attending Dr: Ordering Physician: Peter Khanna Date of Service: 11/19/24 Procedure(s): US venous duplex LE LT Accession Number(s): [id number] cc: Sherie William MD; Peter Khanna EXAMINATION: US TRIPLEX LOWER EXTREMITY, LEFT CLINICAL INFORMATION: Left lower extremity pain and edema. COMPARISON: None available. TECHNIQUE: Color-flow triplex imaging with spectral analysis and compression Doppler were performed on the left lower extremity. FINDINGS: Respiratory variation, normal compression and augmented flow are noted throughout the left lower extremity. The visualized common femoral vein, superficial femoral vein, profunda femoral vein, popliteal vein and midcalf peroneal and posterior tibial venous segments show no evidence of deep venous thrombosis. There is no Coates's cyst. Reactive appearing left groin lymph node. US/US venous duplex LE LT IMPRESSION: No evidence of deep venous thrombosis involving the left lower extremity. Electronically signed by: Art Hdz MD 11/19/2024 01:48 PM EDT Dictated By: Art Hdz MD Signed By: <Electronically signed by Art Hdz MD in OV> 11/19/24 1348 DD/ 1309 TD/TT: 11/19/24 1319 Data Mining Analyst: [facility] External Provider IMG US PROCEDURES Final Result * FL Guidance in OR (09/16/2024 2:10 PM EST) Anatomical Region Laterality Modality X-Ray Angiograph y 09/16/2024 2:10 PM EST Narrative 09/16/2024 3:58 PM EST ? [facility] ?[address] ?[place] [address] ? Fluoroscopy Report ? Signed ? Patient: Joana ,Jessy ?MR#: [id number] ?? [id number] ? : 1965 ?Acct:[id number] ? Age/Sex: 59 / F ?ADM Date: 09/16/24 ? Loc: HO.SSS ? Attending Dr: Arian Murillo MD ? Ordering Physician: Arian Murillo MD ?? Date of Service: 09/16/24 ?? Procedure(s): FL guidance in OR ?? Accession Number(s): [id number] ? cc: Sherie William MD; Arian Murillo MD ? EXAMINATION: ??FL GUIDANCE ONLY ? HISTORY: LEFT ANKLE ORIF ? COMPARISON: ?? None available. ? TECHNIQUE: ?? Fluoroscopy time: 0.2 minutes. ?? Cumulative Dose: 0.523 mGy. ?? DAP: 0.76267 mGym2 ?? Images: 2. ? FINDINGS: ?? [...] DD/ 1410 ? TD/TT: 09/16/24 1516 ? Data Mining Analyst: ? Procedure Note Julius, Image - 09/16/[address] [address] Fluoroscopy Report Signed Patient: Pop Shanks#: [id number] : 1965Acct:[id number] Age/Sex: 59 / FADM Date: 09/16/24 Loc: HO.SSS Attending Dr: Arian Murillo MD Ordering Physician: Arian Murillo MD Date of Service: 09/16/24 Procedure(s): FL guidance in OR Accession Number(s): [id number] cc: Sherie William MD; Arian Murillo MD EXAMINATION: FL GUIDANCE ONLY HISTORY: LEFT ANKLE ORIF COMPARISON: None available. TECHNIQUE: Fluoroscopy time: 0.2 minutes. Cumulative Dose: 0.523 mGy. DAP: 0.00934 mGym2 Images: 2. FINDINGS: Images demonstrate internal [...] 09/16/24 1555 DD/ 1410 TD/TT: 09/16/24 1516 Data Mining Analyst: [facility] External Provider IMG IR PROCEDURES Final Result * (ABNORMAL) Cologuard?? colon cancer screening (01/10/2024 12:16 PM EDT) Cologuard Result Positive( A) Negative 01/16/2024 10:06 AM EDT [employer] (CLIA #:[id number]) Comment: POSITIVE TEST RESULT. A positive Cologuard [...] (Mario Bruce al, N Engl J Med 2014;370(14):8827-9060.) Cologuard may produce a false negative or false positive result (no colorectal cancer or precancerous polyp present at colonoscopy follow up). A negative Cologuard test result does not guarantee the absence of CRC or advanced adenoma (pre-cancer). The current Cologuard screening interval is every 3 years. (British Cancer Society and U.S. Multi-Society Task Force). Cologuard performance data in a 10,000 patient pivotal study using colonoscopy as the reference method can be accessed at the following location: www.[employer]/results. Additional description of the Cologuard test process, warnings and precautions can be found at www.[employer].com. Stool specimen (specimen) 01/10/2024 12:16 PM EDT 01/11/2024 1:42 PM EDT [facility] MOLECULAR DIAGNOSTICS ORDERA BLES Final Result [employer] (CLIA #:[id number]) Henrietta [place] [address], * Hepatitis C Antibody with Reflex to HCV, RNA, Quantitative, Real-Time PCR (12/31/2023 9:52 AM EDT) Hepatitis C Antibody Nonreactive Nonreactive [facility] Comment:Antibodies to HCV no t detected; does not exclude early acuteHCV infection. Blood Venous blood specimen / Unknown 12/31/2023 9:52 AM EDT 12/31/2023 11:19 AM EDT [facility] BLOOD ORDERABLES Final Resul t Performing Organization Address [facility] Co de Phone Number [facility] [address] [place] [address] [phone] * HIV-1/2 Antigen and Antibodies, Fourth Generation, with Reflexes (12/31/2023 9:52 AM EDT) HIV AB/AG Nonreactive Nonreactive [facility] Comment:HIV-1 p24 Ag and/or HIV-1/HIV-2 Ab not detected.A test result that is nonreactive does not exclude thepossibility of exposure to or infection with HIV-1 and/orHIV-2. Nonreactive results in this assay for individualswith prior exposure to HIV-1 and/or HIV-2 may be due toantigen and antibody levels that are below the limit ofdetection of this assay.The [employer] HIV Ag/Ab Combo assay result andsupplemental assay results should be interpreted inconjunction with the patient's clinical presentation,history and other laboratory results. If the results areinconsistent with clinical evidence, additional testing issuggested to confirm the result. Blood Venous blood specimen / Unknown 12/31/2023 9:52 AM EDT 12/31/2023 11:19 AM EDT [facility]ipe [facility] BLOOD ORDERABLES Final Resul t Performing Organization Address [facility] Co de Phone Number [facility] [address] [place] [address] [phone] * (ABNORMAL) Lipid Panel, Standard (12/31/2023 9:52 AM EDT) Triglycerides 166(H) <150 mg/dL [facility] Comment:Desirable Triglyceri de: less than 150 mg/dLBorderline High Triglyceride 150-199 mg/dLHigh Triglyceride: 200-499 mg/dLVery High Triglyceride: greater than or equal to 5OO mg/dL Cholesterol 172 <200 mg/dL [facility] Comment:Desirable Cholestero l: less than 200 mg/dLBorderline High Cholesterol: 200-239 mg/dLHigh Cholesterol: greater than 239 mg/dL LDL Cholesterol Calculated 103(H) <100 mg/dL [facility] Comment:Desirable LDL: less than 100 mg/dLNear Optimal/Above Optimal LDL: 110- 129 mg/dLBorderline High LDL: 130-159 mg/dLHigh LDL: 160-189 mg/dLVery High LDL: greater than or equal to 190 mg/dL HDL Cholesterol 36(L) >40 mg/dL [facility] Comment:Desirable HDL: great er than 40 mg/dL Note: This HDL assay may give artificially low results in patients with liver disease. Blood Venous blood specimen / Unknown 12/31/2023 9:52 AM EDT 12/31/2023 11:19 AM EDT [facility] LAB BLOOD ORDERABLES Final Resul t [facility] [address] [place] [address] [phone] * BI Mammogram Diagnostic Tomosynthesis Bilateral (08/30/2023 12:11 PM EST) Anatomical Region Laterality Modality Breast Bilateral Mammography 08/30/2023 12:1 1 PM EST Narrative 08/30/2023 1:07 PM EST ? [facility] [place] ? [address] ?[place] [address] ? Mammography Report ? Signed ? Patient: Joana ,Jessy ?MR#: [id number] ?? [id number] ? : 1965 ?Acct:[id number] ? Age/Sex: 58 / F ?ADM Date: 01/18/24 ? Loc: HO.MAMMO ? Attending : Pipe Yo PAPER CUTTER OPERATOR ? Ordering Physician: PIPE YO NP ?Results: 2Benign Fin ?? dings ? Date of Service: 08/30/23 ?Follow Up: 1 Year From Orig ?? inal Mammogram ? Procedure(s): MM tomosynthesis diagnostic BI ?? Accession Number(s): [id number] ? cc: PIPE YO NP ? EXAMINATION: [...] 1303 ? DD/ 1211 ? TD/TT: ? Data Mining Analyst: ? Procedure Note Julius, Image - 08/30/2023 [place] [facility] [address] [place] [address] Mammography Report Signed Patient: Pop Shanks#: [id number] : 1965Acct:[id number] Age/Sex: 58 / FADM Date: 08/30/23 Loc: HO.MAMMO Attending Dr: Pipe Yo PAPER CUTTER OPERATOR Ordering Physician: PIPE YO NPResults: 2Benign Pastor quach Date of Service: 08/30/23Follow Up: 1 Year From Orig inal Mammogram Procedure(s): MM tomosynthesis diagnostic BI Accession Number(s): [id number] cc: PIPE YO NP EXAMINATION: MM DIAGNOSTIC [...] in OV> 08/30/23 1303 DD/ 1211 TD/TT: Data Mining Analyst: [facility] BI PROCEDURES Final Result * HPV mRNA E6/E7 (05/19/2021 11:47 AM EDT) HPV nRNA E6/E7 Not Detected Not Detected [facility] Comment: Methodology: Regional Engineer-Mediated Amplification This assay detects E6/E7 viral messenger RNA (mRNA) from 14 high-risk HPV types (16,18,31,33,35,39,45,51,52,56,58,59,66,68). ? The analytical performance characteristics of this assay have been determined by [employer]. The modifications have not been cleared or approved by the FDA. This assay has been validated pursuant to the CLIA regulations and is used for clinical purposes. ?? For additional information, please refer to http://education.[employer]/faq/JVF592r1 (This link if provided for information/ educational purposes only.) 05/19/2021 11:4 7 AM EDT [facility] LAB BLOOD ORDERABLES Aurora l Result [facility] [address] * Pap Smear (05/19/2021 12:00 AM EDT) Swab Hui Gutierres [facility] CYTOLOGY ORDERABLES F inal Result Performing Organization Address City/[facility] Co de Phone Number [address], [place] [address] from Last 3 Months or Most Recently Relevant to Health Maintenance Insurance [facility] [address] [place] [address] Care Teams Oil Analyst Relationship Specialty Start Date End Date Sherie William MD [address] [place] [phone] PCP - General Internal Medicine 03/19/24
--- OUTSIDE RECORDS SUMMARY | 2024-11-19 14:53 | XMS_ITS | Encounter Summary ---
Author Organization [facility] Address [address] [place] [address] [address]t [place] [address] Care Team Providers Care Supervising Appraiser Name Role Phone Cindy Zacarias Primary Care Provider [phone] Sherie William MD Primary Care Provide r [...] on filedocumented in this encounter Care Teams Supervising Appraiser Relationship Specialty Start Date End Date Cindy Zacarias ANP [address] [place] [address] PCP - General Family Medicine 07/20/20 03/18/24 Sherie William MD [address] [place], [place] [phone] PCP - General Internal Medicine 03/19/24 documented as of this encounter
--- OUTSIDE RECORDS SUMMARY | 2024-11-19 14:53 | XMS_ITS | Encounter Summary ---
Author Organization [facility] Address [address] [place] [address] 7t [place] [address] Care Team Providers Care Power Cutting Machine Operator Name Role Phone Cindy Zacarias Primary Care Provider [phone] Sherie William MD Primary Care Provide r Encounter Details Date Type Department Care Team ([facility] st Contact Info) Description 04/03/2023 Abstract [facility] [address] [place], [place] [phone] Provider, MD Jillian Social History Tobacco Use [...] on filedocumented in this encounter Care Teams Power Cutting Machine Operator Relationship Specialty Start Date End Date Cindy Zacarias ANP [address] [place] [address] PCP - General Family Medicine 07/20/20 03/18/24 Sherie William MD [address] [place] [address] PCP - General Internal Medicine 03/19/24 documented as of this encounter
--- OUTSIDE RECORDS SUMMARY | 2024-11-19 14:53 | XMS_ITS | Encounter Summary ---
Author Organization [employer] Address [address] [facility] [address]t [place] [address] Care Team Providers Care Executive Services Administrator Name Role Phone Sherie William MD Primary Care Provide r Encounter Details Date Type Department Care Team ([facility] st Contact Info) Description 04/28/2024 Orders Only [facility] [address] [place] [address] Cindy Zacarias, ANP [address] [place] [address] Social History Tobacco Use Types Packs/Day Years [...] documented as of this encounter Care Teams Executive Services Administrator Relationship Specialty Start Date End Date Sherie William MD [address] [place] [phone] PCP - General Internal Medicine 03/19/24 documented as of this encounter
--- OUTSIDE RECORDS SUMMARY | 2024-11-19 14:53 | XMS_ITS | Encounter Summary ---
Author Organization [employer] Address [address] [facility] [address] [place] [address] Care Team Providers Care Folding Machine Tender Name Role Phone Sherie William MD Primary Care Provide r Encounter Details Date Type Department Care Team (Late st Contact Info) Description 11/19/2024 Orders Only [facility] External Provider, [facility] Social History Tobacco Use Types Packs/Day Years [...] t he electric, gas, oil or water [employer] threatened to shut off services in your [...] Comments XR ANKLE 3+ VIEWS LEFT Routine 11/19/2024 1:43 PM EDT US VENOUS DUPLEX LE LT Routine 11/19/2024 1:09 PM EDT documented in this encounter Results * XR Ankle 3+ Views Left (11/19/2024 1:43 PM EDT) Anatomical Region Laterality Modality Lower Extremities, Ankle Left Radiogr aphic Imaging 11/19/2024 1:43 PM EDT Narrative 11/19/2024 2:40 PM EDT ? [facility] ?[address] ?[place] [address] ?XRay Report ? Signed ? Patient: Jessy Shanks ?MR#: [id number] ?? [id number] ? : 1965 ?Acct:[id number] ? Age/Sex: 59 / F ?ADM Date: 11/19/24 ? Loc: HO.ED ? Attending Dr: ? Ordering Physician: Jorge Luis Tyson DO ?? Date of Service: 11/19/24 ?? Procedure(s): XR ankle LT min 3V ?? Accession Number(s): [id number] ? cc: Sherie William MD; Jorge Luis [...] DD/ 1343 ? TD/TT: 11/19/24 1412 ? Legal Adviser: ? Procedure Note Julius, Image - 11/19/[address] [address] XRay Report Signed Patient: Pop Shanks#: [id number] : 1965Acct:[id number] Age/Sex: 59 / FADM Date: 11/19/24 Loc: HO.ED Attending Dr: Ordering Physician: Jorge Luis Tyson DO Date of Service: 11/19/24 Procedure(s): XR ankle LT min 3V Accession Number(s): [id number] cc: Sherie William MD; Jorge Luis Tyson [...] by Art Hdz MD in OV> 11/19/24 1435 DD/ 1343 TD/TT: 11/19/24 1412 Legal Adviser: [facility] External Provider IMG XR PROCEDURES Final Result * US VENOUS DUPLEX LE LT (11/19/2024 1:09 PM EDT) Anatomical Region Laterality Modality Abdomen Ultrasound 11/19/2024 1:09 PM EDT Narrative 11/19/2024 1:50 PM EDT ? [facility] ?[address] ?[place] [address] ? Ultrasound Report ? Signed ? Patient: Joana Laurie,Jessy ?MR#: [id number] ?? [id number] ? : 1965 ?Acct:[id number] ? Age/Sex: 59 / F ?ADM Date: 04//25 ? Loc: HO.ED ? Attending Dr: ? Ordering Physician: Peter Khanna ?? Date of Service: 11/19/24 ?? Procedure(s): US venous duplex LE LT ?? Accession Number(s): [id number] ? cc: Sherie William MD; Peter Khanna [...] Reactive appearing left groin lymph node. ? US/ venous duplex LE LT ?? IMPRESSION: ?? No evidence of deep venous thrombosis involving the left lower ?? extremity. ? Electronically signed by: ??Art Hdz MD ??11/19/2024 01:48 PM EDT RP ? Dictated By: ?Art Hdz MD ? Signed By: ?<Electronically signed by Art Hdz MD in OV> ?11/19/24 1348 ? DD/ 1309 ? TD/TT: 11/19/24 1319 ? Legal Adviser: ? Procedure Note Julius, Image - 11/19/2024 [place] [address] Ultrasound Report Signed Patient: Pop Shanks#: [id number] : 1965Acct:[id number] Age/Sex: 59 / FADM Date: 11/19/24 Loc: HO.ED Attending Dr: Ordering Physician: Peter Khanna Date of Service: 11/19/24 Procedure(s): US venous duplex LE LT Accession Number(s): [id number] cc: Sherie William MD; Peter Khanna EXAMINATION: [...] Art Hdz MD 11/19/2024 01:48 PM EDT RP Dictated By: Art Hdz MD Signed By: <Electronically signed by Art Hdz MD in OV> 11/19/24 1348 DD/ 1309 TD/TT: 11/19/24 1319 Legal Adviser: [facility] External Provider IMG US PROCEDURES Final Result documented in this encounter Visit Diagnoses Not on filedocumented in this encounter Additional Health Concerns Assessment Noted Time PHQ-9 Depression Total Score: 19 025 9:45 AM EST documented as of this encounter Care Teams Folding Machine Tender Relationship Specialty Start Date End Date Sherie William MD [address] [place] [address] PCP - General Internal Medicine 03/19/24 documented as of this encounter
[2024-11-19 14:57] VITALS: BP 102/60; PULSE 72; RESP 18; TEMP 37.1; O2SAT 100
== END 2024-11-19 14:58 | disposition home or self-care (01) ==
PROVIDERS: Emergency Provider Emergency Medicine; PCP Internal Medicine
DX: L03.116 Cellulitis of left lower limb (principal); R60.0 Localized edema; Z79.899 Other long term (current) drug therapy
CPT/HCPCS: 73590; 73610; 73630; 93971; 99284

== ENCOUNTER → 2024-11-19 12:25 | Outpatient (BNV) | payer MEDICAID, SELFPAY | PROVIDERS: Emergency Provider Emergency Medicine; PCP Internal Medicine; Visit Provider Radiology Diagnostic Radiology | DX: M85.88 Other specified disorders of bone density and structure, other site (principal); S82.892D Other fracture of left lower leg, subsequent encounter for closed fracture with routine healing; M79.605 Pain in left leg | CPT/HCPCS: 73590; 73610; 73630; 93971 ==

== ENCOUNTER 2024-12-02 10:39 | Outpatient (RCR) | payer MEDICAID, SELFPAY ==
--- NOTE | 2024-11-14 11:51 | MHC.PT.EP ---
[facility] [place] Office [place] [facility] [place] Office [address] Margarita Escalante [address] [phone] F: [phone] F: [phone] F: [phone] F: [phone] Physical Therapy Plan of Care Date of Evaluation: 11/14/24 Date of Surgery: 09/16/24 Diagnosis: LT ankle ORIF 09/16/24 (RL) Assessment: pt is a 59 y/o female presenting to physical therapy w/ referring diagnosis of LT ankle ORIF 09/16/24. Impairments include pain, decreased range of motion, decreased strength, impaired functional mobility, impaired postural awareness, and altered ambulation mechanics. pt is a good candidate for skilled PT due to age, potential remediation of impairments, typical disease/condition progression and prognosis, comorbidities, and motivation. pt would benefit from skilled PT intervention to provide a tailored strengthening and stretching exercise program, functional training, gait training, postural re-training, neuromuscular re-education, modalities as needed for pain, equipment safety demonstration. Frequency and Duration: The patient will be seen 2x/wk for 6 wks Short Term Goals: pt will be I w/ HEP to promote self-management of condition. pt will improve L ankle DF by at least 10 degrees to promote ease w/ weight transfer during sit<>stand and ambulation w/ tall walking boot. pt will improve L ankle PF strength by at least 1 MMT grade to promote ease in push-off during ambulation and stairs w/ tall walking boot. Crusher Operator Goals: pt will demo ambulation in tall walking boot w/ 1 axillary crutch without obvious gait impairment for improved household and community ambulation. pt will report a statistically significant improvement in self-reported outcome measure, LEFI, to promote return to PLOF. pt will demo at least 3+/5 all planes of L ankle MMT to promote stability for prolonged standing for ADLs. Treatment Plan: Modalities to reduce pain, spasms and effusion. Manual therapy to restore motion and function. Therapeutic exercise to improve strength and flexibility. Neuromuscular re-education for posture and balance. Therapeutic activities to return to functional activities of daily living. Electronically signed by: Kim [place] PT, DPT Please sign and return to therapist. Thank you for your referral.
--- NOTE | 2025-01-29 14:41 | MHC.PT.DC ---
[facility] [place] Office [place] Office [place] Office [address] Margarita Escalante 140 [facility] [phone] F: [phone] F: [phone] F: [phone] F: [phone] Physical Therapy Discharge Report Diagnosis: LT ankle ORIF 09/16/24 (RL) Date of Surgery: 09/16/24 Date of Evaluation: 11/14/24 Date of Discharge: 01/29/25 Treatments to Date: 3 Cancellations to Date: 0 No Shows to Date: 0 Discharge Status: Visit Non-compliance Discharge Summary: The patient only attended 2 PT visits after her ORIF. She complained of pain, swelling, and redness to her lower extremity. I strongly urged her to go to the ED which she did back in the end of November and was diagnosed with cellulitis. She was provided treatment by the ED but then cancelled her remaining PT appointments without specific reason. She has not called in an attempt to reschedule any additional visits. She is discharged for non-compliance. Electronically signed by: Kim Cortez PT, DPT Please sign and return to therapist. Thank you for your referral.
== END 2025-01-29 14:42 | disposition home or self-care (01) ==
LOC: HO.PT 10:39
PROVIDERS: PCP Internal Medicine; Visit Provider Physician Assistant
DX: S82.892D Other fracture of left lower leg, subsequent encounter for closed fracture with routine healing (principal); X58.XXXD Exposure to other specified factors, subsequent encounter
CPT/HCPCS: 97110; 97162

== ENCOUNTER 2024-12-12 07:50 | Outpatient (REF) | payer MEDICAID, SELFPAY ==
--- NOTE | ~2024-12-12 | XR_ITS ---
EXAMINATION: XR ANKLE 3 OR MORE VIEWS LEFT HISTORY: M25.579 - Pain in unspecified ankle and joints of unspecified foot COMPARISON: Comparison is made with the prior examination dated 11/19/2024. FINDINGS: Three views of the left ankle are submitted. The bones are osteopenic. The patient is again noted to be status post internal fixation of a fracture of the distal fibula with a sideplate and multiple orthopedic screws. The fracture line remains visible. Lucency about the distal most screws is similar in appearance. The joint spaces are preserved. There is a small plantar calcaneal spur and an additional spur at the insertion of the Achilles tendon.. The soft tissues are unremarkable. XR/XR ankle LT min 3V IMPRESSION: Osteopenia. Internal fixation of a fracture of the distal fibula. Lucency about the distal most screws is unchanged, and could represent osteomyelitis or loosening. Electronically signed by: Craig Christianson MD 12/12/2024 12:33 PM EDT
--- OUTSIDE RECORDS SUMMARY | 2024-12-13 07:53 | XMS_ITS ---
Author Organization [employer] Address [address] [facility] 7t [place] [address] Care Team Providers Care Multifocal Lens Inspector Name Role Phone Sherie William MD Primary Care Provide r CHW Complex Status:Enrolled (Active) Start date:11/20/2024 Enrollment date:11/20/2024 Enrollment reason:ADT Feed Overview [facility] ED 11/19/24 Case Team Name Relationship Phone Crys Marvin (Responsible Staff) Continued Care and Services Coordination
--- OUTSIDE RECORDS SUMMARY | 2024-12-13 07:53 | XMS_ITS | Encounter Summary ---
Author Organization [employer] [facility] [facility] Address [address] [place] [address] 7t [place] [address] Care Team Providers Care Dry Kiln Loader Name Role Phone Cindy Zacarias Primary Care Provider [phone] Sherie William MD Primary Care Provide r [...] on filedocumented in this encounter Care Teams Dry Kiln Loader Relationship Specialty Start Date End Date Cindy Zacarias ANP [address] [place] [address] PCP - General Family Medicine 07/20/20 03/18/24 Sherie William MD [address] [place], [place] [phone] PCP - General Internal Medicine 03/19/24 documented as of this encounter
--- OUTSIDE RECORDS SUMMARY | 2024-12-13 07:53 | XMS_ITS | Clinical Summary ---
Author Organization [employer] Address [address] [place] [address] 7t [place] [address] Care Team Providers Care Cold Rolling Coordinator Name Role Phone Sherie William MD [...] in the evening. 1 Active sodium chloride (Gunter Nasal [place]) 0.65 % nasal sprayIndication s:Viral URI 1-2 [...] ons:Moderate asthma, unspecified whether complicated, unspecified whether persistent,Brand Marketing Coordinator lorenzo obstructive pulmonary disease, unspecified COPD type (CMS/HCC) INHALE 2 PUFFS BY MOUTH EVERY 4 TO 6 HOURS IF NEEDED FOR SHORTNESS OF BREATH OR WHEEZING 18 g 4 Active Fluocinolone Acetonide Scalp ([place]oot[place]/ FS Scalp) 0.01 % oilIndications: Seborrheic dermatitis [...] smoking cessation. 100 lozenge 4 Active fluocinolone ([place]oot[place]) 0.01 % external oilIndications: Allergic contact dermatitis [...] children, concern about mother who lives in [place] and trust issues. PLAN: New/Additional Services needed PCP management Off-site services for Behavioral Health Integration Plan External OP therapy referral Patient Self Plan Patient to utilize skills provided in intervention , Patient to reach out to [facility] team as needed, Comply with medication , Patient to engage in OP therapy , and Patient to reach out to [facility] as needed Encounters * This document contains information received from the source organization and may not represent a complete record from that organization. Date Type Department Care Team Description 12/12/2024 Patient Outreach [address] [address] Sherie William MD Care Management (C3CM- Initial assessment/enrollme nt) 12/11/2024 Patient Outreach [address] [address] Sherie William MD Care Coordination 12/04/2024 Patient Outreach [address] [address] Sherie William MD Care Coordination (C3 CM-[facility] Marvin telephone call outreach) 11/21/2024 Patient Outreach [address] [address] Sherie William MD Care Coordination (C3 CM-[facility] Crys Marvin telephone call outreach) 11/20/2024 Patient Outreach [address] [address] Sherie William MD Care Coordination (C3 CM-[facility] Crys Marvin outreach and enrollment- agrees to participate) 11/20/2024 Patient Outreach [address] [address] Sherie William MD Care Coordination (C3 CM-[facility] Crys Marvin chart review) 11/20/2024 Patient Outreach [address] [address] Sherie William MD Care Coordination (C3- chart review) 11/20/2024 Patient Outreach [facility] [address] [place] [address] Sherie William MD 11/19/2024 Orders Only [facility] External Provider, [facility] 10/24/2024 Population Health Risk Score [facility] (C3) Department [address] [place] [phone] Provider, Population Health Generic 10/17/2024 Refill [facility] [address] [place] [address] Sherie William MD 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 09/24/2024 9:00 AM EST Telemedicine [facility] [address] [place] [address] Sherie William MD Closed fracture of distal end of left fibula, unspecified fracture morphology, initial encounter (Primary Dx); Mood disorder ([facility]); Tobacco dependence syndrome 09/24/2024 Travel 09/16/2024 Orders Only [facility] External Provider, [facility] from Last 3 Months Immunizations Name [...] (1 of 2) 2016 COVID-19 Vaccine ( season) 2024 Influenza Vaccine (#1) 2024 , [...] EDT XR ANKLE 3+ VIEWS LEFT Routine 1:43 PM EDT US VENOUS DUPLEX LE LT Routine 1:09 PM EDT FL GUIDANCE IN OR [...] Laterality Modality Lower Extremities, Foot Left [facility] 11/19/2024 1:43 PM EDT Narrative 11/19/2024 2:52 PM EDT ? [facility] ?[address] ?[place] [address] ?XRay Report ? Signed ? Patient: Joana ,Jessy ?MR#: [id number] ?? [id number] ? : 1965 ?Acct:[id number] ? Age/Sex: 59 / F ?ADM Date: 11/19/24 ? Loc: HO.ED ? Attending Dr: ? Ordering Physician: Jorge Luis Tyson DO ?? Date of Service: 11/19/24 ?? Procedure(s): XR foot LT min 3V ?? Accession Number(s): [id number] ? cc: Sherie William MD; Jorge Luis [...] DD/ 1343 ? TD/TT: 11/19/24 1412 ? Hospital Corpsman: ? Procedure Note Julius, Josh - 11/19/2024 [place] [address] XRay Report Signed Patient: Pop Shanks#: [id number] : 1965Acct:[id number] Age/Sex: 59 / FADM Date: 11/19/24 Loc: HO.ED Attending Dr: Ordering Physician: Jorge Luis Tyson DO Date of Service: 11/19/24 Procedure(s): XR foot LT min 3V Accession Number(s): [id number] cc: Sherie William MD; Jorge Luis Tyson [...] 11/19/24 1449 DD/ 1343 TD/TT: 11/19/24 1412 Hospital Corpsman: [facility] External Provider IMG XR PROCEDURES Final Result * XR Ankle 3+ Views Left (11/19/2024 1:43 PM EDT) Anatomical Region Laterality Modality Lower Extremities, Ankle Left Radiogr aphic Imaging 11/19/2024 1:43 PM EDT Narrative 11/19/2024 2:40 PM EDT ? [facility] ?[address] ?[place] [address] ?XRay Report ? Signed ? Patient: Joana Laurie,Jessy ?MR#: [id number] ?? [id number] ? : 1965 ?Acct:[id number] ? Age/Sex: 59 / F ?ADM Date: 11/19/24 ? Loc: HO.ED ? Attending Dr: ? Ordering Physician: Jorge Luis Tyson DO ?? Date of Service: 11/19/24 ?? Procedure(s): XR ankle LT min 3V ?? Accession Number(s): [id number] ? cc: Sherie William MD; Jorge Luis [...] DD/ 1343 ? TD/TT: 11/19/24 1412 ? Hospital Corpsman: ? Procedure Note Julius, oJsh - 11/19/[address] [address] XRay Report Signed Patient: Pop Shanks#: [id number] : 1965Acct:[id number] Age/Sex: 59 / FADM Date: 11/19/24 Loc: HO.ED Attending Dr: Ordering Physician: Jorge Luis Tyson DO Date of Service: 11/19/24 Procedure(s): XR ankle LT min 3V Accession Number(s): [id number] cc: Sherie William MD; Jorge Luis Tyson [...] 11/19/24 1435 DD/ 1343 TD/TT: 11/19/24 1412 Hospital Corpsman: [facility] External Provider IMG XR PROCEDURES Final Result * XR Tibia Fibula 2 Views Left (11/19/2024 1:43 PM EDT) Anatomical Region Laterality Modality Lower Extremities, Lower Leg Left Rad iographic Imaging 11/19/2024 1:43 PM EDT Narrative 11/19/2024 2:55 PM EDT ? [facility] ?[address] ?[place] [address] ?XRay Report ? Signed ? Patient: Jessy Shanks ?MR#: [id number] ?? [id number] ? : 1965 ?Acct:[id number] ? Age/Sex: 59 / F ?ADM Date: 11/19/24 ? Loc: HO.ED ? Attending Dr: ? Ordering Physician: Jorge Luis Tyson DO ?? Date of Service: 11/19/24 ?? Procedure(s): XR tibia fibula LT 2V ?? Accession Number(s): [id number] ? cc: Sherie William MD; Jorge Luis [...] by Art Hdz MD in OV> ?11/19/24 145 ? DD/ 1343 ? TD/TT: 11/19/24 1412 ? Hospital Corpsman: ? Procedure Note Donotuseinterpreter, Image - 11/19/[address] [address] XRay Report Signed Patient: Pop Shanks#: [id number] : 1965Acct:[id number] Age/Sex: 59 / FADM Date: 11/19/24 Loc: HO.ED Attending Dr: Ordering Physician: Jorge Luis Tyson DO Date of Service: 11/19/24 Procedure(s): XR tibia fibula LT 2V Accession Number(s): [id number] cc: Sherie William MD; Jorge Luis Tyson [...] 11/19/24 1452 DD/ 1343 TD/TT: 11/19/24 1412 Hospital Corpsman: [facility] External Provider IMG XR PROCEDURES Final Result * US VENOUS DUPLEX LE LT (11/19/2024 1:09 PM EDT) Anatomical Region Laterality Modality Abdomen Ultrasound 11/19/2024 1:09 PM EDT Narrative 11/19/2024 1:50 PM EDT ? [facility] ?[address] ?[place], [place] [address] ? Ultrasound Report ? Signed ? Patient: Joana SullivanJessy ?MR#: [id number] ?? [id number] ? : 1965 ?Acct:[id number] ? Age/Sex: 59 / F ?ADM Date: 11/19/24 ? Loc: HO.ED ? Attending Dr: ? Ordering Physician: Peter Khanna ?? Date of Service: 11/19/24 ?? Procedure(s): US venous duplex LE LT ?? Accession Number(s): [id number] ? cc: Sherie William MD; Peter Khanna [...] DD/ 1309 ? TD/TT: 11/19/24 1319 ? Hospital Corpsman: ? Procedure Note Donotyvonnegamalielter, Image - 11/19/2024 [place] [address] Ultrasound Report Signed Patient: Pop Shanks#: [id number] : 1965Acct:[id number] Age/Sex: 59 / FADM Date: 11/19/24 Loc: .ED Attending Dr: Ordering Physician: Peter Khanna Date of Service: 11/19/24 Procedure(s): US venous duplex LE LT Accession Number(s): [id number] cc: Sherie William MD; Peter Khanna EXAMINATION: [...] 11/19/24 1348 DD/ 1309 TD/TT: 11/19/24 1319 Hospital Corpsman: [facility] External Provider IMG US PROCEDURES Final Result * FL Guidance in OR (09/16/2024 2:10 PM EST) Anatomical Region Laterality Modality X-Ray Angiograph y 09/16/2024 2:10 PM EST Narrative 09/16/2024 3:58 PM EST ? [facility] ?[address] ?[place], [place] [address] ? Fluoroscopy Report ? Signed ? Patient: Joana ,Jessy ?MR#: [id number] ?? [id number] ? : 1965 ?Acct:[id number] ? Age/Sex: 59 / F ?ADM Date: 09/16/24 ? Loc: HO.SSS ? Attending Dr: Arian Murillo MD ? Ordering Physician: Arian Murillo MD ?? Date of Service: 09/16/24 ?? Procedure(s): FL guidance in OR ?? Accession Number(s): [id number] ? cc: Sherie William MD; Arian Murillo MD ? EXAMINATION: ??FL GUIDANCE ONLY ? HISTORY: LEFT ANKLE ORIF ? COMPARISON: ?? None available. ? TECHNIQUE: ?? Fluoroscopy time: 0.2 minutes. ?? Cumulative Dose: 0.523 mGy. ?? DAP: 0.17567 mGym2 ?? Images: 2. ? FINDINGS: ?? [...] DD/ 1410 ? TD/TT: 09/16/24 1516 ? Hospital Corpsman: ? Procedure Note Josh Madrid - 09/16/[address] [address] Fluoroscopy Report Signed Patient: David ShanksAnkush#: [id number] : 1965Acct:[id number] Age/Sex: 59 / FADM Date: 09/16/24 Loc: HO.SSS Attending Dr: Arian Murillo MD Ordering Physician: Arian Murillo MD Date of Service: 09/16/24 Procedure(s): FL guidance in OR Accession Number(s): [id number] cc: Sherie William MD; Arian Murillo MD EXAMINATION: FL GUIDANCE ONLY HISTORY: LEFT ANKLE ORIF COMPARISON: None available. TECHNIQUE: Fluoroscopy time: 0.2 minutes. Cumulative Dose: 0.523 mGy. DAP: 0.35531 mGym2 Images: 2. FINDINGS: Images demonstrate internal fixation of the distal fibula with a sideplate and multiple orthopedic screws at the site of a nondisplaced oblique fracture. A button is noted along the medial malleolus. FL/FL guidance in OR IMPRESSION: Fluoroscopy during procedure. Please see procedure report for additional information. Electronically signed by: Craig Christianson MD 09/16/2024 03:[address] [facility] Dictated By: Craig Christianson MD Signed By: <Electronically signed by Craig Christianson MD in OV> 09/16/24 1555 DD/ 1410 TD/TT: 09/16/24 1516 Hospital Corpsman: [facility] External Provider IMG IR PROCEDURES Final Result * (ABNORMAL) Cologuard?? colon cancer screening (01/10/2024 12:16 PM EDT) Cologuard Result Positive( A) Negative 01/16/2024 10:06 AM EDT [employer] (CLIA #:[id number]) Comment: POSITIVE TEST RESULT. A positive Cologuard [...] (Mario Bruce al, N Engl J Med 2014;370(14):3541-8295.) Cologuard may produce a false negative or false positive result (no colorectal cancer or precancerous polyp present at colonoscopy follow up). A negative Cologuard test result does not guarantee the absence of CRC or advanced adenoma (pre-cancer). The current Cologuard screening interval is every 3 years. ([place] [employer] Society and U.S. Multi-Society Task Force). Cologuard performance data in a 10,000 patient pivotal study using colonoscopy as the reference method can be accessed at the following location: www.[employer]/results. Additional description of the Cologuard test process, warnings and precautions can be found at www.[employer] [facility] Foundationrd.com. Stool specimen (specimen) 01/10/2024 12:16 PM EDT 01/11/2024 1:42 PM EDT [facility] MOLECULAR DIAGNOSTICS ORDERA BLES Final Result [employer] (CLIA #:[id number]) [address] [place] [address], * Hepatitis C Antibody with Reflex to HCV, RNA, Quantitative, Real-Time PCR (12/31/2023 9:52 AM EDT) Hepatitis C Antibody Nonreactive Nonreactive [facility] Comment:Antibodies to HCV no t detected; does not exclude early acuteHCV infection. Blood Venous blood specimen / Unknown 12/31/2023 9:52 AM EDT 12/31/2023 11:19 AM EDT [facility] BLOOD ORDERABLES Final Resul t Performing Organization Address [facility]/ZIP Co de Phone Number [facility] [address] [place] [address] [phone] * HIV-1/2 Antigen and Antibodies, Fourth Generation, with Reflexes (12/31/2023 9:52 AM EDT) [facility] HIV AB/AG Nonreactive Nonreactive [facility] Comment:HIV-1 p24 Ag and/or HIV-1/HIV-2 Ab not detected.A test result that is nonreactive does not exclude thepossibility of exposure to or infection with HIV-1 and/orHIV-2. Nonreactive results in this assay for individualswith prior exposure to HIV-1 and/or HIV-2 may be due toantigen and antibody levels that are below the limit ofdetection of this assay.[employer] HIV Ag/Ab Combo assay result andsupplemental assay results should be interpreted inconjunction with the patient's clinical presentation,history and other laboratory results. If the results areinconsistent with clinical evidence, additional testing issuggested to confirm the result. Blood Venous blood specimen / Unknown 12/31/2023 9:52 AM EDT 12/31/2023 11:19 AM EDT [facility] BLOOD ORDERABLES Final Resul t Performing Organization Address City/[facility]/ZIP Co de Phone Number [facility] [address] [place] [address] [phone] * (ABNORMAL) Lipid Panel, Standard (12/31/2023 9:52 AM EDT) [facility] Triglycerides 166(H) <150 mg/dL [facility] Comment:Desirable Triglyceri de: less than 150 mg/dLBorderline High Triglyceride 150-199 mg/dLHigh Triglyceride: 200-499 mg/dLVery High Triglyceride: greater than or equal to 5OO mg/dL Cholesterol 172 <200 mg/dL [facility] Comment:Desirable Cholestero l: less than 200 mg/dLBorderline High Cholesterol: 200-239 mg/dLHigh Cholesterol: greater than 239 mg/dL LDL Cholesterol Calculated 103(H) <100 mg/dL [facility] Comment:Desirable LDL: less than 100 mg/dLNear Optimal/Above Optimal LDL: 110- 129 mg/dLBorderline High LDL: 130-159 mg/dLHigh LDL: 160-189 mg/dLVery High LDL: greater than or equal to 190 mg/dL HDL Cholesterol 36(L) >40 mg/dL [facility] Comment:Desirable HDL: great er than 40 mg/dL Note: This HDL assay may give artificially low results in patients with liver disease. Blood Venous blood specimen / Unknown 12/31/2023 9:52 AM EDT 12/31/2023 11:19 AM EDT us [facility] LAB BLOOD ORDERABLES Final Resul t [facility] [address] [place] [phone] * BI Mammogram Diagnostic Tomosynthesis Bilateral (08/30/2023 12:11 PM EST) Anatomical Region Laterality Modality Breast Bilateral Mammography 08/30/2023 12:1 1 PM EST Narrative 08/30/2023 1:07 PM EST ? [facility] ? [address] ?[place] [address] ? Mammography Report ? Signed ? Patient: Joana Laurie,Jessy ?MR#: [id number] ?? [id number] ? : 1965 ?Acct:[id number] ? Age/Sex: 58 / F ?ADM Date: 01/18/24 ? Loc: HO.MAMMO ? Attending Dr: Pipe Yo CLOTH SPONGER ? Ordering Physician: PIPE YO NP ?Results: 2Benign Fin ?? dings ? Date of Service: 08/30/23 ?Follow Up: 1 Year From Orig ?? inal Mammogram ? Procedure(s): MM tomosynthesis diagnostic BI ?? Accession Number(s): [id number] ? cc: PIPE YO NP ? EXAMINATION: [...] 1303 ? DD/ 1211 ? TD/TT: ? Hospital Corpsman: ? Procedure Note Julius, Image - 08/30/2023 [facility] [address] [place] [address] Mammography Report Signed Patient: Pop Shanks#: [id number] : 1965Acct:[id number] Age/Sex: 58 / FADM Date: 08/30/23 Loc: NIDHIO Attending Dr: Pipe Yo CLOTH SPONGER Ordering Physician: PIPE YO NPResults: 2Benign Pastor quach Date of Service: 08/30/23Follow Up: 1 Year From Orig inal Mammogram Procedure(s): MM tomosynthesis diagnostic BI Accession Number(s): [id number] cc: PIPE YO CLOTH SPONGER EXAMINATION: MM DIAGNOSTIC DIGITAL BREAST TOMOSYNTHESIS, BILATERAL [...] in OV> 08/30/23 1303 DD/ 1211 TD/TT: Hospital Corpsman: [facility] BI PROCEDURES Final Result * HPV mRNA E6/E7 (05/19/2021 11:47 AM EDT) HPV nRNA E6/E7 Not Detected Not Detected [facility] Comment: Methodology: Tourist Information Assistant-Mediated Amplification This assay detects E6/E7 viral messenger RNA (mRNA) from 14 high-risk HPV types (16,18,31,33,35,39,45,51,52,56,58,59,66,68). ? The analytical performance characteristics of this assay have been determined by [employer]. The modifications have not been cleared or approved by the FDA. This assay has been validated pursuant to the CLIA regulations and is used for clinical purposes. ?? For additional information, please refer to http://education.[employer]/faq/MRH436a7 (This link if provided for information/ educational purposes only.) 05/19/2021 11:4 7 AM EDT [facility] ORDERABLES Aurora l Result [facility] [address] [place] [address] * Pap Smear (05/19/2021 12:00 AM EDT) [facility]ab [facility] Gut[facility] CYTOLOGY ORDERABLES F inal Result [facility] [address], [place] [phone] from Last 3 Months or Most Recently Relevant to Health Maintenance Insurance [facility] C3 Care Teams Cold Rolling Coordinator Relationship Specialty Start Date End Date Sherie William MD [address] [place] [phone] PCP - General Internal Medicine 03/19/24
--- OUTSIDE RECORDS SUMMARY | 2024-12-13 07:53 | XMS_ITS | Encounter Summary ---
Author Organization [employer] Address [address] [place] [address] 7t [place] [address] Care Team Providers Care Belt Operator Name Role Phone Sherie William MD Primary Care Provide r Reason for Visit * Reason Comments Care Coordination Encounter Details Date Type Department Care Team ([facility] st Contact Info) Description 12/11/2024 Patient Outreach [facility] MEDICINE [address] [place], [place] [phone] Sherie William MD [address] [place], [place] [phone] Care Coordination Social History Tobacco Use Types [...] outbound call to patient introducing herself from [facility] CM Department, in regards to remind patient [...] documented as of this encounter Care Teams Belt Operator Relationship Specialty Start Date End Date Sherie William MD [address] [place] [address] PCP - General Internal Medicine 03/19/24 documented as of this encounter
--- OUTSIDE RECORDS SUMMARY | 2024-12-13 07:53 | XMS_ITS | Encounter Summary ---
Author Organization [employer] [facility] Address [address] [place] [address] 7t [place] [address] Care Team Providers Care Epic Willow Specialist Name Role Phone Cindy Zacarias Primary Care Provider [phone] Sherie William MD Primary Care Provide r Encounter Details Date Type Department Care Team ([facility] st Contact Info) Description 04/03/2023 Abstract [facility] MEDICINE [address] [place], [place] [phone] Provider, MD Jillian Social History Tobacco Use [...] on filedocumented in this encounter Care Teams Epic Willow Specialist Relationship Specialty Start Date End Date Cindy Zacarias ANP 230 [place] [address] PCP - General Family Medicine 07/20/20 03/18/24 Sherie William MD 230 [place] [address] PCP - General Internal Medicine 03/19/24 documented as of this encounter
--- OUTSIDE RECORDS SUMMARY | 2024-12-13 07:53 | XMS_ITS | Encounter Summary ---
Author Organization [employer] Address [address] [place] [address] 7t [place] [address] Care Team Providers Care Sailboat Captain Name Role Phone Sherie William MD Primary Care Provide r Reason for Visit * Reason Comments Care Management C3CM- Initial assess ment/enrollment Encounter Details Date Type Department Care Team ([facility] st Contact Info) Description 12/12/2024 Patient Outreach [facility] MEDICINE [address] [place] [address] Sherie William MD [address] [place] [address] Care Management (C3CM- Initial assessment/enrollmen t) Social History Tobacco Use Types Packs/Day Years [...] as of this encounter Progress Notes * Brandon Tijerina RN - 12/12/2024 12:32 PM EDT CM Brandon Tijerina RN placed outbound call to patient for agreed upon time for initial assessment forenrollment into Adult Care Management Program. Patient's name, , and address were verified. Patient requesting to reschedule tele initial assessment. Pt agreed to 12/16/24 @ 10 AM. Pt verbalized understanding. documented in this encounter Plan of Treatment Not on file documented as of this encounter Visit Diagnoses Not on filedocumented in this encounter Additional Health Concerns Assessment Noted Time PHQ-9 Depression Total Score: 19 025 9:45 AM EST documented as of this encounter Care Teams Sailboat Captain Relationship Specialty Start Date End Date Sherie William MD [address] [place] [address] PCP - General Internal Medicine 03/19/24 documented as of this encounter
--- OUTSIDE RECORDS SUMMARY | 2024-12-13 07:53 | XMS_ITS ---
Author Organization [employer] Address [address] [facility] 7t [place] [address] Care Team Providers Care Evidence Specialist Name Role Phone Sherie William MD Primary Care Provide r CM Complex Status:Identified (Enrolling) Start date:11/20/2024 Enrollment reason:ADT Feed Overview [facility] ED 11/19/24 Case Team Name Relationship Phone Brandon Tijerina RN Registered Nurse(Responsible St aff) Continued Care and Services Coordination
--- OUTSIDE RECORDS SUMMARY | 2024-12-13 07:53 | XMS_ITS | Encounter Summary ---
Author Organization [employer] Address [address] [facility] 7t [place] [address] Care Team Providers Care Elevator Troubleshooter Name Role Phone Sherie William MD Primary Care Provide r Encounter Details Date Type Department Care Team ([facility] st Contact Info) Description 04/28/2024 Orders Only [facility] MEDICINE 230 [place] [address] Cindy Zacarias, ANP [address] [place] [address] Social History Tobacco Use Types Packs/Day Years [...] documented as of this encounter Care Teams Elevator Troubleshooter Relationship Specialty Start Date End Date Sherie William MD [address] [place] [id number] PCP - General Internal Medicine 03/19/24 documented as of this encounter
== END 2024-12-12 07:51 | disposition home or self-care (01) ==
LOC: HO.HOSX 07:50
PROVIDERS: Visit Provider Physician Assistant
DX: M25.572 Pain in left ankle and joints of left foot (principal); S82.892A Other fracture of left lower leg, initial encounter for closed fracture; Z98.890 Other specified postprocedural states; Z87.81 Personal history of (healed) traumatic fracture
CPT/HCPCS: 73610; 99212

== ENCOUNTER 2024-12-12 10:33 | Outpatient (AMB) | payer MEDICAID, SELFPAY ==
--- NOTE | 2024-12-12 10:59 | MHC.OFFVIS ---
Intake Visit Reasons: PO-6wk f/u LT ankle ORIF 09/16/24-w xr Intake Note: Jessy is a 59 year old female who presents today for her post operative LT ankle ORIF 09/16/24 NE. Patient reports she si doing better but she is noticing some swelling in her foot. Allergies No Known Allergies Allergy (Verified 12/12/24 11:05) HPI HPI PO-6wk f/u LT ankle ORIF 09/16/24-w xr: Details: Patient is a 59-year-old female who presents to the office today status post left ankle ORIF performed on 09/16/[address] Murillo. Patient presents to the office today in the tall walking boot with crutches. She is partially weight-bearing. Her last physical therapy session was on 12/02/2024. She reports that she does not want to continue with physical therapy. She reports that she continues to have pain along the lateral aspect of the ankle. [facility] Medical History Arm numbness left Arthritis Asthma Breast cancer Cervical spinal stenosis Depression GERD (gastroesophageal reflux disease) Surgical History S/P lumpectomy, left breast (09/14/21) History of pterygium excision Family History Maternal Grandmother Stomach cancer Social History Household Members: Children Housing: Apartment Are you a primary care coordinator to a significant other at home: No Do you presently have visiting nurse or other home services: No Alcohol intake: current Alcohol intake frequency: does not drink Patient Tobacco Use Status: Current everyday Tobacco user Tobacco use type: Cigarette Cigarettes Per Day: 2 Years Smoked: started at age 18, 1PPD , currently 10 per day service: No Current occupational status: unemployed Current occupation: Left Handed Female Reproductive History Menstrual Age of Menarche: 15 Review of Systems Const All systems reviewed & are unremarkable except as noted in HPI and below Physical Exam Extrem Other: Left ankle incision is well healed and approximated. No signs of infection. No erythema or drainage. Lateral-sided ankle edema. She is considerably stiff with dorsiflexion, plantar flexion, pronation and supination. Calf is supple and nontender. Sensation intact. Pedal pulse intact. Assessment & Plan Assessment & Plan (1) Closed left ankle fracture: Code(s): S82.892A - Other fracture of left lower leg, initial encounter for closed fracture Category: Medical (2) Status post ORIF of fracture of ankle: Code(s): Z98.890 - Other specified postprocedural states; Z87.81 - Personal history of (healed) traumatic fracture Category: Surgical Plan Patient is a 59-year-old female who presents to the office today status post left ankle ORIF performed on 09/16/[address] Murillo. Patient presents to the office today in the tall walking boot with crutches. She is partially weight-bearing. Her last physical therapy session was on 12/02/2024. She reports that she does not want to continue with physical therapy. She reports that she continues to have pain along the lateral aspect of the ankle. While in the office today, the patient was placed back into a tall walking boot. I instructed the patient to begin weight-bearing in the boot as tolerated and discontinue the crutches immediately. The patient adamantly refuses to attend any additional physical therapy sessions. She reported that she did not have transportation. However, I did offer the Lyft services provided by the hospital but the patient still refused. The goal is to have the patient continue with physical therapy to work on range of motion and transition into a supportive sneaker the next 2-3 weeks. It is unclear if the patient will adhere by the recommendations given. I would like to have her follow-up with my colleague, Mckayla Montano PA-C in 4 weeks for [id number] check, sooner if needed. X-rays of the left ankle which were obtained while in the office today and were reviewed by me, Shakira Benson PA-C, revealed intact orthopedic hardware with routine healing. Orders: Orders PT Evaluation and Treatment Today S82.892A - Other fracture of left lower leg, initial encounter for closed fracture, Z87.81 - Personal history of (healed) traumatic fracture, Z98.890 - Other specified postprocedural states XR ankle LT min 3V Today M25.579 - Pain in unspecified ankle and joints of unspecified foot Coding Level of Care Code Global (62499) Diagnoses Closed left ankle fracture S82.892A Status post ORIF of fracture of ankle Z98.890; Z87.81
--- OUTSIDE RECORDS SUMMARY | 2024-12-12 11:39 | XMS_ITS | Encounter Summary ---
Author Organization [employer] Address [address] [place] [address] [address] [place] [address] Care Team Providers Care Community Ambassador Name Role Phone Sherie William MD Primary Care Provide r Reason for Visit * Reason Comments Care Coordination Encounter Details Date Type Department Care Team ([facility] st Contact Info) Description 12/11/2024 Patient Outreach [facility] [address] [place], [place] [phone] Sherie William MD [address] [place], [place] [phone] Care Coordination Social History Tobacco Use Types Packs/Day Years [...] Recorded Patient Health Questionnaire-2 Score 6 08/28/2024 Internet Access Answer Date Recorded Internet Access Q1 Yes 11/20/2024 Internet Access Q2 Not on file 11/20/2024 Comments Unknown Sex and Gender Information Value Date Recorded Sex Assigned at Female 06/12/2022 10:16 AM EDT Legal Sex Female 10:16 AM EDT Gender Identity Female 06/12/2022 10:16 AM EDT Sexual Orientation Straight 06/12/2022 10 :16 AM EDT documented as of this encounter Progress Notes * Crys Marvin - 12/11/2024 10:00 AM EDT CHW Crys Marvin placed outbound call to patient introducing herself from [facility] CM Department, in regards to remind patient of Adult Complex Care program initial assessment appt for tomorrow 12/12/2024 @ 1:00 PM via telephone. Patient's name and was confirmed. Patient is aware and confirmed will be available for call and has no barriers on attending call. Patient verbalized understanding and agrees with plan. documented in this encounter Plan of Treatment Not on file documented as of this encounter Visit Diagnoses Not on filedocumented in this encounter Additional Health Concerns Assessment Noted Time PHQ-9 Depression Total Score: 19 025 9:45 AM EST documented as of this encounter Care Teams Community Ambassador Relationship Specialty Start Date End Date Sherie William MD [address] [place] [address] PCP - General Internal Medicine 03/19/24 documented as of this encounter
--- OUTSIDE RECORDS SUMMARY | 2024-12-12 11:39 | XMS_ITS | Clinical Summary ---
Author Organization [employer] Address [address] [place] [address] [address] [place] [address] Care Team Providers Care Md Urologist Name Role Phone Sherie William MD Primary Care Provide r Allergies No known active allergies Medications * This document contains information received from the source organization and may not represent a complete record from that organization. zoster vaccine-recombi nant adjuvanted (Shingrix) 50 MCG/0.5ML vaccine Inject 0.5 mL into the shoulder, thigh, or buttocks 1 (one) time. 0 Active chlorhexidine (Peridex) 0.12 % solution Place 15 mL into mouth between cheek and gum in the morning and 15 mL in the evening. 1 Active sodium chloride (Oyens Nasal [place]ona) 0.65 % nasal sprayIndication s:Viral URI 1-2 sprays on each nostril every 2-3 hours as needed for nasal congestion 30 mL 1 3 Active cyclobenzaprine (Flexeril) 5 MG tabletIndicatio ns:Chronic back pain, unspecified back location, unspecified back pain laterality TAKE 1 TABLET BY MOUTH THREE TIMES EVERY DAY IF NEEDED FOR MUSCLE PAIN 60 tablet 3 Active Beclomethasone Diprop HFA (Qvar RediHaler) 80 MCG/ACT inhalerIndicati ons:Chronic obstructive pulmonary disease, unspecified COPD type (CMS/HCC) INHALE 2 PUFFS BY MOUTH EVERY 12 HOURS 10.6 g 3 Active diphenhydrAMINE (BENADryl) 25 MG tabletIndicatio ns: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 30 tablet 4 Active albuterol 108 (90 Base) MCG/ACT inhalerIndicati ons:Moderate asthma, unspecified whether complicated, unspecified whether persistent,Station Tender lorenzo obstructive pulmonary disease, unspecified COPD type (CMS/HCC) INHALE 2 PUFFS BY MOUTH EVERY 4 TO 6 HOURS IF NEEDED FOR SHORTNESS OF BREATH OR WHEEZING 18 g 4 Active Fluocinolone Acetonide Scalp (Medina-Smoothe/ FS Scalp) 0.01 % oilIndications: Seborrheic dermatitis of scalp Massage into damp scalp daily. Cover hair and leave on for at least 4 hours 118 mL 4 Active omeprazole (PriLOSEC) [address] capsuleIndicati ons:Gastroesoph ageal reflux disease, unspecified whether esophagitis present TAKE 1 CAPSULE BY MOUTH EVERY DAY BEFORE A MEAL 90 capsule 4 Active tiZANidine (Zanaflex) 4 MG capsuleIndicati ons:Chronic bilateral low back pain without sciatica Take 1 capsule (4 mg) by mouth 3 times daily. 90 capsule 11 4 03/19/20 25 Active acetaminophen (Tylenol) 500 MG tablet Take 2 tablets (1,000 mg) by mouth every 12 (twelve) hours if needed for moderate pain or fever. 120 tablet 4 Active meloxicam (Mobic) 15 MG tabletIndicatio ns:Chronic bilateral low back pain without sciatica TAKE 1 TABLET BY MOUTH EVERY DAY WITH FOOD 30 tablet 4 Active nicotine polacrilex (Nicotine Mini) 4 MG lozengeIndicati ons:Tobacco dependence syndrome Dissolve 1 lozenge (4 mg) in the mouth every 2 (two) hours if needed for smoking cessation. 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 30 tablet 1 5 01/25/20 25 Active sertraline (Zoloft) 25 MG tabletIndicatio ns:Mixed anxiety and depressive disorder Take 1 tablet (25 mg) by mouth in the morning. 30 tablet 1 5 01/25/20 25 Active DULoxetine (Cymbalta) [address] capsuleIndicati ons:Mixed anxiety and depressive disorder,Compla ints of total body pain Take 1 capsule (30 mg) by mouth in the morning. 30 capsule 1 5 11/26/19 25 Discontin ued(Ineff ective) QUEtiapine (SEROquel) 50 MG tabletIndicatio ns:Mood disorder (CMS/HCC) Take 1 tablet (50 mg) by mouth at bedtime. 30 tablet 1 5 11/26/19 25 Discontin ued(Ineff ective) Active Problems Problem Noted Date Diagnosed Date [...] children, concern about mother who lives in [place] and trust issues. PLAN: New/Additional Services needed PCP management Off-site services for Behavioral Health Integration Plan External OP therapy referral Patient Self Plan Patient to utilize skills provided in intervention , Patient to reach out to [facility] team as needed, Comply with medication , Patient to engage in OP therapy , and Patient to reach out to [facility] as needed Encounters * This document contains information received from the source organization and may not represent a complete record from that organization. Date Type Department Care Team Description 12/11/2024 Patient Outreach [address] [address] Sherie William MD Care Coordination 12/04/2024 Patient Outreach [address] [address] Sherie William MD Care Coordination ([facility]3 [facility] Marvin telephone call outreach) 11/21/2024 Patient Outreach [address] [address] Sherie William MD [facility]ination [facility] 11/20/2024 Patient Outreach [address] [address] Sherie William MD Care Coordination ([facility] Crys Marvin outreach and enrollment- agrees to participate) 11/20/2024 Patient Outreach [address] [address] Sherie William MD Care Coordination ([facility] chart review) 11/20/2024 Patient Outreach [address] [address] Sherie William MD Care Coordination (C3- chart review) 11/20/2024 Patient Outreach [address] [address] Sherie William MD 11/19/2024 [facility] External Provider, [facility] 10/24/2024 Population Health Risk Score [facility] (C3) Department [address] [phone] Provider, Population Health Generic 10/17/2024 Refill [facility] [address] [place] [address] Sherie William MD 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 09/24/2024 9:00 AM EST Telemedicine [facility] [address] [place] [address] Sherie William MD Closed fracture of distal end of left fibula, unspecified fracture morphology, initial encounter (Primary Dx); Mood disorder (CMS/HCC); Tobacco dependence syndrome 09/24/2024 Travel 09/16/2024 Orders Only [facility] External Provider, [facility] from Last 3 Months Immunizations Name [...] 08/30/2024 08/30/2023, 02/11, 03/06/2023, Additional history exists Alcohol/Substance Use Screening 07/25/2025 07/25/2024 Depression Screening 08/28/2025 08/28/2024, 08/28/19 SDOH Screening 11/20/2025 11/20/2024 Tobacco Screening 11/25/2025 11/25/2024 Cervical Cancer Screening 05/19/2026 HPV/Cotest 05/19/2026 05/19/2021 [...] Name Priority Date/Time Associated Diagnosis Comments XR TIBIA FIBULA 2 VIEWS LEFT Routine 11/19/2024 1:43 PM EDT XR FOOT 3+ VIEWS LEFT Routine 11/19/2024 1:43 PM EDT XR ANKLE 3+ VIEWS LEFT Routine 5 [...] Relevant to Health Maintenance Results * XR Foot 3+ Views Left (11/19/2024 1:43 PM EDT) Anatomical Region Laterality Modality Lower Extremities, Foot Left [facility] 11/19/2024 1:43 PM EDT Narrative 11/19/2024 2:52 PM EDT ? [facility] ?[address] ?[place] [address] ?XRay Report ? Signed ? Patient: Joana Laurie,Jessy ?MR#: [id number] ?? [id number] ? : 1965 ?Acct:[id number] ? Age/Sex: 59 / F ?ADM Date: 11/19/24 ? Loc: HO.ED ? Attending Dr: ? Ordering Physician: Jorge Luis Tyson DO ?? Date of Service: 11/19/24 ?? Procedure(s): XR foot LT min 3V ?? Accession Number(s): [id number] ? cc: Sherie William MD; Jorge Luis Tyson DO ? EXAMINATION: ?? XR FOOT, LEFT ? CLINICAL INFORMATION: ?? Pain, recent operation, evaluate for osteomyelitis ? COMPARISON: ?? Ankle radiographs performed concurrently. ? TECHNIQUE: ?? AP, lateral, and oblique views of the left foot. ? FINDINGS: ?? Disuse osteopenia. ?? Redemonstration of profound bony lucency surrounding the distal 5 ?? screws within the lateral malleolus. Refer to the ankle radiograph ?? report. ? Otherwise, no permeative bony change, fracture, or dislocation ?? identified in the left foot. No malalignment. Normal plantar arch. ?? Joint spaces appear preserved. ?? Moderate-sized plantar and dorsal calcaneal spurs. ? No soft tissue abnormality. ? XR/XR foot LT min 3V ?? IMPRESSION: ?? 1. Disuse osteopenia. ?? 2. Redemonstration of profound bony lucency surrounding the distal 5 ?? screws within the lateral malleolus. Refer to the ankle radiograph ?? report. ?? 3. No additional acute bony abnormalities. ? Electronically signed by: ??Art Hdz MD ??11/19/2024 02:49 PM EDT RP ? Dictated By: ?Art Hdz MD ? Signed By: ?<Electronically signed by Art Hdz MD in OV> ?11/19/24 1449 ? DD/ 1343 ? TD/TT: 11/19/24 1412 ? Technical Delivery Manager: ? Procedure Note Donotuseinterpreter, Image - 11/19/[address] [address] XRay Report Signed Patient: Pop Shanks#: [id number] : 1965Acct:[id number] Age/Sex: 59 / FADM Date: 11/19/24 Loc: HO.ED Attending Dr: Ordering Physician: Jorge Luis Tyson DO Date of Service: 11/19/24 Procedure(s): XR foot LT min 3V Accession Number(s): [id number] cc: Sherie William MD; Jorge Luis Tyson DO EXAMINATION: XR FOOT, LEFT CLINICAL INFORMATION: Pain, recent operation, evaluate for osteomyelitis COMPARISON: Ankle radiographs performed concurrently. TECHNIQUE: AP, lateral, and oblique views of the left foot. FINDINGS: Disuse osteopenia. Redemonstration of profound bony lucency surrounding the distal 5 screws within the lateral malleolus. Refer to the ankle radiograph report. Otherwise, no permeative bony change, fracture, or dislocation identified in the left foot. No malalignment. Normal plantar arch. Joint spaces appear preserved. Moderate-sized plantar and dorsal calcaneal spurs. No soft tissue abnormality. XR/XR foot LT min 3V IMPRESSION: 1. Disuse osteopenia. 2. Redemonstration of profound bony lucency surrounding the distal 5 screws within the lateral malleolus. Refer to the ankle radiograph report. 3. No additional acute bony abnormalities. Electronically signed by: Art Hdz MD 11/19/2024 02:49 PM EDT Dictated By: Art Hdz MD Signed By: <Electronically signed by Art Hdz MD in OV> 11/19/24 1449 DD/ 1343 TD/TT: 11/19/24 1412 Technical Delivery Manager: [facility] External Provider IMG XR PROCEDURES Final Result * XR Ankle 3+ Views Left (11/19/2024 1:43 PM EDT) Anatomical Region Laterality Modality Lower Extremities, Ankle Left Radiogr aphic Imaging 11/19/2024 1:43 PM EDT Narrative 11/19/2024 2:40 PM EDT ? [facility] ?[address] ?[place] [address] ?XRay Report ? Signed ? Patient: Joana Laurie,Jessy ?MR#: [id number] ?? [id number] ? : 1965 ?Acct:[id number] ? Age/Sex: 59 / F ?ADM Date: 11/19/24 ? Loc: HO.ED ? Attending Dr: ? Ordering Physician: Jorge Luis Tyson DO ?? Date of Service: 11/19/24 ?? Procedure(s): XR ankle LT min 3V ?? Accession Number(s): [id number] ? cc: Sherie William MD; Jorge Luis [...] DD/ 1343 ? TD/TT: 11/19/24 1412 ? Technical Delivery Manager: ? Procedure Note Julius, Image - 11/19/[address] [address] XRay Report Signed Patient: Pop Shanks#: [id number] : 1965Acct:[id number] Age/Sex: 59 / FADM Date: 11/19/24 Loc: HO.ED Attending Dr: Ordering Physician: Jorge Luis Tyson DO Date of Service: 11/19/24 Procedure(s): XR ankle LT min 3V Accession Number(s): [id number] cc: Sherie William MD; Jorge Luis Tyson [...] 11/19/24 1435 DD/ 1343 TD/TT: 11/19/24 1412 Technical Delivery Manager: [facility] External Provider IMG XR PROCEDURES Final Result * XR Tibia Fibula 2 Views Left (11/19/2024 1:43 PM EDT) Anatomical Region Laterality Modality Lower Extremities, Lower Leg Left Rad iographic Imaging 11/19/2024 1:43 PM EDT Narrative 11/19/2024 2:55 PM EDT ? [facility] ?[address] ?[place] [address] ?XRay Report ? Signed ? Patient: Joana Sullivan,Jessy ?MR#: [id number] ?? [id number] ? : 1965 ?Acct:[id number] ? Age/Sex: 59 / F ?ADM Date: 11/19/24 ? Loc: HO.ED ? Attending Dr: ? Ordering Physician: Jorge Luis Tyson DO ?? Date of Service: 11/19/24 ?? Procedure(s): XR tibia fibula LT 2V ?? Accession Number(s): [id number] ? cc: Sherie William MD; Jorge Luis Tyson DO ? EXAMINATION: ?? XR TIBIA AND FIBULA, LEFT ? CLINICAL INFORMATION: ?? Pain, recent operation, evaluate for osteomyelitis. ? COMPARISON: ?? Ankle radiographs performed concurrently. ? TECHNIQUE: ?? AP and lateral views of the left tibia and fibula were obtained. ? FINDINGS: ?? Redemonstration of profound lucency surrounding the distalmost 5 screws ?? within the lateral malleolus. Refer to the ankle report. ? Otherwise, the more proximal fibula and tibia appear normal. Proximal ?? soft tissues appear normal. ?? Mild soft tissue swelling surrounding the ankle joint. ? XR/XR tibia fibula LT 2V ?? IMPRESSION: ?? 1. Lucency surrounding the distalmost 5 screws within the lateral ?? malleolus. Refer to the ankle report. ?? 2. Otherwise, no additional abnormal bony findings. ? Electronically signed by: ??Art Hdz MD ??11/19/2024 02:52 PM EDT RP ? Dictated By: ?Art Hdz MD ? Signed By: ?<Electronically signed by Art Hdz MD in OV> ?11/19/24 1452 ? DD/ 1343 ? TD/TT: 11/19/24 1412 ? Technical Delivery Manager: ? Procedure Note Donearlenegamalielter, Image - 11/19/[address] [address] XRay Report Signed Patient: Pop Shanks#: [id number] : 1965Acct:[id number] Age/Sex: 59 / FADM Date: 11/19/24 Loc: HO.ED Attending Dr: Ordering Physician: Jorge Luis Tyson DO Date of Service: 11/19/24 Procedure(s): XR tibia fibula LT 2V Accession Number(s): [id number] cc: Sherie William MD; Jorge Luis Tyson DO EXAMINATION: XR TIBIA AND FIBULA, LEFT CLINICAL INFORMATION: Pain, recent operation, evaluate for osteomyelitis. COMPARISON: Ankle radiographs performed concurrently. TECHNIQUE: AP and lateral views of the left tibia and fibula were obtained. FINDINGS: Redemonstration of profound lucency surrounding the distalmost 5 screws within the lateral malleolus. Refer to the ankle report. Otherwise, the more proximal fibula and tibia appear normal. Proximal soft tissues appear normal. Mild soft tissue swelling surrounding the ankle joint. XR/XR tibia fibula LT 2V IMPRESSION: 1. Lucency surrounding the distalmost 5 screws within the lateral malleolus. Refer to the ankle report. 2. Otherwise, no additional abnormal bony findings. Electronically signed by: Art Hdz MD 11/19/2024 02:52 PM EDT Dictated By: Art Hdz MD Signed By: <Electronically signed by Art Hdz MD in OV> 11/19/24 1452 DD/ 1343 TD/TT: 11/19/24 1412 Technical Delivery Manager: [facility] External Provider IMG XR PROCEDURES Final Result * US VENOUS DUPLEX LE LT (11/19/2024 1:09 PM EDT) Anatomical Region Laterality Modality Abdomen Ultrasound 11/19/2024 1:09 PM EDT Narrative 11/19/2024 1:50 PM EDT ? [facility] ?[address] ?[place] [address] ? Ultrasound Report ? Signed ? Patient: Joana Sullivan,Jessy ?MR#: [id number] ?? [id number] ? : 1965 ?Acct:[id number] ? Age/Sex: 59 / F ?ADM Date: 11/19/24 ? Loc: HO.ED ? Attending Dr: ? Ordering Physician: Peter Khanna ?? Date of Service: 11/19/24 ?? Procedure(s): US venous duplex LE LT ?? Accession Number(s): [id number] ? cc: Sherie William MD; Peter Khanna [...] DD/ 1309 ? TD/TT: 11/19/24 1319 ? Technical Delivery Manager: ? Procedure Note Donotuseinterpreter, Image - 11/19/[address] [address] Ultrasound Report Signed Patient: Pop Shanks#: [id number] : 1965Acct:[id number] Age/Sex: 59 / FADM Date: 11/19/24 Loc: HO.ED Attending Dr: Ordering Physician: Peter Khanna Date of Service: 11/19/24 Procedure(s): US venous duplex LE LT Accession Number(s): [id number] cc: Sherie William MD; Peter Khanna EXAMINATION: [...] 11/19/24 1348 DD/ 1309 TD/TT: 11/19/24 1319 Technical Delivery Manager: us [facility] External Provider IMG US PROCEDURES Final Result * FL Guidance in OR (09/16/2024 2:10 PM EST) Anatomical Region Laterality Modality X-Ray Angiograph y 09/16/2024 2:10 PM EST Narrative 09/16/2024 3:58 PM EST ? [place] [facility] ?[address] ?[place] [address] ? Fluoroscopy Report ? Signed ? Patient: Joana ,Jessy ?MR#: [id number] ?? [id number] ? : 1965 ?Acct:[id number] ? Age/Sex: 59 / F ?ADM Date: 09/16/24 ? Loc: HO.SSS ? Attending Dr: Arian Murillo MD ? Ordering Physician: Arian Murillo MD ?? Date of Service: 09/16/24 ?? Procedure(s): FL guidance in OR ?? Accession Number(s): [id number] ? cc: Sherie William MD; Arian Murillo MD ? EXAMINATION: ??FL GUIDANCE ONLY ? HISTORY: LEFT ANKLE ORIF ? COMPARISON: ?? None available. ? TECHNIQUE: ?? Fluoroscopy time: 0.2 minutes. ?? Cumulative Dose: 0.523 mGy. ?? DAP: 0.59625 mGym2 ?? Images: 2. ? FINDINGS: ?? [...] DD/ 1410 ? TD/TT: 09/16/24 1516 ? Technical Delivery Manager: ? Procedure Note Julius, Image - 09/16/[address] [address] Fluoroscopy Report Signed Patient: Pop Shanks#: [id number] : 1965Acct:[id number] Age/Sex: 59 / FADM Date: 09/16/24 Loc: HO.SSS Attending Dr: Arian Murillo MD Ordering Physician: Arian Murillo MD Date of Service: 09/16/24 Procedure(s): FL guidance in OR Accession Number(s): [id number] cc: Sherie William MD; Arian Murillo MD EXAMINATION: FL GUIDANCE ONLY HISTORY: LEFT ANKLE ORIF COMPARISON: None available. TECHNIQUE: Fluoroscopy time: 0.2 minutes. Cumulative Dose: 0.523 mGy. DAP: 0.67712 mGym2 Images: 2. FINDINGS: Images demonstrate internal [...] 09/16/24 1555 DD/ 1410 TD/TT: 09/16/24 1516 Technical Delivery Manager: [facility] External Provider IMG IR PROCEDURES Final Result * (ABNORMAL) Cologuard?? colon cancer screening (01/10/2024 12:16 PM EDT) Cologuard Result Positive( A) Negative 01/16/2024 10:06 AM EDT [employer] (CLIA #:[id number]) Comment: POSITIVE TEST RESULT. A positive Cologuard [...] (Mario Bruce al, N Engl J Med 2014;370(14):4511-8505.) Cologuard may produce a false negative or false positive result (no colorectal cancer or precancerous polyp present at colonoscopy follow up). A negative Cologuard test result does not guarantee the absence of CRC or advanced adenoma (pre-cancer). The current Cologuard screening interval is every 3 years. ([place] [employer] and U.S. Multi-Society Task Force). Cologuard performance data in a 10,000 patient pivotal study using colonoscopy as the reference method can be accessed at the following location: www.luxustravel.es/results. Additional description of the Cologuard test process, warnings and precautions can be found at www.Project Dancerd.Etu6.com. Stool specimen (specimen) 01/10/2024 12:16 PM EDT 01/11/2024 1:42 PM EDT [facility] MOLECULAR DIAGNOSTICS ORDERA BLES Final Result [employer] (CLIA #:[id number]) [address] [place] [address], * Hepatitis C Antibody with Reflex to HCV, RNA, Quantitative, Real-Time PCR (12/31/2023 9:52 AM EDT) Hepatitis C Antibody Nonreactive Nonreactive [facility] Comment:Antibodies to HCV no t detected; does not exclude early acuteHCV infection. Blood Venous blood specimen / Unknown 12/31/2023 9:52 AM EDT 12/31/2023 11:19 AM EDT Pipe Yo [facility] LAB BLOOD ORDERABLES Final Resul t Performing Organization Address [facility] Co de Phone Number [facility] [address] [place] [address] [phone] * HIV-1/2 Antigen and Antibodies, Fourth Generation, with Reflexes (12/31/2023 9:52 AM EDT) Pathologist [facility] HIV AB/AG Nonreactive Nonreactive [facility] Comment:HIV-1 p24 Ag and/or HIV-1/HIV-2 Ab not detected.A test result that is nonreactive does not exclude thepossibility of exposure to or infection with HIV-1 and/orHIV-2. Nonreactive results in this assay for individualswith prior exposure to HIV-1 and/or HIV-2 may be due toantigen and antibody levels that are below the limit ofdetection of this assay.The Burst.it HIV Ag/Ab Combo assay result andsupplemental assay results should be interpreted inconjunction with the patient's clinical presentation,history and other laboratory results. If the results areinconsistent with clinical evidence, additional testing issuggested to confirm the result. Blood Venous blood specimen / Unknown 12/31/2023 9:52 AM EDT 12/31/2023 11:19 AM EDT Pipe Yo [facility] LAB BLOOD ORDERABLES Final Resul t Performing Organization Address [facility] Co de Phone Number [facility] [address] [place] [address] [phone] * (ABNORMAL) Lipid Panel, Standard (12/31/2023 9:52 AM EDT) Triglycerides 166(H) <150 mg/dL [facility] Comment:Desirable Triglyceri de: less than 150 mg/dLBorderline High Triglyceride 150-199 mg/dLHigh Triglyceride: 200-499 mg/dLVery High Triglyceride: greater than or equal to 5OO mg/dL Cholesterol 172 <200 mg/dL [facility] Comment:Desirable Cholestero l: less than 200 mg/dLBorderline High Cholesterol: 200-239 mg/dLHigh Cholesterol: greater than 239 mg/dL LDL Cholesterol Calculated 103(H) <100 mg/dL [facility] Comment:Desirable LDL: less than 100 mg/dLNear Optimal/Above Optimal LDL: 110- 129 mg/dLBorderline High LDL: 130-159 mg/dLHigh LDL: 160-189 mg/dLVery High LDL: greater than or equal to 190 mg/dL HDL Cholesterol 36(L) >40 mg/dL [facility] Comment:Desirable HDL: great er than 40 mg/dL Note: This HDL assay may give artificially low results in patients with liver disease. Blood Venous blood specimen / Unknown 12/31/2023 9:52 AM EDT 12/31/2023 11:19 AM EDT [facility] LAB BLOOD ORDERABLES Final Resul t [facility] [address] [place] [address] [phone] * BI Mammogram Diagnostic Tomosynthesis Bilateral (08/30/2023 12:11 PM EST) Anatomical Region Laterality Modality Breast Bilateral Mammography 08/30/2023 12:1 1 PM EST Narrative 08/30/2023 1:07 PM EST ? [facility] [place] [address] ?[place] [address] ? Mammography Report ? Signed ? Patient: Joana ,Jessy ?MR#: [id number] ?? [id number] ? : 1965 ?Acct:[id number] ? Age/Sex: 58 / F ?ADM Date: 01/18/24 ? Loc: HO.MAMMO ? Attending : Pipe Yo INSURANCE CLAIM AUDITOR ? Ordering Physician: PIPE YO NP ?Results: 2Benign Fin ?? dings ? Date of Service: 08/30/23 ?Follow Up: 1 Year From Orig ?? inal Mammogram ? Procedure(s): MM tomosynthesis diagnostic BI ?? Accession Number(s): [id number] ? cc: PIPE YO NP ? EXAMINATION: [...] 1303 ? DD/ 1211 ? TD/TT: ? Technical Delivery Manager: ? Procedure Note Julius, Image - 08/30/2023 [place] [facility] [address] [place] [address] Mammography Report Signed Patient: Pop Shanks#: [id number] : 1965Acct:[id number] Age/Sex: 58 / FADM Date: 08/30/23 Loc: HO.MAMMO Attending Dr: Pipe Yo INSURANCE CLAIM AUDITOR Ordering Physician: PIPE YOesults: 2[facility] Date of Service: 08/30/23Follow Up: 1 Year From Orig ina Mammogram Procedure(s): MM tomosynthesis diagnostic BI Accession Number(s): [id number] cc: PIPE YO INSURANCE CLAIM AUDITOR EXAMINATION: MM DIAGNOSTIC DIGITAL BREAST TOMOSYNTHESIS, BILATERAL [...] in OV> 08/30/23 1303 DD/ 1211 TD/TT: Technical Delivery Manager: [facility] BI PROCEDURES Final Result * HPV mRNA E6/E7 (05/19/2021 11:47 AM EDT) HPV nRNA E6/E7 Not Detected Not Detected [facility] Comment: Methodology: Global Clinical Leader-Mediated Amplification This assay detects E6/E7 viral messenger RNA (mRNA) from 14 high-risk HPV types (16,18,31,33,35,39,45,51,52,56,58,59,66,68). ? The analytical performance characteristics of this assay have been determined by [employer]. The modifications have not been cleared or approved by the FDA. This assay has been validated pursuant to the CLIA regulations and is used for clinical purposes. ?? For additional information, please refer to http://education.JobFlash.Etu6.com/faq/OYE405r0 (This link if provided for information/ educational purposes only.) 05/19/2021 11:4 7 AM EDT [facility] LAB BLOOD ORDERABLES [place] l Result [facility] SYSTEM [address] * Pap Smear (05/19/2021 12:00 AM EDT) Swab Hui Gutierres [facility] CYTOLOGY ORDERABLES F inal Result Performing Organization Address City/[facility] Co de Phone Number [employer] [address] [place] [address], [place] [address] from Last 3 Months or Most Recently Relevant to Health Maintenance Insurance [facility] C3 Care Teams Md Urologist Relationship Specialty Start Date End Date Sherie William MD [address] [place] [address] PCP - General Internal Medicine 03/19/24
--- OUTSIDE RECORDS SUMMARY | 2024-12-12 11:39 | XMS_ITS | Encounter Summary ---
Author Organization [employer] Address [address] [facility] 7t [place] [address] Care Team Providers Care Recreational Therapy Technician Name Role Phone Sherie William MD Primary Care Provide r Encounter Details Date Type Department Care Team ([facility] st Contact Info) Description 04/28/2024 Orders Only [facility] [address] [place] [address] Cindy Zacarias, ANP [address] [place] [address] Social History Tobacco Use Types Packs/Day Years [...] documented as of this encounter Care Teams Recreational Therapy Technician Relationship Specialty Start Date End Date Sherie William MD [address] [place] [address] PCP - General Internal Medicine 03/19/24 documented as of this encounter
--- OUTSIDE RECORDS SUMMARY | 2024-12-12 11:39 | XMS_ITS | Encounter Summary ---
Author Organization [employer] [facility] Address [address] [place] [address] 7t [place] [address] Care Team Providers Care Structured Cabling Technician Name Role Phone Cindy Zacarias Primary Care Provider [phone] Sherie William MD Primary Care Provide r Encounter Details Date Type Department Care Team ([facility] st Contact Info) Description 04/03/[address] [facility] [address] [place], [place] [phone] Provider, MD Jillian Social History Tobacco Use [...] on filedocumented in this encounter Care Teams Structured Cabling Technician Relationship Specialty Start Date End Date Cindy Zacarias ANP [address] [place] [address] PCP - General Family Medicine 07/20/20 03/18/24 Sherie William MD [address] [place] [address] PCP - General Internal Medicine 03/19/24 documented as of this encounter
--- OUTSIDE RECORDS SUMMARY | 2024-12-12 11:39 | XMS_ITS ---
Author Organization [employer] Address [address] [facility] 7t [place] [address] Care Team Providers Care Compliance Program Manager Name Role Phone Sherie William MD Primary Care Provide r CHW Complex Status:Enrolled (Active) Start date:11/20/2024 Enrollment date:11/20/2024 Enrollment reason:ADT Feed Overview [facility] ED 11/19/24 Case Team Name Relationship Phone Crys Marvin (Responsible Staff) Continued Care and Services Coordination
--- OUTSIDE RECORDS SUMMARY | 2024-12-12 11:39 | XMS_ITS | Encounter Summary ---
Author Organization [facility] Address [address] [place] [address] 7t [place] [address] Care Team Providers Care Visiting Professor Name Role Phone Cindy Zacarias Primary Care Provider [phone] Sherie William MD Primary Care Provide r [...] on filedocumented in this encounter Care Teams Visiting Professor Relationship Specialty Start Date End Date Cindy Zacarias ANP [address] [place] [address] PCP - General Family Medicine 07/20/20 03/18/24 Sherie William MD [address] [place], [place] [phone] PCP - General Internal Medicine 03/19/24 documented as of this encounter
--- OUTSIDE RECORDS SUMMARY | 2024-12-12 11:39 | XMS_ITS ---
Author Organization [employer] Address [address] [facility] 7t [place] [address] Care Team Providers Care Vegetable Packer Name Role Phone Sherie William MD Primary Care Provide r CM Complex Status:Identified (Enrolling) Start date:11/20/2024 Enrollment reason:ADT Feed Overview [facility] ED 11/19/24 Case Team Name Relationship Phone Brandon Tijerina RN Registered Nurse(Responsible St aff) Continued Care and Services Coordination
== END 2024-12-12 11:16 | disposition home or self-care (01) ==
LOC: HO.HOS 10:33
PROVIDERS: PCP Internal Medicine; Visit Provider Physician Assistant
DX: S82.892A Other fracture of left lower leg, initial encounter for closed fracture (principal); Z98.890 Other specified postprocedural states; Z87.81 Personal history of (healed) traumatic fracture
CPT/HCPCS: 99024

== ENCOUNTER → 2024-12-12 10:42 | Outpatient (BNV) | payer MEDICAID, SELFPAY | PROVIDERS: Visit Provider Radiology Diagnostic Radiology | DX: S82.832A Other fracture of upper and lower end of left fibula, initial encounter for closed fracture (principal) | CPT/HCPCS: 73610 ==

== ENCOUNTER 2025-01-09 08:38 | Outpatient (REF) | payer MEDICAID, SELFPAY ==
--- OUTSIDE RECORDS SUMMARY | 2025-01-12 08:55 | XMS_ITS | Encounter Summary ---
Author Organization [employer] Address [address] [place] [address] 7t [place] [address] Care Team Providers Care Line Service Supervisor Name Role Phone Sherie William MD Primary Care Provide r Reason for Visit * Reason Comments Care Coordination Encounter Details Date Type Department Care Team ([facility] st Contact Info) Description 01/09/[address] [facility] MEDICINE 230 [place], [place] [phone] Sherie William MD [address] [place] [address] Care Coordination Social History Tobacco Use Types Packs/Day Years Used Date Smoking Tobacco: Some Days Cigarettes Passive Smoke Exposure: Current Smokeless Tobacco: Never Comments:3 cigs a day Alcohol Use Standard Drinks/Week Comments Yes 0 (1 standard drink = 0.6 oz pur e alcohol) OC Depression Answer Date Recorded Patient Health Questionnaire-9 Score 6 12/16/2024 Patient Health Questionnaire-9 Score 6 12/16/2024 Last PHQ-9: Questionnaire Data Not on file 0 12/16/2024 Housing Stability Answer Date Recorded What is [...] from getting things needed for daily living? No 12/25/2024 Utilities Answer Date Recorded In the past 12 months, has t he electric, gas, oil or water company threatened to shut off services in your home? No 12/14/2023 Depression Answer Date Recorded Patient Health Questionnaire-2 Score 2 12/16/2024 Internet Access Answer Date Recorded Internet Access [...] encounter Progress Notes * Crys Marvin - 01/09/2025 11:27 AM EDT CHW Crys Marvin placed outbound call to patient for follow up call on SDOH needs. No answer at thistime. LVM introducing herself from [facility] CM Department. Requested call back. CHW reinforced direct contact information or CM for any additional questionsor concerns and extended clinic hours on Mondays and Wednesdays, and Walk-In Urgent Care [facility]. Patient provided with after-hours line for [facility], , which offer night time triage service and option to transfer to car construction superintendent provider if needed. CHW will attempt another followup call within 10 days. documented in this encounter Plan of Treatment Not on file documented as of this encounter Visit Diagnoses Not on filedocumented in this encounter Additional Health Concerns Assessment Noted Time PHQ-9 Depression Total Score: 6 12/17/19 25 10:48 AM EDT documented as of this encounter Care Teams Line Service Supervisor Relationship Specialty Start Date End Date Sherie William MD [address] [place] [id number] PCP - General Internal Medicine 03/19/24 documented as of this encounter
== END 2025-01-09 08:39 | disposition home or self-care (01) ==
LOC: HO.HOSX 08:38
PROVIDERS: Visit Provider Physician Assistant
DX: Z13.89 Encounter for screening for other disorder (principal)

== ENCOUNTER 2025-01-15 12:14 | Outpatient (REF) | payer MEDICAID, SELFPAY ==
--- NOTE | ~2025-01-15 | XR_ITS ---
CLINICAL HISTORY: M25.572 - Pain in left ankle and joints of left foot 3 view left ankle Comparison: 09/06/2024 Findings: Status post open reduction internal fixation. A compression plate is noted in the distal fibula. There is an anchor in the distal tibia. Soft tissue edema. Calcaneal enthesophyte. Osteopenia. Impression: Postsurgical changes of the ankle. No evidence of hardware complication. This document has been electronically signed by: Jorge Luis Ruano MD on 01/16/2025 15:07:46
--- OUTSIDE RECORDS SUMMARY | 2025-01-15 14:19 | XMS_ITS | Encounter Summary ---
Author Organization [employer] Address [address] [place] [address] 7t [place] [address] Care Team Providers Care Mechanic Helper Name Role Phone Sherie William MD Primary Care Provide r Reason for Visit * Reason Comments Care Management C3CM- initial assess ment/enrollment Encounter Details Date Type Department Care Team ([facility] st Contact Info) Description 12/16/2024 Patient Outreach [facility] MEDICINE 230 [place] [address] Sherie William MD [address] [place] [address] Care Management (C3CM- initial assessment/enrollmen t) Social History Tobacco Use Types [...] AM EDT documented as of this encounter Functional Status * Over the past 2 weeks, how often have you been bothered by any of the following problems? Question Answer Date of Assessment Author Patient Health Questionnaire -2 Score 2 12/16/2024 10:48 AM EDT Brandon Tijerina RN * Little interest or pleasure in doing things Answer Date of Assessment Author Several days 12/16/2024 10:48 AM EDT Brandon Tijerina RN * Feeling down, depressed, or hopeless Answer Date of Assessment Author Several days 12/16/2024 10:48 AM JAMIET Brandon Tijerina, VISHNU * Trouble falling or staying asleep, or sleeping too much Answer Date of Assessment Author Not at all 12/16/2024 10:48 AM EDT Brandon Tijerina, VISHNU * Feeling tired or having little energy Answer Date of Assessment Author Several days 12/16/2024 10:48 AM EDT Brandon Tijerina RN * Poor appetite or overeating Answer Date of Assessment Author Several days 12/16/2024 10:48 AM EDT Brandon Tijerina, VISHNU * Feeling bad about yourself - or that you are a failure or have let yourself or your family down Answer Date of Assessment Author Several days 12/16/2024 10:48 AM Brandon Douglas RN * Trouble concentrating on things, such as reading the newspaper or watching television Answer Date of Assessment Author Several days 12/16/2024 10:48 AM Brandon Douglas RN * Moving or speaking so slowly that other people could have noticed? Or the opposite - being so fidgety or restless that you have been moving around a lot more than usual. Answer Date of Assessment Author Not at all 12/16/2024 10:48 AM Brandon Douglas RN * Thoughts that you would be better off or hurting yourself in some way Answer Date of Assessment Author Not at all 12/16/2024 10:48 AM Brandon Douglas RN * Patient Health Questionnaire-9 Score Answer Date of Assessment Author 6 12/16/2024 10:48 AM Brandon Douglas RN * How difficult have these problems made it for you to do your work, take care of things at home, or get along with other people? Answer Date of Assessment Author Somewhat difficult 12/16/2024 10:48 AM Brandon Bowman RN * Over the last 2 weeks, how often have you been bothered by any of the following problems? Question Answer Date of Assessment Author Feeling nervous, anxious, or on edge 1 12/16/2024 10:39 AM Brandon Douglas RN Not being able to stop or co ntrol worrying 1 12/16/2024 10:39 AM Brandon Douglas RN Worrying too much about diff erent things 1 12/16/2024 10:39 AM Brandon Douglas RN Trouble relaxing 1 12/16/2024 10:39 AM Brandon Douglas RN Being so restless that it is hard to sit still 0 12/16/2024 10:39 AM Brandon Douglas RN Becoming easily annoyed or irritable 1 12/16/2024 10:39 AM Brandon Douglas RN Feeling afraid as if somethi ng awful might happen 1 12/16/2024 10:39 AM Brandon Douglas RN MARIA FERNANDA-7 Total Score 6 12/16/2024 10:39 AM EDT Brandon Tijerina, RN documented as of this encounter Progress Notes * Brandon Tijerina RN - 12/16/2024 9:58 AM EDT CM Brandon Tijerina RN placed outbound call to patient for agreed upon time for initial assessment forenrollment into Adult Care Management Program. Patient's name, , and address were verified. Jessy Sullivan is a 59 year old [place]ian speaking female with prior medical history of asthma, chronic maxillary sinusitis, GERD, intraductal carcinoma in situ of left breast, MARIA FERNANDA, chronic bilateralthoracic back pain, COPD, and depressive disorder, closed fracture of distal end of left fibula. Patient reports that she can read and write in Bermudian and last grade completed was 12th grade (has her GED). Patient reports the following specialists: [facility] orthopedic surgeon, [facility], [facility] pulmonology. P atient reports that she stopped going to physical therapy. Patient denies any hearing/dental concerns but does report vision concerns. Patient reports difficulty reading due to blurry vision. Patientreports using [employer] reading glasses which helps a little. Patient reports that she has an optometry appointment in 2025. Patient reports her last visit to [facility] was on 11/19/24 due to left leg pain and swelling, diagnosed with cellulitis and was prescribed antibiotics. Patient has the following DME: cane, crutches and nebulizer, orthopedic boot. Patient reports that she rents and live alone in an apartment on the 3rd floor. Patient reports that utilities are up to date. Patient reports that she receives food stamps but sometimes is not enough. Patient denies working or having any transportation to medical appointments. Patient denies being on a special diet, taking any vitamins/supplements, or exercising. Patient reports weight concerns, state she currently weighs between 174-179 lbs. Patient reports that she fell on 09/06/24 and suffered a closed fracture of distal end of the left fibula, and had surgery on 09/18/24. Patient reports that they placed 11 screws. Patient state she still can't walk and has an orthopedic boot on. Patient has been following up with orthopedic surgery and everything is good. Patient state sometimes her ankle hurt and swells up. Patient reports feeling afraid to walk on foot. Patient reports that she speaks with psychiatrist regularly and is taking her medication. Patient reports that she has crisis # and denies any SI/HI. Patient reports that she likes to be alone especially in her room. Patient states that when she prays to God it helps her relax. Patient scored a 6 on the phq 9 (mild depression) and a 6 on the MARIA FERNANDA-7 (mild anxiety). Patient reports that she feels safe in her home. Patient denies drinking or any illegal drugs. Patient reports that she smokes cigarettes which helps with her anxiety. Patient reports that she doesn't receive any VNA or CONSULTANT NURSE services. Patient states that she sometimes needs help with ADL's and would like for CM to send her a list of CONSULTANT NURSE companies. Patient reports that her emergency contact is her son. CM completed med reconciliation. Pt denies any side effects and has medication bottles. Patient reports she is not taking omeprazole every day only as needed and is taking tizanidine PRN. Patient reports that Seroquel is helping with sleep. Patient states her main concern/priority is to get better in regards to her left foot/ankle. Patient reports that her next ortho appointment is on 01/09/25. Lastly, patient reports that she has been canceling all her other specialist appointment and only want to see her orthopedics. Care management program explained and contact information given. Patient verbalizes understanding, and able to repeat back to technical document writer. A follow up call will be placed within 10 days, patient agrees with plan. documented in this encounter Plan of Treatment Not on file documented as of this encounter Visit Diagnoses Not on filedocumented in this encounter Additional Health Concerns Assessment Noted Time PHQ-9 Depression Total Score: 6 12/17/19 25 10:48 AM EDT documented as of this encounter Care Teams Mechanic Helper Relationship Specialty Start Date End Date Sherie William MD [address] [place] [id number] PCP - General Internal Medicine 03/19/24 documented as of this encounter
== END 2025-01-15 12:15 | disposition home or self-care (01) ==
LOC: HO.HOSX 12:14
PROVIDERS: Visit Provider Physician Assistant
DX: M25.572 Pain in left ankle and joints of left foot (principal); Z98.890 Other specified postprocedural states; Z87.81 Personal history of (healed) traumatic fracture
CPT/HCPCS: 73610; 99212

== ENCOUNTER 2025-01-15 14:16 | Outpatient (AMB) | payer MEDICAID, SELFPAY ==
--- NOTE | 2025-01-15 14:54 | A.OFFVIS_ITS ---
Vital Signs 01/15/25 15:06 Height 5 ft 5 in Weight 184 lb BMI 30.6 Intake Visit Reasons: OV - left ankle ORIF 09/16/24 NE Intake Note: Jessy is a 59 year old female who presents today for her post operative LT ankle ORIF 09/16/24 NE. Patient reports that she continues to have ongoing swelling in her foot. She feels pressure in her foot with ambulation in walking boot and is unsure if she has a nerve conditions. Achilles area is tender to the touch. Frit Mixer And Burner Required: Yes Frit Mixer And Burner Services: Frit Mixer And Burner Present Frit Mixer And Burner Name: Smith [id number] Allergies No Known Allergies Allergy (Verified 01/15/25 15:04) Medication List - Last Reconciled 01/15/25 by Mckayla Montano PA-C acetaminophen (Tylenol) 650 mg (2 x 325 mg) PO Q6H PRN albuterol sulfate 90 mcg/actuation (ProAir HFA) 2 puffs PO Q4H PRN [breast prosthetic As directed] celecoxib (Celebrex) 200 mg PO BID 30 days celecoxib (Celebrex) 200 mg PO BID 30 days cyclobenzaprine 5 mg PO BEDTIME duloxetine 1 cap PO DAILY ergocalciferol (vitamin D2) (Vitamin D2) 1,250 mcg PO QWEEK famotidine (Pepcid) 20 mg PO DAILY fluticasone furoate-vilanterol 200-25 mcg/dose (Breo Ellipta) 1 inh inhalation Q24H ibuprofen 400 mg PO TID PRN ipratropium-albuterol 0.5 mg-3 mg(2.5 mg base)/3 mL 3 mL inhalation Q4-6H PRN [Kneeling Scooter As directed] letrozole 2.5 mg PO DAILY meloxicam 7.5 mg PO DAILY omeprazole 40 mg PO DAILY [post-lumpectomy bra As directed] sucralfate (Carafate) 10 mL PO BID HPI HPI OV - left ankle ORIF 09/16/24 NE: Details: 59 yo female presents to the office today s/p Lt ankle ORIF 09/16/24 with NE. She states she has pain and swelling at the bottom of the foot and along the side of the ankle. She has not started physical therapy. She states she has no time. [facility] Medical History Arm numbness left Arthritis Asthma Breast cancer Cervical spinal stenosis Depression GERD (gastroesophageal reflux disease) Surgical History S/P lumpectomy, left breast (09/14/21) History of pterygium excision Family History Maternal Grandmother Stomach cancer Social History Household Members: Children Housing: Apartment Are you a primary special needs child caregiver to a significant other at home: No Do you presently have visiting nurse or other home services: No Alcohol intake: current Alcohol intake frequency: does not drink Patient Tobacco Use Status: Current everyday Tobacco user Tobacco use type: Cigarette Cigarettes Per Day: 2 Years Smoked: started at age 18, 1PPD , currently 10 per day service: No Current occupational status: unemployed Current occupation: Left Handed Female Reproductive History Menstrual Age of Menarche: 15 Review of Systems Const All systems reviewed & are unremarkable except as noted in HPI and below Physical Exam Vital Signs: BMI result Body Mass Index 30.6 Extrem Other: Left ankle incision is well healed and approximated. No signs of infection. No erythema or drainage. Lateral-sided ankle edema. She can perform dorsiflexion, plantar flexion, however she has stiffness with plantar flexion. She also has weakness with inversion and eversion against resistance. Calf is supple and nontender. Sensation intact. Pedal pulse intact. Results Reviewed Results Reviewed: X-rays of her left ankle obtained in the office today and reviewed by me show well healed fracture with intact hardware Assessment & Plan Assessment & Plan (1) Status post ORIF of fracture of ankle: Code(s): Z98.890 - Other specified postprocedural states; Z87.81 - Personal history of (healed) traumatic fracture Category: Surgical Plan: I stressed the importance of increasing activities as tolerated but she needs to work with physical therapy to regain the strength and motion otherwise she is going to continue having difficulty with daily activities and experiencing pain and swelling. She was transitioned out of the boot and crutches today and given a lace-up ankle brace in the office today I expect her to continue working on exercises I even gave her a home exercise program handout but stressed the importance of actually getting into physical therapy so she can see some progress. I did explain to the patient she can continue to see soft tissue swelling and intermittent flare-ups for up to a year postoperatively but if she is not compliant with her treatment plan she can expect to have chronic pain and likely joint collapse if the ankle is weak. She does express understanding. She was given a prescription for Voltaren gel which she can use for discomfort and swelling. She does not need to see us back unless there is any concerns. Orders: Orders XR ankle LT min 3V Today M25.572 - Pain in left ankle and joints of left foot PT Evaluation and Treatment Today Z87.81 - Personal history of (healed) traumatic fracture, Z98.890 - Other specified postprocedural states Coding Level of Care Code Est Pt Level 3 (14720) Complex EM visit Add On G2211 Diagnoses Status post ORIF of fracture of ankle Z98.890; Z87.81
[2025-01-15 15:06] VITALS: BMI 30.6
== END 2025-01-15 15:43 | disposition home or self-care (01) ==
LOC: HO.HOS 14:17
PROVIDERS: PCP Nurse Practitioner Primary Care; Visit Provider Physician Assistant
DX: Z47.89 Encounter for other orthopedic aftercare (principal); S82.62XD Displaced fracture of lateral malleolus of left fibula, subsequent encounter for closed fracture with routine healing; Z87.81 Personal history of (healed) traumatic fracture
CPT/HCPCS: 99213

== ENCOUNTER → 2025-01-15 14:43 | Outpatient (BNV) | payer MEDICAID, SELFPAY | PROVIDERS: Visit Provider Nuclear Medicine | DX: M25.572 Pain in left ankle and joints of left foot (principal) | CPT/HCPCS: 73610 ==

== ENCOUNTER 2025-03-10 06:37 | Emergency (ER) | payer MEDICAID, SELFPAY ==
--- NOTE | ~2025-03-10 | XR_ITS ---
EXAMINATION: XR FOOT, LEFT CLINICAL INFORMATION: pain COMPARISON: November 29, 2024. TECHNIQUE: AP, lateral, and oblique views of the left foot. FINDINGS: Generalized decreased mineralization. Mouth-eaten pattern. Soft tissue edema pattern. No gross subcutaneous emphysema. No acute cortical disruption or malalignment. Metallic plates at the distal fibula and lateral malleolus and the medial malleolus. XR/XR foot LT min 3V IMPRESSION: Acute on chronic osteomyelitis cannot be excluded. Lymphoproliferative disorder versus metastatic disease should be included in the differential. No acute fracture or dislocation. Electronically signed by: Shamar Saunders MD 03/10/2025 08:14 AM EDT
[2025-03-10 07:01] VITALS: BP 172/89; PULSE 89; RESP 19; TEMP 36.6; O2SAT 98; BMI 27.3
--- NOTE | 2025-03-10 08:08 | ED.GENADULT ---
HPI - General Adult General Chief complaint: Extremity Injury, Lower Stated complaint: foot pain Time Seen by Provider: 03/10/25 08:08 History of Present Illness ED Provider: Kera CISNEROS narrative: The patient is a 59-year-old woman who had a left distal fibular fracture with surgical repair in September 2024. She has had problems with ongoing pain since the surgery. She presents today stating that she has had worsening pain in the left ankle and on the dorsum of the left foot over the last 2 weeks. She has had no fever, sweats, chills. She has been able to move the ankle but says that she has pain if she is on her feet too long. She says she has contacted the orthopedic office but is frustrated that she can not be seen faster so she came to the emergency room. Related Data Home Medications ?Medication ?Instructions ?Recorded ?Confirmed cyclobenzaprine 5 mg tablet 5 mg PO BEDTIME 06/16/20 01/15/25 duloxetine 30 mg capsule,delayed 1 cap PO DAILY 08/18/21 01/15/25 release albuterol sulfate 90 mcg/actuation 2 puff PO Q4H PRN wheezing 09/14/21 01/15/25 aerosol inhaler (ProAir HFA) meloxicam 7.5 mg tablet 7.5 mg PO DAILY 09/28/21 01/15/25 Previous Rx's ?Medication ?Instructions ?Recorded ergocalciferol (vitamin D2) 1,250 1,250 mcg PO QWEEK #6 caps 02/10/22 mcg (50,000 unit) capsule (Vitamin D2) breast prosthetic #2 ea 05/16/22 post-lumpectomy bra #2 ea 05/16/22 omeprazole 40 mg capsule,delayed 40 mg PO DAILY #30 caps 02/08/23 release sucralfate 100 mg/mL oral 10 ml PO BID #420 mL 02/08/23 suspension (Carafate) acetaminophen 325 mg capsule 650 mg (2 x 325 mg) PO Q6H PRN 02/10/23 (Tylenol) fever or pain #30 caps famotidine 20 mg tablet (Pepcid) 20 mg PO DAILY #30 tabs 02/10/23 ibuprofen 400 mg tablet 400 mg PO TID PRN fever or pain 02/10/23 #30 tabs fluticasone furoate 200 1 inh inhalation Q24H #60 ea 05/08/24 mcg-vilanterol 25 mcg/dose inhalation powder (Breo Ellipta) ipratropium 0.5 mg-albuterol 3 mg 3 ml inhalation Q4-6H PRN wheezing 06/11/24 (2.5 mg base)/3 mL nebulization #180 mL soln Kneeling Scooter #1 ea 09/12/24 celecoxib 200 mg capsule (Celebrex) 200 mg PO BID 30 days #60 caps 10/01/24 celecoxib 200 mg capsule (Celebrex) 200 mg PO BID 30 days #60 caps 10/29/24 letrozole 2.5 mg tablet 2.5 mg PO DAILY #60 tabs 12/19/24 diclofenac sodium 1 % topical gel 4 g topical QID 30 days #100 grams 01/15/25 acetaminophen 500 mg capsule 1,000 mg (2 x 500 mg) PO Q8H PRN 03/10/25 fever or pain #14 caps ibuprofen 400 mg tablet 400 mg PO Q6H PRN pain #14 tabs 03/10/25 Allergies Allergy/AdvReac Type Severity Reaction Status Date / Time No Known Allergies Allergy Verified 03/10/25 07:05 Review of Systems Review of Systems: Yes all other systems are reviewed and are negative [facility] Past Medical History Medical History Arm numbness left Arthritis Asthma Breast cancer Cervical spinal stenosis Depression GERD (gastroesophageal reflux disease) Surgical History S/P lumpectomy, left breast (09/14/21) History of pterygium excision Family History Family History Maternal Grandmother Stomach cancer Social History Social History Household Members: Children Housing: Apartment Are you a primary palliative care specialist to a significant other at home: No Do you presently have visiting nurse or other home services: No Alcohol intake: current Alcohol intake frequency: does not drink Patient Tobacco Use Status: Current everyday Tobacco user Tobacco use type: Cigarette Cigarettes Per Day: 2 Years Smoked: started at age 18, 1PPD , currently 10 per day Advance Directives: No Advance Directives Information Provided: Yes Do you have a plan to hurt others: No Plan service: No Current occupational status: unemployed Current occupation: Left Handed Physical Exam ED Vital Signs: Vital Signs - 24 hr 03/10/25 08:11 03/10/25 08:49 Temperature 97.9 F 97.9 F Pulse Rate 75 75 Respiratory Rate 20 20 Blood Pressure 126/88 126/88 Pulse Oximetry 100 100 Oxygen Delivery Method Room Air Room Air BMI result Body Mass Index 27.3 Const Other: The patient is a 59-year-old woman who was awake and alert. She does not appear in acute distress. She does not appear toxic. HENMT Other: The face is symmetrical. Mucous membranes moist. Eyes General: appearance normal, both eyes and all related structures Neck Neck: Yes normal visual inspection and Yes full ROM Resp Effort & Inspection: normal respiratory effort Auscultation: clear to auscultation bilaterally Cardio Rate: regular rate Rhythm: regular rhythm Heart sounds: S1 normal heart sound present and S2 normal heart sound present Skin Other: the skin of the left lower leg, ankle, and foot is largely unremarkable. There are some postsurgical changes over the left lateral malleolus. There is no erythema. No significant edema to the foot itself. Neuro Other: The patient is awake and alert with a normal mental status. Cranial nerves are grossly intact. She moves her extremities with normal strength and sensation. Extrem Other: The patient has surgical changes to the skin over the left lateral malleolus that look well healed. There is no erythema. There are good pulses to both feet. She is able to move the left ankle and to wiggle all the toes of the left foot. She seems to have generalized tenderness around the ankle and the midfoot without focal tenderness. Medical Decision Making Medical Decision Making [facility] Narrative: A left foot x-ray has been ordered at triage. I reviewed the x-ray and did not feel there was any definite acute finding. I saw the patient with a bilingual interpreter. The patient's foot is neurovascularly intact and I do not feel there is any clinical sign of an infection. I explained to the patient that I did not feel that there was any acute emergency related to her foot. Her complaints seem subacute and I think that her issues would be better addressed by the orthopedic office or her primary care doctor's office. I explained this to the patient. She was disappointed. She was discharged prior to the results of her x-ray results with the recommendation to rest the foot, to keep it elevated, and use ibuprofen and acetaminophen as needed. After the patient's discharge the patient has radiology reading of her foot x-ray came back with some equivocal comments about possible osteomyelitis. My clinical suspicion for osteomyelitis is low. I contacted the covering orthopedic provider and explained these radiology findings and my clinical impression with a request to arrange appropriate outpatient follow up. The orthopedic provider was familiar with the patient. Discharge Plan Discharge Clinical Impression: Pain of joint of left ankle and foot Patient Disposition: Home, Self-Care Additional Instructions: Please contact the orthopedic office for follow up. Please discuss these symptoms you has been having with the orthopedic office. In the meantime do your best to try to stay off the left foot and keep it elevated. You may use ibuprofen and acetaminophen as needed for pain. Call the orthopedic office and say that you were in the emergency room because of the worsening pain. Return to the emergency room if you develop fever or worsening swelling. Prescriptions: New ibuprofen 400 mg tablet 400 mg PO Q6H PRN (Reason: pain) Qty: 14 0RF acetaminophen 500 mg capsule 1,000 mg PO Q8H PRN (Reason: fever or pain) Qty: 14 0RF No Action (DME) breast prosthetic to fit See Rx Instructions .Route .MEDSUPPLY Qty: 2 0RF Rx Instructions: As directed (DME) post-lumpectomy bra to fit See Rx Instructions .Route .MEDSUPPLY Qty: 2 0RF Rx Instructions: As directed duloxetine 30 mg capsule,delayed release(DR/EC) 1 cap PO DAILY albuterol sulfate [ProAir HFA] 90 mcg/actuation HFA aerosol inhaler 2 puff PO Q4H PRN (Reason: wheezing) meloxicam 7.5 mg Tablet 7.5 mg PO DAILY ergocalciferol (vitamin D2) [Vitamin D2] 1,250 mcg (50,000 unit) Capsule 1,250 mcg PO QWEEK Qty: 6 1RF letrozole 2.5 mg Tablet 2.5 mg PO DAILY Qty: 60 7RF omeprazole 40 mg capsule,delayed release(DR/EC) 40 mg PO DAILY Qty: 30 0RF sucralfate [Carafate] 100 mg/mL suspension 10 ml PO BID Qty: 420 0RF ibuprofen 400 mg tablet 400 mg PO TID PRN (Reason: fever or pain) Qty: 30 0RF famotidine [Pepcid] 20 mg tablet 20 mg PO DAILY Qty: 30 0RF acetaminophen [Tylenol] 325 mg capsule 650 mg PO Q6H PRN (Reason: fever or pain) Qty: 30 0RF cyclobenzaprine 5 mg tablet 5 mg PO BEDTIME (DME) Kneeling Scooter See Rx Instructions .ROUTE .MEDSUPPLY Qty: 1 0RF Rx Instructions: As directed fluticasone furoate-vilanterol [Breo Ellipta] 200-25 mcg/dose blister with device 1 inh inhalation Q24H Qty: 60 6RF ipratropium-albuterol 0.5 mg-3 mg(2.5 mg base)/3 mL solution for nebulization 3 ml inhalation Q4-6H PRN (Reason: wheezing) Qty: 180 6RF celecoxib [Celebrex] 200 mg capsule 200 mg PO BID 30 Days Qty: 60 0RF celecoxib [Celebrex] 200 mg capsule 200 mg PO BID 30 Days Qty: 60 3RF diclofenac sodium 1 % gel 4 g topical QID 30 Days Qty: 100 6RF Rx Instructions: apply 4grams to affected area four times a day as needed Referrals: [facility] [Provider Group] Referral Note: ongoing post-op pain Sherie William MD [Primary Care Provider, Internal Medicine] Interventions: ED Discharge Assessment Last Done: 03/10/25 08:49 Discharge Date/Time: 03/10/25 08:51 Print Language: Albanian
[2025-03-10 08:11] VITALS: BP 126/88; PULSE 75; RESP 20; TEMP 36.6; O2SAT 100
--- OUTSIDE RECORDS SUMMARY | 2025-03-10 08:21 | XMS_ITS | Encounter Summary ---
Author Organization [facility] Address [address] [place] [phone] Phone Care Team Providers Care Pearl Glue Operator Name Role Phone Cindy Zacarias KETTLE GIRL Primary Care Provider [phone] Encounter Details Date Type Department Care Team (Late st Contact Info) Description 09/30/2021 Ancillary Orders [facility],Outside Imaging [address], [place] [id number] System, Provider Not In, [place] [address] Social History Tobacco Use Types Packs/Day Years Used Date Smoking Tobacco: Never Assessed Comments Unknown Sex and Gender Information Value Date Recorded Sex Assigned at Not on file Legal Sex Female 8:27 AM EST Gender Identity Not on file Sexual Orientation Not on file documented as of this encounter Plan of Treatment Not on file documented as of this encounter Results * Mammogram Outside (No Interpretation) (07/29/2021 12:00 AM EST) Narrative SYSTEMGENERATED, DOCUMENTATION - 09/30/2021 2:43 PM EST This study is for PACS storage only and not for interpretation. us Provider Not In System PhD [facility] OUTSIDE IMAGING W /OUT INTERPRETATION Final Result documented in this encounter Visit Diagnoses Not on filedocumented in this encounter Care Teams Pearl Glue Operator Relationship Specialty Start Date End Date Cindy Zacarias NP [address] [place] [address] [phone] PCP - General Family Medicine 09/29/21 documented as of this encounter Additional Source Comments The information contained in this document represents components of the legal health record. It is not the complete legal health record.[facility]
--- NOTE | 2025-03-10 08:43 | PC.NURSE ---
PT was seen by the provider and plan is for follow up with ortho. presented with axillary crutches from home.
[2025-03-10 08:49] VITALS: BP 126/88; PULSE 75; RESP 20; TEMP 36.6; O2SAT 100
== END 2025-03-10 08:51 | disposition home or self-care (01) ==
PROVIDERS: Emergency Provider Emergency Medicine; PCP Internal Medicine
DX: M25.572 Pain in left ankle and joints of left foot (principal); Z79.899 Other long term (current) drug therapy; F17.210 Nicotine dependence, cigarettes, uncomplicated
CPT/HCPCS: 73630; 99283

== ENCOUNTER → 2025-03-10 06:42 | Outpatient (BNV) | payer MEDICAID, SELFPAY | PROVIDERS: Emergency Provider Emergency Medicine; PCP Internal Medicine; Visit Provider Radiology Diagnostic Radiology | DX: M79.672 Pain in left foot (principal) | CPT/HCPCS: 73630 ==

== ENCOUNTER 2025-04-02 12:06 | Outpatient (REF) | payer MEDICAID, SELFPAY ==
--- NOTE | ~2025-04-02 | XR_ITS ---
EXAMINATION: XR ANKLE, left CLINICAL INFORMATION: M25.572 - Pain in left ankle and joints of left foot COMPARISON: January 15, 2025 TECHNIQUE: AP, lateral, and mortise views lower extremity joint, ankle. FINDINGS: Side plate and screws across the distal fibula remain intact. Metallic button over the medial tibial metaphysis securing the syndesmotic stabilization surgery is again noted. Ankle mortise is congruent. There is no widening of the syndesmosis. There is heterotopic ossification across the interosseous membrane just cephalad to the syndesmosis. There is a small focal lucency in the medial talar dome, subchondral bone. There are small to medium calcaneal enthesophytes. XR/XR ankle LT min 3V IMPRESSION: Small focal lucency in the subchondral bone of the medial talar dome could represent degenerative cyst or osteochondral lesion. Stable postoperative changes. Electronically signed by: Zac Lindsay MD 04/02/2025 01:52 PM EDT
== END 2025-04-02 12:07 | disposition home or self-care (01) ==
LOC: HO.HOSX 12:06
PROVIDERS: Visit Provider Physician Assistant
DX: M25.572 Pain in left ankle and joints of left foot (principal); Z98.890 Other specified postprocedural states; Z87.81 Personal history of (healed) traumatic fracture; Z96.9 Presence of functional implant, unspecified
CPT/HCPCS: 73610; 99212

== ENCOUNTER 2025-04-02 12:52 | Outpatient (AMB) | payer MEDICAID, SELFPAY ==
--- OUTSIDE RECORDS SUMMARY | 2025-04-02 13:11 | XMS_ITS | Encounter Summary ---
Author Organization [facility] Address [address] [place] [phone] Phone Care Team Providers Care Diamond Selector Name Role Phone Cindy Zacarias FIRE INFORMATION OFFICER Primary Care Provider [phone] Encounter Details Date Type Department Care Team (Late st Contact Info) Description 09/30/2021 Ancillary Orders [facility],Outside Imaging [address] [place], [place] [phone] System, Provider Not In, [place] [address] Social History Tobacco Use Types Packs/Day Years [...] on filedocumented in this encounter Care Teams Diamond Selector Relationship Specialty Start Date End Date Cindy Zacarias NP [address] [place] [address] [phone] PCP - General Family Medicine 09/29/21 documented as of this encounter Additional Source Comments The information contained in this document represents components of the legal health record. It is not the complete legal health record.[facility]
--- NOTE | 2025-04-02 13:22 | A.OFFVIS_ITS ---
Vital Signs 04/02/25 13:27 Height 5 ft 5 in Weight 164 lb BMI 27.3 BP 120/78 Blood Pressure Location Rt brachial Position Sitting Pulse 69 Pulse Source Monitor Intake Visit Reasons: ED/OV-left ankle joint pain Intake Note: Jessy is a 59 year old female who presents today as an established patient, for an ER follow up of left ankle. Patient is status post left ankle ORIF, DOS 09/16/[address] Murillo. Patient reports ongoing pain and swelling located at the lateral aspect of foot. States this has been present since her surgery. Pr Internship Name: Ced [id number] Allergies No Known Allergies Allergy (Verified 04/02/25 13:25) Medication List - Last Reconciled 04/02/25 by Mckayla Montano PA-C acetaminophen 1,000 mg (2 x 500 mg) PO Q8H PRN albuterol sulfate 90 mcg/actuation (ProAir HFA) 2 puffs PO Q4H PRN [breast prosthetic As directed] celecoxib (Celebrex) 200 mg PO BID 30 days cyclobenzaprine 5 mg PO BEDTIME diclofenac sodium 1% 4 grams topical QID 30 days duloxetine 1 cap PO DAILY ergocalciferol (vitamin D2) (Vitamin D2) 1,250 mcg PO QWEEK famotidine (Pepcid) 20 mg PO DAILY fluticasone furoate-vilanterol 200-25 mcg/dose (Breo Ellipta) 1 inh inhalation Q24H ibuprofen 400 mg PO Q6H PRN ipratropium-albuterol 0.5 mg-3 mg(2.5 mg base)/3 mL 3 mL inhalation Q4-6H PRN [Kneeling Scooter As directed] letrozole 2.5 mg PO DAILY meloxicam 7.5 mg PO DAILY omeprazole 40 mg PO DAILY [post-lumpectomy bra As directed] sucralfate (Carafate) 10 mL PO BID HPI HPI ED/OV-left ankle joint pain: Details: 59-year-old female returns to the office today for a follow-up left ankle ORIF on 09/16/[address] Murillo. After the patient's surgery she continued to complain of pain and swelling in the ankle. She did have a delayed start to physical therapy and there was some concern for noncompliance initially after her surgery but eventually the patient did attend physical therapy. She was recently seen in the emergency department for worsening pain and swelling in the left ankle. There were images obtained in the emergency department which were questionable for osteomyelitis. Patient was referred back to our office for further evaluation. Patient denies fever or chills. No new injuries. [facility] Medical History Arm numbness left Arthritis Asthma Breast cancer Cervical spinal stenosis Depression GERD (gastroesophageal reflux disease) Surgical History S/P lumpectomy, left breast (09/14/21) History of pterygium excision Family History Maternal Grandmother Stomach cancer Social History Household Members: Children Housing: Apartment Are you a primary palliative care nurse to a significant other at home: No Do you presently have visiting nurse or other home services: No Alcohol intake: current Alcohol intake frequency: does not drink Patient Tobacco Use Status: Current everyday Tobacco user Tobacco use type: Cigarette Cigarettes Per Day: 2 Years Smoked: started at age 18, 1PPD , currently 10 per day service: No Current occupational status: unemployed Current occupation: Left Handed Female Reproductive History Menstrual Age of Menarche: 15 Review of Systems Const All systems reviewed & are unremarkable except as noted in HPI and below Physical Exam Vital Signs: Last Vital Signs Pulse 69 04/02/25 13:27 BP 120/78 04/02/25 13:27 BMI result Body Mass Index 27.3 Extrem Other: Left ankle incision is well healed. She has a trace amount of swelling along the posterior aspect of the malleolus with some tenderness. There is stiffness with range of motion but no significant pain. No pain with axial loading of the joint. Pulses are present sensation intact. No fluctuance or abscess formation present. Results Reviewed Results Reviewed: XR ankle LT min 3V IMPRESSION: Small focal lucency in the subchondral bone of the medial talar dome could represent degenerative cyst or osteochondral lesion. Assessment & Plan Assessment & Plan (1) Closed left ankle fracture: Code(s): S82.892A - Other fracture of left lower leg, initial encounter for closed fracture Category: Medical (2) Status post ORIF of fracture of ankle: Code(s): Z98.890 - Other specified postprocedural states; Z87.81 - Personal history of (healed) traumatic fracture Category: Surgical (3) Retained orthopedic hardware: Code(s): Z96.9 - Presence of functional implant, unspecified Category: Medical Plan With the evidence of lucency on imaging studies of the left ankle along with the patient's symptoms of increased pain and swelling around the surgical site the recommendation at this time would be to undergo removal of hardware of the left ankle. I explained to the patient the procedure in detail where we would make an incision along the lateral side of the ankle and remove the plate and screws. We would also look to see quality of bone and if there is any evidence of inf ection i.e. pus we would take cultures to further evaluate for infection. If there was a suspicion for infection we would then place the patient on antibiotics. I explained to the patient the risks benefits and alternatives to the procedure. Alternative being avoid surgery and continue with nonoperative management which she has not been doing well with at this point. Risks to surgery removing the hardware include but are not limited to continued pain, stiffness, infection, injury to bone which may result in fracture, injury to vessels or nerves, skin breakdown or wound complications and need for further surgeries. I also explained to the patient risks of intraoperative complications which could result in mortality. Patient does express understanding we would like to proceed with removal of hardware left ankle with Dr. Murillo. The patient will be booked accordingly. Orders: Orders XR ankle LT min 3V Today M25.572 - Pain in left ankle and joints of left foot Coding Level of Care Code Est Pt Level 4 (06139) Complex EM visit Add On G2211 Diagnoses Closed left ankle fracture S82.892A Status post ORIF of fracture of ankle Z98.890; Z87.81 Retained orthopedic hardware Z96.9
[2025-04-02 13:27] VITALS: BP 120/78; PULSE 69; BMI 27.3
== END 2025-04-02 14:57 | disposition home or self-care (01) ==
LOC: HO.HOS 12:52
PROVIDERS: PCP Internal Medicine; Visit Provider Physician Assistant
DX: S82.892A Other fracture of left lower leg, initial encounter for closed fracture (principal); Z87.81 Personal history of (healed) traumatic fracture; Z96.9 Presence of functional implant, unspecified
CPT/HCPCS: 99214

== ENCOUNTER → 2025-04-02 12:59 | Outpatient (BNV) | payer MEDICAID, SELFPAY | PROVIDERS: Visit Provider Radiology Diagnostic Radiology | DX: M89.8X7 Other specified disorders of bone, ankle and foot (principal) | CPT/HCPCS: 73610 ==

== ENCOUNTER 2025-04-03 11:00 | Outpatient (RCR) | payer MEDICAID, SELFPAY | END 2025-04-03 16:18 | disposition home or self-care (01) | LOC: HO.PT 11:00 | PROVIDERS: PCP Internal Medicine; Visit Provider Internal Medicine | DX: S82.832G Other fracture of upper and lower end of left fibula, subsequent encounter for closed fracture with delayed healing (principal); M25.572 Pain in left ankle and joints of left foot; G89.29 Other chronic pain; M79.672 Pain in left foot | CPT/HCPCS: 97110; 97140; 97162 ==

== ENCOUNTER 2025-04-15 07:59 | Day surgery (SDC) | payer MEDICAID, SELFPAY ==
--- OUTSIDE RECORDS SUMMARY | 2025-04-02 14:34 | XMS_ITS | Encounter Summary ---
Author Organization [facility] [employer] [facility] Address [address] [place] [address] [address] [place] [address] Care Team Providers Care Patrol Sergeant Name Role Phone Cindy Zacarias Primary Care Provider [phone] Sherie William MD Primary Care Provide r Encounter Details Date Type Department Care Team (Latest Contact Info) Description 12/07/2020 Abstract [facility] CONVERSIONS Dental, Provider, DDS Social History Tobacco [...] Care Team (Late st Contact Info) Description 06/03/2025 11:30 AM EDT Office Visit [facility] [address] [place] [address] Sherie William MD [address] [place] [address] documented as of this encounter Visit Diagnoses Not on filedocumented in this encounter Care Teams Patrol Sergeant Relationship Specialty Start Date End Date Cindy Zacarias ANP [address] [place] [address] PCP - General Family Medicine 07/20/20 03/18/24 Sherie William MD [address] [place] [address] PCP - General Internal Medicine 03/19/24 documented as of this encounter
[2025-04-06 13:26] VITALS: BMI 27.3
[2025-04-06 13:51] VITALS: BMI 27.3
--- NOTE | 2025-04-06 14:45 | HO.ANESPROP2 ---
Documented by User: Zulema Foley NP 04/06/25 14:47 HPI - Anesthesia Eval Consult details Narrative: 59yo F for Left Removal Orthopedic Hardware on Ankle - (locking Plate), 04/15/25 s/p Left ankle ORIF 09/2024 with GA-LMA 4 Follows [facility] [place] pulmo for asthma. Well controlled per patient. 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 (Acute) Arm numbness left (Acute) S/P lumpectomy, left breast (Acute 09/14/21) Past Medical History Medical History Heart palpitations Asthma-COPD overlap syndrome Breast cancer Arthritis GERD (gastroesophageal reflux disease) Depression Cervical spinal stenosis Family History Family History Maternal Grandmother Stomach cancer Family history of problems with anesthesia: No Surgical History Surgical History History of open reduction and internal fixation (ORIF) procedure S/P lumpectomy, left breast (09/14/21) History of pterygium excision History of Problems with Anesthesia: No Social History Social History Household Members: Children Housing: Apartment Are you a primary senior care provider to a significant other at home: No Do you presently have visiting nurse or other home services: No Alcohol intake: current Alcohol intake frequency: former alcohol drinker Patient Tobacco Use Status: Current everyday Tobacco user Tobacco use type: Cigarette Cigarette Packs Per Day: 0.5 Cigarettes Per Day: 10.0 Years Smoked: started at age 18, 1PPD , currently 10 per day Use of substances other than those prescribed or required for medical reasons: No Have you been hit, kicked, punched, or otherwise hurt by someone within the past year? If so, by whom?: No Spiritual Healthcare Practices: no Jain Healthcare Practices: no Cultural Healthcare Practices: no Are you DNR?: No Advance Directives: No (son is primary contact) Advance Directives on File: No Patient : No FDLMP: n/a : No Poor oral hygiene: No service: No Current occupational status: unemployed Current occupation: Left Handed Meds Allergies Allergy/AdvReac Type Severity Reaction Status Date / Time No Known Allergies Allergy Verified 04/02/25 13:25 Home Medications ?Medication ?Instructions ?Recorded ?Confirmed ?Last Taken ?Type cyclobenzaprine 5 mg tablet 5 mg PO BEDTIME 06/16/20 04/06/25 Unknown History duloxetine 30 mg capsule,delayed 1 cap PO DAILY 08/18/21 04/06/25 Unknown History release meloxicam 7.5 mg tablet 7.5 mg PO DAILY 09/28/21 04/06/25 04/12/25 History albuterol sulfate 90 mcg/actuation 2 puff inhalation Q4-6H PRN 04/06/25 04/06/25 Unknown History aerosol inhaler Shortness Of Breath Or Wheezing Exam Height,Weight and Vital Signs: Height 5 ft 5 in Weight 74.389 kg Assessment and Plan Assessment Anesthesia Assessment: Chart Reviewed Final Anesthetic Review Family History of Problems with Anesthesia: No History of Problems with Anesthesia: No Documented by User: Ken Clements MD 04/15/25 10:33 [facility] Past Medical History Medical History Heart palpitations Asthma-COPD overlap syndrome Breast cancer Arthritis GERD (gastroesophageal reflux disease) Depression Cervical spinal stenosis Functional capacity: independent ambulation Family History Family History Maternal Grandmother Stomach cancer Surgical History Surgical History History of open reduction and internal fixation (ORIF) procedure S/P lumpectomy, left breast (09/14/21) History of pterygium excision Social History Social History Household Members: Children Housing: Apartment Are you a primary senior care provider to a significant other at home: No Do you presently have visiting nurse or other home services: No Alcohol intake: current Alcohol intake frequency: former alcohol drinker Patient Tobacco Use Status: Current everyday Tobacco user Tobacco use type: Cigarette Cigarette Packs Per Day: 0.5 Cigarettes Per Day: 10.0 Years Smoked: started at age 18, 1PPD , currently 10 per day Use of substances other than those prescribed or required for medical reasons: No Have you been hit, kicked, punched, or otherwise hurt by someone within the past year? If so, by whom?: No Spiritual Healthcare Practices: no Jain Healthcare Practices: no Cultural Healthcare Practices: no Are you DNR?: No Advance Directives: No (son is primary contact) Advance Directives on File: No Patient : No FDLMP: n/a : No Poor oral hygiene: No service: No Current occupational status: unemployed Current occupation: Left Handed Meds Allergies Allergy/AdvReac Type Severity Reaction Status Date / Time No Known Allergies Allergy Verified 04/02/25 13:25 Home Medications ?Medication ?Instructions ?Recorded ?Confirmed ?Last Taken ?Type cyclobenzaprine 5 mg tablet 5 mg PO BEDTIME 06/16/20 04/06/25 Unknown History duloxetine 30 mg capsule,delayed 1 cap PO DAILY 08/18/21 04/06/25 Unknown History release meloxicam 7.5 mg tablet 7.5 mg PO DAILY 09/28/21 04/06/25 04/12/25 History albuterol sulfate 90 mcg/actuation 2 puff inhalation Q4-6H PRN 04/06/25 04/06/25 Unknown History aerosol inhaler Shortness Of Breath Or Wheezing Exam Exam Date and Time: 04/15/25 Airway Mallampati Class: II TM Dist: >3cm Neck ROM: Full Heart: rrrcta Assessment and Plan Assessment Anesthesia Assessment: Anesthesia Plan Discussed Final Anesthetic Review NPO: Yes ASA Class: III Final Preanesthetic Review: No Changes in Pt Med Stat, Meds/Allgs Chart Reviewed, Consent Obtained/Reviewed and Anes Risks/Benef Reviewed Patient Risk: Intermediate Procedure Risk: Intermediate Anesthetic Plan Anesthetic Plan: GA, Regional Block and Agree w/ Assess. and Plan Disposition: Standard PACU
--- NOTE | ~2025-04-15 | FL_ITS ---
EXAMINATION: XR FLUOROSCOPY WITH IMAGES CLINICAL INFORMATION: Removal of orthopedic hardware left ankle COMPARISON: 04/02/2025 left ankle radiographs. TECHNIQUE: Fluoroscopy provided to: Dr. Murillo Fluoroscopy time: 0.0 minutes DAP: [id number] mGycm2 Images: 1 FINDINGS: Solitary spot image taken after left lateral malleolar hardware removal. Please refer to the full operative report for details. FL/FL guidance in OR IMPRESSION: Fluoroscopic guidance. Electronically signed by: Art Hdz MD 04/15/2025 02:12 PM EDT
[2025-04-15 08:45] VITALS: BMI 28.1
[2025-04-15 08:52] VITALS: BP 121/75; PULSE 72; RESP 16; TEMP 36.4; O2SAT 96
[2025-04-15] MEDS: Lactated Ringers 1,000 ML 100 ML IVCONT (09:04)
--- NOTE | 2025-04-15 09:08 | PC.NURSE ---
MD CARDONA BY BEDSIDE SPEAKING TO PATIENT.
--- NOTE | 2025-04-15 11:26 | MHC.SHP ---
Pre-Procedural Eval Section A - 24 Hr Update-Section A only Date of Service: 04/15/25 The patient is an INPATIENT: No Changes since office visit: No Cold of Flu in the past 2 weeks, No New Medical Problems, No Changes in Medication and No Patient answered all questions The patient has been examined within 24 hours of the surgical procedure. The History & Physical has been completed within 30 days and I have reviewed it.: Yes Section B - Complete if H&P > 30 days Chief Complaint: Other mechanical complication of internal fixation Allergies: Allergies Allergy/AdvReac Type Severity Reaction Status Date / Time No Known Allergies Allergy Verified 04/02/25 13:25 Plan I have reviewed the history and physical and performed a pertinent physical examination on my patient. No changes have occurred unless specified. Time Spent With Patient Time: Total time managing care of this patient today ____ minutes.
--- NOTE | 2025-04-15 12:48 | PM.OP ---
Brief Operative Note Date of Service: 04/15/25 Pre-op diagnosis: Retained ortho hardware left ankle Post-op diagnosis: same Procedure: BENITA left ankle Implants: none Surgeon: Arian Murillo MD Anesthesia: GLMA and regional Was an Temporary Staff Accountant used for this Procedure?: No Estimated blood loss (mL): 20 Tourniquet time (min): 25 IV fluids (mL): 500 Pathology: none sent Condition: stable Disposition: PACU
[2025-04-15 12:50] VITALS: BP 119/61; PULSE 81; RESP 16; TEMP 36.1; O2SAT 94
[2025-04-15 13:05] VITALS: BP 104/75; PULSE 77; RESP 16; O2SAT 95
[2025-04-15 13:19] VITALS: BP 118/74; PULSE 66; RESP 16; TEMP 36.2; O2SAT 96
--- NOTE | 2025-04-16 16:16 | W.PM.OPN ---
Operative Note Operative Note Date of Service: 04/15/25 Narrative: Date of Service: 04/15/25 Pre-op diagnosis: Retained ortho hardware left ankle Post-op diagnosis: same Procedure: BENITA left ankle Implants: none Surgeon: Arian Murillo MD Anesthesia: GLMA and regional Was an Inspector And Clipper used for this Procedure?: No Estimated blood loss (mL): 20 Tourniquet time (min): 25 IV fluids (mL): 500 Pathology: none sent Condition: stable Disposition: PACU Procedure in detail: Patient was brought to the operating room and placed in the supine position on the surgical table. She was prepped and draped in standard sterile fashion and a time out was called to identify proper site, proper procedure and IV antibiotics per weight were administered. I began by making an incision over the previous surgical incision. Care was taken to protect the soft tissues. Full thickness flaps were taken down to the plate and a periosteal elevator was used to remove soft tissue from the plate. 10 screws and the plate were then removed without difficulty. The screw holes and extraneous bone were debrided with a currette and rongeur. I then irrigated and performed a layered closure with absorbable suture and skin glue. Local anesthetic was administered before and after incision. The patient was placed in sterile dressings, extubated and brought to the recovery room in stable condition.
== END 2025-04-15 14:31 | disposition home or self-care (01) ==
LOC: HO.SSS 08:00
PROVIDERS: PCP Internal Medicine; Visit Provider Orthopaedic Surgery
PROC: (CPT 20680; principal; 2025-04-15 10:30)
DX: T84.84XA Pain due to internal orthopedic prosthetic devices, implants and grafts, initial encounter (principal); M25.572 Pain in left ankle and joints of left foot; Y79.2 Prosthetic and other implants, materials and accessory orthopedic devices associated with adverse incidents; Z96.9 Presence of functional implant, unspecified; M79.89 Other specified soft tissue disorders; Z87.81 Personal history of (healed) traumatic fracture; D05.12 Intraductal carcinoma in situ of left breast; Z79.811 Long term (current) use of aromatase inhibitors; R20.0 Anesthesia of skin; J45.909 Unspecified asthma, uncomplicated; M48.02 Spinal stenosis, cervical region; M19.90 Unspecified osteoarthritis, unspecified site; F32.A Depression, unspecified; Z79.1 Long term (current) use of non-steroidal anti-inflammatories (NSAID); Z79.51 Long term (current) use of inhaled steroids; Z79.899 Other long term (current) drug therapy; Z98.890 Other specified postprocedural states; F17.210 Nicotine dependence, cigarettes, uncomplicated; Z56.0 Unemployment, unspecified
CPT/HCPCS: 20680; J0131; J0665; J0690; J1100; J1885; J2003; J2250; J2405; J2704; J2795; J3010

== ENCOUNTER → 2025-04-15 07:59 | Outpatient (BNV) | payer MEDICAID, SELFPAY | PROVIDERS: PCP Internal Medicine; Visit Provider Orthopaedic Surgery | DX: T84.84XA Pain due to internal orthopedic prosthetic devices, implants and grafts, initial encounter (principal) | CPT/HCPCS: 20680 ==

== ENCOUNTER 2025-04-23 08:38 | Outpatient (REF) | payer MEDICAID, SELFPAY ==
--- NOTE | ~2025-04-23 | XR_ITS ---
EXAMINATION: XR ANKLE 3 OR MORE VIEWS LEFT HISTORY: M25.579 - Pain in unspecified ankle and joints of unspecified foot COMPARISON: Comparison is made with the prior examination dated 04/02/2025. FINDINGS: Three views of the left ankle are submitted. The bones are osteopenic. There is been interval removal of the previously seen plate and screws along the distal fibula and the button along the medial malleolus. The fibular fracture remains faintly visible. No acute fracture or dislocation is seen. The joint spaces are preserved. The soft tissues are unremarkable. XR/XR ankle LT min 3V IMPRESSION: Removal of internal fixation hardware as described. The fibular fracture line remains faintly visible. Electronically signed by: Craig Christianson MD 04/23/2025 03:20 PM EDT
--- OUTSIDE RECORDS SUMMARY | 2025-04-24 09:17 | XMS_ITS | Clinical Summary ---
Author Organization [facility] Address [address] [address] Phone Care Team Providers Care Dog Track Kennel Manager Name Role Phone Rell Cindy SAUCEDA Primary Care Provider [phone] Medications albuterol 90 mcg/actuation inhaler Inhale 2 [...] [facility]CO [facility] C3 [facility]CO [facility] C3 ACO Care Teams Dog Track Kennel Manager Relationship Specialty Start Date End Date Cindy Zacarias ANP [address] [place] [phone] PCP - General Family Medicine 09/29/21 Additional Source Comments The information contained in this document represents components of the legal health record. It is not the complete legal health record.[facility]
--- OUTSIDE RECORDS SUMMARY | 2025-04-24 09:17 | XMS_ITS | Encounter Summary ---
Author Organization [facility] Address [address] [place] [phone] Phone Care Team Providers Care Php Website Developer Name Role Phone Cindy Zacarias Primary Care Provider [phone] Encounter Details Date Type Department Care Team (Late st Contact Info) Description 09/30/2021 Ancillary Orders [facility],Outside Imaging [address] [place], [place] [phone] System, Provider Not In, [place] [address] Social History Tobacco Use Types Packs/Day Years [...] on filedocumented in this encounter Care Teams Php Website Developer Relationship Specialty Start Date End Date Cindy Zacarias ANP [address] [place] [address] [phone] PCP - General Family Medicine 09/29/21 documented as of this encounter Additional Source Comments The information contained in this document represents components of the legal health record. It is not the complete legal health record.[facility]
--- OUTSIDE RECORDS SUMMARY | 2025-04-24 09:17 | XMS_ITS | Encounter Summary ---
Author Organization [facility] Address [address] [place] [address] Phone Care Team Providers Care Order Tracer Name Role Phone Cindy Zacarias Primary Care Provider [phone] Encounter Details Date Type Department Care Team (Late st Contact Info) Description 09/30/2021 Ancillary Orders [facility],Outside Imaging [address] [place], [place] [phone] System, Provider [place] In, [place] [address] Social History Tobacco Use Types Packs/Day Years [...] on filedocumented in this encounter Care Teams Order Tracer Relationship Specialty Start Date End Date Cindy Zacarias ANP [address] [place] [address] [phone] PCP - General Family Medicine 09/29/21 documented as of this encounter Additional Source Comments The information contained in this document represents components of the legal health record. It is not the complete legal health record.[facility]
--- OUTSIDE RECORDS SUMMARY | 2025-04-24 09:17 | XMS_ITS | Encounter Summary ---
Author Organization [facility] Address [address] [place] [address] Phone Care Team Providers Care Enterprise Software Engineer Name Role Phone Cindy Zacarias Primary Care Provider [phone] Encounter Details Date Type Department Care Team (Late st Contact Info) Description 09/30/2021 Ancillary Orders [facility],Outside Imaging [address] [place], [place] [phone] System, Provider [place] In, [place] [address] Social History Tobacco Use Types Packs/Day Years [...] on filedocumented in this encounter Care Teams Enterprise Software Engineer Relationship Specialty Start Date End Date Cindy Zacarias ANP [address] [place] [address] [phone] PCP - General Family Medicine 09/29/21 documented as of this encounter Additional Source Comments The information contained in this document represents components of the legal health record. It is not the complete legal health record.[facility]
--- OUTSIDE RECORDS SUMMARY | 2025-04-24 09:17 | XMS_ITS | Encounter Summary ---
Author Organization [facility] Address [address] [place] [phone] Phone Care Team Providers Care Cafeteria Team Leader Name Role Phone Cindy Zacarias Primary Care Provider [phone] Encounter Details Date Type Department Care Team (Late st Contact Info) Description 09/30/2021 Ancillary Orders [facility],Outside Imaging [address] [place], [place] [phone] System, Provider Not In, [place] [address] Social History Tobacco Use Types Packs/Day Years [...] on filedocumented in this encounter Care Teams Cafeteria Team Leader Relationship Specialty Start Date End Date Cindy Zacarias ANP [address] [place] [address] [phone] PCP - General Family Medicine 09/29/21 documented as of this encounter Additional Source Comments The information contained in this document represents components of the legal health record. It is not the complete legal health record.[facility]
--- OUTSIDE RECORDS SUMMARY | 2025-04-24 09:17 | XMS_ITS | Encounter Summary ---
Author Organization [facility] Address [address] [place] [address] Phone Care Team Providers Care Candle Extrusion Machine Operator Name Role Phone Cindy Zacarias Primary Care Provider [phone] Encounter Details Date Type Department Care Team (Late st Contact Info) Description 09/30/2021 Ancillary Orders [facility],Outside Imaging [address] [place], [place] [phone] System, Provider [place] In, [place] [address] Social History Tobacco Use Types Packs/Day Years [...] on filedocumented in this encounter Care Teams Candle Extrusion Machine Operator Relationship Specialty Start Date End Date Cindy Zacarias ANP [address] [place] [address] [phone] PCP - General Family Medicine 09/29/21 documented as of this encounter Additional Source Comments The information contained in this document represents components of the legal health record. It is not the complete legal health record.[facility]
== END 2025-04-23 08:39 | disposition home or self-care (01) ==
LOC: HO.HOSX 08:38
PROVIDERS: Visit Provider Physician Assistant
DX: M25.572 Pain in left ankle and joints of left foot (principal); Z96.9 Presence of functional implant, unspecified
CPT/HCPCS: 73610; 99212

== ENCOUNTER 2025-04-23 14:55 | Outpatient (AMB) | payer MEDICAID, SELFPAY ==
--- NOTE | 2025-04-23 15:06 | A.OFFVIS_ITS ---
Intake Visit Reasons: PO LT ankle BENITA 04/15/25 NE Intake Note: Patient states she is doing well. She just feels that her pamela are poking her. Allergies No Known Allergies Allergy (Verified 04/23/25 15:15) HPI HPI PO LT ankle BENITA 04/15/25 NE: Details: Ms. Joana Sullivan is a 59-year-old female who presents to the office today status post left ankle removal of hardware performed on 04/15/[address] Murillo. Patient states overall she is doing very well. She was swollen on the dorsal aspect of the foot but that has since resolved. She reports that she does feel as though the ankle is stiff. Pain is well managed. No additional complaints. [facility] Medical History (Updated 04/16/25 @ 14:20 by Fide Aguilar PA-C) Ductal carcinoma in situ of left breast (~2020) History of left breast cancer (~2020) Osteopenia Postmenopausal Asthma-COPD overlap syndrome Nicotine dependence, cigarettes, uncomplicated Heart palpitations GERD (gastroesophageal reflux disease) Arthritis Cervical spinal stenosis Depression Surgical History (Updated 04/16/25 @ 14:20 by Fide Aguilar PA-C) History of lumpectomy of left breast History of left breast biopsy History of open reduction and internal fixation (ORIF) procedure History of pterygium excision Family History Maternal Grandmother Stomach cancer Social History Household Members: Children Housing: Apartment Are you a primary career technical education teacher to a significant other at home: No Do you presently have visiting nurse or other home services: No Alcohol intake: current Alcohol intake frequency: former alcohol drinker Patient Tobacco Use Status: Current everyday Tobacco user Tobacco use type: Cigarette Cigarette Packs Per Day: 0.5 Cigarettes Per Day: 10.0 Years Smoked: started at age 18, 1PPD , currently 10 per day service: No Current occupational status: unemployed Current occupation: Left Handed Female Reproductive History Menstrual Age of Menarche: 15 Review of Systems Const All systems reviewed & are unremarkable except as noted in HPI and below Physical Exam Const General: cooperative, healthy appearing and no acute distress Resp Effort & Inspection: normal respiratory effort and able to speak in complete sentences Extrem Other: Left ankle: Incision sites are clean dry and intact. [place] intact. No surrounding erythema or drainage. No signs of infection. Considerable stiffness with dorsiflexion, plantar flexion, pronation supination. NVI. Psych Appearance: grossly normal Mental Status: mental status grossly normal Attitude: cooperative Assessment & Plan Assessment & Plan (1) Retained orthopedic hardware: Code(s): Z96.9 - Presence of functional implant, unspecified Category: Medical Plan Ms. Joana Sullivan is a 59-year-old female who presents to the office today status post left ankle removal of hardware performed on 04/15/[address] Murillo. Patient states overall she is doing very well. She was swollen on the dorsal aspect of the foot but that has since resolved. She reports that she does feel as though the ankle is stiff. Pain is well managed. No additional complaints. While in the office today, every other staple was removed along the lateral incision site medial incision site remains as is and Steri-Strips were applied as patient reports she is experiencing considerable discomfort from the pamela. The incision site looked well approximated and was healing appropriately. I would like the patient to follow up in 1 week for the remainder of the pamela to be removed. She is currently in a short walking boot weight-bearing as tolerated with the use of crutches. I have recommended she discontinue the walking boot and crutches. She may transition to a supportive walking shoe and weightbear as tolerated. The incision sites were dressed with nonstick gauze and Kerlix. Patient was instructed to perform daily dressing changes to keep the area clean dry and intact. I have also placed an order for physical therapy to work on gentle range of motion. She will follow up in 1 week for anticipation of the remainder of the pamela to be removed, additionally I would like another appointment to be scheduled in 4 weeks to check progress working with physical therapy, sooner if needed. X-rays of the left ankle which were obtained while in the office today and were reviewed by me, Shakira Benson PA-C, revealed successful removal of orthopedic hardware. Orders: Orders XR ankle LT min 3V Today M25.579 - Pain in unspecified ankle and joints of unspecified foot Coding Level of Care Code Global (41626) Diagnoses Retained orthopedic hardware Z96.9
--- OUTSIDE RECORDS SUMMARY | 2025-04-23 18:23 | XMS_ITS | Encounter Summary ---
Author Organization [facility] Address [address] [place] [address] Phone Care Team Providers Care Cardiology Rn Name Role Phone Cindy Zacarias Primary Care Provider [phone] Encounter Details Date Type Department Care Team (Late st Contact Info) Description 09/30/2021 Ancillary Orders [facility],Outside Imaging [address] [place], [place] [phone] System, Provider Not In, [place] [address] Social History Tobacco Use Types Packs/Day Years [...] on filedocumented in this encounter Care Teams Cardiology Rn Relationship Specialty Start Date End Date Cindy Zacarias ANP [address] [place] [address] [phone] PCP - General Family Medicine 09/29/21 documented as of this encounter Additional Source Comments The information contained in this document represents components of the legal health record. It is not the complete legal health record.[facility]
--- OUTSIDE RECORDS SUMMARY | 2025-04-23 18:23 | XMS_ITS | Encounter Summary ---
Author Organization [facility] Address [address] [place] [address] Phone Care Team Providers Care Clamp Carrier Operator Name Role Phone Cindy Zacarias Primary Care Provider [phone] Encounter Details Date Type Department Care Team (Late st Contact Info) Description 09/30/2021 Ancillary Orders [facility],Outside Imaging [address] [place], [place] [phone] System, Provider [place] In, [place] [address] Social History Tobacco Use Types Packs/Day Years [...] encounter Results * Mammogram Outside (No Interpretation) (07/21/2021 12:05 AM EST) Narrative SYSTEMGENERATED, DOCUMENTATION - 09/30/2021 2:45 PM EST This study is for PACS storage only and not for interpretation. us Provider Not In System PhD IMG OUTSIDE IMAGING W /OUT INTERPRETATION Final Result documented in this encounter Visit Diagnoses Not on filedocumented in this encounter Care Teams Clamp Carrier Operator Relationship Specialty Start Date End Date Cindy Zacarias ANP [address] [place] [address] [phone] PCP - General Family Medicine 09/29/21 documented as of this encounter Additional Source Comments The information contained in this document represents components of the legal health record. It is not the complete legal health record.[facility]
--- OUTSIDE RECORDS SUMMARY | 2025-04-23 18:23 | XMS_ITS | Encounter Summary ---
Author Organization [facility] [employer] Address [address] [place] [address] [address] [place] [address] Care Team Providers Care Digital Campaign Specialist Name Role Phone Cindy Zacarias Primary Care Provider [phone] Sherie William MD Primary Care Provide r Encounter Details Date Type Department Care Team (Latest Contact Info) Description 12/07/2020 Abstract [facility] CONVERSIONS Dental, Provider, DDS Social History Tobacco [...] Description 06/03/2025 11:30 AM EDT Office Visit [facility] MEDICINE [address] [place] [address] Sherie William MD [address] [place] [address] documented as of this encounter Visit Diagnoses Not on filedocumented in this encounter Care Teams Digital Campaign Specialist Relationship Specialty Start Date End Date Cindy Zacarias ANP [address] [place] [address] PCP - General Family Medicine 07/20/20 03/18/24 Sherie William MD [address] [place] [address] PCP - General Internal Medicine 03/19/24 documented as of this encounter
--- OUTSIDE RECORDS SUMMARY | 2025-04-23 18:23 | XMS_ITS | Encounter Summary ---
Author Organization [facility] Address [address] [place] [address] Phone Care Team Providers Care Senior Hr Manager Name Role Phone Cindy Zacarias Primary Care Provider [phone] Encounter Details Date Type Department Care Team (Late st Contact Info) Description 09/30/2021 Ancillary Orders [facility],Outside Imaging [address] [place], [place] [phone] System, Provider Not In, [place] [address] Social History Tobacco Use Types Packs/Day Years [...] encounter Results * Mammogram Outside (No Interpretation) (07/18/2021 12:00 AM EST) Narrative SYSTEMGENERATED, DOCUMENTATION - 09/30/2021 2:46 PM EST This study is for PACS storage only and not for interpretation. us Provider Not In System PhD IMG OUTSIDE IMAGING W /OUT INTERPRETATION Final Result documented in this encounter Visit Diagnoses Not on filedocumented in this encounter Care Teams Senior Hr Manager Relationship Specialty Start Date End Date Cindy Zacarias ANP [address] [place] [address] [phone] PCP - General Family Medicine 09/29/21 documented as of this encounter Additional Source Comments The information contained in this document represents components of the legal health record. It is not the complete legal health record.[facility]
--- OUTSIDE RECORDS SUMMARY | 2025-04-23 18:23 | XMS_ITS | Encounter Summary ---
Author Organization [facility] Address [address] [place] [address] Phone Care Team Providers Care Ccnp Name Role Phone Cindy Zacarias Primary Care Provider Encounter Details Date Type Department Care Team (Late st Contact Info) Description 09/30/2021 Ancillary Orders [facility],Outside Imaging [address] [place], [place] [phone] System, Provider [place] In, [place] [address] Social History Tobacco Use Types Packs/Day Years [...] encounter Results * Mammogram Outside (No Interpretation) (09/14/2021 12:00 AM EST) Narrative SYSTEMGENERATED, DOCUMENTATION - 09/30/2021 2:36 PM EST This study is for PACS storage only and not for interpretation. us Provider Not In System PhD IMG OUTSIDE IMAGING W /OUT INTERPRETATION Final Result documented in this encounter Visit Diagnoses Not on filedocumented in this encounter Care Teams Ccnp Relationship Specialty Start Date End Date Cindy Zacarias ANP [address] [place] [address] [phone] PCP - General Family Medicine 09/29/21 documented as of this encounter Additional Source Comments The information contained in this document represents components of the legal health record. It is not the complete legal health record.[facility]
--- OUTSIDE RECORDS SUMMARY | 2025-04-23 18:23 | XMS_ITS | Clinical Summary ---
Author Organization [facility] Address [address] [address] Phone Care Team Providers Care Umbrella Supervisor Name Role Phone Rell Cindy SAUCEDA Primary Care Provider [phone] Medications albuterol 90 mcg/actuation inhaler Inhale 2 puffs into the lungs every 4 (four) hours as needed for wheezing. Active buPROPion (WELLBUTRIN) 100 MG immediate release tablet Take 100 mg by mouth daily. Active cyclobenzaprine (FLEXERIL) 5 MG tablet Take 5 mg by mouth nightly at bedtime. Active DULoxetine (CYMBALTA) 20 MG capsule Take 20 mg by mouth daily. Active omeprazole (PRILOSEC) 20 MG tablet Take 20 mg by mouth daily. Active oxyCODONE-acetami nophen (PERCOCET) 5-325 mg per tablet Take 1 tablet by mouth every 6 (six) hours as needed for pain (specific location in comments). Active tiZANidine (ZANAFLEX) 2 MG tablet Take 2 mg by mouth 3 (three) times a day as needed. Active ibuprofen (ADVIL,MOTRIN) 200 MG tablet Take 200 mg by mouth 2 (two) times a day as needed for pain (specific location in comments). Active meloxicam (MOBIC) 7.5 MG tablet Take 7.5 mg by mouth daily. Active silver sulfADIAZINE (SILVADENE) 1 % cream Apply topically 2 (two) times a day. 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 Not on miryam e 12/09/2022 Are you concerned about learning? Not on file 12/09/2022 No 12/09/2022 No 12/09/2022 Digital Access Answer Date Recorded No 01/09/2023 No 01/09/2023 Reliable internet access at home? Not on file 01/09/2023 Device with a working camera? Not on file Comments Unknown Sex and Gender Information Value Date Recorded Sex Assigned at Not on file Legal Sex Female 8:27 AM EST Gender Identity Not on file Sexual Orientation Not on file Last Filed Vital Signs Vital Sign Reading Time Taken Comments Blood Pressure 108/68 02/09/2022 11:02 AM EDT Pulse 65 02/09/2022 11:02 AM EDT Temperature - - Respiratory Rate - - Oxygen Saturation 97% 02/09/2022 11:02 AM EDT Inhaled Oxygen Concentration - - Weight 76.7 kg (169 lb) 02/09/2022 11:02 AM EDT Height - - Body Mass Index - - Plan of Treatment Health Maintenance Due Date Last Done Comments Adult Td,Tdap Booster 1966 LIPID PANEL 1966 DEPRESSION SCREENING 1978 SMOKING Hx and SMOKELESS TOBACCO SCREENING 1979 HEPATITIS C SCREENING 1984 HIV ONE-TIME SCREENING (18-65 YEARS) 1984 PNEUMOCOCCAL VACCINES (50+ years) (1 of 2 - PCV) 1985 ZOSTER VACCINES (1 of 2) 1985 PAP SMEAR 1987 COLOGUARD 2011 COLONOSCOPY 2011 COLORECTAL CANCER SCREENING 2011 FIT TEST 2011 FOBT 2011 SIGMOIDOSCOPY 2011 VIRTUAL COLONOSCOPY 2011 MAMMOGRAM 09/14/2023 09/14/2021, 07/13, 07/21/2021, Additional history exists INFLUENZA VACCINE (#1) 2025 COVID-19 VACCINE ( season) 2025 HEPATITIS A VACCINES Aged Out No long er eligible based on patient's age to complete this topic HIB VACCINES Aged Out No longer eligi ble based on patient's age to complete this topic MENINGOCOCCAL VACCINES (ACWY) Aged Out No longer eligible based on patient's age to complete this topic MENINGOCOCCAL VACCINES (B) Aged Out N o longer eligible based on patient's age to complete this topic Medical Devices Not on file Procedures Procedure Name Priority Date/Time Associated Diagnosis Comments BI MAMMOGRAM OUTSIDE (NO INTERPRETATION) Routine 09/14/2021 12:00 AM EST from Last 3 Months or Most Recently Relevant to Health Maintenance Results * Mammogram Outside (No Interpretation) (09/14/2021 12:00 AM EST) Narrative SYSTEMGENERATED, DOCUMENTATION - 09/30/2021 2:36 PM EST This study is for PACS storage only and not for interpretation. us Provider Not In System PhD IMG OUTSIDE IMAGING W /OUT INTERPRETATION Final Result from Last 3 Months or Most Recently Relevant to Health Maintenance Insurance C3 ACO C3 ACO C3 ACO C3 ACO C3 ACO C3 ACO C3 ACO C3 ACO [facility] C3 ACO Care Teams Umbrella Supervisor Relationship Specialty Start Date End Date Cindy Zacarias ANP [address] [place] [id number] PCP - General Family Medicine 09/29/21 Additional Source Comments The information contained in this document represents components of the legal health record. It is not the complete legal health record.[facility]
--- OUTSIDE RECORDS SUMMARY | 2025-04-23 18:23 | XMS_ITS | Clinical Summary ---
Author Organization [employer] Address [address] [place] [address] 7[address] [place] [address] Care Team Providers Care Rn Hedis Name Role Phone Sherie William MD Primary [...] in the evening. 1 Active sodium chloride ([place] Nasal [place]) 0.65 % nasal sprayIndications :Viral URI 1-2 [...] ic obstructive pulmonary disease, unspecified COPD type ([facility]/HCC) INHALE 2 PUFFS BY MOUTH EVERY 4 TO 6 HOURS IF NEEDED FOR SHORTNESS OF BREATH OR WHEEZING 18 g 4 Active Fluocinolone Acetonide Scalp ([place]-Smoothe/F S Scalp) 0.01 % oilIndications:S eborrheic dermatitis of scalp Massage into damp scalp daily. Cover hair and leave on for at least 4 hours 118 mL 4 Active tiZANidine (Zanaflex) 4 MG capsuleIndicatio ns:Chronic bilateral low back pain without sciatica Take 1 capsule (4 mg) by mouth 3 times daily. 90 capsule 11 4 Active fluocinolone ([place]-Smoothe) 0.01 % external oilIndications:A llergic contact dermatitis due to chemical APPLY TOPICALLY TO AFFECTED AREA(S) TWICE DAILY DIRECTED 118.28 mL 1 4 Active triamcinolone (Kenalog) 0.1 % creamIndications :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 APPLY TO THE AFFECTED AREA(S) TOPICALLY TWICE DAILY 80 g 2 5 Active QUEtiapine (SEROquel) 50 MG tabletIndication s:Mood disorder ([facility]) Take 1 tablet (50 mg) by mouth at bedtime. 30 tablet 2 5 05/27/20 25 Active omeprazole (PriLOSEC) [address] capsuleIndicatio ns:Gastroesophag eal reflux disease, unspecified whether esophagitis present TAKE 1 CAPSULE BY MOUTH EVERY DAY BEFORE A MEAL 90 capsule 5 Active meloxicam (Mobic) 15 MG tabletIndication s:Chronic bilateral low back pain without sciatica TAKE 1 TABLET BY MOUTH EVERY DAY WITH FOOD 30 tablet 5 Active nicotine (Nicoderm CQ) 21 MG/24HR patchIndications :Tobacco dependence syndrome Place 1 patch on the skin 1 (one) time each day at the same time. 30 patch 1 5 Active Active Problems Problem Noted Date Diagnosed Date Severe episode of recurrent major depressive disorder, without psychotic features 03/18/2025 Assessment & Plan (03/23/2025 9:08 AM EDT): During IBH Consult Jessy presenting with depressed mood, Tearful, crying spells , hopelessness, irritable mood, loss of interests/pleasure , sense of isolation/loneliness , isolating, change in appetite or weight reduce appetite, fatigue/loss of energy, inappropriate/excessive guilt , difficulty concentrating; for a period of 6-12 mo, for most or all symptoms in the context of family issues and illness or family illness. Jessy reported her depression have been worsening over the last months. Main stressors are her medical condition and interpersonal relationship with her adult son. Pt lives alone and reports feeling safe at home. Chronic pain of left ankle 02/26/2025 Left foot pain 02/26/2025 Mixed anxiety and depressive disorder 10/01/2024 Assessment & Plan (02/26/2025 12:24 PM EDT): Counseling was done today we will continue with Seroquel 50 mg at bedtime, I will refer her to [facility] Closed fracture of distal end of left fibula 07/2025 Assessment & Plan (02/26/2025 12:25 PM EDT): I advised to follow-up with specialist who did the procedure Assessment & Plan (09/24/2024 9:49 AM EST): [...] COPD with asthma 07/25/2024 Assessment & Plan (02/26/2025 12:25 PM EDT): Stable continue with same interventions Smoking cessation counseling done and nicotine patches prescribed Assessment & Plan (07/30/2024 12:38 PM EST): Stable c/w same interventions Low vision 07/25/2024 Moderate asthma 03/19/2024 MARIA FERNANDA (generalized anxiety disorder) 12/25/2023 Abnormal mammogram 08/22/2022 Overview (08/22/2022): 08/18/2022 BIRADS3 - repeat 6 mo Intraductal carcinoma in situ of left breast 11/2021 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 PLAN: New/Additional Services needed PCP management Off-site services for Behavioral Health Integration Plan External OP therapy referral Patient Self Plan Patient to utilize skills provided in intervention , Patient to reach out to [facility] team as needed, Comply with medication , Patient to engage in OP therapy , and Patient to reach out to [facility] as needed Encounters * This document contains information received from the source organization and may not represent a complete record from that organization. Date Type Department Care Team Description 04/07/2025 Patient Outreach [address] [address] Sherie William MD Care Coordination ([facility] Crys Marvin telephone call outreach) 04/06/2025 Patient Outreach [address] [address] Sherie William MD Care Coordination ([facility] Crys Marvin telephone call outreach ) 04/02/2025 Patient Outreach [address] [address] Sherie William MD Care Management (C3- F/U call # 4/LVM) 03/26/2025 Patient Outreach [address] [address] Sherie William MD Care Coordination ([facility] Crys Marvin telephone call outreach) 03/26/[address] [facility] [address] [place] [address] Sherie William MD OCT RECALL 03/13/2025 Patient Outreach [address] [address] Sherie William MD Care Coordination ([address] Crys Marvin telephone call outreach /) 03/12/2025 Patient Outreach [address] [address] Sherie William MD Care Management ([facility]- F/U call # 3) 03/10/2025 Orders Only [facility] External Provider, [facility] 02/26/2025 11:15 AM EDT Office Visit [address] [address] Sherie William MD Closed fracture of distal end of left fibula with delayed healing, unspecified fracture morphology, subsequent encounter; Mixed anxiety and depressive disorder; Mood disorder (CMS/[facility]); Gastroesophageal reflux disease, unspecified whether esophagitis present; Chronic bilateral low back pain without sciatica; COPD with asthma (CMS/HCC); Tobacco dependence syndrome; Chronic pain of left ankle; Left foot pain 02/26/2025 Travel 02/20/2025 Patient Outreach [address] [address] Sherie William MD Care Coordination 02/20/2025 Patient Outreach [address] [address] Sherie William MD 02/19/2025 Patient Outreach [address] [address] Sherie William MD Care Management ([facility]- F/U call # 2) 02/05/2025 Patient Outreach [address] [address] Sherie William MD Care Coordination 01/28/2025 Patient Outreach [address] [address] Sherie William MD 01/28/2025 Patient Outreach [facility] [address] [place] [address] Sherie William MD Care Management ([facility]- F/U call # 2/LVM) from Last 3 Months Immunizations Immunization Administration Dates Next Due Hep A, Adult [...] Answer Date Recorded Patient Health Questionnaire-9 Score 13 04/06/2025 Patient Health Questionnaire-9 Score 13 04/06/2025 Last PHQ-9: Questionnaire Data Not on file 0 04/06/2025 Housing Stability Answer Date Recorded What is [...] Answer Date Recorded Patient Health Questionnaire-2 Score 4 04/06/2025 Internet Access Answer Date Recorded Internet Access [...] Sign Reading Time Taken Comments Blood Pressure 128/90 02/26/2025 10:54 AM EDT Pulse 92 02/26/2025 10:54 AM EDT Temperature 36.3 C (97.3 F) 02/26/2025 10:54 AM EDT Respiratory Rate 16 02/26/2025 10:54 AM EDT Oxygen Saturation 99% 04/10/2024 9:48 AM EDT Inhaled Oxygen Concentration - - Weight 76.8 kg (169 lb 6 oz) 02/26/2025 10:54 AM EDT Height 165.1 cm (5' 5 ) 02/26/2025 10:54 AM EDT Body Mass Index 28.19 02/26/2025 10:54 AM EDT Plan of Treatment Upcoming Encounters Date Type Department Care Team (Late st Contact Info) Description 06/03/2025 11:30 AM EDT Office Visit [facility] [address] [place] [phone] Sherie William MD [address] [place] [address] Health Maintenance Due Date Last Done Comments CT Colonography 1965 Colonoscopy 1965 FIT 1965 Sigmoidoscopy 1965 Hepatitis B Vaccines (2 of 3 - 19+ 3-dose series) 01/27/2016 12/30/2015, 06/30/2009, 10/20/2008 Zoster Vaccines (1 of 2) 2016 DTaP/Tdap/Td Vaccines (2 - Td or Tdap) 07/13/2024 07/13/2014, 09/10/2007 Mammogram 08/30/2024 08/30/2023, 0712/2022, 03/06/2023, Additional history exists FOBT 01/09/2025 01/10/2024 COVID-19 Vaccine ( season) 2025 Influenza Vaccine (#1) 2025 0, 07/13/2014, 09/10/2007 Depression Monitoring 10/07/2025 04/06/2025, 025 SDOH Screening 12/25/2025 12/25/2024 Alcohol/Substance Use Screening 02/26/2026 02/26/2025 Disability Screening 02/26/2026 02/26/2025 Tobacco Screening 02/26/2026 02/26/2025 Cervical Cancer Screening 05/19/2026 HPV/Cotest 05/19/2026 05/19/2021 [...] patient's age to complete this topic Meningococcal B Vaccine Aged Out No l onger eligible based on patient's age to complete [...] Diagnosis Comments FL GUIDANCE IN OR Routine 04/15/2025 11: 59 AM EDT XR FOOT 3+ VIEWS LEFT Routine 03/10/2025 6:42 AM EDT LAB COLOGUARD COLON CANCER SCREEN Routine 01/10/2024 12:16 PM [...] Maintenance Results * FL Guidance in OR (04/15/2025 11:59 AM EDT) Anatomical Region Laterality Modality X-Ray Angiograph y 04/15/2025 11:5 9 AM EDT Narrative 04/15/2025 2:15 PM EDT [address] [address] Fluoroscopy Report Signed Patient: Jessy Shanks MR#: [id number] : 1965 Acct:[id number] Age/Sex: 59 / F ADM Date: 04/15/25 Loc: HO.SSS Attending Dr: Arian Murillo MD Ordering Physician: Arian Murillo MD Date of Service: 04/15/25 Procedure(s): FL guidance in OR Accession Number(s): [id number] cc: Sherie William MD; Arian Murillo MD Reason for Exam: removal orthopedic hardware, left EXAMINATION: XR FLUOROSCOPY WITH IMAGES CLINICAL INFORMATION: Removal of orthopedic hardware left ankle COMPARISON: 04/02/2025 left ankle radiographs. TECHNIQUE: Fluoroscopy provided to: Dr. Murillo Fluoroscopy time: 0.0 minutes DAP: [id number] mGycm2 Images: 1 FINDINGS: Solitary spot image taken after left lateral malleolar hardware removal. Please refer to the full operative report for details. FL/FL guidance in OR IMPRESSION: Fluoroscopic guidance. Electronically signed by: Art Hdz MD 04/15/2025 02:12 PM EDT RP Dictated By: Art Hdz MD Signed By: <Electronically signed by Art Hdz MD in OV> 04/15/25 1412 DD/ 1159 TD/TT: 04/15/25 1239 Geoscientist: Procedure Note Donotuseinterpreter, Image - 04/15/2025 [place] [address] Fluoroscopy Report Signed Patient: Pop Shanks#: [id number] : 1965Acct:[id number] Age/Sex: 59 / FADM Date: 04/15/25 Loc: .[facility] Attending Dr: Arian Murillo MD Ordering Physician: Arian Murillo MD Date of Service: 04/15/25 Procedure(s): FL guidance in OR Accession Number(s): [id number] cc: Sherie William MD; Arian Murillo MD Reason for Exam: removal orthopedic hardware, left EXAMINATION: XR FLUOROSCOPY WITH IMAGES CLINICAL INFORMATION: Removal of orthopedic hardware left ankle COMPARISON: 04/02/2025 left ankle radiographs. TECHNIQUE: Fluoroscopy provided to: Dr. Murillo Fluoroscopy time: 0.0 minutes DAP: 0.438304 mGycm2 Images: 1 FINDINGS: Solitary spot image taken after left lateral malleolar hardware removal. Please refer to the full operative report for details. FL/FL guidance in OR IMPRESSION: Fluoroscopic guidance. Electronically signed by: Art Hdz MD 04/15/2025 02:12 PM EDT RP Dictated By: Art Hdz MD Signed By: <Electronically signed by Art Hdz MD in OV> 04/15/25 1412 DD/ 1159 TD/TT: 04/15/25 1239 Geoscientist: us [facility] External Provider IMG IR PROCEDURES Final Result * XR Foot 3+ Views Left (03/10/2025 6:42 AM EDT) Anatomical Region Laterality Modality Lower Extremities, Foot Left Radiogra phic Imaging 03/10/2025 6:42 AM EDT Narrative 03/10/2025 8:17 AM EDT [address] [address] XRay Report Signed Patient: Jessy Shanks MR#: [id number] : 1965 Acct:[id number] Age/Sex: 59 / F ADM Date: 03/10/25 Loc: HO.ED Attending Dr: Ordering Physician: Ernie Cote MD Date of Service: 03/10/25 Procedure(s): XR foot LT min 3V Accession Number(s): [id number] cc: Sherie William MD; Ernie Cote MD EXAMINATION: XR FOOT, LEFT CLINICAL INFORMATION: pain COMPARISON: November 29, 2024. TECHNIQUE: AP, lateral, and oblique views of the left foot. FINDINGS: Generalized decreased mineralization. Mouth-eaten pattern. Soft tissue edema pattern. No gross subcutaneous emphysema. No acute cortical disruption or malalignment. Metallic plates at the distal fibula and lateral malleolus and the medial malleolus. XR/XR foot LT min 3V IMPRESSION: Acute on chronic osteomyelitis cannot be excluded. Lymphoproliferative disorder versus metastatic disease should be included in the differential. No acute fracture or dislocation. Electronically signed by: Shamar Saunders MD 03/10/2025 08:14 AM EDT RP Dictated By: Shamar Pacheco MD Signed By: <Electronically signed by Shamar Charles MD in OV> 03/10/[address] DD/ 1 TD/TT: 03/10/[address] Geoscientist: Procedure Note Donotyvonneinterpreter, Image - 03/10/[address] [address] XRay Report Signed Patient: Pop Shanks#: [id number] : 1965Acct:[id number] Age/Sex: 59 / FADM Date: 03/10/25 Loc: HO.ED Attending Dr: Ordering Physician: Ernie Cote MD Date of Service: 03/10/25 Procedure(s): XR foot LT min 3V Accession Number(s): [id number] cc: Sherie William MD; Ernie Cote MD EXAMINATION: XR FOOT, LEFT CLINICAL INFORMATION: pain COMPARISON: November 29, 2024. TECHNIQUE: AP, lateral, and oblique views of the left foot. FINDINGS: Generalized decreased mineralization. Mouth-eaten pattern. Soft tissue edema pattern. No gross subcutaneous emphysema. No acute cortical disruption or malalignment. Metallic plates at the distal fibula and lateral malleolus and the medial malleolus. XR/XR foot LT min 3V IMPRESSION: Acute on chronic osteomyelitis cannot be excluded. Lymphoproliferative disorder versus metastatic disease should be included in the differential. No acute fracture or dislocation. Electronically signed by: Shamar Saunders MD 03/10/2025 08:14 AM EDT Dictated By: Shamar Pacheco MD Signed By: <Electronically signed by Shamar Charles MDin OV> 03/10/[address] DD/ 1 TD/TT: 03/10/257[address] Geoscientist: [facility] External Provider IMG XR PROCEDURES Final Result * (ABNORMAL) Cologuard?? colon cancer screening (01/10/2024 12:16 PM EDT) Cologuard Result Positive( A) Negative 01/16/2024 10:06 AM EDT [facility] (CLIA #:[id number]) Comment: POSITIVE TEST RESULT. A positive Cologuard result should be followed with a colonoscopy or visual examination of the colon. The normal value (reference range) for this assay is negative. TEST DESCRIPTION: Composite algorithmic analysis of stool DNA-biomarkers with hemoglobin immunoassay. Quantitative values of individual biomarkers are not [...] (Mario Bruce al, N Engl J Med 2014;370(14):7264-8277.) Cologuard may produce a false negative or false positive result (no colorectal cancer or precancerous polyp present at colonoscopy follow up). A negative Cologuard test result does not guarantee the absence of CRC or advanced adenoma (pre-cancer). The current Cologuard screening interval is every 3 years. ([place] [employer] Society and U.S. Multi-Society Task Force). Cologuard performance data in a 10,000 patient pivotal study using colonoscopy as the reference method can be accessed at the following location: [email or web address]/results. Additional description of the Cologuard test process, warnings and precautions can be found at www.[employer]aveous.com. Stool specimen (specimen) 01/10/2024 12:16 PM EDT 01/11/2024 1:42 PM EDT Pipe Yo [facility] MOLECULAR DIAGNOSTICS ORDERA BLES Final Result Performing Organization Address City/[facility]/ZIP Co de Phone Number [facility] (CLIA #:[id number]) [place] [address], * Hepatitis C Antibody with Reflex to HCV, RNA, Quantitative, Real-Time PCR (12/31/2023 9:52 AM EDT) Hepatitis C Antibody Nonreactive Nonreactive [facility] Comment:Antibodies to HCV no t detected; does not exclude early acuteHCV infection. Blood Venous blood specimen / Unknown 12/31/2023 9:52 AM EDT 12/31/2023 11:19 AM EDT Pipe Yo [facility] LAB BLOOD ORDERABLES Final Resul t Performing Organization Address [facility] Co de Phone Number [facility] [address] [place] [phone] * HIV-1/2 Antigen and Antibodies, Fourth Generation, with Reflexes (12/31/2023 9:52 AM EDT) HIV AB/AG Nonreactive Nonreactive [facility] Comment:HIV-1 p24 Ag and/or HIV-1/HIV-2 Ab not detected.A test result that is nonreactive does not exclude thepossibility of exposure to or infection with HIV-1 and/orHIV-2. Nonreactive results in this assay for individualswith prior exposure to HIV-1 and/or HIV-2 may be due toantigen and antibody levels that are below the limit ofdetection of this assay.The [employer] HIV Ag/Ab Combo assay result andsupplemental assay results should be interpreted inconjunction with the patient's clinical presentation,history and other laboratory results. If the results areinconsistent with clinical evidence, additional testing issuggested to confirm the result. Blood Venous blood specimen / Unknown 12/31/2023 9:52 AM EDT 12/31/2023 11:19 AM EDT Pipe Yo [facility] LAB BLOOD ORDERABLES Final Resul t Performing Organization Address [facility] de Phone Number [facility] [address] [place] [phone] * (ABNORMAL) Lipid Panel, Standard (12/31/2023 9:52 AM EDT) Triglycerides 166(H) <150 mg/dL [facility] Comment:Desirable Triglyceri de: less than 150 mg/dLBorderline High Triglyceride 150-199 mg/dLHigh Triglyceride: 200-499 mg/dLVery High Triglyceride: greater than or equal to 5OO mg/dL Cholesterol 172 <200 mg/dL [facility] Comment:Desirable Cholestero l: less than 200 mg/dLBorderline High Cholesterol: 200-239 mg/dLHigh Cholesterol: greater than 239 mg/dL LDL Cholesterol Calculated 103(H) <100 mg/dL [facility] Comment:Desirable LDL: less than [...] ORDERABLES Final Resul t Performing Organization Address [facility] Co de Phone Number [facility] [address] [place] [phone] * BI Mammogram Diagnostic Tomosynthesis Bilateral (08/30/2023 12:11 PM EST) Anatomical Region Laterality Modality Breast Bilateral Mammography 08/30/2023 12:1 1 PM EST Narrative 08/30/2023 1:07 PM EST [facility] [address] [place], [place] [address] Mammography Report Signed Patient: Jessy Shanks MR#: [id number] : 1965 Acct:[id number] Age/Sex: 58 / F ADM Date: 08/30/23 Loc: HO.MAMMO Attending Dr: Piep Yo NP Ordering Physician: PIPE YO NP Results: 2Benign Pastor dingankit Date of Service: 08/30/23 Follow Up: 1 Year From Orig inal Mammogram Procedure(s): MM tomosynthesis diagnostic BI Accession Number(s): [id number] cc: PIPE YO NP EXAMINATION: MM DIAGNOSTIC [...] in OV> 08/30/23 1303 DD/ 1211 TD/TT: Geoscientist: Procedure Note Donotuseinterpreter, Image - 08/30/2023 [facility]'[address] [place] [address] Mammography Report Signed Patient: Pop Shanks#: [id number] : 1965Acct:[id number] Age/Sex: 58 / FADM Date: 08/30/23 Loc: HO.MAMMO Attending Dr: Pipe Yo NP Ordering Physician: PIPE YO NPResults: 2Benign [facility] Date of Service: 08/30/23Follow Up: 1 Year From Orig inal Mammogram Procedure(s): MM tomosynthesis diagnostic BI Accession Number(s): [id number] cc: PIPE YO NP EXAMINATION: MM DIAGNOSTIC [...] in OV> 08/30/23 1303 DD/ 1211 TD/TT: Geoscientist: Pipe JAMA BI PROCEDURES Final Result * HPV mRNA E6/E7 (05/19/2021 11:47 AM EDT) HPV nRNA E6/E7 Not Detected Not Detected [facility] Comment: Methodology: Associate Professor Physician-Mediated Amplification This assay detects E6/E7 viral messenger RNA (mRNA) from 14 high-risk HPV types (16,18,31,33,35,39,45,51,52,56,58,59,66,68). The analytical performance characteristics of this assay have been determined by [employer]. The modifications have not been cleared or approved by the FDA. This assay has been validated pursuant to the CLIA regulations and is used for clinical purposes. For additional information, please refer to http://education.[employer]ache.com/faq/RLU626l2 (This link if provided for information/ educational purposes only.) 05/19/2021 11:4 7 AM EDT Hui Gutierres CNM LAB BLOOD ORDERABLES Aurora burgos Result [facility] [address] [place] [address], * Pap Smear (05/19/2021 12:00 AM EDT) Swab Hui Gutierres [facility] CYTOLOGY ORDERABLES F inal Result [facility] [address] [facility], [facility], [place] [address] from Last 3 Months or Most Recently Relevant to Health Maintenance Insurance [employer] C3 Care Teams Rn Hedis Relationship Specialty Start Date End Date Sherie William MD [address] [place] [phone] PCP - General Internal Medicine 03/19/24
--- OUTSIDE RECORDS SUMMARY | 2025-04-23 18:23 | XMS_ITS ---
Author Organization [employer] Address [address] [place] [address] [address] [place] [address] Care Team Providers Care Desktop Architect Name Role Phone Sherie William MD Primary Care Provide r CM Complex Status:Enrolled (Active) Start date:11/20/2024 Enrollment date:12/16/2024 Enrollment reason:ADT Feed Overview [facility] ED 11/19/24 Case Team Name Relationship Phone Brandon Tijerina RN(Responsible Staff) Registered Júnior adam [phone] Continued Care and Services Coordination
--- OUTSIDE RECORDS SUMMARY | 2025-04-23 18:23 | XMS_ITS ---
Author Organization [employer] Address [address] [place] [address] [address] [place] [address] Care Team Providers Care Senior Controller Name Role Phone Sherie William MD Primary Care Provide r CHW Complex Status:Enrolled (Active) Start date:11/20/2024 Enrollment date:11/20/2024 Enrollment reason:ADT Feed Overview [facility] ED 11/19/24 Case Team Name Relationship Phone Crys Marvin(Responsible Staff) [phone] Continued Care and Services Coordination
--- OUTSIDE RECORDS SUMMARY | 2025-04-23 18:23 | XMS_ITS | Encounter Summary ---
Author Organization [employer] Address [address] [place] [address] 7t [place] [address] Care Team Providers Care Slat Basket Maker Helper Machine Name Role Phone Cindy Zacarias Primary Care Provider [phone] Sherie William MD Primary Care Provide r Encounter Details Date Type Department Care Team (Late st Contact Info) Description 04/03/2023 Abstract [facility] MEDICINE [address] [place] [address] [phone] ProviderJillian MD Social History Tobacco Use Types [...] Description 06/03/2025 11:30 AM EDT Office Visit [facility] MEDICINE [address] [place] [address] [phone] Sherie William MD [address] [place], [place] [phone] documented as of this encounter Procedures Procedure Name Priority Date/Time Associated Diagnosis Comments MAMMOGRAPHY Routine 03/06/2023 documented in this encounter Results * Mammography (03/06/2023) Mammogram abnormal Anatomical Region Laterality Modality Other us Historical Provider HEALTH MAINTENANCE Final Result documented in this encounter Visit Diagnoses Not on filedocumented in this encounter Care Teams Slat Basket Maker Helper Machine Relationship Specialty Start Date End Date Cindy Zacarias ANP [address] [place] [address] PCP - General Family Medicine 07/20/20 03/18/24 Sherie William MD [address] [place] [address] PCP - General Internal Medicine 03/19/24 documented as of this encounter
--- OUTSIDE RECORDS SUMMARY | 2025-04-23 18:23 | XMS_ITS | Encounter Summary ---
Author Organization [employer] Address [address] [facility] 7t [place] [address] Care Team Providers Care Elevator Erector Helper Name Role Phone Sherie William MD Primary Care Provide r Encounter Details Date Type Department Care Team ([facility] st Contact Info) Description 04/28/2024 Orders Only [facility] MEDICINE [address] [place] [address] Cindy Zacarias, ANP [address] [place] [address] Social History Tobacco Use Types Packs/Day Years [...] Description 06/03/2025 11:30 AM EDT Office Visit [facility] [address] [place] [phone] Sherie William MD [address] [place] [address] documented as of this encounter Visit Diagnoses Not on filedocumented in this encounter Additional Health Concerns Assessment Noted Time PHQ-9 Depression Total Score: 19 024 9:54 AM EDT documented as of this encounter Care Teams Elevator Erector Helper Relationship Specialty Start Date End Date Sherie William MD [address] [place] [id number] PCP - General Internal Medicine 03/19/24 documented as of this encounter
--- OUTSIDE RECORDS SUMMARY | 2025-04-23 18:23 | XMS_ITS | Encounter Summary ---
Author Organization [facility] Address [address] [place] [phone] Phone Care Team Providers Care Food Production Supervisor Name Role Phone Cindy Zacarias Primary Care Provider [phone] Encounter Details Date Type Department Care Team (Late st Contact Info) Description 09/30/2021 Ancillary Orders [facility],Outside Imaging [address] [place], [place] [phone] System, Provider Not In, [place] [address] Social History Tobacco Use Types Packs/Day Years Used Date Smoking Tobacco: Never Assessed Comments Unknown Sex and Gender Information Value Date Recorded Sex Assigned at Not on file Legal Sex Female 8:27 AM EST Gender Identity Not on file Sexual Orientation Not on file documented as of this encounter Plan of Treatment Not on file documented as of this encounter Results * US Breast Outside (No Interpretation) (07/21/2021 12:00 AM EST) Narrative SYSTEMGENERATED, DOCUMENTATION - 09/30/2021 2:44 PM EST This study is for PACS storage only and not for interpretation. us Provider Not In System PhD [facility] OUTSIDE IMAGING W /OUT INTERPRETATION Final Result documented in this encounter Visit Diagnoses Not on filedocumented in this encounter Care Teams Food Production Supervisor Relationship Specialty Start Date End Date Cindy Zacarias ANP [address] [place] [address] [phone] PCP - General Family Medicine 09/29/21 documented as of this encounter Additional Source Comments The information contained in this document represents components of the legal health record. It is not the complete legal health record.[facility]
== END 2025-04-23 15:43 | disposition home or self-care (01) ==
LOC: HO.HOS 14:55
PROVIDERS: PCP Internal Medicine; Visit Provider Physician Assistant
DX: Z96.9 Presence of functional implant, unspecified (principal)
CPT/HCPCS: 99024

== ENCOUNTER → 2025-04-23 15:00 | Outpatient (BNV) | payer MEDICAID, SELFPAY | PROVIDERS: Visit Provider Radiology Diagnostic Radiology | DX: M25.572 Pain in left ankle and joints of left foot (principal) | CPT/HCPCS: 73610 ==

== ENCOUNTER 2025-04-30 08:50 | Outpatient (REF) | payer MEDICAID, SELFPAY ==
--- NOTE | ~2025-04-30 | XR_ITS ---
CLINICAL HISTORY: M25.579 - Pain in unspecified ankle and joints of unspecified foot 3 views left ankle Comparison: DX/SR - XR ANKLE 3 OR MORE VIEWS LEFT - 04/23/25 15:00 EDT DX/GA/SR - XR ANKLE 3 OR MORE VIEWS LEFT - 04/02/25 12:59 EDT Findings: Sideplate and screws ORIF hardware has been removed from the fibula. The distal fibular diaphyseal fracture is nearly completely healed fracture line has become less distinct. Ankle mortise intact. Normal plafond. No osteochondral lesions. Calcaneus and subtalar joint intact. Mild degenerative changes of the midfoot and subtalar joint stable. Posterior and plantar calcaneal enthesophytes. Skin pamela medial and lateral malleolus. Normal pre-Achilles fat pad. No radiopaque foreign body. Impression: 1. Progressive healing of the spiral fracture distal shaft of the fibula. Fracture line is barely visible. ORIF hardware has been removed. Postsurgical changes as described. Osteopenia. Mild soft tissue swelling laterally This document has been electronically signed by: Servando Jackson MD on 05/05/2025 12:30:32
--- OUTSIDE RECORDS SUMMARY | 2025-05-01 09:32 | XMS_ITS | Encounter Summary ---
Author Organization [facility] Address [address] [place] [phone] Phone Care Team Providers Care Processing Supervisor Name Role Phone Cindy Zacarias Primary Care Provider [phone] Encounter Details Date Type Department Care Team (Late st Contact Info) Description 09/30/2021 Ancillary Orders [facility],Outside Imaging [address] [place], [place] [phone] System, Provider Not In, [place] [address] Social History Tobacco Use Types Packs/Day Years [...] on filedocumented in this encounter Care Teams Processing Supervisor Relationship Specialty Start Date End Date Cindy Zacarias ANP [address] [place] [address] [phone] PCP - General Family Medicine 09/29/21 documented as of this encounter Additional Source Comments The information contained in this document represents components of the legal health record. It is not the complete legal health record.[facility]
--- OUTSIDE RECORDS SUMMARY | 2025-05-01 09:32 | XMS_ITS | Encounter Summary ---
Author Organization [facility] Address [address] [place] [address] Phone Care Team Providers Care Tool And Die Repair Name Role Phone Cindy Zacarias Primary Care Provider [phone] Encounter Details Date Type Department Care Team (Late st Contact Info) Description 09/30/2021 Ancillary Orders [facility],Outside Imaging [address] [place], [place] [phone] System, Provider Not In, [place] [address] Social History Tobacco Use Types Packs/Day Years [...] on filedocumented in this encounter Care Teams Tool And Die Repair Relationship Specialty Start Date End Date Cindy Zacarias ANP [address] [place] [address] [phone] PCP - General Family Medicine 09/29/21 documented as of this encounter Additional Source Comments The information contained in this document represents components of the legal health record. It is not the complete legal health record.[facility]
--- OUTSIDE RECORDS SUMMARY | 2025-05-01 09:32 | XMS_ITS | Encounter Summary ---
Author Organization [facility] Address [address] [place] [address] Phone Care Team Providers Care Snorkelling Instructor Name Role Phone Cindy Zacarias Primary Care Provider [phone] Encounter Details Date Type Department Care Team (Late st Contact Info) Description 09/30/2021 Ancillary Orders [facility],Outside Imaging [address] [place], [place] [phone] System, Provider [place] In, [place] [address] Social History Tobacco Use Types Packs/Day Years [...] on filedocumented in this encounter Care Teams Snorkelling Instructor Relationship Specialty Start Date End Date Cindy Zacarias ANP [address] [place] [address] [phone] PCP - General Family Medicine 09/29/21 documented as of this encounter Additional Source Comments The information contained in this document represents components of the legal health record. It is not the complete legal health record.[facility]
--- OUTSIDE RECORDS SUMMARY | 2025-05-01 09:32 | XMS_ITS | Encounter Summary ---
Author Organization [facility] Address [address] [place] [phone] Phone Care Team Providers Care Community Arts Worker Name Role Phone Cindy Zacarias Primary Care Provider [phone] Encounter Details Date Type Department Care Team (Late st Contact Info) Description 09/30/2021 Ancillary Orders [facility],Outside Imaging [address] [place], [place] [phone] System, Provider [place] In, [place] [address] Social History Tobacco Use Types Packs/Day Years [...] on filedocumented in this encounter Care Teams Community Arts Worker Relationship Specialty Start Date End Date Cindy Zacarias ANP [address] [place] [address] [phone] PCP - General Family Medicine 09/29/21 documented as of this encounter Additional Source Comments The information contained in this document represents components of the legal health record. It is not the complete legal health record.[facility]
--- OUTSIDE RECORDS SUMMARY | 2025-05-01 09:32 | XMS_ITS | Encounter Summary ---
Author Organization [facility] Address [address] [place] [address] Phone Care Team Providers Care Senior Economist Name Role Phone Cindy Zacarias Primary Care Provider [phone] Encounter Details Date Type Department Care Team (Late st Contact Info) Description 09/30/2021 Ancillary Orders [facility],Outside Imaging [address] [place], [place] [phone] System, Provider [place] In, [place] [address] Social History Tobacco Use Types Packs/Day Years [...] filedocumented in this encounter Care Teams Senior Economist Relationship Specialty Start Date End Date Cindy Zacarias ANP [address] [place] [address] [phone] PCP - General Family Medicine 09/29/21 documented as of this encounter Additional Source Comments The information contained in this document represents components of the legal health record. It is not the complete legal health record.[facility]
--- OUTSIDE RECORDS SUMMARY | 2025-05-01 09:32 | XMS_ITS | Clinical Summary ---
Author Organization [employer] Address [address] [place] [address] 7t [place] [address] Care Team Providers Care Asian Studies Professor Name Role Phone Sherie William MD [...] in the evening. 1 Active sodium chloride ([place] Nasal [place]) 0.65 % nasal sprayIndications :Viral URI 1-2 [...] ic obstructive pulmonary disease, unspecified COPD type ([facility]/HCC) INHALE 2 PUFFS BY MOUTH EVERY 4 TO 6 HOURS IF NEEDED FOR SHORTNESS OF BREATH OR WHEEZING 18 g 4 Active Fluocinolone Acetonide Scalp ([place]-Smoothe/F S Scalp) 0.01 % oilIndications:S eborrheic dermatitis of scalp Massage into damp scalp daily. Cover hair and leave on for at least 4 hours 118 mL 4 Active tiZANidine (Zanaflex) 4 MG capsuleIndicatio ns:Chronic bilateral low back pain without sciatica Take 1 capsule (4 mg) by mouth 3 times daily. 90 capsule 11 4 Active fluocinolone ([place]-Smoothe) 0.01 % external oilIndications:A llergic contact dermatitis due to chemical APPLY TOPICALLY TO AFFECTED AREA(S) TWICE DAILY DIRECTED 118.28 mL 1 4 Active triamcinolone (Kenalog) 0.1 % creamIndications :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 APPLY TO THE AFFECTED AREA(S) TOPICALLY TWICE DAILY 80 g 2 5 Active QUEtiapine (SEROquel) 50 MG tabletIndication s:Mood disorder ([facility]) Take 1 tablet (50 mg) [...] at bedtime, I will refer her to [facility] Closed fracture of distal end [...] children, concern about mother who lives in [place] and trust issues. PLAN: New/Additional Services needed PCP management Off-site services for Behavioral Health Integration Plan External OP therapy referral Patient Self Plan Patient to utilize skills provided in intervention , Patient to reach out to [facility] team as needed, Comply with medication , Patient to engage in OP therapy , and Patient to reach out to [facility] as needed Encounters * This document contains information received from the source organization and may not represent a complete record from that organization. Date Type Department Care Team Description 04/07/2025 Patient Outreach [address] [phone] Sherie William MD Care Coordination ([facility] Crys Marvin telephone call outreach) 04/06/2025 Patient Outreach [address] [address] Sherie William MD Care Coordination ([facility] Crys Marvin telephone call outreach ) 04/02/2025 Patient Outreach [address] [address] Sherie William MD Care Management ([facility]- F/U call # 4/LVM) 03/26/2025 Patient Outreach [address] [address] Sherie William MD Care Coordination ([facility] Crys Marvin telephone call outreach) 03/26/2025 Telephone [facility] [address] [place] [address] Sherie William MD OCT RECALL 03/13/2025 Patient Outreach [address] [address] Sherie William MD Care Coordination ([address] Crys Marvin telephone call outreach /) 03/12/2025 Patient Outreach [address] [address] Sherie William MD Care Management ([facility]- F/U call # 3) 03/10/2025 Orders Only [facility] External Provider, [facility] 02/26/2025 11:15 AM EDT Office Visit [address] [address] Sherie William MD Closed fracture of distal end of left fibula with delayed healing, unspecified fracture morphology, subsequent encounter; Mixed anxiety and depressive disorder; Mood disorder (CMS/[facility]); Gastroesophageal reflux disease, unspecified whether esophagitis present; Chronic bilateral low back pain without sciatica; COPD with asthma (CMS/HCC); Tobacco dependence syndrome; Chronic pain of left ankle; Left foot pain 02/26/2025 Travel 02/20/2025 Patient Outreach [address] [address] Sherie William MD Care Coordination 02/20/2025 Patient Outreach [address] [address] Sherie William MD 02/19/2025 Patient Outreach [address] [address] Sherie William MD Care Management ([facility]- F/U call # 2) 02/05/2025 Patient Outreach [address] [address] Sherie William MD Care Coordination from Last 3 Months Immunizations Immunization Administration [...] Description 06/03/2025 11:30 AM EDT Office Visit [facility] [address] [place], [place] [phone] Sherie William MD [address] [place] [address] Health Maintenance Due Date Last Done Comments CT Colonography 1965 Colonoscopy 1965 FIT 1965 Sigmoidoscopy 1965 Hepatitis B Vaccines (2 of 3 - 19+ 3-dose series) 01/27/2016 12/30/2015, 06/30/2009, 10/20/2008 Zoster Vaccines (1 of 2) 2016 DTaP/Tdap/Td Vaccines (2 - Td or Tdap) 07/13/2024 07/13/2014, 09/10/2007 Mammogram 08/30/2024 08/30/2023, 02/11, 03/06/2023, Additional history exists FOBT 01/09/2025 01/10/2024 COVID-19 Vaccine (1 - season) 2025 Influenza Vaccine (#1) 2025 , 07/13/2014, 09/10/2007 Depression Monitoring 10/07/2025 04/06/2025, 025 [...] AM EDT Narrative 04/15/2025 2:15 PM EDT [place] [address] Fluoroscopy Report Signed Patient: Jessy Shanks MR#: [id number] : 1965 Acct:[id number] Age/Sex: 59 / F ADM Date: 04/15/25 Loc: HO.SSS Attending Dr: Arian Murillo MD Ordering Physician: Arian Murillo MD Date of Service: 04/15/25 Procedure(s): FL guidance in OR Accession Number(s): [id number] cc: Sherie William MD; Arian Murillo MD Reason for Exam: removal orthopedic hardware, left EXAMINATION: XR FLUOROSCOPY WITH IMAGES CLINICAL INFORMATION: Removal of orthopedic hardware left ankle COMPARISON: 04/02/2025 left ankle radiographs. TECHNIQUE: Fluoroscopy provided to: Dr. Murillo Fluoroscopy time: 0.0 minutes DAP: 0.392143 mGycm2 Images: 1 FINDINGS: Solitary spot image taken after left lateral malleolar hardware removal. Please refer to the full operative report for details. FL/FL guidance in OR IMPRESSION: Fluoroscopic guidance. Electronically signed by: Art Hdz MD 04/15/2025 02:12 PM EDT RP Dictated By: Art Hdz MD Signed By: <Electronically signed by Art Hdz MD in OV> 04/15/25 1412 DD/ 1159 TD/TT: 04/15/25 1239 Fundraising Assistant: Procedure Note Donotuseinterpreter, Image - 04/15/2025 [place] [address] Fluoroscopy Report Signed Patient: Pop Shanks#: [id number] : 1965Acct:[id number] Age/Sex: 59 / FADM Date: 04/15/25 Loc: HO.[facility] Attending Dr: Arian Murillo MD Ordering Physician: Arian Murillo MD Date of Service: 04/15/25 Procedure(s): FL guidance in OR Accession Number(s): [id number] cc: Sherie William MD; Arian Murillo MD Reason for Exam: removal orthopedic hardware, left EXAMINATION: XR FLUOROSCOPY WITH IMAGES CLINICAL INFORMATION: Removal of orthopedic hardware left ankle COMPARISON: 04/02/2025 left ankle radiographs. TECHNIQUE: Fluoroscopy provided to: Dr. Murillo Fluoroscopy time: 0.0 minutes DAP: 0.075562 mGycm2 Images: 1 FINDINGS: Solitary spot image taken after left lateral malleolar hardware removal. Please refer to the full operative report for details. FL/FL guidance in OR IMPRESSION: Fluoroscopic guidance. Electronically signed by: Art Hdz MD 04/15/2025 02:12 PM EDT RP Dictated By: Art Hdz MD Signed By: <Electronically signed by Art Hdz MD in OV> 04/15/25 1412 DD/ 1159 TD/TT: 04/15/25 1239 Fundraising Assistant: us [facility] External Provider IMG IR PROCEDURES Final Result * XR Foot 3+ Views Left (03/10/2025 6:42 AM EDT) Anatomical Region Laterality Modality Lower Extremities, Foot Left Radiogra phic Imaging 03/10/2025 6:42 AM EDT Narrative 03/10/2025 8:17 AM EDT [address] [address] XRay Report Signed Patient: Jessy Shanks MR#: [id number] : 1965 Acct:[id number] Age/Sex: 59 / F ADM Date: 03/10/25 Loc: HO.ED Attending Dr: Ordering Physician: Ernie Cote MD Date of Service: 03/10/25 Procedure(s): XR foot LT min 3V Accession Number(s): [id number] cc: Sherie William MD; Ernie Cote MD [...] signed by Shamar Charles MD in OV> 03/10/25 0814 DD/ 1 TD/TT: 03/10/25741 Fundraising Assistant: Procedure Note Donotuseinterpreter, Image - 03/10/[address] [address] XRay Report Signed Patient: Pop Shanks#: [id number] : 1965Acct:[id number] Age/Sex: 59 / FADM Date: 03/10/25 Loc: HO.ED Attending Dr: Ordering Physician: Ernie Cote MD Date of Service: 03/10/25 Procedure(s): XR foot LT min 3V Accession Number(s): [id number] cc: Sherie William MD; Ernie Cote MD [...] <Electronically signed by Shamar Charles MDin OV> 03/10/2514 DD/ 1 TD/TT: 03/10/25741 Fundraising Assistant: [facility] External Provider IMG XR PROCEDURES Final Result * (ABNORMAL) Cologuard?? colon cancer screening (01/10/2024 12:16 PM EDT) Cologuard Result Positive( A) Negative 01/16/2024 10:06 AM EDT [employer] (CLIA #:[id number]) Comment: POSITIVE TEST RESULT. A positive Cologuard [...] Maurer. et al, N Engl J Med 2014;370(14):4983-0265.) Cologuard may produce a false negative or false positive result (no colorectal cancer or precancerous polyp present at colonoscopy follow up). A negative Cologuard test result does not guarantee the absence of CRC or advanced adenoma (pre-cancer). The current Cologuard screening interval is every 3 years. ([place] [employer] Society and U.S. Multi-Society Task Force). Cologuard performance data in a 10,000 patient pivotal study using colonoscopy as the reference method can be accessed at the following location: www.[employer]/results. Additional description of the Cologuard test process, warnings and precautions can be found at www.BestTravelWebsitesrd.com. Stool specimen (specimen) 01/10/2024 12:16 PM EDT 01/11/2024 1:42 PM EDT [facility] MOLECULAR DIAGNOSTICS ORDERA BLES Final Result [employer] (CLIA #:[id number]) [place] [address], * Hepatitis C Antibody with Reflex to HCV, RNA, Quantitative, Real-Time PCR (12/31/2023 9:52 AM EDT) Pathologist [facility] Hepatitis C Antibody Nonreactive Nonreactive [facility] Comment:Antibodies to HCV no t detected; does not exclude early acuteHCV infection. Blood Venous blood specimen / Unknown 12/31/2023 9:52 AM EDT 12/31/2023 11:19 AM EDT Pipe Yo [facility] LAB BLOOD ORDERABLES Final Resul t Performing Organization Address [facility]/ZIP Co de Phone Number [facility] [address] [place] [phone] * HIV-1/2 Antigen and Antibodies, Fourth Generation, with Reflexes (12/31/2023 9:52 AM EDT) [facility] HIV AB/AG Nonreactive Nonreactive [facility] Comment:HIV-1 p24 Ag and/or HIV-1/HIV-2 Ab not detected.A test result that is nonreactive does not exclude thepossibility of exposure to or infection with HIV-1 and/orHIV-2. Nonreactive results in this assay for individualswith prior exposure to HIV-1 and/or HIV-2 may be due toantigen and antibody levels that are below the limit ofdetection of this assay.The [employer] HIV Ag/Ab Combo assay result andsupplemental assay results should be interpreted inconjunction with the patient's clinical presentation,history and other laboratory results. If the results areinconsistent with clinical evidence, additional testing issuggested to confirm the result. Blood Venous blood specimen / Unknown 12/31/2023 9:52 AM EDT 12/31/2023 11:19 AM EDT Pipe Yo [facility] LAB BLOOD ORDERABLES Final Resul t Performing Organization Address [facility]/ZIP Co de Phone Number [facility] [address] [place] [phone] * (ABNORMAL) Lipid Panel, Standard (12/31/2023 9:52 AM EDT) Triglycerides 166(H) <150 mg/dL [facility] Comment:Desirable Triglyceri de: less than 150 mg/dLBorderline High Triglyceride 150-199 mg/dLHigh Triglyceride: 200-499 mg/dLVery High Triglyceride: greater than or equal to 5OO mg/dL Cholesterol 172 <200 mg/dL [facility] Comment:Desirable Cholestero l: less than 200 mg/dLBorderline High Cholesterol: 200-239 mg/dLHigh Cholesterol: greater than 239 mg/dL LDL Cholesterol Calculated 103(H) <100 mg/dL [facility] Comment:Desirable LDL: less than 100 mg/dLNear Optimal/Above Optimal LDL: 110- 129 mg/dLBorderline High LDL: 130-159 mg/dLHigh LDL: 160-189 mg/dLVery High LDL: greater than or equal to 190 mg/dL HDL Cholesterol 36(L) >40 mg/dL [facility] Comment:Desirable HDL: great er than 40 mg/dL Note: This HDL assay may give artificially low results in patients with liver disease. Blood Venous blood specimen / Unknown 12/31/2023 9:52 AM EDT 12/31/2023 11:19 AM EDT [facility] LAB BLOOD ORDERABLES Final Resul t [facility] [address] [facility] [place] [phone] * BI Mammogram Diagnostic Tomosynthesis Bilateral (08/30/2023 12:11 PM EST) Anatomical Region Laterality Modality Breast Bilateral Mammography 08/30/2023 12:1 1 PM EST Narrative 08/30/2023 1:07 PM EST [facility] [address] [place] [address] Mammography Report Signed Patient: Jessy Shanks MR#: [id number] : 1965 Acct:[id number] Age/Sex: 58 / F ADM Date: 08/30/23 Loc: HO.MAMMO Attending Dr: Pipe Yo NP Ordering Physician: PIPE YO NP Results: 2Benimagali quach Date of Service: 08/30/23 Follow Up: 1 Year From Orig ina Mammogram Procedure(s): MM tomosynthesis diagnostic BI Accession Number(s): [id number] cc: PIPE YO NP EXAMINATION: MM DIAGNOSTIC [...] in OV> 08/30/23 1303 DD/ 1211 TD/TT: Fundraising Assistant: Procedure Note Donotuseinterpreter, Image - 08/30/2023 [facility] [address] [place] [address] Mammography Report Signed Patient: Pop Shanks#: [id number] : 1965Acct:[id number] Age/Sex: 58 / FADM Date: 08/30/23 Loc: HO.MAMMO Attending Dr: Pipe Yo NP Ordering Physician: PIPE YO NPResults: 2Benign Pastor quach Date of Service: 08/30/23Follow Up: 1 Year From Orig inal Mammogram Procedure(s): MM tomosynthesis diagnostic BI Accession Number(s): [id number] cc: PIPE YO NP EXAMINATION: MM DIAGNOSTIC [...] in OV> 08/30/23 1303 DD/ 1211 TD/TT: Fundraising Assistant: Pipe Rell ANP IMG BI PROCEDURES Final Result * HPV mRNA E6/E7 (05/19/2021 11:47 AM EDT) HPV nRNA E6/E7 Not Detected Not Detected [employer] Comment: Methodology: Director Of Compliance-Mediated Amplification This assay detects E6/E7 viral messenger RNA (mRNA) from 14 high-risk HPV types (16,18,31,33,35,39,45,51,52,56,58,59,66,68). The analytical performance characteristics of this assay have been determined by [employer]. The modifications have not been cleared or approved by the FDA. This assay has been validated pursuant to the CLIA regulations and is used for clinical purposes. For additional information, please refer to http://education.Patient Education Systems/faq/VTW510o3 (This link if provided for information/ educational purposes only.) 05/19/2021 11:4 7 AM EDT H[facility] Gut[facility] BLOOD ORDERABLES Aurora l Result [employer] [address] * Pap Smear (05/19/2021 12:00 AM EDT) Swab Hui Gutierres [facility] CYTOLOGY ORDERABLES F inal Result [employer] [address] [place] [address], [place] [phone] from Last 3 Months or Most Recently Relevant to Health Maintenance Insurance [facility] C3 Care Teams Asian Studies Professor Relationship Specialty Start Date End Date Sherie William MD [address] [place] [phone] PCP - General Internal Medicine 03/19/24
--- OUTSIDE RECORDS SUMMARY | 2025-05-01 09:32 | XMS_ITS | Encounter Summary ---
Author Organization [employer] Address [address] [place] [address] 7t [place] [address] Care Team Providers Care Fax Machine Repairer Name Role Phone Cindy Zacarias Primary Care Provider [phone] Sherie William MD Primary Care Provide r Encounter Details Date Type Department Care Team (Latest Contact Info) Description 12/07/2020 Abstract [facility] CONVERSIONS Dental, Provider, DDS Social History [...] Description 06/03/2025 11:30 AM EDT Office Visit [facility] MEDICINE [address] [place] [address] Sherie William MD [address] [place] [address] documented as of this encounter Visit Diagnoses Not on filedocumented in this encounter Care Teams Fax Machine Repairer Relationship Specialty Start Date End Date Cindy Zacarias ANP [address] [place] [address] PCP - General Family Medicine 07/20/20 03/18/24 Sherie William MD [address] [place] [address] PCP - General Internal Medicine 03/19/24 documented as of this encounter
--- OUTSIDE RECORDS SUMMARY | 2025-05-01 09:33 | XMS_ITS ---
Author Organization [employer] Address [address] [place] [address] 7t [place] [address] Care Team Providers Care Primary Special Educator Name Role Phone Sherie William MD Primary Care Provide r CM Complex Status:Enrolled (Active) Start date:11/20/2024 Enrollment date:12/16/2024 Enrollment reason:ADT Feed Overview [facility] ED 11/19/24 Case Team Name Relationship Phone Brandon Tijerina RN(Responsible Staff) Registered Júnior adam [phone] Continued Care and Services Coordination
--- OUTSIDE RECORDS SUMMARY | 2025-05-01 09:33 | XMS_ITS | Encounter Summary ---
Author Organization [employer] Address [address] [place] [address] 7t [place] [address] Care Team Providers Care It Coordinator Name Role Phone Cindy Zacarias Primary Care Provider [phone] Sherie William MD Primary Care Provide r Encounter Details Date Type Department Care Team (Late st Contact Info) Description 04/03/2023 Abstract [facility] MEDICINE [address] [place] [address] [phone] ProviderJillian MD Social History Tobacco Use Types [...] Description 06/03/2025 11:30 AM EDT Office Visit [facility] MEDICINE [address] [place] [address] [phone] Sherie William MD [address] [place], [place] [phone] documented as of this encounter Procedures Procedure Name Priority Date/Time Associated Diagnosis Comments MAMMOGRAPHY Routine 03/06/2023 documented in this encounter Results * Mammography (03/06/2023) Mammogram abnormal Anatomical Region Laterality Modality Other us Historical Provider HEALTH MAINTENANCE Final Result documented in this encounter Visit Diagnoses Not on filedocumented in this encounter Care Teams It Coordinator Relationship Specialty Start Date End Date Cindy Zacarias ANP [address] [place] [address] PCP - General Family Medicine 07/20/20 03/18/24 Sherie William MD [address] [place] [address] PCP - General Internal Medicine 03/19/24 documented as of this encounter
--- OUTSIDE RECORDS SUMMARY | 2025-05-01 09:33 | XMS_ITS ---
Author Organization [employer] Address [address] [place] [address] 7t [place] [address] Care Team Providers Care Embroidery Finisher Name Role Phone Sherie William MD Primary Care Provide r CHW Complex Status:Enrolled (Active) Start date:11/20/2024 Enrollment date:11/20/2024 Enrollment reason:ADT Feed Overview [facility] ED 11/19/24 Case Team Name Relationship Phone Crys Mavrin(Responsible Staff) Continued Care and Services Coordination
--- OUTSIDE RECORDS SUMMARY | 2025-05-01 09:33 | XMS_ITS | Encounter Summary ---
Author Organization [employer] Address [address] [facility] 7t [place] [address] Care Team Providers Care Drying Machine Tender Name Role Phone Sherie William MD Primary Care Provide r Encounter Details Date Type Department Care Team ([facility] st Contact Info) Description 04/28/2024 Orders Only [facility] MEDICINE [address] [place] [address] Cindy Zacarias, ANP [address] [place] [address] Social History Tobacco Use Types Packs/Day Years [...] Description 06/03/2025 11:30 AM EDT Office Visit [facility] MEDICINE [address] [place] [address] Sherie William MD [address] [place] [address] documented as of this encounter Visit Diagnoses Not on filedocumented in this encounter Additional Health Concerns Assessment Noted Time PHQ-9 Depression Total Score: 19 024 9:54 AM EDT documented as of this encounter Care Teams Drying Machine Tender Relationship Specialty Start Date End Date Sherie William MD [address] [place] [phone] PCP - General Internal Medicine 03/19/24 documented as of this encounter
--- OUTSIDE RECORDS SUMMARY | 2025-05-01 09:33 | XMS_ITS | Clinical Summary ---
Author Organization [facility] Address [address] [address] Phone Care Team Providers Care Dentist Name Role Phone Rell Cindy SAUCEDA Primary Care Provider [phone] Medications albuterol 90 mcg/actuation inhaler Inhale 2 [...] ACO [facility]3 ACO C3 ACO C3 ACO [facility] C[facility]CO Care Teams Dentist Relationship Specialty Start Date End Date Cindy Zacarias ANP [address] [place] [id number] PCP - General Family Medicine 09/29/21 Additional Source Comments The information contained in this document represents components of the legal health record. It is not the complete legal health record.[facility]
== END 2025-04-30 08:51 | disposition home or self-care (01) ==
LOC: HO.HOSX 08:50
PROVIDERS: Visit Provider Physician Assistant
DX: Z48.02 Encounter for removal of sutures (principal); M25.572 Pain in left ankle and joints of left foot; Z98.890 Other specified postprocedural states
CPT/HCPCS: 73610; 99212

== ENCOUNTER 2025-04-30 14:25 | Outpatient (AMB) | payer MEDICAID, SELFPAY ==
--- NOTE | 2025-04-30 14:56 | MHC.OFFVIS ---
Intake Visit Reasons: PO LT ankle BENITA 04/15/25 NE Intake Note: Jessy is a 59 year old female who presents to the office today for staple removal status post left ankle removal of hardware performed on 04/15/[address] Murillo. Patient states that she does have a warm sensation around the staple site and she does have a quick sharp pain that radiates up the leg when baring weight. Master Sheet Clerk Required: Yes Master Sheet Clerk Services: Master Sheet Clerk Offered & Declined Master Sheet Clerk Name: Unruly- Friend Allergies No Known Allergies Allergy (Verified 04/30/25 15:00) HPI HPI PO LT ankle BENITA 04/15/25 NE: Details: Ms. Joana Sullivan is a 59-year-old female who presents to the office today status post left ankle removal of hardware performed on 04/15/[address] Murillo. She still has the remainder of her pamela intact. She reports a burning sensation where the pamela are located. She denies any increase in redness or drainage in the area. She has not attended any physical therapy yet and does not have an appointment scheduled. She is wearing a supportive walking shoe while in the office today. [facility] Medical History (Updated 04/16/25 @ 14:20 by Fide Aguilar PA-C) Ductal carcinoma in situ of left breast (~2020) History of left breast cancer (~2020) Osteopenia Postmenopausal Asthma-COPD overlap syndrome Nicotine dependence, cigarettes, uncomplicated Heart palpitations GERD (gastroesophageal reflux disease) Arthritis Cervical spinal stenosis Depression Surgical History (Updated 04/30/25 @ 16:02 by Shakira Benson PA-C) History of lumpectomy of left breast History of left breast biopsy History of open reduction and internal fixation (ORIF) procedure History of pterygium excision Family History Maternal Grandmother Stomach cancer Social History Household Members: Children Housing: Apartment Are you a primary regular senior care provider to a significant other at home: No Do you presently have visiting nurse or other home services: No Alcohol intake: current Alcohol intake frequency: former alcohol drinker Patient Tobacco Use Status: Current everyday Tobacco user Tobacco use type: Cigarette Cigarette Packs Per Day: 0.5 Cigarettes Per Day: 10.0 Years Smoked: started at age 18, 1PPD , currently 10 per day service: No Current occupational status: unemployed Current occupation: Left Handed Female Reproductive History Menstrual Age of Menarche: 15 Review of Systems Const All systems reviewed & are unremarkable except as noted in HPI and below Physical Exam Const General: cooperative, healthy appearing and no acute distress Resp Effort & Inspection: normal respiratory effort and able to speak in complete sentences Extrem Other: Left ankle incision site is clean dry and intact. [place] intact. No surrounding erythema or drainage. No signs of infection. Significant stiffness with plantar flexion. Mild stiffness with dorsiflexion. Sensation is intact. Pedal pulse intact. Psych Appearance: grossly normal Mental Status: mental status grossly normal Attitude: cooperative Assessment & Plan Assessment & Plan (1) Retained orthopedic hardware: Code(s): Z96.9 - Presence of functional implant, unspecified Category: Medical Plan Ms. Joana Sullivan is a 59-year-old female who presents to the office today status post left ankle removal of hardware performed on 04/15/[address] Murillo. She still has the remainder of her pamela intact. She reports a burning sensation where the pamela are located. She denies any increase in redness or drainage in the area. She has not attended any physical therapy yet and does not have an appointment scheduled. She is wearing a supportive walking shoe while in the office today. While in the office today, pamela were removed and Steri-Strips were applied. Additionally, the patient was given a tall walking boot to wear as needed should the pain increase. However, I would like her to continue wearing her supportive walking shoe to promote gentle motion as she has developed a considerable amount of stiffness postoperatively. A new physical therapy order has been placed while in the office today and the business card was given to the patient to reach out to physical therapy to make an appointment. I would like to see her in 4 weeks for [id number] check, sooner if needed. X-rays of the left ankle which were obtained while in the office today and were reviewed by me, Shakira Benson PA-C, revealed successful removal of hardware with no acute fracture or dislocation. Orders: Orders XR ankle LT min 3V Today M25.579 - Pain in unspecified ankle and joints of unspecified foot PT Evaluation and Treatment Today Z98.890 - Other specified postprocedural states Coding Level of Care Code Global (43769) Diagnoses Retained orthopedic hardware Z96.9
--- OUTSIDE RECORDS SUMMARY | 2025-04-30 16:14 | XMS_ITS | Encounter Summary ---
Author Organization [employer] Address [address] [place] [address] 7t [place] [address] Care Team Providers Care Plastics Technician Name Role Phone Cindy Zacarias Primary Care Provider [phone] Sherie William MD Primary Care Provide r Encounter Details Date Type Department Care Team (Latest Contact Info) Description 12/07/2020 Abstract [facility] CONVERSIONS Dental, Provider, DDS Social History [...] Description 06/03/2025 11:30 AM EDT Office Visit [facility] MEDICINE [address] [place] [address] Sherie William MD [address] [place] [address] documented as of this encounter Visit Diagnoses Not on filedocumented in this encounter Care Teams Plastics Technician Relationship Specialty Start Date End Date Cindy Zacarias ANP [address] [place] [address] PCP - General Family Medicine 07/20/20 03/18/24 Sherie William MD [address] [place] [address] PCP - General Internal Medicine 03/19/24 documented as of this encounter
--- OUTSIDE RECORDS SUMMARY | 2025-04-30 16:14 | XMS_ITS | Clinical Summary ---
Author Organization [employer] Address [address] [place] [address] 7t [place] [address] Care Team Providers Care Research Assistant Member Name Role Phone Sherie William MD Primary [...] in the evening. 1 Active sodium chloride ([place] Nasal Ralph) 0.65 % nasal sprayIndications :Viral URI 1-2 [...] ic obstructive pulmonary disease, unspecified COPD type ([facility]/HCC) INHALE 2 PUFFS BY MOUTH EVERY 4 TO 6 HOURS IF NEEDED FOR SHORTNESS OF BREATH OR WHEEZING 18 g 4 Active Fluocinolone Acetonide Scalp ([place]-Smoothe/F S Scalp) 0.01 % oilIndications:S eborrheic dermatitis of scalp Massage into damp scalp daily. Cover hair and leave on for at least 4 hours 118 mL 4 Active tiZANidine (Zanaflex) 4 MG capsuleIndicatio ns:Chronic bilateral low back pain without sciatica Take 1 capsule (4 mg) by mouth 3 times daily. 90 capsule 11 4 Active fluocinolone ([place]-Smoothe) 0.01 % external oilIndications:A llergic contact dermatitis due to chemical APPLY TOPICALLY TO AFFECTED AREA(S) TWICE DAILY DIRECTED 118.28 mL 1 4 Active triamcinolone (Kenalog) 0.1 % creamIndications :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 APPLY TO THE AFFECTED AREA(S) TOPICALLY TWICE DAILY 80 g 2 5 Active QUEtiapine (SEROquel) 50 MG tabletIndication s:Mood disorder ([facility]) Take 1 tablet (50 mg) by mouth [...] at bedtime, I will refer her to [facility] Closed fracture of distal [...] children, concern about mother who lives in [place] and trust issues. PLAN: New/Additional Services needed PCP management Off-site services for Behavioral Health Integration Plan External OP therapy referral Patient Self Plan Patient to utilize skills provided in intervention , Patient to reach out to [facility] team as needed, Comply with medication , Patient to engage in OP therapy , and Patient to reach out to [facility] as needed Encounters * This document contains information received from the source organization and may not represent a complete record from that organization. Date Type Department Care Team Description 04/07/2025 Patient Outreach [address] [address] Sherie William MD Care Coordination ([facility] Crys Marvin telephone call outreach) 04/06/2025 Patient Outreach [address] [address] Sherie William MD Care Coordination ([facility] Crys Marvin telephone call outreach ) 04/02/2025 Patient Outreach [address] [address] Sherie William MD Care Management ([facility]3- F/U call # 4/LVM) 03/26/2025 Patient Outreach [address] [address] Sherie William MD Care Coordination ([facility] Crys Marvin telephone call outreach) 03/26/2025 Telephone [facility] [address] [place] [address] Sherie William MD OCT RECALL 03/13/2025 Patient Outreach [address] [address] Sherie William MD Care Coordination ([address] Crys Marvin telephone call outreach /) 03/12/2025 Patient Outreach [address] [address] Sherie William MD Care Management ([facility]- F/U call # 3) 03/10/2025 Orders Only [facility] External Provider, [facility] 02/26/2025 11:15 AM EDT Office Visit [address] [address] Sherie William MD Closed fracture of distal end of left fibula with delayed healing, unspecified fracture morphology, subsequent encounter; Mixed anxiety and depressive disorder; Mood disorder (CMS/[facility]); Gastroesophageal reflux disease, unspecified whether esophagitis present; Chronic bilateral low back pain without sciatica; COPD with asthma (CMS/HCC); Tobacco dependence syndrome; Chronic pain of left ankle; Left foot pain 02/26/2025 Travel 02/20/2025 Patient Outreach [address] [address] Sherie William MD Care Coordination 02/20/2025 Patient Outreach [address] [address] Sherie William MD 02/19/2025 Patient Outreach [address] [address] Sherie William MD Care Management ([facility]- F/U call # 2) 02/05/2025 Patient Outreach [address] [address] Sherie William MD Care Coordination 01/28/2025 Patient Outreach [address] [address] Sherie William MD 01/28/2025 Patient Outreach [facility] [address] [place] [address] Sherie William MD Care Management ([facility]- F/U [...] Description 06/03/2025 11:30 AM EDT Office Visit [facility] [address] [place] [address] Sherie William MD [address] [place] [address] Health Maintenance Due Date Last Done Comments [...] AM EDT Narrative 04/15/2025 2:15 PM EDT [address] [address] Fluoroscopy Report Signed Patient: Jessy Shanks MR#: [id number] : 1965 Acct:[id number] Age/Sex: 59 / F ADM Date: 04/15/25 Loc: HO.SSS Attending Dr: Arian Murillo MD Ordering Physician: Arian Murillo MD Date of Service: 04/15/25 Procedure(s): FL guidance in OR Accession Number(s): [id number] cc: Sherie William MD; Arian Murillo MD Reason for Exam: removal orthopedic hardware, left EXAMINATION: XR FLUOROSCOPY WITH IMAGES CLINICAL INFORMATION: Removal of orthopedic hardware left ankle COMPARISON: 04/02/2025 left ankle radiographs. TECHNIQUE: Fluoroscopy provided to: Dr. Murillo Fluoroscopy time: 0.0 minutes DAP: 0.489622 mGycm2 Images: 1 FINDINGS: Solitary spot image taken after left lateral malleolar hardware removal. Please refer to the full operative report for details. FL/FL guidance in OR IMPRESSION: Fluoroscopic guidance. Electronically signed by: Art Hdz MD 04/15/2025 02:12 PM EDT RP Dictated By: Art Hdz MD Signed By: <Electronically signed by Art Hdz MD in OV> 04/15/25 1412 DD/ 1159 TD/TT: 04/15/25 1239 Hand Cutter: Procedure Note Donotuseinterpreter, Image - 04/15/2025 [place] [address] Fluoroscopy Report Signed Patient: Pop Shanks#: [id number] : 1965Acct:[id number] Age/Sex: 59 / FADM Date: 04/15/25 Loc: .[facility] Attending Dr: Arian Murillo MD Ordering Physician: Arian Murillo MD Date of Service: 04/15/25 Procedure(s): FL guidance in OR Accession Number(s): [id number] cc: Sherie William MD; Arian Murillo MD Reason for Exam: removal orthopedic hardware, left EXAMINATION: XR FLUOROSCOPY WITH IMAGES CLINICAL INFORMATION: Removal of orthopedic hardware left ankle COMPARISON: 04/02/2025 left ankle radiographs. TECHNIQUE: Fluoroscopy provided to: Dr. Murillo Fluoroscopy time: 0.0 minutes DAP: 0.405266 mGycm2 Images: 1 FINDINGS: Solitary spot image taken after left lateral malleolar hardware removal. Please refer to the full operative report for details. FL/FL guidance in OR IMPRESSION: Fluoroscopic guidance. Electronically signed by: Art Hdz MD 04/15/2025 02:12 PM EDT RP Dictated By: Art Hdz MD Signed By: <Electronically signed by Art Hdz MD in OV> 04/15/25 1412 DD/ 1159 TD/TT: 04/15/25 1239 Hand Cutter: us [facility] External Provider IMG IR PROCEDURES Final Result * XR Foot 3+ Views Left (03/10/2025 6:42 AM EDT) Anatomical Region Laterality Modality Lower Extremities, Foot Left Radiogra phic Imaging 03/10/2025 6:42 AM EDT Narrative 03/10/2025 8:17 AM EDT [address] [address] XRay Report Signed Patient: Jessy Shanks MR#: [id number] : 1965 Acct:[id number] Age/Sex: 59 / F ADM Date: 03/10/25 Loc: HO.ED Attending Dr: Ordering Physician: Ernie Cote MD Date of Service: 03/10/25 Procedure(s): XR foot LT min 3V Accession Number(s): [id number] cc: Sherie William MD; Ernie Cote MD [...] in OV> 03/10/[address] DD/ 1 TD/TT: 03/10/25741 Hand Cutter: Procedure Note Donotyvonneinterpreter, Image - 03/10/[address] [address] XRay Report Signed Patient: Pop Shanks#: [id number] : 1965Acct:[id number] Age/Sex: 59 / FADM Date: 03/10/25 Loc: HO.ED Attending Dr: Ordering Physician: Ernie Cote MD Date of Service: 03/10/25 Procedure(s): XR foot LT min 3V Accession Number(s): [id number] cc: Sherie William MD; Ernie Cote MD [...] MDin OV> 03/10/25813 DD/ 1 TD/TT: 03/10/25741 Hand Cutter: [facility] External Provider IMG XR PROCEDURES Final Result * (ABNORMAL) Cologuard?? colon cancer screening (01/10/2024 12:16 PM EDT) Cologuard Result Positive( A) Negative 01/16/2024 10:06 AM EDT [facility] (CLIA #:[id number]) Comment: POSITIVE TEST RESULT. A positive Cologuard [...] (Mario Bruce al, N Engl J Med 2014;370(14):0918-2601.) Cologuard may produce a false negative or false positive result (no colorectal cancer or precancerous polyp present at colonoscopy follow up). A negative Cologuard test result does not guarantee the absence of CRC or advanced adenoma (pre-cancer). The current Cologuard screening interval is every 3 years. ([place] Cancer Society and U.S. Multi-Society Task Force). Cologuard performance data in a 10,000 patient pivotal study using colonoscopy as the reference method can be accessed at the following location: www.[employer]/results. Additional description of the Cologuard test process, warnings and precautions can be found at www.[employer].com. Stool specimen (specimen) 01/10/2024 12:16 PM EDT 01/11/2024 1:42 PM EDT Pipe Yo [facility] MOLECULAR DIAGNOST[facility] ORDERA BLES Final Result Performing Organization Address City/[facility]/ZIP Co de Phone Number [facility] (CLIA #:[id number]) [place] [address], * Hepatitis C Antibody with Reflex to HCV, RNA, Quantitative, Real-Time PCR (12/31/2023 9:52 AM EDT) Hepatitis C Antibody Nonreactive Nonreactive [facility] Comment:Antibodies to HCV no t detected; does not exclude early acuteHCV infection. Blood Venous blood specimen / Unknown 12/31/2023 9:52 AM EDT 12/31/2023 11:19 AM EDT Pipe Yo [facility] BLOOD ORDERABLES Final Resul t Performing Organization Address [facility] Co de Phone Number [facility] [address] [place] [phone] * HIV-1/2 Antigen and Antibodies, Fourth Generation, with Reflexes (12/31/2023 9:52 AM EDT) HIV AB/AG Nonreactive Nonreactive [facility] Comment:HIV-1 p24 Ag and/or HIV-1/HIV-2 Ab not detected.A test result that is nonreactive does not exclude thepossibility of exposure to or infection with HIV-1 and/orHIV-2. Nonreactive results in this assay for individualswith prior exposure to HIV-1 and/or HIV-2 may be due toantigen and antibody levels that are below the limit ofdetection of this assay.[facility] [employer] HIV Ag/Ab Combo assay result andsupplemental assay results should be interpreted inconjunction with the patient's clinical presentation,history and other laboratory results. If the results areinconsistent with clinical evidence, additional testing issuggested to confirm the result. Blood Venous blood specimen / Unknown 12/31/2023 9:52 AM EDT 12/31/2023 11:19 AM EDT Pipe Yo [facility] BLOOD ORDERABLES Final Resul t Performing Organization Address [facility] de Phone Number [facility] [address] [place] [phone] * (ABNORMAL) Lipid Panel, Standard (12/31/2023 9:52 AM EDT) Triglycerides 166(H) <150 mg/dL [facility] Comment:Desirable Triglyceri de: less than 150 mg/dLBorderline High Triglyceride 150-199 mg/dLHigh Triglyceride: 200-499 mg/dLVery High Triglyceride: greater than or equal to 5OO mg/dL Cholesterol 172 <200 mg/dL [facility] Comment:Desirable Cholestero l: less than 200 mg/dLBorderline High Cholesterol: 200-239 mg/dLHigh Cholesterol: greater than 239 mg/dL LDL Cholesterol Calculated 103(H) <100 mg/dL [facility] Comment:Desirable LDL: less than 100 mg/dLNear Optimal/Above Optimal LDL: 110- 129 mg/dLBorderline High LDL: 130-159 mg/dLHigh LDL: 160-189 mg/dLVery High LDL: greater than or equal to 190 mg/dL HDL Cholesterol 36(L) >40 mg/dL [facility] Comment:Desirable HDL: great er than 40 mg/dL Note: This HDL assay may give artificially low results in patients with liver disease. Blood Venous blood specimen / Unknown 12/31/2023 9:52 AM EDT 12/31/2023 11:19 AM EDT us Pipe Yo ANP LAB BLOOD ORDERABLES Final Resul t Performing Organization Address [facility] Co de Phone Number [facility] [address] [place] [phone] * BI Mammogram Diagnostic Tomosynthesis Bilateral (08/30/2023 12:11 PM EST) Anatomical Region Laterality Modality Breast Bilateral Mammography 08/30/2023 12:1 1 PM EST Narrative 08/30/2023 1:07 PM EST [facility] [address] [place], [place] [address] Mammography Report Signed Patient: Jessy Shanks MR#: [id number] : 1965 Acct:[id number] Age/Sex: 58 / F ADM Date: 08/30/23 Loc: HO.MAMMO Attending Dr: Pipe Yo NP Ordering Physician: PIPE YO NP Results: 2Benign Pastor dingankit Date of Service: 08/30/23 Follow Up: 1 Year From Orig inal Mammogram Procedure(s): MM tomosynthesis diagnostic BI Accession Number(s): [id number] cc: PIPE YO NP EXAMINATION: MM DIAGNOSTIC [...] in OV> 08/30/23 1303 DD/ 1211 TD/TT: Hand Cutter: Procedure Note Donotuseinterpreter, Image - 08/30/2023 [facility] [place] [address] Mammography Report Signed Patient: Pop Shanks#: [id number] : 1965Acct:[id number] Age/Sex: 58 / FADM Date: 08/30/23 Loc: HO.MAMMO Attending Dr: Pipe Yo NP Ordering Physician: PIPE YO NPResults: 2[facility]ign [facility] Date of Service: 08/30/23Follow Up: 1 Year From Orig inal Mammogram Procedure(s): MM tomosynthesis diagnostic BI Accession Number(s): [id number] cc: PIPE YO NP EXAMINATION: MM DIAGNOSTIC [...] in OV> 08/30/23 1303 DD/ 1211 TD/TT: Hand Cutter: Pipe JAMA BI PROCEDURES Final Result * HPV mRNA E6/E7 (05/19/2021 11:47 AM EDT) HPV nRNA E6/E7 Not Detected Not Detected [facility] Comment: Methodology: Shop Director-Mediated Amplification This assay detects E6/E7 viral messenger RNA (mRNA) from 14 high-risk HPV types (16,18,31,33,35,39,45,51,52,56,58,59,66,68). The analytical performance characteristics of this assay have been determined by [employer]. The modifications have not been cleared or approved by the FDA. This assay has been validated pursuant to the CLIA regulations and is used for clinical purposes. For additional information, please refer to http://education.[employer].com/faq/KZD017c5 (This link if provided for information/ educational purposes only.) 05/19/2021 11:4 7 AM EDT Hui Gutierres CNM LAB BLOOD ORDERABLES Aurora burgos Result [facility] [address] [place] [address], * Pap Smear (05/19/2021 12:00 AM EDT) Swab Hui Gutierres [facility] CYTOLOGY ORDERABLES F inal Result [facility] [address] [facility], [place] [address] from Last 3 Months or Most Recently Relevant to Health Maintenance Insurance [employer] C3 Care Teams Research Assistant Member Relationship Specialty Start Date End Date Sherie William MD [address] [place] [address] PCP - General Internal Medicine 03/19/24
--- OUTSIDE RECORDS SUMMARY | 2025-04-30 16:14 | XMS_ITS ---
Author Organization [employer] Address [address] [place] [address] 7t [place] [address] Care Team Providers Care Assistant Professor Of Spanish Name Role Phone Sherie William MD Primary Care Provide r CM Complex Status:Enrolled (Active) Start date:11/20/2024 Enrollment date:12/16/2024 Enrollment reason:ADT Feed Overview [facility] ED 11/19/24 Case Team Name Relationship Phone Brandon Tijerina RN(Responsible Staff) Registered Júnior adam [phone] Continued Care and Services Coordination
--- OUTSIDE RECORDS SUMMARY | 2025-04-30 16:14 | XMS_ITS | Encounter Summary ---
Author Organization [facility] Address [address] [place] [phone] Phone Care Team Providers Care Charging Operator Name Role Phone Cindy Zacarias Primary Care Provider [phone] Encounter Details Date Type Department Care Team (Late st Contact Info) Description 09/30/2021 Ancillary Orders [facility],Outside Imaging [address] [place], [place] [phone] System, Provider Not In, [place] [address] Social History Tobacco Use Types Packs/Day Years [...] on filedocumented in this encounter Care Teams Charging Operator Relationship Specialty Start Date End Date Cindy Zacarias ANP [address] [place] [phone] PCP - General Family Medicine 09/29/21 documented as of this encounter Additional Source Comments The information contained in this document represents components of the legal health record. It is not the complete legal health record.[facility]
--- OUTSIDE RECORDS SUMMARY | 2025-04-30 16:14 | XMS_ITS | Encounter Summary ---
Author Organization [facility] Address [address] [place] [address] Phone Care Team Providers Care Application Security Architect Name Role Phone Cindy Zacarias Primary Care Provider [phone] Encounter Details Date Type Department Care Team (Late st Contact Info) Description 09/30/2021 Ancillary Orders [facility],Outside Imaging [address] [place], [place] [phone] System, Provider [place] In, [place] [address] Social History Tobacco Use Types Packs/Day Years [...] on filedocumented in this encounter Care Teams Application Security Architect Relationship Specialty Start Date End Date Cindy Zacarias ANP [address] [place] [phone] PCP - General Family Medicine 09/29/21 documented as of this encounter Additional Source Comments The information contained in this document represents components of the legal health record. It is not the complete legal health record.[facility]
--- OUTSIDE RECORDS SUMMARY | 2025-04-30 16:14 | XMS_ITS | Encounter Summary ---
Author Organization [facility] Address [address] [place] [address] Phone Care Team Providers Care Egyptologist Name Role Phone Cindy Zacarias Primary Care Provider [phone] Encounter Details Date Type Department Care Team (Late st Contact Info) Description 09/30/2021 Ancillary Orders [facility],Outside Imaging [address] [place], [place] [phone] System, Provider [place] In, [place] [address] Social History Tobacco Use Types Packs/Day Years [...] on filedocumented in this encounter Care Teams Egyptologist Relationship Specialty Start Date End Date Cindy Zacarias ANP [address] [place] [address] [phone] PCP - General Family Medicine 09/29/21 documented as of this encounter Additional Source Comments The information contained in this document represents components of the legal health record. It is not the complete legal health record.[facility]
--- OUTSIDE RECORDS SUMMARY | 2025-04-30 16:14 | XMS_ITS | Clinical Summary ---
Author Organization [facility] Address [address] [address] Phone Care Team Providers Care Gis Consultant Name Role Phone Rell Cindy SAUCEDA Primary Care Provider [phone] Medications albuterol 90 mcg/actuation inhaler Inhale 2 [...] [facility] C3 ACO Care Teams Gis Consultant Relationship Specialty Start Date End Date Cindy Zacarias ANP [address] [place] [phone] PCP - General Family Medicine 09/29/21 Additional Source Comments The information contained in this document represents components of the legal health record. It is not the complete legal health record.[facility]
--- OUTSIDE RECORDS SUMMARY | 2025-04-30 16:14 | XMS_ITS | Encounter Summary ---
Author Organization [employer] Address [address] [facility] 7t [place] [address] Care Team Providers Care Hydraulic Press In Operator Name Role Phone Sherie William MD Primary Care Provide r Encounter Details Date Type Department Care Team ([facility] st Contact Info) Description 04/28/2024 Orders Only [facility] [address] [place] [address] Cindy Zacarias, ANP [address] [place] [address] Social History Tobacco Use Types Packs/Day Years [...] Description 06/03/2025 11:30 AM EDT Office Visit [facility] [address] [place] [phone] Sherie William MD [address] [place] [phone] documented as of this encounter Visit Diagnoses Not on filedocumented in this encounter Additional Health Concerns Assessment Noted Time PHQ-9 Depression Total Score: 19 024 9:54 AM EDT documented as of this encounter Care Teams Hydraulic Press In Operator Relationship Specialty Start Date End Date Sherie William MD [address] [place] [phone] PCP - General Internal Medicine 03/19/24 documented as of this encounter
--- OUTSIDE RECORDS SUMMARY | 2025-04-30 16:14 | XMS_ITS | Encounter Summary ---
Author Organization [employer] Address [address] [place] [address] 7t [place] [address] Care Team Providers Care Imaging Administrator Name Role Phone Cindy Zacarias Primary Care Provider [phone] Sherie William MD Primary Care Provide r Encounter Details Date Type Department Care Team (Late st Contact Info) Description 04/03/2023 Abstract [facility] [address] [place] [address] [phone] ProviderJillian MD Social History Tobacco Use Types [...] Description 06/03/2025 11:30 AM EDT Office Visit [facility] [address] [place] [address] [phone] Sherie William MD [address] [place], [place] [phone] documented as of this encounter Procedures Procedure Name Priority Date/Time Associated Diagnosis Comments MAMMOGRAPHY Routine 03/06/2023 documented in this encounter Results * Mammography (03/06/2023) Mammogram abnormal Anatomical Region Laterality Modality Other us Historical Provider HEALTH MAINTENANCE Final Result documented in this encounter Visit Diagnoses Not on filedocumented in this encounter Care Teams Imaging Administrator Relationship Specialty Start Date End Date Cindy Zacarias ANP [address] [place] [address] PCP - General Family Medicine 07/20/20 03/18/24 Sherie William MD [address] [place] [address] PCP - General Internal Medicine 03/19/24 documented as of this encounter
--- OUTSIDE RECORDS SUMMARY | 2025-04-30 16:14 | XMS_ITS | Encounter Summary ---
Author Organization [facility] Address [address] [place] [phone] Phone Care Team Providers Care Warp Worker Name Role Phone Cindy Zacarias Primary Care Provider [phone] Encounter Details Date Type Department Care Team (Late st Contact Info) Description 09/30/2021 Ancillary Orders [facility],Outside Imaging [address] [place], [place] [phone] System, Provider Not In, [place] [address] Social History Tobacco Use Types Packs/Day Years [...] on filedocumented in this encounter Care Teams Warp Worker Relationship Specialty Start Date End Date Cindy Zacarias ANP [address] [place] [address] [phone] PCP - General Family Medicine 09/29/21 documented as of this encounter Additional Source Comments The information contained in this document represents components of the legal health record. It is not the complete legal health record.[facility]
--- OUTSIDE RECORDS SUMMARY | 2025-04-30 16:14 | XMS_ITS | Encounter Summary ---
Author Organization [facility] Address [address] [place] [address] Phone Care Team Providers Care Wheel Filler Name Role Phone Cindy Zaacrias Primary Care Provider [phone] Encounter Details Date Type Department Care Team (Late st Contact Info) Description 09/30/2021 Ancillary Orders [facility],Outside Imaging [address] [place], [place] [phone] System, Provider [place] In, [place] [address] Social History Tobacco Use Types Packs/Day Years [...] on filedocumented in this encounter Care Teams Wheel Filler Relationship Specialty Start Date End Date Cindy Zacarias ANP [address] [place] [address] [phone] PCP - General Family Medicine 09/29/21 documented as of this encounter Additional Source Comments The information contained in this document represents components of the legal health record. It is not the complete legal health record.[facility]
--- OUTSIDE RECORDS SUMMARY | 2025-04-30 16:14 | XMS_ITS ---
Author Organization [employer] Address [address] [place] [address] 7t [place] [address] Care Team Providers Care Commercial Food Instructor Name Role Phone Sherie William MD Primary Care Provide r [facility] Status:Enrolled (Active) Start date:11/20/2024 Enrollment date:11/20/2024 Enrollment reason:ADT Feed Overview [facility] ED 11/19/24 Case Team Name Relationship Phone Crys Marvin(Responsible Staff) Continued Care and Services Coordination
== END 2025-04-30 15:44 | disposition home or self-care (01) ==
LOC: HO.HOS 14:26
PROVIDERS: PCP Internal Medicine; Visit Provider Physician Assistant
DX: Z96.9 Presence of functional implant, unspecified (principal)
CPT/HCPCS: 99024

== ENCOUNTER → 2025-04-30 14:28 | Outpatient (BNV) | payer MEDICAID, SELFPAY | PROVIDERS: Visit Provider Radiology Diagnostic Radiology | DX: S82.441D Displaced spiral fracture of shaft of right fibula, subsequent encounter for closed fracture with routine healing (principal); M85.872 Other specified disorders of bone density and structure, left ankle and foot | CPT/HCPCS: 73610 ==

== ENCOUNTER 2025-06-16 14:37 | Outpatient (AMB) | payer MEDICAID, SELFPAY ==
--- NOTE | 2025-06-16 14:51 | MHC.OFFVIS ---
Intake Visit Reasons: PO LT ankle BENITA 04/15/25 NE Intake Note: Jessy is a 59 year old female who presents to the office today for a post operative appointment status post left ankle removal of hardware performed on 04/15/[address] Murillo. Patient states that she noticed her pain and swelling on both sides of the ankle for a couple days. She mentions that her pain and swelling was reports from physical therapy and recommended to come see us. She is just wondering why is she not getting better and not being about to walk normal. Manager Product Management Required: Yes Manager Product Management Services: Manager Product Management Offered & Declined Manager Product Management Name: Unruly- Friend Allergies No Known Allergies Allergy (Verified 06/16/25 15:10) HPI HPI PO LT ankle BENITA 04/15/25 NE: Details: Ms. Joana Sullivan is a 59-year-old female who presents to the office today for a wound check status post left ankle removal of hardware performed on 04/15/[address] Murillo. Along the medial malleolar incision site there is a small piece of suture that is poking through the skin. [facility] Medical History (Updated 04/16/25 @ 14:20 by Fide Aguilar PA-C) Ductal carcinoma in situ of left breast (~2020) History of left breast cancer (~2020) Osteopenia Postmenopausal Asthma-COPD overlap syndrome Nicotine dependence, cigarettes, uncomplicated Heart palpitations GERD (gastroesophageal reflux disease) Arthritis Cervical spinal stenosis Depression Surgical History (Updated 04/30/25 @ 16:02 by Shakira Benson PA-C) History of lumpectomy of left breast History of left breast biopsy History of open reduction and internal fixation (ORIF) procedure History of pterygium excision Family History Maternal Grandmother Stomach cancer Social History Household Members: Children Housing: Apartment Are you a primary medicare insurance specialist to a significant other at home: No Do you presently have visiting nurse or other home services: No Alcohol intake: current Alcohol intake frequency: former alcohol drinker Patient Tobacco Use Status: Current everyday Tobacco user Tobacco use type: Cigarette Cigarette Packs Per Day: 0.5 Cigarettes Per Day: 10.0 Years Smoked: started at age 18, 1PPD , currently 10 per day service: No Current occupational status: unemployed Current occupation: Left Handed Female Reproductive History Menstrual Age of Menarche: 15 Review of Systems Const All systems reviewed & are unremarkable except as noted in HPI and below Physical Exam Const General: cooperative, healthy appearing and no acute distress Resp Effort & Inspection: normal respiratory effort and able to speak in complete sentences Extrem Other: Left ankle medial malleolar incision site has a small piece of subcutaneous suture poking through. There is no surrounding erythema or drainage. No signs of infection. Patient has hypersensitivity to the lateral incision site with no signs of infection. Able to perform full dorsiflexion, plantar flexion, pronation supination with pain and mild stiffness. NVI. Psych Appearance: grossly normal Mental Status: mental status grossly normal Attitude: cooperative Assessment & Plan Assessment & Plan (1) Status post hardware removal: Code(s): Z98.890 - Other specified postprocedural states Category: Surgical Plan Ms. Joana Sullivan is a 59-year-old female who presents to the office today for a wound check status post left ankle removal of hardware performed on 04/15/[address] Murillo. Along the medial malleolar incision site there is a small piece of suture that is poking through the skin. While in the office today, I attempted to remove the small amount of suture poking through the surface of the skin. I did instruct the patient that this may continue to happened and to let our office know and I am happy to see her to remove more if necessary. There are no signs of infection at this time and therefore antibiotics were deferred. Patient is extremely frustrated with her progress since surgery stating that she still has hypersensitivity on the lateral incision site and pain. I instructed the patient to continue with physical therapy and work on hypersensitivity with a physical therapist to help reduce pain. She will follow up at her normally scheduled follow up appointment, sooner if needed. Coding Level of Care Code Global (96455) Diagnoses Status post hardware removal Z98.890
--- OUTSIDE RECORDS SUMMARY | 2025-06-16 17:39 | XMS_ITS | Encounter Summary ---
Author Organization [employer] Address [address] [place] [address] 7t [place] [address] Care Team Providers Care Sort Worker Name Role Phone Cindy Zacarias Primary Care Provider [phone] Sherie William MD Primary Care Provide r Encounter Details Date Type Department Care Team (Late st Contact Info) Description 04/03/2023 Abstract [facility] MEDICINE [address] [place] [address] [phone] ProviderJillian MD Social History Tobacco Use Types [...] Care Team (Late st Contact Info) Description 08/03/2025 9:00 AM EST Telemedicine [facility] MEDICINE [address] [place] [address] [phone] Sherie William MD [address] [place], [place] [phone] documented as of this encounter Procedures Procedure Name Priority Date/Time Associated Diagnosis Comments MAMMOGRAPHY Routine 03/06/2023 documented in this encounter Results * Mammography (03/06/2023) Mammogram abnormal Anatomical Region Laterality Modality Other us Historical Provider HEALTH MAINTENANCE Final Result documented in this encounter Visit Diagnoses Not on filedocumented in this encounter Care Teams Sort Worker Relationship Specialty Start Date End Date Cindy Zacarias ANP [address] [place] [address] PCP - General Family Medicine 07/20/20 03/18/24 Sherie William MD [address] [place] [address] PCP - General Internal Medicine 03/19/24 documented as of this encounter
--- OUTSIDE RECORDS SUMMARY | 2025-06-16 17:39 | XMS_ITS | Encounter Summary ---
Author Organization [facility] Address [address] [place] [address] Phone Care Team Providers Care Ehs Engineer Name Role Phone Cindy Zacarias PLASTER BLOCK LAYER Primary Care Provider [phone] Encounter Details Date Type Department Care Team (Late st Contact Info) Description 09/30/2021 Ancillary Orders [facility],Outside Imaging [address] [place], [place] [phone] System, Provider Not In, [place] [address] Social History Tobacco Use Types Packs/Day Years [...] on filedocumented in this encounter Care Teams Ehs Engineer Relationship Specialty Start Date End Date Cindy Zacarias NP [address] [place] [address] [phone] PCP - General Family Medicine 09/29/21 documented as of this encounter Additional Source Comments The information contained in this document represents components of the legal health record. It is not the complete legal health record.[facility]
--- OUTSIDE RECORDS SUMMARY | 2025-06-16 17:39 | XMS_ITS | Clinical Summary ---
Author Organization [facility] Address [address] [address] Phone Care Team Providers Care Medical Administrative Name Role Phone Cindy Zacarias NP Primary Care Provider [phone] Medications albuterol 90 mcg/actuation inhaler Inhale 2 [...] INFLUENZA VACCINE (#1) 2025 COVID-19 VACCINE ( - 2024- season) 2025 RSV VACCINE (1 - 1-dose 75+ series) 2041 HEPATITIS A VACCINES Aged Out No long [...] / [facility] C3 ACO Care Teams Medical Administrative Relationship Specialty Start Date End Date Cindy Zacarias NP [address] [place] [address] PCP - General Family Medicine 09/29/21 Additional Source Comments The information contained in this document represents components of the legal health record. It is not the complete legal health record.[facility]
--- OUTSIDE RECORDS SUMMARY | 2025-06-16 17:39 | XMS_ITS | Encounter Summary ---
Author Organization [facility] Address [address] [place] [phone] Phone Care Team Providers Care Foot Drill Operator Name Role Phone Cindy Zacarias LABORATORY CHIEF Primary Care Provider [phone] Encounter Details Date Type Department Care Team (Late st Contact Info) Description 09/30/2021 Ancillary Orders [facility],Outside Imaging [address] [place], [place] [phone] System, Provider [place] In, [place] [address] Social History Tobacco Use Types Packs/Day Years [...] on filedocumented in this encounter Care Teams Foot Drill Operator Relationship Specialty Start Date End Date Cindy Zacarias NP [address] [place] [address] [phone] PCP - General Family Medicine 09/29/21 documented as of this encounter Additional Source Comments The information contained in this document represents components of the legal health record. It is not the complete legal health record.[facility]
--- OUTSIDE RECORDS SUMMARY | 2025-06-16 17:39 | XMS_ITS | Encounter Summary ---
Author Organization [facility] Address [address] [place] [address] Phone Care Team Providers Care Lab Courier Name Role Phone Cindy Zacarias [employer] SYSTEMS ENGINEER Primary Care Provider [phone] Encounter Details Date Type Department Care Team (Late st Contact Info) Description 09/30/2021 Ancillary Orders [facility],Outside Imaging [address] [place], [place] [phone] System, Provider [place] In, [place] [address] Social History Tobacco Use Types Packs/Day Years [...] on filedocumented in this encounter Care Teams Lab Courier Relationship Specialty Start Date End Date Cindy Zacarias NP [address] [place] [address] [phone] PCP - General Family Medicine 09/29/21 documented as of this encounter Additional Source Comments The information contained in this document represents components of the legal health record. It is not the complete legal health record.[facility]
--- OUTSIDE RECORDS SUMMARY | 2025-06-16 17:39 | XMS_ITS | Encounter Summary ---
Author Organization [facility] Address [address] [place] [address] Phone Care Team Providers Care Fiberglass Grinder Name Role Phone Cindy Zacarias HEAD CHOPPER Primary Care Provider [phone] Encounter Details Date Type Department Care Team (Late st Contact Info) Description 09/30/2021 Ancillary Orders [facility],Outside Imaging [address] [place], [place] [phone] System, Provider [place] In, [place] [address] Social History Tobacco Use Types Packs/Day Years [...] on filedocumented in this encounter Care Teams Fiberglass Grinder Relationship Specialty Start Date End Date Cindy Zacarias NP [address] [place] [address] [phone] PCP - General Family Medicine 09/29/21 documented as of this encounter Additional Source Comments The information contained in this document represents components of the legal health record. It is not the complete legal health record.[facility]
--- OUTSIDE RECORDS SUMMARY | 2025-06-16 17:39 | XMS_ITS | Encounter Summary ---
Author Organization [employer] Address [address] [place] [address] 7t [place] [address] Care Team Providers Care Rodeo Clown Name Role Phone Cindy Zacarias Primary Care Provider [phone] Sherie William MD Primary Care Provide r Encounter Details Date Type Department Care Team (Latest Contact Info) Description 12/07/2020 Abstract [facility] CONVERSIONS Dental, Provider, DDS Social [...] Upcoming Encounters Date Type Department Care Team ( st Contact Info) Description 08/03/2025 9:00 AM EST Telemedicine [facility] MEDICINE [address] [place] [address] Sherie William MD [address] [place] [address] documented as of this encounter Visit Diagnoses Not on filedocumented in this encounter Care Teams Rodeo Clown Relationship Specialty Start Date End Date Cindy Zacarias ANP [address] [place] [address] PCP - General Family Medicine 07/20/20 03/18/24 Sherie William MD [address] [place] [address] PCP - General Internal Medicine 03/19/24 documented as of this encounter
--- OUTSIDE RECORDS SUMMARY | 2025-06-16 17:39 | XMS_ITS | Clinical Summary ---
Author Organization [employer] Address [address] [place] [address] 7t [place] [address] Care Team Providers Care Concreting Supervisor Name Role Phone Sherie William MD [...] in the evening. 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 30 tablet 4 Active albuterol 108 (90 Base) MCG/ACT inhalerIndicatio ns:Moderate asthma, unspecified whether complicated, unspecified whether persistent,Chron ic obstructive pulmonary disease, unspecified COPD type (CMS/[facility]) ([facility]) INHALE 2 PUFFS BY MOUTH EVERY 4 TO 6 HOURS IF NEEDED FOR SHORTNESS OF BREATH OR WHEEZING 18 g 4 Active Fluocinolone Acetonide Scalp ([place]mont-Smoothe/F S Scalp) 0.01 % oilIndications:S eborrheic dermatitis of scalp Massage into damp scalp daily. Cover hair and leave on for at least 4 hours 118 mL 4 Active tiZANidine (Zanaflex) 4 MG capsuleIndicatio ns:Chronic bilateral low back pain without sciatica Take 1 capsule (4 mg) by mouth 3 times daily. 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 30 tablet 2 5 Active omeprazole (PriLOSEC) [address] capsuleIndicatio ns:Gastroesophag eal reflux disease, unspecified whether esophagitis present TAKE 1 CAPSULE BY MOUTH EVERY DAY BEFORE A MEAL 90 capsule 5 Active meloxicam (Mobic) 15 MG tabletIndication s:Chronic bilateral low back pain without sciatica TAKE 1 TABLET BY MOUTH EVERY DAY WITH FOOD 30 tablet 5 Active nicotine (Nicoderm, Step 1) 21 MG/24HR patchIndications :Tobacco dependence syndrome APPLY 1 PATCH TOPICALLY TO THE SKIN IN THE MORNING *DO NOT SMOKE WHILE USING PATCH* 30 patch 1 5 Active Active Problems Problem Noted Date Diagnosed Date Severe episode of recurrent major depressive disorder, without psychotic features ([facility]) 03/18/2025 Assessment & Plan (03/23/2025 9:08 AM [...] at bedtime, I will refer her to [facility] Closed fracture of distal end [...] RTC 4 weeks televisit COPD with asthma ([facility]) 07/25/2024 Assessment & Plan (02/26/2025 12:25 PM [...] episode of recurren t major depressive disorder ([facility]) 11/19/2013 10/01/2024 Assessment & Plan (03/19/2024 4:35 [...] children, concern about mother who lives in [place] and trust issues. PLAN: New/Additional Services needed PCP management Off-site services for Behavioral Health Integration Plan External OP therapy referral Patient Self Plan Patient to utilize skills provided in intervention , Patient to reach out to [facility] team as needed, Comply with medication , Patient to engage in OP therapy , and Patient to reach out to [facility] as needed Encounters * This document contains information received from the source organization and may not represent a complete record from that organization. Date Type Department Care Team Description 06/05/[address] [address] Sherie William MD oct recall 05/19/2025 Patient Outreach [address] [address] Sherie William MD Care Coordination ([facility] Crys Marvin telephone call outreach) 05/13/[address] [address] Sherie William MD Tobacco dependence syndrome 05/06/2025 Patient Outreach [address] [address] Sherie William MD Care Coordination (C3 -[facility] Crys Marvin telephone call outreach) 05/01/2025 Patient Outreach [facility] [address], [place] [phone] Sherie William MD Care Management ([facility]- F/U Call) 04/07/2025 Patient Outreach [address] [address] Sherie William MD Care Coordination (C3 -[facility] telephone call outreach) 04/06/2025 Patient Outreach [address] [address] Sherie William MD Care Coordination ([facility] -[facility] telephone call outreach ) 04/02/2025 Patient Outreach [address] [address] Sherie William MD Care Management ([facility]- F/U call # 4/LVM) 03/26/2025 Patient Outreach [address] [address] Sherie William MD Care Coordination ([facility]3 -[facility] telephone call outreach) 03/26/2025 Telephone [facility] [address] [place] [address] Sherie William MD OCT RECALL from Last 3 Months Immunizations Immunization Administration [...] Info) Description 08/03/2025 9:00 AM EST Telemedicine [facility] [address] [place] [address] Sherie William MD [address] [place] [address] Health Maintenance Due Date Last Done Comments CT Colonography 1965 Colonoscopy 1965 FIT 1965 Sigmoidoscopy 1965 Hepatitis B Vaccines (2 of 3 - 19+ 3-dose series) 01/27/2016 12/30/2015, 06/30/2009, 10/20/2008 Zoster Vaccines (1 of 2) 2016 DTaP/Tdap/Td Vaccines (2 - Td or Tdap) 07/13/2024 07/13/2014, 09/10/2007 Mammogram 08/30/2024 08/30/2023, 02/11, 03/06/2023, Additional history exists FOBT 01/09/2025 01/10/2024 COVID-19 Vaccine ( - season) 2025 Influenza Vaccine (#1) 2025 [...] OR Routine 04/15/2025 11: 59 AM EDT LAB COLOGUARD COLON CANCER SCREEN [...] AM EDT Narrative 04/15/2025 2:15 PM EDT [address] [address] Fluoroscopy Report Signed Patient: Jessy Shanks MR#: [id number] : 1965 Acct:[id number] Age/Sex: 59 / F ADM Date: 04/15/25 [facility] Attending Dr: Arian Murillo MD Ordering Physician: Arian Murillo MD Date of Service: 04/15/25 Procedure(s): FL guidance in OR Accession Number(s): [id number] cc: Sherie William MD; Arian Murillo MD Reason for Exam: removal orthopedic hardware, left EXAMINATION: XR FLUOROSCOPY WITH IMAGES CLINICAL INFORMATION: Removal of orthopedic hardware left ankle COMPARISON: 04/02/2025 left ankle radiographs. TECHNIQUE: Fluoroscopy provided to: Dr. Murillo Fluoroscopy time: 0.0 minutes DAP: 0.230582 mGycm2 Images: 1 FINDINGS: Solitary spot image taken after left lateral malleolar hardware removal. Please refer to the full operative report for details. FL/FL guidance in OR IMPRESSION: Fluoroscopic guidance. Electronically signed by: Art Hdz MD 04/15/2025 02:12 PM EDT Dictated By: Art Hdz MD Signed By: <Electronically signed by Art Hdz MD in OV> 04/15/25 1412 DD/ 1159 TD/TT: 04/15/25 1239 Senior Business Process Analyst: Procedure Note Donotuseinterpreter, Image - 04/15/[address] [address] Fluoroscopy Report Signed Patient: David ShanksR#: [id number] : 1965Acct:[id number] Age/Sex: 59 / FADM Date: 04/15/25 Loc: HO.SSS Attending Dr: Arian Murillo MD Ordering Physician: Arian Murillo MD Date of Service: 04/15/25 Procedure(s): FL guidance in OR Accession Number(s): [id number] cc: Sherie William MD; Arian Murillo MD Reason for Exam: removal orthopedic hardware, left EXAMINATION: XR FLUOROSCOPY WITH IMAGES CLINICAL INFORMATION: Removal of orthopedic hardware left ankle COMPARISON: 04/02/2025 left ankle radiographs. TECHNIQUE: Fluoroscopy provided to: Dr. Murillo Fluoroscopy time: 0.0 minutes DAP: 0.422145 mGycm2 Images: 1 FINDINGS: Solitary spot image taken after left lateral malleolar hardware removal. Please refer to the full operative report for details. FL/FL guidance in OR IMPRESSION: Fluoroscopic guidance. Electronically signed by: Art Hdz MD 04/15/2025 02:12 PM EDT Dictated By: Art Hdz MD Signed By: <Electronically signed by Art Hdz MD in OV> 04/15/25 1412 DD/ 1159 TD/TT: 04/15/25 1239 Senior Business Process Analyst: [facility] External Provider IMG IR PROCEDURES Final Result * (ABNORMAL) Cologuard?? colon cancer screening (01/10/2024 12:16 PM EDT) Cologuard Result Positive( A) Negative 01/16/2024 10:06 AM EDT [facility] (CLIA #:[id number]) Comment: POSITIVE TEST RESULT. A positive Cologuard [...] (Mario Bruce al, N Engl J Med 2014;370(14):6544-6684.) Cologuard may produce a false negative or false positive result (no colorectal cancer or precancerous polyp present at colonoscopy follow up). A negative Cologuard test result does not guarantee the absence of CRC or advanced adenoma (pre-cancer). The current Cologuard screening interval is every 3 years. ([place] Cancer Society and U.S. Multi-Society Task Force). Cologuard performance data in a 10,000 patient pivotal study using colonoscopy as the reference method can be accessed at the following location: www.[employer]cell/results. Additional description of the Cologuard test process, warnings and precautions can be found at www.[email or web address].com. Stool specimen (specimen) 01/10/2024 12:16 PM EDT 01/11/2024 1:42 PM EDT [facility] MOLECULAR DIAGNOSTICS ORDERA BLES Final Result [facility] (CLIA #:[id number]) [place] [address], * Hepatitis C Antibody with Reflex to HCV, RNA, Quantitative, Real-Time PCR (12/31/2023 9:52 AM EDT) Hepatitis C Antibody Nonreactive Nonreactive [facility] Comment:Antibodies to HCV no t detected; does not exclude early acuteHCV infection. Blood Venous blood specimen / Unknown 12/31/2023 9:52 AM EDT 12/31/2023 11:19 AM EDT Pipe [facility] ANP LAB BLOOD ORDERABLES Final Resul t Performing Organization Address City/[facility]/ZIP Co de Phone Number [facility] [address] [place] [address] [phone] * HIV-1/2 Antigen and Antibodies, Fourth Generation, with Reflexes (12/31/2023 9:52 AM EDT) Pathologist [facility] HIV AB/AG Nonreactive Nonreactive [facility] Comment:HIV-1 p24 Ag and/or HIV-1/HIV-2 Ab not detected.A test result that is nonreactive does not exclude thepossibility of exposure to or infection with HIV-1 and/orHIV-2. Nonreactive results in this assay for individualswith prior exposure to HIV-1 and/or HIV-2 may be due toantigen and antibody levels that are below the limit ofdetection of this assay.The [employer] HIV Ag/Ab Combo assay result andsupplemental assay results should be interpreted inconjunction with the patient's clinical presentation,history and other laboratory results. If the results areinconsistent with clinical evidence, additional testing issuggested to confirm the result. Blood Venous blood specimen / Unknown 12/31/2023 9:52 AM EDT 12/31/2023 11:19 AM EDT Pipe Yo [facility] LAB BLOOD ORDERABLES Final Resul t Performing Organization Address City/[facility]/ZIP Co de Phone Number [facility] [address] [place] [phone] [phone] * (ABNORMAL) Lipid Panel, Standard (12/31/2023 9:52 AM EDT) Pathologist [facility] Triglycerides 166(H) <150 mg/dL [facility] Comment:Desirable Triglyceri de: less than 150 mg/dLBorderline High Triglyceride 150-199 mg/dLHigh Triglyceride: 200-499 mg/dLVery High Triglyceride: greater than or equal to 5OO mg/dL Cholesterol 172 <200 mg/dL [facility] Comment:Desirable Cholestero l: less than 200 mg/dLBorderline High Cholesterol: 200-239 mg/dLHigh Cholesterol: greater than 239 mg/dL LDL Cholesterol Calculated 103(H) <100 mg/dL [facility] Comment:Desirable LDL: less than 100 mg/dLNear Optimal/Above Optimal LDL: 110- 129 mg/dLBorderline High LDL: 130-159 mg/dLHigh LDL: 160-189 mg/dLVery High LDL: greater than or equal to 190 mg/dL HDL Cholesterol 36(L) >40 mg/dL [facility] Comment:Desirable HDL: great er than 40 mg/dL Note: This HDL assay may give artificially low results in patients with liver disease. Blood Venous blood specimen / Unknown 12/31/2023 9:52 AM EDT 12/31/2023 11:19 AM EDT Pipe Yo ANP LAB BLOOD ORDERABLES Final Resul t [facility] [address] [place] [phone] * BI Mammogram Diagnostic Tomosynthesis Bilateral (08/30/2023 12:11 PM EST) Anatomical Region Laterality Modality Breast Bilateral Mammography 08/30/2023 12:1 1 PM EST Narrative 08/30/2023 1:07 PM EST [facility] [address] [place] [address] Mammography Report Signed Patient: Jessy Shanks MR#: [id number] : 1965 Acct:[id number] Age/Sex: 58 / F ADM Date: 08/30/23 Loc: HO.MAMMO Attending Dr: Pipe Yo NP Ordering Physician: PIPE YO NP Results: 2Benign Pastor quach Date of Service: 08/30/23 Follow Up: 1 Year From [facility] Mammogram Procedure(s): MM tomosynthesis diagnostic BI Accession Number(s): [id number] cc: PIPE YO NP EXAMINATION: MM DIAGNOSTIC [...] in OV> 08/30/23 1303 DD/ 1211 TD/TT: Senior Business Process Analyst: Procedure Note Donotuseinterpreter, Image - 08/30/2023 [facility] [address] [place] [address] [place] [address] Mammography Report Signed Patient: Pop Shanks#: [id number] : 1965Acct:[id number] Age/Sex: 58 / FADM Date: 08/30/23 Loc: HO.MAMMO Attending Dr: Pipe Yo NP Ordering Physician: PIPE YO NPResults: 2Benign Pastor dingankit Date of Service: 08/30/23Follow Up: 1 Year From Orig in[facility] Mammogram Procedure(s): MM tomosynthesis diagnostic BI Accession Number(s): [id number] cc: PIPE YO NP EXAMINATION: MM DIAGNOSTIC [...] in OV> 08/30/23 1303 DD/ 1211 TD/TT: Senior Business Process Analyst: Pipe SAUCEDA IMG BI PROCEDURES Final Result * HPV mRNA E6/E7 (05/19/2021 11:47 AM EDT) HPV nRNA E6/E7 Not Detected Not Detected [facility] Comment: Methodology: Councilperson-Mediated Amplification This assay detects E6/E7 viral messenger RNA (mRNA) from 14 high-risk HPV types (16,18,31,33,35,39,45,51,52,56,58,59,66,68). The analytical performance characteristics of this assay have been determined by [employer]. The modifications have not been cleared or approved by the FDA. This assay has been validated pursuant to the CLIA regulations and is used for clinical purposes. For additional information, please refer to http://education.[employer]/faq/AYB314q0 (This link if provided for information/ educational purposes only.) 05/19/2021 11:4 7 AM EDT [facility] LAB BLOOD ORDERABLES Aurora l Result [facility] [address] [place] [address] * Pap Smear (05/19/2021 12:00 AM EDT) Swab [facility] LAB CYTOLOGY ORDERABLES F inal Result [facility] [address], [place] [address] from Last 3 Months or Most Recently Relevant to Health Maintenance Insurance [facility] C3 Care Teams Concreting Supervisor Relationship Specialty Start Date End Date Sherie William MD [address] [place] [phone] PCP - General Internal Medicine 03/19/24
--- OUTSIDE RECORDS SUMMARY | 2025-06-16 17:39 | XMS_ITS | Encounter Summary ---
Author Organization [employer] Address [address] [facility] 7t [place] [address] Care Team Providers Care Correctional Treatment Specialist Name Role Phone Sherie William MD Primary Care Provide r Encounter Details Date Type Department Care Team ([facility] st Contact Info) Description 04/28/2024 Orders Only [facility] [address] [place] [address] Cindy Zacarias, ANP [address] [place] [address] Social History Tobacco Use Types Packs/Day Years [...] Info) Description 08/03/2025 9:00 AM EST Telemedicine [facility] [address] [place] [phone] Sherie William MD [address] [place] [address] documented as of this encounter Visit Diagnoses Not on filedocumented in this encounter Additional Health Concerns Assessment Noted Time PHQ-9 Depression Total Score: 19 024 9:54 AM EDT documented as of this encounter Care Teams Correctional Treatment Specialist Relationship Specialty Start Date End Date Sherie William MD [address] [place] [phone] PCP - General Internal Medicine 03/19/24 documented as of this encounter
--- OUTSIDE RECORDS SUMMARY | 2025-06-16 17:39 | XMS_ITS ---
Author Organization [employer] Address [address] [place] [address] 7t [place] [address] Care Team Providers Care Terrazzo Tile Maker Name Role Phone Sherie William MD Primary Care Provide r [facility] Complex Status:Enrolled (Active) Start date:11/20/2024 Enrollment date:11/20/2024 Enrollment reason:ADT Feed Overview [facility] ED 11/19/24 Case Team Name Relationship Phone Crys Marvin(Responsible Staff) [phone] Continued Care and Services Coordination
--- OUTSIDE RECORDS SUMMARY | 2025-06-16 17:39 | XMS_ITS | Encounter Summary ---
Author Organization [facility] Address [address] [place] [address] Phone Care Team Providers Care Hat Mender Name Role Phone Cindy Zacarias EMERGENCY ROOM TECH Primary Care Provider [phone] Encounter Details Date Type Department Care Team (Late st Contact Info) Description 09/30/2021 Ancillary Orders [facility],Outside Imaging [address], [place] [phone] System, Provider Not In, [place] [address] Social History Tobacco Use Types Packs/Day Years [...] on filedocumented in this encounter Care Teams Hat Mender Relationship Specialty Start Date End Date Cindy Zacarias NP [address] [place] [phone] PCP - General Family Medicine 09/29/21 documented as of this encounter Additional Source Comments The information contained in this document represents components of the legal health record. It is not the complete legal health record.[facility]
== END 2025-06-16 15:43 | disposition home or self-care (01) ==
LOC: HO.HOS 14:37
PROVIDERS: PCP Internal Medicine; Visit Provider Physician Assistant
DX: Z98.890 Other specified postprocedural states (principal)
CPT/HCPCS: 99024

== ENCOUNTER → 2025-06-16 14:37 | Outpatient (BNVA) | payer MEDICAID, SELFPAY | PROVIDERS: PCP Internal Medicine; Visit Provider Physician Assistant | DX: Z98.890 Other specified postprocedural states (principal) | CPT/HCPCS: 99212 ==

== ENCOUNTER 2025-06-24 11:00 | Outpatient (RCR) | payer MEDICAID, SELFPAY ==
--- NOTE | 2025-05-13 15:19 | MHC.PT.EP ---
[facility] [place] Office [place] Office [place] Office [address] [place] [address] Dr Margarita Escalante [address] [phone] F: [phone] F: [phone] F: [phone] F: [phone] Physical Therapy Plan of Care Date of Evaluation: 05/13/25 Date of Surgery: 04/15/25 Diagnosis: S/P HARDWARE REMOVAL Lt ANKLE->ROM, STRENGTHENING, GAIT TRAINING Assessment: 59 YO FEMALE REF TO PT S/P Lt ANKLE BENITA 04/15/[address] CARDONA- INITIAL ORIF IN 09/2024. SHE IS REF TO PT FOR GENTLE ROM, STRENGTHNEING AND GAIT. THE Pt IS CURRENTLY AMB W 1 CRUTCH AND INCR COMPENSATION Lt LE. OBJECTIVE FINDINGS INCLUDE: LIMITED Lt ANKLE AND TOE ROM, HYPOMOBILE SCAR TISSUE, (+) STR Lt PLANTAR, ALTERED GAIT, AND PAIN IN HER MEDIAL ANKLE. ED THE Pt RE PT POC, Pt'S GOALS, AND SHE AGREES TO PROCEED. Frequency and Duration: The patient will be seen 2 x WK x 5 WKS Short Term Goals: IMPROVE SCAR MOBILITY Lt ANKLE DECR PAIN Lt ANKLE TO 2-3/10 INITIATE HEP-> IMPROVE AROM Lt ANKLE/ TOES Pt DEMON NEUTRAL POSTURE/ = Wt BEAR MARY ALICE LEs Care Home Goals: Pt INDEP HEP EFFICIENT GAIT MECH LEVEL AND STAIRS IMPROVED LEFI 30/80 SLS Lt x 10 SEC Pt DEMO WFL FUNCTIONAL SQUAT Treatment Plan: Modalities to reduce pain, spasms and effusion. Manual therapy to restore motion and function. Therapeutic exercise to improve strength and flexibility. Neuromuscular re-education for posture and balance. Therapeutic activities to return to functional activities of daily living. Electronically signed by: CORBIN GREENBERG,PT Please sign and return to therapist. Thank you for your referral.
--- NOTE | 2025-07-01 07:35 | MHC.PT.DC ---
[facility] [place] Office [place] Office [place] Office [address] Margarita Escalante [address] [phone] F: [phone] F: [phone] F: [phone] F: [phone] Physical Therapy Discharge Report Diagnosis: S/P HARDWARE REMOVAL Lt ANKLE->ROM, STRENGTHENING, GAIT TRAINING Date of Surgery: 04/15/25 Date of Evaluation: 05/13/25 Date of Discharge: 07/01/25 Treatments to Date: 12 Cancellations to Date: 2 No Shows to Date: 1 Discharge Status: Improved Function Patient Elected to Stop Discharge Summary: VALENTINA REQUESTED D/C FROM PT AT THIS TIME- SHE NOTES SHE HAS OTHER CONCERNS WARRANTING HER FOCUS.. SHE HAS A THOROUGH HEP AND WE HAVE BEEN DILIGENTLY ADDRESSING GAIT MECHANICS TO ENCOURAGE MORE PF/ GREAT TOE ACTIV W (+) RESULTS, ALTHOUGH VALENTINA NAVIGATES STAIRS ONE STEP AT A TIME. SHE OBTAINED 5* DF AND 45* PF AND WAS PERF SCAR TISSUE DESENSITIZATION, PROPRIOCEPTIVE AND DYNAMIC BALANCE ACTIVITIES. HER SUBJECTIVE PAIN RATING WAS LAST NOTED A 7/10 . HER LEFI AT EVAL WAS 30/80 AND AT D/C, 25/80. Electronically signed by: CORBIN GREENBERG, PT Please sign and return to therapist. Thank you for your referral.
== END 2025-07-01 07:36 | disposition home or self-care (01) ==
LOC: HO.PT 11:00
PROVIDERS: PCP Internal Medicine; Visit Provider Physician Assistant
DX: Z47.89 Encounter for other orthopedic aftercare (principal)
CPT/HCPCS: 97110; 97140; 97162; 97530

== ENCOUNTER 2025-07-17 10:26 | Outpatient (AMB) | payer MEDICAID, SELFPAY ==
--- NOTE | 2025-07-17 10:33 | A.OFFVIS_ITS ---
Intake Visit Reasons: PO LT ankle BENITA 04/15/25 NE Intake Note: Jessy is a 59 year old female who presents today for a post op appointment status post left ankle removal of hardware performed on 04/15/[address] Murillo. At her last visit she was advised to continue with physical therapy and work on hypersensitivity with a physical therapist to help reduce pain. Patient reports she is still having pain in her ankle. She is still noticing some piece of the dissolvable suture is coming out. Automatic Clipper Services: Automatic Clipper Present (Luis ( [id number])) Allergies No Known Allergies Allergy (Verified 07/17/25 10:38) HPI HPI PO LT ankle BENITA 04/15/25 NE: Details: Ms. Angelika Sullivan is a 60-year-old female who presents to the office today for routine follow-up status post left ankle removal of painful hardware performed on 04/15/[address] Murillo. Patient reports that she continues to have pain in the left ankle and foot. The majority of her pain is located on the medial and plantar aspect of her foot. The patient also reports hypersensitivity about the left ankle and foot. At her last appointment I had recommended continuation of physical therapy to work on desensitization. It appears that on 07/01/2025 the patient requested discharge from physical therapy that she had other concerns warranting her focus at that time. She was provided with a home exercise program but is unclear if the patient continues to follow this. [facility] Medical History (Updated 04/16/25 @ 14:20 by Fide Aguilar PA-C) Ductal carcinoma in situ of left breast (~2020) History of left breast cancer (~2020) Osteopenia Postmenopausal Asthma-COPD overlap syndrome Nicotine dependence, cigarettes, uncomplicated Heart palpitations GERD (gastroesophageal reflux disease) Arthritis Cervical spinal stenosis Depression Surgical History (Updated 04/30/25 @ 16:02 by Shakira Benson PA-C) History of lumpectomy of left breast History of left breast biopsy History of open reduction and internal fixation (ORIF) procedure History of pterygium excision Family History Maternal Grandmother Stomach cancer Social History Household Members: Children Housing: Apartment Are you a primary long term care social worker to a significant other at home: No Do you presently have visiting nurse or other home services: No Alcohol intake: current Alcohol intake frequency: former alcohol drinker Patient Tobacco Use Status: Current everyday Tobacco user Tobacco use type: Cigarette Cigarette Packs Per Day: 0.5 Cigarettes Per Day: 10.0 Years Smoked: started at age 18, 1PPD , currently 10 per day service: No Current occupational status: unemployed Current occupation: Left Handed Female Reproductive History Menstrual Age of Menarche: 15 Review of Systems Const All systems reviewed & are unremarkable except as noted in HPI and below Physical Exam Const General: cooperative, healthy appearing and no acute distress Resp Effort & Inspection: normal respiratory effort and able to speak in complete sentences Extrem Other: Left ankle Mild edema over the medial maleollus. No erythema. No signs of infection. Patient has hypersensitivity to the lateral incision site with no signs of infection. Able to perform full dorsiflexion, plantar flexion, pronation supination with pain and mild stiffness. NVI. Psych Appearance: grossly normal Mental Status: mental status grossly normal Attitude: cooperative Assessment & Plan Assessment & Plan (1) Status post ORIF of fracture of ankle: Code(s): Z98.890 - Other specified postprocedural states; Z87.81 - Personal history of (healed) traumatic fracture Category: Surgical (2) Status post hardware removal: Code(s): Z98.890 - Other specified postprocedural states Category: Surgical Plan Ms. Angelika Sullivan is a 60-year-old female who presents to the office today for routine follow-up status post left ankle removal of painful hardware performed on 04/15/[address] Murillo. Patient reports that she continues to have pain in the left ankle and foot. The majority of her pain is located on the medial and plantar aspect of her foot. The patient also reports hypersensitivity about the left ankle and foot. At her last appointment I had recommended continuation of physical therapy to work on desensitization. It appears that on 07/01/2025 the patient requested discharge from physical therapy that she had other concerns warranting her focus at that time. She was provided with a home exercise program but is unclear if the patient continues to follow this. Patient is status post left ankle ORIF performed on 09/16/[address] Murillo with subsequent removal of hardware on 04/15/[address] Murillo. Radiographs and clinical examination indicate that the fracture has healed appropriately from an orthopedic standpoint. Despite adequate bony healing the patient continues to report persistent left foot and ankle pain. At this time, I have recommended evaluation by a podiatry team for further assessment and management of potential soft tissue, biomechanical or foot specific etiologies contributing to the patient's pain. X-rays of the left ankle which were obtained while in the office today and were reviewed by me, Shakira Benson PA-C, revealed healed distal fibular shaft fracture and osteopenia. Orders: Orders XR ankle LT min 3V Today M25.579 - Pain in unspecified ankle and joints of unspecified foot Coding Level of Care Code Est Pt Level 3 (65378) Complex visit Add On G2211 Diagnoses Status post ORIF of fracture of ankle Z98.890; Z87.81 Status post hardware removal Z98.890
== END 2025-07-17 11:15 | disposition home or self-care (01) ==
LOC: HO.HOS 10:26
PROVIDERS: PCP Internal Medicine; Visit Provider Physician Assistant
DX: M25.572 Pain in left ankle and joints of left foot (principal); Z98.890 Other specified postprocedural states; Z87.81 Personal history of (healed) traumatic fracture
CPT/HCPCS: 99213

== ENCOUNTER → 2025-07-17 10:27 | Outpatient (BNV) | payer MEDICAID, SELFPAY | PROVIDERS: Visit Provider Radiology Diagnostic Radiology | DX: M25.572 Pain in left ankle and joints of left foot (principal) | CPT/HCPCS: 73610 ==

== ENCOUNTER 2025-07-17 16:36 | Outpatient (REF) | payer MEDICAID, SELFPAY ==
--- NOTE | ~2025-07-17 | XR_ITS ---
EXAMINATION: XR ANKLE, LEFT CLINICAL INFORMATION: M25.579 - Pain in unspecified ankle and joints of unspecified foot COMPARISON: Previous x-ray most recent April 2025 TECHNIQUE: AP, lateral, and mortise views of the left ankle. FINDINGS: Osteopenia. Healing oblique distal fibular shaft fracture unchanged. Lucencies in the distal fibular shaft from surgical hardware removal. Normal ankle mortise. Calcaneal spurs. XR/XR ankle LT min 3V IMPRESSION: Unchanged appearance of the healing distal fibular shaft fracture. Osteopenia. Electronically signed by: Tiffany Licea MD 07/17/2025 10:40 AM COLT
--- OUTSIDE RECORDS SUMMARY | 2025-07-19 16:39 | XMS_ITS | Encounter Summary ---
Author Organization [facility] Address [address] [place] [address] Phone Care Team Providers Care Associate Field Service Engineer Name Role Phone Cindy Zacarias HEDIS COORDINATOR Primary Care Provider [phone] Encounter Details Date Type Department Care Team (Late st Contact Info) Description 09/30/2021 Ancillary Orders [facility],Outside Imaging [address] [place], [place] [phone] System, Provider [place] In, [place] [address] Social History Tobacco Use Types Packs/Day Years [...] on filedocumented in this encounter Care Teams Associate Field Service Engineer Relationship Specialty Start Date End Date Cindy Zacarias NP [address] [place] [address] [phone] PCP - General Family Medicine 09/29/21 documented as of this encounter Additional Source Comments The information contained in this document represents components of the legal health record. It is not the complete legal health record.[facility]
--- OUTSIDE RECORDS SUMMARY | 2025-07-19 16:39 | XMS_ITS | Encounter Summary ---
Author Organization [facility] Address [address] [place] [address] Phone Care Team Providers Care Director Fundraising Name Role Phone Cindy Zacarias CURLING MACHINE OPERATOR Primary Care Provider Encounter Details Date Type Department Care Team (Late st Contact Info) Description 09/30/2021 Ancillary Orders [facility],Outside Imaging [address] [place], [place] [phone] System, Provider [place] In, [place] [address] Social History Tobacco Use Types Packs/Day Years [...] on filedocumented in this encounter Care Teams Director Fundraising Relationship Specialty Start Date End Date Cindy Zacarias NP [address] [place] [address] [phone] PCP - General Family Medicine 09/29/21 documented as of this encounter Additional Source Comments The information contained in this document represents components of the legal health record. It is not the complete legal health record.[facility]
--- OUTSIDE RECORDS SUMMARY | 2025-07-19 16:39 | XMS_ITS | Encounter Summary ---
Author Organization [employer] Address [address] [place] [address] [address] [place] [address] Care Team Providers Care Stucco Applicator Name Role Phone Cindy Zacarias Primary Care Provider [phone] Sherie William MD Primary Care Provide r Encounter Details Date Type Department Care Team (Latest Contact Info) Description 12/07/2020 Abstract [facility] CONVERSIONS Dental, Provider, DDS Social History [...] Info) Description 08/03/2025 9:00 AM EST Telemedicine [facility] MEDICINE [address] [place] [address] Sherie William MD [address] [place] [address] documented as of this encounter Visit Diagnoses Not on filedocumented in this encounter Care Teams Stucco Applicator Relationship Specialty Start Date End Date Cindy Zacarias ANP [address] [place] [address] PCP - General Family Medicine 07/20/20 03/18/24 Sherie William MD [address] [place] [address] PCP - General Internal Medicine 03/19/24 documented as of this encounter
--- OUTSIDE RECORDS SUMMARY | 2025-07-19 16:39 | XMS_ITS | Encounter Summary ---
Author Organization [facility] Address [address] [place] [address] Phone Care Team Providers Care Boat Builder And Repairer Name Role Phone Cindy Zacarias SEO ASSOCIATE Primary Care Provider [phone] Encounter Details Date Type Department Care Team (Late st Contact Info) Description 09/30/2021 Ancillary Orders [facility],Outside Imaging [address] [place], [place] [phone] System, Provider [place] In, [place] [address] Social History Tobacco Use Types Packs/Day Years [...] on filedocumented in this encounter Care Teams Boat Builder And Repairer Relationship Specialty Start Date End Date Cindy Zacarias NP [address] [place] [address] [phone] PCP - General Family Medicine 09/29/21 documented as of this encounter Additional Source Comments The information contained in this document represents components of the legal health record. It is not the complete legal health record.[facility]
--- OUTSIDE RECORDS SUMMARY | 2025-07-19 16:39 | XMS_ITS | Clinical Summary ---
Author Organization [employer] Address [address] [place] [address] 7t [place] [address] Care Team Providers Care Posting Machine Operator Name Role Phone Sherie William MD [...] in the evening. 1 Active sodium chloride (Fannin Nasal [place]) 0.65 % nasal sprayIndications :Viral URI 1-2 [...] ic obstructive pulmonary disease, unspecified COPD type ([facility]) ([facility]) INHALE 2 PUFFS BY MOUTH EVERY 4 TO 6 HOURS IF NEEDED FOR SHORTNESS OF BREATH OR WHEEZING 18 g 4 Active Fluocinolone Acetonide Scalp ([place]-Smoothe/F S Scalp) 0.01 % oilIndications:S eborrheic dermatitis of scalp Massage into damp scalp daily. Cover hair and leave on for at least 4 hours 118 mL 4 Active tiZANidine (Zanaflex) 4 MG capsuleIndicatio ns:Chronic bilateral low back pain without sciatica Take 1 capsule (4 mg) by mouth 3 times daily. 90 capsule 11 4 Active fluocinolone ([place]-Smoothe) 0.01 % external oilIndications:A llergic contact dermatitis due to chemical APPLY TOPICALLY TO AFFECTED AREA(S) TWICE DAILY DIRECTED 118.28 mL 1 4 Active triamcinolone (Kenalog) 0.1 % creamIndications :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 APPLY TO THE AFFECTED AREA(S) TOPICALLY TWICE DAILY 80 g 2 5 Active QUEtiapine (SEROquel) 50 MG tabletIndication s:Mood disorder ([facility]) Take 1 tablet (50 mg) [...] recurrent major depressive disorder, without psychotic features ([facility]) 03/18/2025 Assessment & Plan (03/23/2025 [...] at bedtime, I will refer her to [facility] Closed fracture of distal end of left [...] RTC 4 weeks televisit COPD with asthma ([facility]) 07/25/2024 Assessment & Plan (02/26/2025 12:25 PM EDT): Stable continue with same interventions Smoking cessation counseling done and nicotine patches prescribed Assessment & Plan (07/30/2024 12:38 PM EST): Stable c/w same interventions Low vision 07/25/2024 Moderate asthma 03/19/2024 MARIA EFRNANDA (generalized anxiety disorder) 12/25/2023 Abnormal mammogram 08/22/2022 [...] episode of recurren t major depressive disorder ([facility]) 11/19/2013 10/01/2024 Assessment & Plan [...] children, concern about mother who lives in [place] and trust issues. PLAN: New/Additional Services needed PCP management Off-site services for Behavioral Health Integration Plan External OP therapy referral Patient Self Plan Patient to utilize skills provided in intervention , Patient to reach out to [facility] team as needed, Comply with medication , Patient to engage in OP therapy , and Patient to reach out to [facility] as needed Encounters * This document contains information received from the source organization and may not represent a complete record from that organization. Date Type Department Care Team Description 06/17/2025 Patient Outreach [address] [address] Sherie William MD Care Coordination (C3 -[facility] Crys Marvin telephone call outreach) 06/05/[address] [address] Sherie William MD oct recall 05/19/2025 Patient Outreach [address] [address] Sherie William MD Care Coordination (C3 CM-[facility] Crys Marvin telephone call outreach) 05/13/[address] [address] Sherie William MD Tobacco dependence syndrome 05/06/2025 Patient Outreach [address] [address] Sherie William MD Care Coordination (C3 -[facility] Crys Marvin telephone call outreach) 05/01/2025 Patient Outreach [facility] [address] [place] [address] Sherie William MD Care Management (C3CM- F/U Call) from Last 3 Months Immunizations Immunization Administration [...] 08/03/2025 9:00 AM EST Telemedicine [facility] MEDICINE [address] [place] [address] Sherie William MD [address] [place] [address] Health Maintenance Due Date Last Done Comments CT Colonography 1965 Colonoscopy 1965 FIT 1965 Sigmoidoscopy 1965 Hepatitis B Vaccines (2 of 3 - 19+ 3-dose series) 01/27/2016 12/30/2015, 06/30/2009, 10/20/2008 RSV Patients and Patients Aged 60 years or older (1 - Risk 50-74 years 1-dose series) 2016 Zoster Vaccines (1 of 2) 2016 DTaP/Tdap/Td Vaccines (2 - Td or Tdap) 07/13/2024 07/13/2014, 09/10/2007 Mammogram 08/30/2024 08/30/2023, 08/13, 03/06/2023, Additional history exists FOBT 01/09/2025 01/10/2024 [...] DNA/Cologuard 01/09/2027 01/10/2024 Lipid Panel 12/30/2028 12/31/2023 Hepatitis A Vaccines Aged Out 08/27/2019, 12/30/19 [...] Procedure Name Priority Date/Time Associated Diagnosis Comments LAB COLOGUARD COLON CANCER SCREEN Routine 01/10/2024 [...] Recently Relevant to Health Maintenance Results * (ABNORMAL) Cologuard?? colon cancer screening (01/10/2024 12:16 PM EDT) Cologuard Result Positive( A) Negative 01/16/2024 10:06 AM EDT [facility] (CLIA #:[id number]) Comment: POSITIVE TEST RESULT. A positive Cologuard [...] Corea et al, N Engl J Med 2014;370(14):4665-5639.) Cologuard may produce a false negative or false positive result (no colorectal cancer or precancerous polyp present at colonoscopy follow up). A negative Cologuard test result does not guarantee the absence of CRC or advanced adenoma (pre-cancer). The current Cologuard screening interval is every 3 years. ([place] Cancer Society and U.S. Multi-Society Task Force). Cologuard performance data in a 10,000 patient pivotal study using colonoscopy as the reference method can be accessed at the following location: www.[employer]/results. Additional description of the Cologuard test process, warnings and precautions can be found at www.[employer].com. Stool specimen (specimen) 01/10/2024 12:16 PM EDT 01/11/2024 1:42 PM EDT [facility] MOLECULAR DIAGNOSTICS ORDERA BLES Final Result [facility] (CLIA #:[id number]) [place] [address], * Hepatitis C Antibody with Reflex to HCV, RNA, Quantitative, Real-Time PCR (12/31/2023 9:52 AM EDT) Hepatitis C Antibody Nonreactive Nonreactive [facility] Comment:Antibodies to HCV no t detected; does not exclude early acuteHCV infection. Blood Venous blood specimen / Unknown 12/31/2023 9:52 AM EDT 12/31/2023 11:19 AM EDT Pipe oY [facility] LAB BLOOD ORDERABLES Final Resul t Performing Organization Address [facility] Co de Phone Number [facility] [address] [place] [address] [phone] * HIV-1/2 Antigen and Antibodies, Fourth Generation, with Reflexes (12/31/2023 9:52 AM EDT) HIV AB/AG Nonreactive Nonreactive [facility] Comment:HIV-1 p24 Ag and/or HIV-1/HIV-2 Ab not detected.A test result that is nonreactive does not exclude thepossibility of exposure to or infection with HIV-1 and/orHIV-2. Nonreactive results in this assay for individualswith prior exposure to HIV-1 and/or HIV-2 may be due toantigen and antibody levels that are below the limit ofdetection of this assay.The [employer] HIV Ag/Ab Combo assay result andsupplemental assay results should be interpreted inconjunction with the patient's clinical presentation,history and other laboratory results. If the results areinconsistent with clinical evidence, additional testing issuggested to confirm the result. Blood Venous blood specimen / Unknown 12/31/2023 9:52 AM EDT 12/31/2023 11:19 AM EDT Pipe Yo [facility] BLOOD ORDERABLES Final Resul t Performing Organization Address City/[facility]/ZIP Co de Phone Number [facility] [address] [place] [address] [phone] * (ABNORMAL) Lipid Panel, Standard (12/31/2023 9:52 AM EDT) Triglycerides 166(H) <150 mg/dL [facility] Comment:Desirable Triglyceri de: less than 150 mg/dLBorderline High Triglyceride 150-199 mg/dLHigh Triglyceride: 200-499 mg/dLVery High Triglyceride: greater than or equal to 5OO mg/dL Cholesterol 172 <200 mg/dL [facility] Comment:Desirable Cholestero l: less than 200 mg/dLBorderline High Cholesterol: 200-239 mg/dLHigh Cholesterol: greater than 239 mg/dL LDL Cholesterol Calculated 103(H) <100 mg/dL [facility] Comment:Desirable LDL: less than 100 mg/dLNear Optimal/Above Optimal LDL: 110- 129 mg/dLBorderline High LDL: 130-159 mg/dLHigh LDL: 160-189 mg/dLVery High LDL: greater than or equal to 190 mg/dL HDL Cholesterol 36(L) >40 mg/dL [facility] Comment:Desirable HDL: great er than 40 mg/dL Note: This HDL assay may give artificially low results in patients with liver disease. Blood Venous blood specimen / Unknown 12/31/2023 9:52 AM EDT 12/31/2023 11:19 AM EDT Pipe Yo [facility] BLOOD ORDERABLES Final Resul t [facility] [address] [place] [phone] * BI Mammogram Diagnostic Tomosynthesis Bilateral (08/30/2023 12:11 PM EST) Anatomical Region Laterality Modality Breast Bilateral Mammography 08/30/2023 12:1 1 PM EST Narrative 08/30/2023 1:07 PM EST [facility] [address] [place] [address] Mammography Report Signed Patient: Jessy Shanks MR#: [id number] : 1965 Acct:[id number] Age/Sex: 58 / F ADM Date: 08/30/23 Loc: [facility] Attending Dr: Pipe Yo NP Ordering Physician: PIPE YO NP Results: 2Benign Pastor quach Date of Service: 08/30/23 Follow Up: 1 Year From Orig inal Mammogram Procedure(s): MM tomosynthesis diagnostic BI Accession Number(s): [id number] cc: PIPE YO NP EXAMINATION: MM DIAGNOSTIC [...] in OV> 08/30/23 1303 DD/ 1211 TD/TT: Complaint Operator: Procedure Note Donotuseinterpreter, Image - 08/30/2023 [facility] [address] [place] [address] Mammography Report Signed Patient: Pop Shanks#: [id number] : 1965Acct:[id number] Age/Sex: 58 / FADM Date: 08/30/23 Loc: HO.MAMMO Attending Dr: Pipe Yo NP Ordering Physician: PIPE YO NPResults: 2Banayeli Pastor quach Date of Service: 08/30/23Follow Up: 1 Year From Orig inal Mammogram Procedure(s): MM tomosynthesis diagnostic BI Accession Number(s): [id number] cc: PIPE YO NP EXAMINATION: MM DIAGNOSTIC [...] in OV> 08/30/23 1303 DD/ 1211 TD/TT: Complaint Operator: Pipe SAUCEDA IMG BI PROCEDURES Final Result * HPV mRNA E6/E7 (05/19/2021 11:47 AM EDT) HPV nRNA E6/E7 Not Detected Not Detected [facility] Comment: Methodology: Network Specialist-Mediated Amplification This assay detects E6/E7 viral messenger RNA (mRNA) from 14 high-risk HPV types (16,18,31,33,35,39,45,51,52,56,58,59,66,68). The analytical performance characteristics of this assay have been determined by [employer]. The modifications have not been cleared or approved by the FDA. This assay has been validated pursuant to the CLIA regulations and is used for clinical purposes. For additional information, please refer to http://education.[employer]/faq/EWF225e1 (This link if provided for information/ educational purposes only.) 05/19/2021 11:4 7 AM EDT Hui Gutierres [facility] BLOOD ORDERABLES [place] l Result [facility] [address] * Pap Smear (05/19/2021 12:00 AM EDT) Swab H[facility] CYTOLOGY ORDERABLES F inal Result [facility] [address], [place] [address] from Last 3 Months or Most Recently Relevant to Health Maintenance Insurance [facility] C3 Care Teams Posting Machine Operator Relationship Specialty Start Date End Date Sherie William MD [address] [place] [phone] PCP - General Internal Medicine 03/19/24
--- OUTSIDE RECORDS SUMMARY | 2025-07-19 16:39 | XMS_ITS | Encounter Summary ---
Author Organization [facility] Address [address] [place] [phone] Phone Care Team Providers Care Automatic Seamer Name Role Phone Cindy Zacarias ITEM PROCESSOR Primary Care Provider [phone] Encounter Details Date Type Department Care Team (Late st Contact Info) Description 09/30/2021 Ancillary Orders [facility],Outside Imaging [address] [place], [place] [phone] System, Provider Not In, [place] [address] Social History Tobacco Use Types Packs/Day Years [...] on filedocumented in this encounter Care Teams Automatic Seamer Relationship Specialty Start Date End Date Cindy Zacarias NP [address] [place] [address] [phone] PCP - General Family Medicine 09/29/21 documented as of this encounter Additional Source Comments The information contained in this document represents components of the legal health record. It is not the complete legal health record.[facility]
--- OUTSIDE RECORDS SUMMARY | 2025-07-19 16:39 | XMS_ITS | Encounter Summary ---
Author Organization [employer] Address [address] [place] [address] 7t [place] [address] Care Team Providers Care Group Contract Analyst Name Role Phone Cindy Zacarias Primary Care Provider [phone] Sherie William MD Primary Care Provide r Encounter Details Date Type Department Care Team (Late st Contact Info) Description 04/03/2023 Abstract [facility] [address] [place] [address] [phone] ProviderJillian MD Social History Tobacco Use Types [...] Info) Description 08/03/2025 9:00 AM EST Telemedicine [facility] [address] [place] [address] [phone] Sherie William MD [address] [place], [place] [phone] documented as of this encounter Procedures Procedure Name Priority Date/Time Associated Diagnosis Comments MAMMOGRAPHY Routine 03/06/2023 documented in this encounter Results * Mammography (03/06/2023) Mammogram abnormal Anatomical Region Laterality Modality Other us Historical Provider HEALTH MAINTENANCE Final Result documented in this encounter Visit Diagnoses Not on filedocumented in this encounter Care Teams Group Contract Analyst Relationship Specialty Start Date End Date Cindy Zacarias ANP [address] [place] [address] PCP - General Family Medicine 07/20/20 03/18/24 Sherie William MD [address] [place] [address] PCP - General Internal Medicine 03/19/24 documented as of this encounter
--- OUTSIDE RECORDS SUMMARY | 2025-07-19 16:39 | XMS_ITS | Encounter Summary ---
Author Organization [facility] Address [address] [place] [phone] Phone Care Team Providers Care Case Manager Specialist Name Role Phone Cindy Zacarias DOBIE WORKER Primary Care Provider [phone] Encounter Details Date Type Department Care Team (Late st Contact Info) Description 09/30/2021 Ancillary Orders [facility],Outside Imaging [address] [place], [place] [phone] System, Provider Not In, [place] [address] Social History Tobacco Use Types Packs/Day Years [...] on filedocumented in this encounter Care Teams Case Manager Specialist Relationship Specialty Start Date End Date Cindy Zacarias NP [address] [place] [address] [phone] PCP - General Family Medicine 09/29/21 documented as of this encounter Additional Source Comments The information contained in this document represents components of the legal health record. It is not the complete legal health record.[facility]
--- OUTSIDE RECORDS SUMMARY | 2025-07-19 16:39 | XMS_ITS | Clinical Summary ---
Author Organization [facility] Address [address] [address] Phone Care Team Providers Care Planning And Analysis Manager Name Role Phone Cindy Zacarias NP Primary Care Provider [phone] Medications albuterol 90 mcg/actuation inhaler Inhale 2 [...] [facility] C3 ACO Care Teams Planning And Analysis Manager Relationship Specialty Start Date End Date Cindy Zacarias NP [address] [place] [phone] PCP - General Family Medicine 09/29/21 Additional Source Comments The information contained in this document represents components of the legal health record. It is not the complete legal health record.[facility]
--- OUTSIDE RECORDS SUMMARY | 2025-07-19 16:39 | XMS_ITS | Encounter Summary ---
Author Organization [employer] Address [address] [facility] 7t [place] [address] Care Team Providers Care Operator Engineer Name Role Phone Sherie William MD Primary Care Provide r Encounter Details Date Type Department Care Team ([facility] st Contact Info) Description 04/28/2024 Orders Only [facility] [address] [place] [address] Cindy Zacarias, ANP [address] [place] [address] Social History Tobacco Use Types Packs/Day Years [...] Info) Description 08/03/2025 9:00 AM EST Telemedicine [facility] [address] [place] [phone] Sherie William MD [address] [place] [phone] documented as of this encounter Visit Diagnoses Not on filedocumented in this encounter Additional Health Concerns Assessment Noted Time PHQ-9 Depression Total Score: 19 024 9:54 AM EDT documented as of this encounter Care Teams Operator Engineer Relationship Specialty Start Date End Date Sherie William MD [address] [place] [phone] PCP - General Internal Medicine 03/19/24 documented as of this encounter
== END 2025-07-17 16:37 | disposition home or self-care (01) ==
LOC: HO.HOSX 16:36
PROVIDERS: Visit Provider Physician Assistant
DX: M25.572 Pain in left ankle and joints of left foot (principal); Z98.890 Other specified postprocedural states; Z87.81 Personal history of (healed) traumatic fracture
CPT/HCPCS: 73610; 99212

== ENCOUNTER 2025-07-28 09:42 | Outpatient (AMB) | payer MEDICAID, SELFPAY ==
--- NOTE | 2025-07-28 10:08 | MHC.OFFVIS ---
Vital Signs 07/28/25 10:09 Height 5 ft 5 in Weight 174 lb BMI 29.0 Intake Visit Reasons: Personal history of (healed) traumatic fracture Intake Note: Jessy is a 60 year old female who presents today as a new patient for an evaluation of her peroneal history of healed fracture. Patient reports she is currently experiencing pain and the pain is located on the left foot lateral and medial aspect of the ankle. She also experiences a stiffness from the left great toe and radiates down to the dorsum aspect of the foot. She has taken meloxicam and gabapentin however it has not helped manage her pain symptoms. Ankle X ray was completed on 07/17/25. Ankle X ray IMPRESSION: Unchanged appearance of the healing distal fibular shaft fracture. Osteopenia. Dye Boarding Machine Operator Required: Yes Dye Boarding Machine Operator Services: Dye Boarding Machine Operator Present Dye Boarding Machine Operator Name: [id number] Allergies No Known Allergies Allergy (Verified 07/28/25 10:10) HPI Comments Details: Chief Complaint The patient presents with complaints of persistent pain, stiffness, swelling, and abnormal sensations in her leg and ankle for approximately one year. History of Present Illness The patient is a 60 year old female presenting for initial evaluation of persistent pain in her left foot and ankle. She has a history of left ankle fracture on 09/06/2024 and underwent ORIF of the fibula and syndesmosis repair on 09/16/2024. She subsequently went to physical therapy and then underwent removal of hardware in April 2025. She notes persistent left foot/ankle swelling despite healed fractures and removal of hardware. She experiences several different complaints to her foot and ankle. First, she notes a tingling and stabbing sensation over the side of her left leg, ankle, and radiates to the top/side of her left foot. Second, she complains of throbbing pain to the arch and her ankle, where she notes swelling. Of nail, she thinks she has a swollen vein on the bottom of her foot near arch. At night, she also experiences a crushing sensation in her foot. Associated symptoms include leg swelling, a sensation of coldness, and intermittent feelings of electricity inside the leg. Social: - Tobacco use [facility] Medical History (Updated 07/28/25 @ 19:35 by Ralph Carlos DPM) Ductal carcinoma in situ of left breast (~2020) History of left breast cancer (~2020) Osteopenia Postmenopausal Asthma-COPD overlap syndrome Nicotine dependence, cigarettes, uncomplicated Heart palpitations GERD (gastroesophageal reflux disease) Arthritis Cervical spinal stenosis Depression Surgical History (Updated 04/30/25 @ 16:02 by Shakira Benson PA-C) History of lumpectomy of left breast History of left breast biopsy History of open reduction and internal fixation (ORIF) procedure History of pterygium excision Family History Maternal Grandmother Stomach cancer Social History Household Members: Children Housing: Apartment Are you a primary manager intensive care unit to a significant other at home: No Do you presently have visiting nurse or other home services: No Alcohol intake: current Alcohol intake frequency: former alcohol drinker Patient Tobacco Use Status: Current everyday Tobacco user Tobacco use type: Cigarette Cigarette Packs Per Day: 0.5 Cigarettes Per Day: 10.0 Years Smoked: started at age 18, 1PPD , currently 10 per day service: No Current occupational status: unemployed Current occupation: Left Handed Female Reproductive History Menstrual Age of Menarche: 15 Review of Systems Const All systems reviewed & are unremarkable except as noted in HPI and below Physical Exam Exam Exam: Diagnostic results - X-ray (10 days ago): Revealed extra bone formation creating a connection between the two bones in the leg (synostosis), which is now stuck and blocking ankle motion. Pathology results Physical Exam - Musculoskeletal: Ankle has limited dorsiflexion. - Tenderness is present on palpation of the leg and ankle. - Vascular: A swollen vein is noted on the leg. - Neurological: Dysesthesia is elicited with percussion over a nerve pathway in the leg, consistent with a positive Tinel's sign. - Integumentary: Icthy area noted, possibly related to a retained suture. Vital Signs: BMI result Body Mass Index 29.0 Extrem Other: *Bilateral Lower Extremity Focused Exam Vascular: DP/PT 2/4, CFT<3s to all digits, TG warm to cool, mild anterior left leg edema approximately 8cm - 12cm proximal to the ankle. No pedal edema. Derm: healed surgical incisions bilateral ankles. no erythema, drainage, or signs of infection. right medial malleolar incision with a hyperkeratotic lesion, possible retained suture. Neuro: Positive Tinel sign to the left CP nerve, intermediate dorsal cutaneous nerve, and saphenous nerve distribution. MSK: Ankle range of motion -5 degrees of dorsiflexion, mild tenderness on palpation along the Achilles tendon, plantar fascia, and metatarsals 1 through 5 left foot. Office Procedures AMB Incision and Drain Podtry Details: Procedure: Incision and drainage Depth: Dermis Indication: Left medial ankle superficial foreign body Anesthesia: N/A Description: The site was prepped using alcohol and Betadine. A #15 Blade was used to excisionally debride and then retrieve the foreign body protruding from the skin. After removal, the underlying dermis was exposed with tenderness on palpation however there was no subcutaneous tissue exposed, no further foreign bodies noted, no erythema or clinical signs of infection. The wound measured 0.1 cm x 0.1 cm. Dressings: Antibiotic ointment, Band-Aid Tolerance: Patient tolerated procedure well, no immediate complications. All charges added?: Additional procedure code (CPT) needed (45755) AMB Joint Injection/Aspir Pod Joint Injection/Aspiration Podiatry: Procedure: Steroid injection Location: Left intermediate dorsal cutaneous nerve (10cm proximal to the ankle joint) Medication: 1.5cc 0.5% bupivicaine, 1cc dexamethasone, 0.5cc kenalog? Description: The left leg at the level of the anterior muscle compartment 10 cm proximal to the ankle joint was prepped using alcohol and Betadine. A steroid injection was administered using sterile technique. The site was dressed using a band-aid. Post-procedure Instructions: The patient was instructed to apply ice to the injection site. The patient was advised to call the office if there are signs or symptoms of worsening pain, infection, or steroid flare. Additional procedure code (CPT) needed ([id number]) AMB Joint Injection/Aspir Pod Joint Injection/Aspiration Podiatry: Procedure: Steroid injection Location: Left common peroneal nerve (fibular neck) Medication: 1.5cc 0.5% bupivicaine, 1cc dexamethasone, 0.5cc kenalog? Description: The left leg at the level of the lateral fibula head was prepped using alcohol and Betadine. A steroid injection was administered using sterile technique. The site was dressed using a band-aid. Post-procedure Instructions: The patient was instructed to apply ice to the injection site. The patient was advised to call the office if there are signs or symptoms of worsening pain, infection, or steroid flare. Additional procedure code (CPT) needed ([id number]) Office Meds triamcinolone acetonide 40 mg/mL suspension for injection Performing Provider: Ralph Carlos DPM Performing Location: [facility] Administered by: Ralph Carlos DPM on 07/28/25 19:24 Dose Route Admin Location Dispensed Lot Number Expiration Date [facility] Washtub Worker Helper 20 mg intra-articular 1 mL [address]-0 [employer] Total Dispensed Waste 1 mL 50 % dexamethasone sodium phosphate 4 mg/mL injection solution Performing Provider: Ralph Carlos DPM Performing Location: [facility] Administered by: Ralph Carlos DPM on 07/28/25 19:24 Dose Route Admin Location Dispensed Lot Number Expiration Date [facility] Washtub Worker Helper 4 mg intra-articular 1 mL [id number] [employer] Total Dispensed Waste 1 mL 0 % bupivacaine (PF) 0.5 % (5 mg/mL) injection solution Performing Provider: Ralph Carlos DPM Performing Location: [facility] Administered by: Ralph Carlos DPM on 07/28/25 19:24 Dose Route Admin Location Dispensed Lot Number Expiration Date [facility] Washtub Worker Helper 2 mL intra-articular 2 mL [id number] Total Dispensed Waste 2 mL 0 % triamcinolone acetonide 40 mg/mL suspension for injection Performing Provider: Ralph Carlos DPM Performing Location: [facility] Administered by: Ralph Carlos DPM on 07/28/25 19:24 Dose Route Admin Location Dispensed Lot Number Expiration Date [facility] Washtub Worker Helper 20 mg intra-articular 1 mL [id number] [employer] Total Dispensed Waste 1 mL 50 % dexamethasone sodium phosphate 4 mg/mL injection solution Performing Provider: Ralph Carlos DPM Performing Location: [facility] Administered by: Ralph Carlos DPM on 07/28/25 19:24 Dose Route Admin Location Dispensed Lot Number Expiration Date [facility] Washtub Worker Helper 4 mg intra-articular 1 mL [id number] [employer] Total Dispensed Waste 1 mL 0 % bupivacaine (PF) 0.5 % (5 mg/mL) injection solution Performing Provider: Ralph Carlos DPM Performing Location: [facility] Administered by: Ralph Carlos DPM on 07/28/25 19:24 Dose Route Admin Location Dispensed Lot Number Expiration Date [facility] Washtub Worker Helper 2 mL intra-articular 10 mL [id number] [facility] Total Dispensed Waste 10 mL 80 % Results Reviewed Results Reviewed: X-ray Read: 07/17/2025 X-ray left ankle 3 views (AP, Mortise, Lateral) reviewed which shows healed fibula fracture, anatomic tib-fib overlap. Synostosis at the level of the syndesmosis 2.5cm from the tibiotalar joint. The ankle mortise is aligned, no varus/valgus deformity; joint space mildly narrowed. I personally reviewed the imaging and my findings are listed above. Assessment & Plan Assessment & Plan (1) Status post ORIF of fracture of ankle: Code(s): Z98.890 - Other specified postprocedural states; Z87.81 - Personal history of (healed) traumatic fracture Category: Surgical Plan: The patient's pain is assessed to be multi-factorial, stemming from three primary issues: left ankle neuritis, venous insufficiency, and ankle equinus 2/2 synostosis of the syndesmosis. CRPS is on the differential as well. The plan is to address each component in a stepwise fashion, beginning with a work-up for her neuritis and venous insufficiency. (2) Ankylosis, left ankle: Code(s): M24.672 - Ankylosis, left ankle Category: Medical Plan: Imaging confirmed an early syndesmosis fusion, which mechanically limits ankle motion and may be causing the strain on her flexor tendons. Definitive treatment for this will be deferred until the nerve and vein issues are addressed. Future treatment options discussed include surgery to resect the synostosis and clean out scar tissue, or a custom brace to limit painful motion. Surgically, she will likely need a debridement of her syndesmosis and ankle arthroscopy to aid in her dorsiflexion contracture. She would then require rigorous physical therapy to prevent recurrence. She will require a CT scan for operative planning when ready. (3) Neuritis of left ankle: Code(s): G57.92 - Unspecified mononeuropathy of left lower limb Category: Medical Plan: administered anesthetic blocks to the CP and IDCN of the left leg and ankle. The patient tolerated the procedure well. She was informed that she may have numbness after the injection which is expected. It was also explained that she may require repeat injections if this does prove to help her. Rx EMG/NCV Follow up in 3 weeks (4) Venous stasis: Code(s): I87.8 - Other specified disorders of veins Category: Medical Plan: Rx venous duplex Referred to the vein clinic for left foot/ankle varicosities (5) Foreign body of ankle, left, superficial: Code(s): S90.552A - Superficial foreign body, left ankle, initial encounter Category: Medical Qualifiers: Encounter type: initial encounter Qualified Code(s): S90.552A - Superficial foreign body, left ankle, initial encounter Plan: Lidocaine jelly was applied to the medial aspect of the left ankle. The foreign body from the skin was removed. It was then dressed with antibiotic ointment and a Band-Aid. It was explained that she may have remaining suture that has not completely come to the level of the skin yet. If this returns, she may require further debridements in the future. Plan Patient Instructions - You will receive 2 injections today to help with your nerve pain. - We will refer you for two separate tests : one to check the health of your nerves and another to check the veins in your leg. - You will be referred to a vein doctor to discuss treatment for the swollen and painful vein on your foot. - After the nerve and vein problems are managed, we will discuss the best way to fix the bone block in your ankle, which may include surgery or a custom brace. Counseling The patient was counseled on the assessment that she has three separate problems contributing to her symptoms: a nerve issue, a vein issue, and a mechanical block from extra bone growth (synostosis). It was explained that the nerve pain may have been from the initial trauma versus postoperative immobilization, while the bone block resulted from the way her fracture healed and is the cause of her limited motion and tendon strain. The plan was outlined to address the nerve and vein problems first with injections and diagnostic tests, followed by a later discussion about managing the bone block with either surgery or a custom brace. She was reassured that although her case is complex, a clear plan is in place and all necessary tests will be ordered. Orders: Orders NE electromyogram (EMG) Today G57.92 - Unspecified mononeuropathy of left lower limb US venous duplex LE LT Today I87.8 - Other specified disorders of veins AMB Joint Injection/Aspiration Podiatry Today G57.92 - Unspecified mononeuropathy of left lower limb AMB Incision & Drainage Podiatry Today S90.552A - Superficial foreign body, left ankle, initial encounter NE nerve conduction velocity Today G57.92 - Unspecified mononeuropathy of left lower limb AMB Joint Injection/Aspiration Podiatry Today G57.92 - Unspecified mononeuropathy of left lower limb Referrals Vascular Surgery Referral I83.92 - Asymptomatic varicose veins of left lower extremity, I87.8 - Other specified disorders of veins Coding Level of Care Code New Pt Level 4 (29542) Diagnoses Status post ORIF of fracture of ankle Z98.890; Z87.81 Ankylosis, left ankle M24.672 Neuritis of left ankle G57.92 Venous stasis I87.8 Superficial foreign body of left ankle, initial encounter S90.552A Encounter type: initial encounter CPT Codes I&D Drain - All charges added?: Additional procedure code (CPT) needed ([id number]) Joint injectio/aspiration Podiatry - All charges added?: Additional procedure code (CPT) needed ([id number]) Joint injectio/aspiration Podiatry - All charges added?: Additional procedure code (CPT) needed ([id number]) Time Spent (min) 45
[2025-07-28 10:09] VITALS: BMI 29.0
--- OUTSIDE RECORDS SUMMARY | 2025-07-28 11:30 | XMS_ITS | Encounter Summary ---
Author Organization [employer] Address [address] [facility] [address]t [place] [address] Care Team Providers Care Helper Steel Fabrication Name Role Phone Sherie William MD Primary Care Provide r Encounter Details Date Type Department Care Team ([facility] st Contact Info) Description 07/23/2025 Patient Outreach [facility] [address] [place] [address] Sherie William MD [address] [place] [address] Social History Tobacco Use Types Packs/Day Years [...] encounter Progress Notes * Crys Marvin - 07/23/2025 12:49 PM EST CHW Crys Marvin submitted PT 1 to [facility] documented in this encounter Plan of Treatment Upcoming Encounters Date Type Department Care Team (Late st Contact Info) Description 08/03/2025 9:00 AM EST Telemedicine [facility] [address] [place] [phone] Sherie William MD [address] [place] [address] documented as of this encounter Visit Diagnoses Not on filedocumented in this encounter Additional Health Concerns Assessment Noted Time PHQ-9 Depression Total Score: 13 025 10:03 AM EDT documented as of this encounter Care Teams Helper [employer]ation Relationship Specialty Start Date End Date Sherie William MD [address] [place] [address] PCP - General Internal Medicine 03/19/24 documented as of this encounter
--- OUTSIDE RECORDS SUMMARY | 2025-07-28 11:30 | XMS_ITS | Clinical Summary ---
Author Organization [employer] Address [address] [place] [address] 7t [place] [address] Care Team Providers Care Die Inspector Name Role Phone Sherie William MD [...] the evening. 11/04/19 21 Active sodium chloride ([place] Nasal Pilger) 0.65 % nasal sprayIndicatio ns:Viral URI 1-2 [...] obstructive pulmonary disease, unspecified COPD type (CMS/HCC) ([facility]) INHALE 2 PUFFS BY MOUTH EVERY 4 TO 6 HOURS IF NEEDED FOR SHORTNESS OF BREATH OR WHEEZING 18 g 03/19/20 24 Active Fluocinolone Acetonide Scalp (Warner-Smoothe /FS Scalp) 0.01 % oilIndications :Seborrheic dermatitis of scalp Massage into damp scalp daily. Cover hair and leave on for at least 4 hours 118 mL 03/19/20 24 Active tiZANidine (Zanaflex) 4 MG capsuleIndicat ions:Chronic bilateral low back pain without sciatica Take 1 capsule (4 mg) by mouth 3 times daily. 90 capsule 11 03/19/20 24 Active fluocinolone (Warner-Smoothe ) 0.01 % external oilIndications :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 APPLY TOPICALLY TO AFFECTED AREA(S) TWICE DAILY DIRECTED 118.28 mL 1 08/05/20 24 Active triamcinolone (Kenalog) 0.1 % creamIndicatio ns: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 APPLY TO THE AFFECTED AREA(S) TOPICALLY TWICE DAILY 80 g 2 10/18/19 25 Active QUEtiapine (SEROquel) 50 MG tabletIndicati ons:Mood disorder ([facility]) Take 1 tablet (50 mg) by mouth at bedtime. 30 tablet 2 02/27/20 25 Active omeprazole (PriLOSEC) [address] capsuleIndicat ions:Gastroeso phageal reflux disease, unspecified whether esophagitis present TAKE 1 CAPSULE BY MOUTH EVERY DAY BEFORE A MEAL 90 capsule 02/27/20 25 Active nicotine (Nicoderm, Step 1) 21 MG/24HR patchIndicatio ns:Tobacco dependence syndrome APPLY 1 PATCH TOPICALLY TO THE SKIN IN THE MORNING *DO NOT SMOKE WHILE USING PATCH* 30 patch 1 05/13/20 25 Active meloxicam (Mobic) 15 MG tabletIndicati ons:Chronic bilateral low back pain without sciatica TAKE 1 TABLET BY MOUTH EVERY DAY WITH FOOD 30 tablet 5 9:22 AM EST 07/21/20 Active meloxicam (Mobic) 15 MG tabletIndicati ons:Chronic bilateral low back pain without sciatica TAKE 1 TABLET BY MOUTH EVERY DAY WITH FOOD 30 tablet 02/27/20 025 Discontinued(Re order (will not trigger notification to Pharmacy)) Active Problems Problem Noted Date Diagnosed Date Severe episode of recurrent major depressive disorder, without psychotic features ([facility]/HCC) 03/18/2025 Assessment & Plan (03/23/2025 9:08 AM [...] at bedtime, I will refer her to [facility] Closed fracture of distal end of left [...] RTC 4 weeks televisit COPD with asthma ([facility]) 07/25/2024 Assessment & Plan (02/26/2025 12:25 PM [...] episode of recurren t major depressive disorder ([facility]) 11/19/2013 10/01/2024 Assessment & Plan (03/19/2024 4:35 [...] intervention , Patient to reach out to [facility] team as needed, Comply with medication , Patient to engage in OP therapy , and Patient to reach out to [facility] as needed Encounters * This document contains information received from the source organization and may not represent a complete record from that organization. Date Type Department Care Team Description 07/27/2025 Patient Outreach [facility] MEDICINE [address] [place] [address] Sherie William MD Care Coordination ([facility] -[facility] Crys Marvin telephone call outreach) 07/23/2025 Patient Outreach [facility] MEDICINE [address] [place] [address] Sherie William MD 07/21/[address] [facility] CHC MED & PEDS [address] [place], [place] [phone] Sherie William MD Chronic bilateral low back pain without sciatica 06/17/2025 Patient Outreach [address] [address] Sherie William MD Care Coordination ([facility]3 -[facility] telephone call outreach) 06/05/[address] [address] Sherie William MD oct recall 05/19/2025 Patient Outreach [address] [address] Sherie William MD Care Coordination ([facility] -[facility] telephone call outreach) 05/13/[address] [address] Sherie William MD Tobacco dependence syndrome 05/06/2025 Patient Outreach [address] [address] hSerie William MD Care Coordination ([facility] -[facility] telephone call outreach) 05/01/2025 Patient Outreach [facility] MED & PEDS [address] [place] [address] Sherie William MD Care Management ([facility]- F/U Call) from Last 3 Months Immunizations [...] 08/03/2025 9:00 AM EST Telemedicine [facility] MEDICINE [address] [place] [address] Sherie William MD [address] [place] [address] Health Maintenance Due Date Last Done Comments [...] Positive( A) Negative 01/16/2024 10:06 AM EDT [facility] (CLIA #:[id number]) Comment: POSITIVE TEST RESULT. A positive Cologuard [...] (Mario Bruce al, N Engl J Med 2014;370(14):1664-3303.) Cologuard may produce a false negative or false positive result (no colorectal cancer or precancerous polyp present at colonoscopy follow up). A negative Cologuard test result does not guarantee the absence of CRC or advanced adenoma (pre-cancer). The current Cologuard screening interval is every 3 years. ([place] [employer] Society and U.S. Multi-Society Task Force). Cologuard performance data in a 10,000 patient pivotal study using colonoscopy as the reference method can be accessed at the following location: www.Startcapps/results. Additional description of the Cologuard test process, warnings and precautions can be found at www.Kinoosrd.com. Stool specimen (specimen) 01/10/2024 12:16 PM EDT 01/11/2024 1:42 PM EDT [facility] ORDERA BLES Final Result Performing Organization Address City/[facility]/ZIP Co de Phone Number [facility] (CLIA #:[id number]) [place] [address], * Hepatitis C Antibody with Reflex to HCV, RNA, Quantitative, Real-Time PCR (12/31/2023 9:52 AM EDT) Hepatitis C Antibody Nonreactive Nonreactive [facility] Comment:Antibodies to HCV no t detected; does not exclude early acuteHCV infection. Blood Venous blood specimen / Unknown 12/31/2023 9:52 AM EDT 12/31/2023 11:19 AM EDT [facility] ORDERABLES Final Resul t Performing Organization Address [facility] Co de Phone Number [facility] [address] [place] [phone] * HIV-1/2 Antigen and Antibodies, Fourth [...] below the limit ofdetection of this assay.The [employer] HIV Ag/Ab Combo assay result andsupplemental assay results should be interpreted inconjunction with the patient's clinical presentation,history and other laboratory results. If the results areinconsistent with clinical evidence, additional testing issuggested to confirm the result. Blood Venous blood specimen / Unknown 12/31/2023 9:52 AM EDT 12/31/2023 11:19 AM EDT [facility] BLOOD ORDERABLES Final Resul t Performing Organization Address [facility] de Phone Number [facility] [address] [place] [phone] * (ABNORMAL) Lipid Panel, Standard (12/31/2023 9:52 AM EDT) Triglycerides 166(H) <150 mg/dL [facility] Comment:Desirable Triglyceri de: less than 150 mg/dLBorderline High Triglyceride 150-199 mg/dLHigh Triglyceride: 200-499 mg/dLVery High Triglyceride: greater than or equal to 5OO mg/dL Cholesterol 172 <200 mg/dL [facility] Comment:Desirable Cholestero l: less than 200 mg/dLBorderline High Cholesterol: 200-239 mg/dLHigh Cholesterol: greater than 239 mg/dL LDL Cholesterol Calculated 103(H) <100 mg/dL [facility] Comment:Desirable LDL: less than 100 mg/dLNear Optimal/Above Optimal LDL: 110- 129 mg/dLBorderline High LDL: 130-159 mg/dLHigh LDL: 160-189 mg/dLVery High LDL: greater than or equal to 190 mg/dL HDL Cholesterol 36(L) >40 mg/dL [facility] Comment:Desirable HDL: great er than 40 mg/dL Note: This HDL assay may give artificially low results in patients with liver disease. Blood Venous blood specimen / Unknown 12/31/2023 9:52 AM EDT 12/31/2023 11:19 AM EDT [facility] ANP LAB BLOOD ORDERABLES Final Resul t Performing Organization Address [facility] Co de Phone Number [facility] [address] [place] [phone] * BI Mammogram Diagnostic Tomosynthesis Bilateral (08/30/2023 12:11 PM EST) Anatomical Region Laterality Modality Breast Bilateral Mammography 08/30/2023 12:1 1 PM EST Narrative 08/30/2023 1:07 PM EST [facility] [address] [place] [address] Mammography Report Signed Patient: Jessy Shanks MR#: [id number] : 1965 Acct:[id number] Age/Sex: 58 / F ADM Date: 08/30/23 Loc: HO.MAMMO Attending Dr: Pipe Yo NP Ordering Physician: PIPE YO NP Results: 2Benign Pastor quach Date of Service: 08/30/23 Follow Up: 1 Year From [facility] ina Mammogram Procedure(s): MM tomosynthesis diagnostic BI Accession Number(s): [id number] cc: PIPE YO NP EXAMINATION: MM DIAGNOSTIC [...] in OV> 08/30/23 1303 DD/ 1211 TD/TT: Recruiter Coordinator: Procedure Note Donotuseinterpreter, Image - 08/30/2023 [facility] [address] [place], [place] [address] Mammography Report Signed Patient: Pop Shanks#: [id number] : 1965Acct:[id number] Age/Sex: 58 / FADM Date: 08/30/23 Loc: HO.MAMMO Attending Dr: Pipe Yo NP Ordering Physician: PIPE YO NPResults: 2Benign Pastor quach Date of Service: 08/30/23Follow Up: 1 Year From Orig inal Mammogram Procedure(s): MM tomosynthesis diagnostic BI Accession Number(s): [id number] cc: PIPE YO NP EXAMINATION: MM DIAGNOSTIC [...] in OV> 08/30/23 1303 DD/ 1211 TD/TT: Recruiter Coordinator: [facility] BI PROCEDURES Final Result * HPV mRNA E6/E7 (05/19/2021 11:47 AM EDT) HPV nRNA E6/E7 Not Detected Not Detected [facility] Comment: Methodology: Unarmed Security Officer-Mediated Amplification This assay detects E6/E7 viral messenger RNA (mRNA) from 14 high-risk HPV types (16,18,31,33,35,39,45,51,52,56,58,59,66,68). The analytical performance characteristics of this assay have been determined by [employer]. The modifications have not been cleared or approved by the FDA. This assay has been validated pursuant to the CLIA regulations and is used for clinical purposes. For additional information, please refer to http://education.[employer].Microtune/faq/BDA539k0 (This link if provided for information/ educational purposes only.) 05/19/2021 11:4 7 AM EDT us [facility] BLOOD ORDERABLES Aurora l Result [facility] [address] [place] [address], * Pap Smear (05/19/2021 12:00 AM EDT) Swab [facility] CYTOLOGY ORDERABLES F inal Result [facility] [address] [facility], [facility], [place] [address] from Last 3 Months or Most Recently Relevant to Health Maintenance Insurance [address] [place], [place] [address]avolution C3 Care Teams Die Inspector Relationship Specialty Start Date End Date Sherie William MD [address] [place] [phone] PCP - General Internal Medicine 03/19/24
--- OUTSIDE RECORDS SUMMARY | 2025-07-28 11:30 | XMS_ITS | Encounter Summary ---
Author Organization [facility] Address [address] [place] [address] Phone Care Team Providers Care Carpet Yarn Winder Operator Name Role Phone Cindy Zacarias REGROOVER Primary Care Provider [phone] Encounter Details Date Type Department Care Team (Late st Contact Info) Description 09/30/2021 Ancillary Orders [facility],Outside Imaging [address] [place], [place] [phone] System, Provider Not In, [place] [address] Social History Tobacco Use Types Packs/Day Years [...] on filedocumented in this encounter Care Teams Carpet Yarn Winder Operator Relationship Specialty Start Date End Date Cindy Zacarias NP [address] [place] [phone] PCP - General Family Medicine 09/29/21 documented as of this encounter Additional Source Comments The information contained in this document represents components of the legal health record. It is not the complete legal health record.[facility]
--- OUTSIDE RECORDS SUMMARY | 2025-07-28 11:30 | XMS_ITS | Encounter Summary ---
Author Organization [facility] Address [address] [place] [address] Phone Care Team Providers Care Clinical Systems Educator Name Role Phone Cindy Zacarias BOWLING ALLEY MECHANIC Primary Care Provider [phone] Encounter Details Date Type Department Care Team (Late st Contact Info) Description 09/30/2021 Ancillary Orders [facility],Outside Imaging [address] [place], [place] [phone] System, Provider Not In, [place] [address] Social History Tobacco Use Types Packs/Day Years [...] on filedocumented in this encounter Care Teams Clinical Systems Educator Relationship Specialty Start Date End Date Cindy Zacarias NP [address] [place] [address] [phone] PCP - General Family Medicine 09/29/21 documented as of this encounter Additional Source Comments The information contained in this document represents components of the legal health record. It is not the complete legal health record.[facility]
--- OUTSIDE RECORDS SUMMARY | 2025-07-28 11:30 | XMS_ITS | Encounter Summary ---
Author Organization [facility] Address [address] [place] [address] Phone Care Team Providers Care Container Washer Machine Name Role Phone Cindy Zacarias PLANT GUARD Primary Care Provider [phone] Encounter Details Date Type Department Care Team (Late st Contact Info) Description 09/30/2021 Ancillary Orders [facility],Outside Imaging [address] [place], [place] [phone] System, Provider [place] In, [place] [address] Social History Tobacco Use Types Packs/Day Years [...] on filedocumented in this encounter Care Teams Container Washer Machine Relationship Specialty Start Date End Date Cindy Zacarias NP [address] [place] [phone] PCP - General Family Medicine 09/29/21 documented as of this encounter Additional Source Comments The information contained in this document represents components of the legal health record. It is not the complete legal health record.[facility]
--- OUTSIDE RECORDS SUMMARY | 2025-07-28 11:30 | XMS_ITS | Encounter Summary ---
Author Organization [facility] Address [address] [place] [address] Phone Care Team Providers Care Comb Winder Name Role Phone Cindy Zacarias BIT TAPPER Primary Care Provider Encounter Details Date Type Department Care Team (Late st Contact Info) Description 09/30/2021 Ancillary Orders [facility],Outside Imaging [address] [place], [place] [phone] System, Provider [place] In, [place] [address] Social History Tobacco Use Types Packs/Day Years [...] on filedocumented in this encounter Care Teams Comb Winder Relationship Specialty Start Date End Date Cindy Zacarias NP [address] [place] [address] [phone] PCP - General Family Medicine 09/29/21 documented as of this encounter Additional Source Comments The information contained in this document represents components of the legal health record. It is not the complete legal health record.[facility]
--- OUTSIDE RECORDS SUMMARY | 2025-07-28 11:30 | XMS_ITS | Encounter Summary ---
Author Organization [employer] Address [address] [place] [address] [address] [place] [address] Care Team Providers Care Pouncer Machine Name Role Phone Cindy Zacarias Primary Care Provider [phone] Sherie William MD Primary Care Provide r Encounter Details Date Type Department Care Team (Latest Contact Info) Description 12/07/2020 Abstract [facility] CONVERSIONS Dental, Provider, DDS Social History Tobacco [...] 08/03/2025 9:00 AM EST Telemedicine [facility] MEDICINE [address] [place] [address] Sherie William MD [address] [place] [address] documented as of this encounter Visit Diagnoses Not on filedocumented in this encounter Care Teams Pouncer Machine Relationship Specialty Start Date End Date Cindy Zacarias ANP [address] [place] [address] PCP - General Family Medicine 07/20/20 03/18/24 Sherie William MD [address] [place] [address] PCP - General Internal Medicine 03/19/24 documented as of this encounter
--- OUTSIDE RECORDS SUMMARY | 2025-07-28 11:30 | XMS_ITS | Encounter Summary ---
Author Organization [facility] Address [address] [place] [address] Phone Care Team Providers Care Centralized Traffic Control Operator Name Role Phone Cindy Zacarias RECRUITING AND SELECTION CONSULTANT Primary Care Provider [phone] Encounter Details Date Type Department Care Team (Late st Contact Info) Description 09/30/2021 Ancillary Orders [facility],Outside Imaging [address] [place], [place] [phone] System, Provider [place] In, [place] [address] Social History Tobacco Use Types Packs/Day Years [...] on filedocumented in this encounter Care Teams Centralized Traffic Control Operator Relationship Specialty Start Date End Date Cindy Zacarias NP [address] [place] [address] [phone] PCP - General Family Medicine 09/29/21 documented as of this encounter Additional Source Comments The information contained in this document represents components of the legal health record. It is not the complete legal health record.[facility]
--- OUTSIDE RECORDS SUMMARY | 2025-07-28 11:30 | XMS_ITS | Clinical Summary ---
Author Organization [facility] Address [address] [address] Phone Care Team Providers Care Traffic Signal Repairer Name Role Phone Cindy Zacarias NP Primary Care Provider [phone] Medications albuterol 90 mcg/actuation inhaler Inhale 2 [...] [facility]CO [facility] ACO Care Teams Traffic Signal Repairer Relationship Specialty Start Date End Date Cindy Zacarias NP [address] [place] [address] PCP - General Family Medicine 09/29/21 Additional Source Comments The information contained in this document represents components of the legal health record. It is not the complete legal health record.[facility]
--- OUTSIDE RECORDS SUMMARY | 2025-07-28 11:31 | XMS_ITS | Encounter Summary ---
Author Organization [employer] Address [address] [place] [address] 7t [place] [address] Care Team Providers Care Caustic Loader Name Role Phone Cindy Zacarias Primary Care Provider [phone] Sherie William MD Primary Care Provide r Encounter Details Date Type Department Care Team (Late st Contact Info) Description 04/03/2023 Abstract [facility] MEDICINE [address] [place] [address] [phone] ProviderJillian MD Social History Tobacco Use Types [...] Info) Description 08/03/2025 9:00 AM EST Telemedicine [facility] MEDICINE [address] [place] [phone] Sherie William MD [address] [place], [place] [phone] documented as of this encounter Procedures Procedure Name Priority Date/Time Associated Diagnosis Comments MAMMOGRAPHY Routine 03/06/2023 documented in this encounter Results * Mammography (03/06/2023) Mammogram abnormal Anatomical Region Laterality Modality Other us Historical Provider HEALTH MAINTENANCE Final Result documented in this encounter Visit Diagnoses Not on filedocumented in this encounter Care Teams Caustic Loader Relationship Specialty Start Date End Date Cindy Zacarias ANP [address] [place] [address] PCP - General Family Medicine 07/20/20 03/18/24 Sherie William MD [address] [place] [address] PCP - General Internal Medicine 03/19/24 documented as of this encounter
--- OUTSIDE RECORDS SUMMARY | 2025-07-28 11:31 | XMS_ITS | Encounter Summary ---
Author Organization [employer] Address [address] [place] [address] 7t [place] [address] Care Team Providers Care Wagon Driver Name Role Phone Sherie William MD Primary Care Provide r Reason for Visit * Reason Comments Care Coordination [facility] call outreach Encounter Details Date Type Department Care Team (Latest Contact Info) Description 07/27/2025 Patient Outreach [facility] MEDICINE [address] [place] [address] Sherie William MD [address] [place] [address] Care Coordination [facility] [place] telephone call outreach) Social History Tobacco Use Types Packs/Day Years [...] encounter Progress Notes * Crys Marvin - 07/27/2025 1:28 PM EST CHW Crys Marvin spoke to patient updated PT 1, She has an appointment on 07/28/25 @ 10:00 am, getting picked up at 9:[address] [place] [address] documented in this encounter Plan of Treatment Upcoming Encounters Date Type Department Care Team (Late st Contact Info) Description 08/03/2025 9:00 AM EST Telemedicine [facility] MEDICINE [address] [place] [address] Sherie William MD [address] [place] [address] documented as of this encounter Visit Diagnoses Not on filedocumented in this encounter Additional Health Concerns Assessment Noted Time PHQ-9 Depression Total Score: 13 025 10:03 AM EDT documented as of this encounter Care Teams Wagon Driver Relationship Specialty Start Date End Date Sherie William MD [address] [place] [address] PCP - General Internal Medicine 03/19/24 documented as of this encounter
--- OUTSIDE RECORDS SUMMARY | 2025-07-28 11:31 | XMS_ITS | Encounter Summary ---
Author Organization [employer] Address [address] [facility] 7t [place] [address] Care Team Providers Care Agricultural Engineering Technologist Name Role Phone Sherie William MD Primary Care Provide r Encounter Details Date Type Department Care Team ([facility] st Contact Info) Description 04/28/2024 Orders Only [facility] MEDICINE [address] [place] [address] Cindy Zacarias, ANP [address] [place] [address] Social History Tobacco Use Types Packs/Day Years [...] Info) Description 08/03/2025 9:00 AM EST Telemedicine [facility] MEDICINE [address] [place] [address] Sherie William MD [address] [place] [address] documented as of this encounter Visit Diagnoses Not on filedocumented in this encounter Additional Health Concerns Assessment Noted Time PHQ-9 Depression Total Score: 19 024 9:54 AM EDT documented as of this encounter Care Teams Agricultural Engineering Technologist Relationship Specialty Start Date End Date Sherie William MD [address] [place] [phone] PCP - General Internal Medicine 03/19/24 documented as of this encounter
== END 2025-07-28 10:57 | disposition home or self-care (01) ==
PROVIDERS: Visit Provider Student in an Organized Health Care Education/Training Program
DX: S90.552A Superficial foreign body, left ankle, initial encounter (principal); M24.672 Ankylosis, left ankle; G57.92 Unspecified mononeuropathy of left lower limb; Z87.81 Personal history of (healed) traumatic fracture; Z98.890 Other specified postprocedural states; I87.8 Other specified disorders of veins
CPT/HCPCS: 10120; 64450; 99204

== ENCOUNTER → 2025-07-28 09:42 | Outpatient (BNVA) | payer MEDICAID, SELFPAY | PROVIDERS: Visit Provider Student in an Organized Health Care Education/Training Program | DX: S90.552A Superficial foreign body, left ankle, initial encounter (principal); I87.8 Other specified disorders of veins; G57.92 Unspecified mononeuropathy of left lower limb; M24.672 Ankylosis, left ankle; Z87.81 Personal history of (healed) traumatic fracture; Z98.890 Other specified postprocedural states; X58.XXXA Exposure to other specified factors, initial encounter; Y93.9 Activity, unspecified; Y92.9 Unspecified place or not applicable; Y99.9 Unspecified external cause status | CPT/HCPCS: 10120; 64450; 99202; J0665; J1100; J3301 ==